=== PATIENT | female | born 1945 | race Caucasian/White ===

== ENCOUNTER → 2019-03-08 | Outpatient (CLI) | payer MEDICARE, SELFPAY ==
[2019-03-08 17:04] LABS: Absolute Lymphocyte Count 1.48 X10^3/ul (0.83-4.51); Absolute Neutrophil Count 4.1 X10^3/uL (2.0-7.7); Basophil# 0.04 X10^3/uL; Basophil% 0.6 % (0-1); Eosinophil# 0.07 X10^3/uL; Eosinophils% 1.1 % (0-5); Hematocrit 41.7 % (37-47); Hemoglobin 13.5 g/dl (12.0-15.0); Lymphocyte # 1.48 X10^3/ul (4.0); Lymphocyte % 23.6 % (19-41); Mean Corp Hgb Conc 32.4 g/gl (32-36); Mean Corpuscular Hgb 29.8 pg (27.0-32.0); Mean Corpuscular Volume 92.1 fL (81-99); Mean Platelet Vol. 11.6 fl (6.2-12.0); Monocyte# 0.56 X10^3/uL; Monocyte% 8.9 % (0-10); Neutrophil # 4.11 X10^3/uL (2.7-7.7); Neutrophil % 65.6 % (47-70); Platelet Count 197 K/mm3 (150-450); RBC Distribution Width CV 12.8 % (11.6-14.6); RBC Distribution Width SD 42.5 fl (35.1-43.9); Red Blood Count 4.53 M/mm3 (4.2-5.4); White Blood Count 6.3 K/mm3 (4.4-11.0)
[2019-03-08 17:05] LABS: POSITIVE COUNT NO; POSITIVE DIFFERENTIAL NO; POSITIVE MORPHOLOGY NO
[2019-03-08 17:12] LABS: Vitamin B12 154 pg/mL (211-911)
[2019-03-08 17:14] LABS: ALB/GLOB Ratio 0.9 RATIO (0.9-2.4); AST(SGOT) 29 U/L (15-37); Alanine Aminotransfer ALT/SGPT 26 U/L (13-56); Albumin, Serum 3.7 g/dL (3.2-5.0); Alkaline Phosphatase 124 U/L (45-117); Anion Gap 6 (5-15); BUN 19 mg/dL (7-18); BUN/Creat Ratio 15.8 RATIO (10-20); Calcium,Total 8.8 mg/dL (8.5-10.1); Chloride 105 mmol/L (98-107); EST Glomerular Filtration Rate 47 mL/min (>60); Est Glom Filt Rate - Afr Amer 57 mL/min (>60); Ferritin 13 ng/mL (8-252); Globulin 4.1 g/dL (2.2-4.2); Glucose 88 mg/dL (74-106); Iron Binding Capacity,Total 316 ug/dL (250-450); Potassium 4.1 mmol/L (3.5-5.1); Protein, Total 7.8 g/dL (6.4-8.2); Sodium Level 139 mmol/L (136-145); Thyroid Stim Hormone (TSH) 1.29 uIU/mL (0.358-3.74)
== END | disposition home or self-care (01) ==
PROVIDERS: Family Provider Family Medicine; PCP Family Medicine; Referring Provider Nurse Practitioner Family; Visit Provider Nurse Practitioner Family
DX: R53.83 Other fatigue (principal)
CPT/HCPCS: 80053; 82607; 82728; 83550; 84443; 85025

== ENCOUNTER → 2019-06-24 | Outpatient (CLI) | payer MEDICARE, SELFPAY ==
[2019-06-24 13:14] LABS: Vitamin B12 219 pg/mL (211-911)
== END | disposition home or self-care (01) ==
LOC: LABSPEC 12:36
PROVIDERS: Family Provider Family Medicine; PCP Family Medicine; Referring Provider Nurse Practitioner Family; Visit Provider Nurse Practitioner Family
DX: E53.8 Deficiency of other specified B group vitamins (principal)
CPT/HCPCS: 82607; 82746

== ENCOUNTER 2019-07-20 08:06 | Day surgery (SDC) | payer MEDICARE, SELFPAY ==
[2019-07-07 09:34] VITALS: BMI 28.5
--- NOTE | 2019-07-07 09:34 | HP_ITS ---
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 Accompanied by: Is patient in pain?: No Allergies acetaminophen [From Vicodin] Allergy (Verified 07/07/19 09:17) Other atorvastatin calcium [From Lipitor] Allergy (Verified 07/07/19 09:17) Other clarithromycin Allergy (Verified 07/07/19 09:17) Nausea/Vom/Diarrhea desloratadine [From Clarinex] Allergy (Verified 07/07/19 09:17) Unknown diphenhydramine HCl [From Triaminic Allergy] Allergy (Verified 07/07/19 09:17) Other guaifenesin [From Entex LA] Allergy (Verified 07/07/19 09:17) Unknown hydrocodone bitartrate [From Vicodin] Allergy (Verified 07/07/19 09:17) Other methylprednisolone Allergy (Verified 07/07/19 09:17) Unknown nystatin Allergy (Verified 07/07/19 09:17) Unknown pentoxifylline Allergy (Verified 07/07/19 09:17) Nausea/Vom/Diarrhea phenylephrine HCl [From Entex LA] Allergy (Verified 07/07/19 09:17) Unknown phenylpropanolamine HCl [From Entex LA] Allergy (Verified 07/07/19 09:17) Unknown sulfamethoxazole [From Bactrim] Allergy (Verified 07/07/19 09:17) Unknown trimethoprim [From Bactrim] Allergy (Verified 07/07/19 09:17) Unknown PFSH Surgical History (Updated 07/07/19 @ 09:13 by Dejah Steve) History of colonoscopy (Acute) Family History (Updated 07/07/19 @ 09:15 by Dejah Steve) Mother Diabetes Heart disease Father Heart disease Sister Diabetes Heart disease Hypertension Social History (Updated 07/07/19 @ 09:34 by Stepan Morgan MD) Smoking Status: Never smoker alcohol intake: never substance use type: does not use additional social history: Uses Ibuprofen prn HPI HPI HPI: FAN CHEEMA, is a 74 F who presents to the office today for HPI HPI Surgical H&P: Yes HPI: FAN CHEEMA, is a 74 F who presents to the office today for surveillance colonoscopy. I have assisted the patient previously. May 04, 2015 Dr. Manuel Woody performed colonoscopy identifying a non-colonoscopically resectable proximal ascending colon polyp. Subsequently on July 12, 2015 I did a laparoscopic right colectomy. 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 The patient then had a follow-up colonoscopy by Dr. Manuel Woody on August 09, 2016. The patient did require 100 mcg of fentanyl and 5 mg of Versed and 25 mg of diphenhydramine. The bowel prep unfortunately was noted to be poor at that time. There were no visualized acute findings. The patient denies bright red blood per rectum or melena. No mucus per stool. No abdominal pain. No unexpected weight loss. Her health has otherwise been stable. ROS General General: No weight change, appetite, fatigue, colon cancer, breast cancer or weakness HEENT HEENT: No difficulty swallowing, eye injury, eye surgery, swollen glands or hoarseness Endo Endocrine: No thyroid disease, diabetes mellitus, thyroid cancer, Hair loss, heat intolerance or cold intolerance Skin Skin: No rash or changing moles Breast Breast: No left breast lump, right breast lump, nipple discharge, breast pain, abnormal mammogram, abnormal US or breast enlargement Musc Musculoskeletal: No back problems, arthritis, rheumatoid arthritis, gout or joint pain Cardio Cardiovascular: No murmur, pacemaker, heart disease, atrial fibrillation, high blood pressure, heart attack, heart stent, palpitations, shortness of breat with exertion or chest pain Psych Psychiatric: Yes anxiety; no depression or hearing voices Resp Respiratory: No shortness of breath, No sleep apnea, No cough, No COPD, No asthma, No emphysema, No wheezing Gastro Gastrointestinal: No abdominal pain, No nausea or vomiting, No diarrhea, No constipation, No blood in stool, No acid reflux, No hemorrhoids, No ulcers, No gallbladder problem, No black,tarry stools Karl Hematologic: No blood thinners, No blood disorders, No bleeding, No anemia, No blood clots Neuro Neurologic: No system reviewed and no additional complaints, except as docu, No as per HPI, No abnormal walking, No abnormal hearing, No abnormal movements, No abnormal speech, No behavioral changes, No burning sensations, No confusion, No seizure-like activity, No unsteadiness, No dizziness, No localized weakness, No frequent falls, No headache(s), No lack of coordination, No loss of vision, No memory loss, No numbness, No other visual disturbances, No radiating pain, No restless legs, No sensory deficit, No fainting, No tingling, No tremor(s), No weakness, No other Exam Const General: cooperative, healthy appearing, comfortable, no acute distress Nutritional Appearance: average body habitus Orientation: alert, awake [facility] Head: normal to inspection Chest Breast Palpation: No nipple discharge Resp Effort & Inspection: normal respiratory effort Auscultation: clear to auscultation bilaterally Cardio Rate: regular rate Rhythm: regular rhythm Heart Sounds: no murmurs GI Palpation: soft, no hepatosplenomegaly Other: Well-healed vertical epigastric incision based upon the umbilicus. Solid intact Skin General: no rashes or lesions noted Neuro Cognition: normal cognition Extrem General: no calf tenderness bilaterally Psych Affect: normal affect Assessment & Plan Problems 1. 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 Her most recent colonoscopy July 2016 was noted to have a poor bowel prep. She did require significant amounts of IV sedation at that time as well. I am recommending to her a colonoscopy with possible biopsy or polypectomy as indicated. I am recommending 2 days of clear liquids and a 2-day bowel prep. I am recommending monitored anesthesia care. She has had an opportunity to ask and have questions answered. We will schedule the procedure at her discretion. CC: Dr. Tomas Morgan, III Stepan Morgan M.D., F.A.C.S. Coding Level of Care Code Off vis,est,level 3 Diagnoses Personal history of colonic polyps Z86.010 07/07/19 0934 <Electronically signed by Stepan chandra MD> Date _ Stepan Morgan MD I have re-examined the patient. There are no clinical changes since date of exam.
[2019-07-20] VITALS (7 sets, daily range): BP systolic 116–156; BP diastolic 51–75; PULSE 70–75; RESP 14–16; TEMP 36.1–36.4; O2SAT 99–100; BMI 28.2
[2019-07-20] MEDS: Lactated Ringers 1,000 ML 100 ML IV (09:14)
--- NOTE | 2019-07-20 09:48 | OP.ENDO_ITS ---
07/20/2019 Tomas Morgan [address] [place] [address] Re : Colonoscopy procedure for Vita Wilder Dear Dr. Morgan This procedure was performed on Saturday, July 20, 2019. My impressions and recommendations are as follows: Impressions : - Non-thrombosed external hemorrhoids, non-thrombosed internal hemorrhoids and internal hemorrhoids that prolapse with straining, but spontaneously regress to the resting position (Grade II) found on digital rectal exam. - Tortuous colon. - Patent functional end-to-end ileo-colonic anastomosis, characterized by healthy appearing mucosa. - The examination was otherwise normal. - No specimens collected. Recommendations : - Discharge patient to home. - Resume previous diet. - Continue present medications. - Repeat colonoscopy in 5 years for surveillance. My findings are described in the full procedure note, which is enclosed. If I can be of further assistance, please feel free to contact me at Doctor phone number(s): Work: . Sincerely, Stepan Morgan MD 07/20/2019 9:48:14 AM This report has been signed electronically.
== END 2019-07-20 11:06 | disposition home or self-care (01) ==
LOC: EN 08:08 → AC 08:09
PROVIDERS: Family Provider Family Medicine; PCP Family Medicine; Referring Provider Family Medicine; Visit Provider Surgery
PROC: 0DJD8ZZ Inspection of Lower Intestinal Tract, Via Natural or Artificial Opening Endoscopic (ICD-10-PCS; CPT 45378; principal; 2019-07-20 09:10)
DX: Z12.11 Encounter for screening for malignant neoplasm of colon (principal); K64.1 Second degree hemorrhoids; K64.4 Residual hemorrhoidal skin tags; Z98.0 Intestinal bypass and anastomosis status; Z85.038 Personal history of other malignant neoplasm of large intestine; Z86.010 Personal history of colon polyps
CPT/HCPCS: G0121; J7120; J2405

== ENCOUNTER → 2019-09-10 13:15 | Outpatient (CLI) | payer MEDICARE, SELFPAY ==
[2019-07-20 08:32] VITALS: BMI 28.2
[2019-09-10 14:16] LABS: Vitamin B12 221 pg/mL (211-911)
== END ==
PROVIDERS: Family Provider Family Medicine; PCP Family Medicine; Referring Provider Nurse Practitioner Family; Visit Provider Nurse Practitioner Family
DX: E53.8 Deficiency of other specified B group vitamins (principal)
CPT/HCPCS: 82607

== ENCOUNTER 2020-07-04 15:42 | Emergency (ER) | payer MEDICARE, SELFPAY ==
[2019-07-20 08:32] VITALS: BMI 28.2
[2020-07-04 15:43] VITALS: BP 149/71; PULSE 67; RESP 15; TEMP 36.7; O2SAT 99; BMI 28.8
--- NOTE | 2020-07-04 15:56 | ED.VIS.GEN ---
History of Present Illness Chief Complaint: Fall Informant: Patient Onset: Days Context: Gradual Onset Timing: Continuous Current Severity: Moderate Maximum Severity: Moderate Narrative: The patient presents to the emergency department 4 days after mechanical fall with persistent headache. The patient is otherwise healthy and on no daily medications. She states that on Friday night, she was trying to make her bed. She states that her legs got stuck in her sheets. She fell, landing on her left knee and then striking the right side of her head against a dresser. She is unsure if she lost consciousness. She states since that time, she has had a strange tingling along the right side of her head. She states sometimes, she will feel nauseated. She denies any vomiting. She is not on anticoagulants. She is also had pain in the left knee since the fall. She is still able to bear weight. Prior similar symptoms: No Recent Illness/Hospitalization: No Past Medical History - Allergies and Home Meds Allergies/Adverse Reactions: Allergies acetaminophen [From Vicodin] Allergy (Verified 07/04/20 15:43) Other FELT LIKE SOMEONE SOCKED HER IN THE STOMACH atorvastatin calcium [From Lipitor] Allergy (Verified 07/04/20 15:43) Other PAIN IN MUSCLES clarithromycin Allergy (Verified 07/04/20 15:43) Nausea/Vom/Diarrhea desloratadine [From Clarinex] Allergy (Verified 07/04/20 15:43) Unknown diphenhydramine HCl [From Triaminic Allergy] Allergy (Verified 07/04/20 15:43) Other HEART RACE guaifenesin [From Entex LA] Allergy (Verified 07/04/20 15:43) Unknown hydrocodone bitartrate [From Vicodin] Allergy (Verified 07/04/20 15:43) Other FELT LIKE SOMEONE SOCKED HER IN THE STOMACH methylprednisolone Allergy (Verified 07/04/20 15:43) Unknown nystatin Allergy (Verified 07/04/20 15:43) Unknown pentoxifylline Allergy (Verified 07/04/20 15:43) Nausea/Vom/Diarrhea phenylephrine HCl [From Entex LA] Allergy (Verified 07/04/20 15:43) Unknown phenylpropanolamine HCl [From Entex LA] Allergy (Verified 07/04/20 15:43) Unknown sulfamethoxazole [From Bactrim] Allergy (Verified 07/04/20 15:43) Unknown trimethoprim [From Bactrim] Allergy (Verified 07/04/20 15:43) Unknown Primary Care Physician: Tomas Morgan III, MD [Primary Care Provider] - Prior records reviewed: Yes Past Medical History: None Surgical History: noncontributory Smoking Status: Never smoker Review of Systems General: Denies: Chills, Fever, Sweats Eyes: Denies: Visual changes - bilaterally, Diplopia ENT: Denies: Rhinorrhea, Sore throat Cardiovascular: Denies: Chest pain, Palpitations Respiratory: Denies: Dyspnea, Cough, Dyspnea on exertion Gastrointestinal: Denies: Abdominal pain, Nausea, Vomiting, Diarrhea, Melena, Hematochezia Genitourinary: Denies: Dysuria, Hematuria, Frequency Musculoskeletal: Denies: Back pain, Extremity Pain Skin: Reports: Wounds. Denies: Rash Neurological: Reports: Headache. Denies: Weakness, Numbness Physical Exam Vital Signs/Narrative: Vital Signs Temp Pulse Resp BP Pulse Ox 07/04/20 15:43 98.1 F 67 15 149/71 H 99 Inital Vital Signs reviewed: Yes General: Well nourished, Well developed, No Acute Distress Head: Normocephalic, Trauma - Abrasion on right forehead with small contusion. No step-off or deformity. Eyes: Perrl, EOMI ENT: Moist mucous membranes, No rhinorrhea Neck: Supple, Nontender Cardiovascular: Regular rate, Regular rhythm, No murmurs Respiratory: No distress, CTA bilaterally, Chest nontender Abdomen: Soft, Nontender, Nondistended, Normal bowel sounds Back: Nontender, Normal Inspection Extremities: No edema, Tenderness - Tender over left patella. Extension preserved. No laxity of the knee. Normal pulses. Skin: Normal color, No rash Neurological: Alert, Oriented x3, Cranial nerves II-XII grossly intact, Normal Strength, Normal Sensation Psychological: Normal affect, Normal Mood Diagnostic/Tx/Re-eval Clinical Impression(s) from Imaging Studies Knee X-Ray 07/04/20 16:00 IMPRESSION: Normal x-ray examination of the knee. Electronically Signed: Kemal Cash MD at 16:22 EDT Tel , Service support , Brain CT 07/04/20 16:09 IMPRESSION: No acute abnormality. 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 Electronically Signed: Kemal Cash MD at 16:35 EDT Tel , Service support , Cervical Spine CT 07/04/20 16:09 IMPRESSION: Normal unenhanced CT examination of the cervical spine. Electronically Signed: Kemal Cash MD at 16:36 EDT Tel , Service support , - Medical Decision Making The patient presents with head injury after fall. She is complaining of some paresthesias of the scalp. She has no evidence of central cord. Reflexes are normal. Pulses are normal. Plain films were obtained of the knee given her pain. These were unremarkable. CT of the head and C-spine were obtained. There was question of early NPH, but the patient really has no other symptoms that fit this. She was counseled on these results and appropriate follow-up. At this point, I do feel that she is safe for outpatient therapy. She is comfortable with this plan of care. Impression 1. Concussion without loss of consciousness 2. Scalp paresthesias 3. Knee contusion-left ED Disposition - Plan for ED Patient: Instructions: ED Concussion, ED Mechanical Fall Referrals: Tomas Morgan III, MD [Primary Care Provider] -
--- NOTE | 2020-07-04 16:00 | RAD_ITS ---
STUDY: X-RAY - LEFT KNEE REASON FOR EXAM: Female, 75 years old. FELL 4 DAYS AGO . PAIN WHEN GOING DOWN STEPS. PAIN IS ANTERIOR JUST BELOW PATELLA. HX OF BROKEN PATELLA 5-6 YEARS AGO TECHNIQUE: 4 view(s) of the knee. COMPARISON: None. FINDINGS: Normal visualized distal femur. Normal visualized proximal tibia and fibula. Normal proximal tibiofibular articulation. Normal medial femorotibial compartment. Normal lateral femorotibial compartment. Normal patellofemoral articulation. The soft tissue structures are unremarkable. RAD/Knee 4 or More Views IMPRESSION: Normal x-ray examination of the knee. Electronically Signed: Kemal Cash MD at 16:22 EDT Tel , Service support ,
--- NOTE | 2020-07-04 16:09 | CT_ITS ---
STUDY: CT BRAIN WITHOUT CONTRAST REASON FOR EXAM: Female, 75 years old. FALL. NUMBNESS WHERE HIT HEAD RADIATION DOSAGE (If Supplied By Facility): CTDIvol = ( 30.44 ) mGy, DLP = ( 1133.51 ) mGycm TECHNIQUE: Transaxial CT imaging of the brain was performed without administration of intravenous contrast material. Individualized dose optimization techniques were used for this CT. COMPARISON: 09/11/2016 FINDINGS: Normal soft tissue structures. Normal calvarium. There is disproportionate enlargement of the lateral and third ventricles, as compared to the extra-axial spaces. The findings suggest normal pressure hydrocephalus (NPH). Normal white matter tracts of the cerebral hemispheres. Normal basal ganglia and thalami. Normal brainstem. Normal cerebellum. There is no intracranial hemorrhage. There are no findings of an acute ischemic infarction. Normal visualized paranasal sinuses. CT/Brain/Head without Contrast IMPRESSION: No acute abnormality. 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 Electronically Signed: Kemal Cash MD at 16:35 EDT Tel , Service support ,
--- NOTE | 2020-07-04 16:09 | CT_ITS ---
STUDY: CT CERVICAL SPINE WITHOUT CONTRAST REASON FOR EXAM: Female, 75 years old. FALL. NUMBNESS WHERE HIT HEAD RADIATION DOSAGE (If Supplied By Facility): CTDIvol = ( 30.44 ) mGy, DLP = ( 1133.51 ) mGycm TECHNIQUE: High resolution transaxial imaging was performed without contrast material. Sagittal and coronal images were reconstructed. Individualized dose optimization techniques were used for this CT. COMPARISON: None FINDINGS: Normal craniovertebral junction. Normal anterior atlantoaxial articulation. Normal odontoid process. Normal cervical lordosis. Normal vertebral bodies and posterior osseous elements. C2-3: Normal endplates. Normal disc height and morphology. Normal central canal and intervertebral neuroforamina. C3-4: Normal endplates. Normal disc height and morphology. Normal central canal and intervertebral neuroforamina. C4-5: Normal endplates. Normal disc height and morphology. Normal central canal and intervertebral neuroforamina. C5-6: Normal endplates. Normal disc height and morphology. Normal central canal and intervertebral neuroforamina. C6-7: Normal endplates. Normal disc height and morphology. Normal central canal and intervertebral neuroforamina. C7-T1: Normal endplates. Normal disc height and morphology. Normal central canal and intervertebral neuroforamina. Normal visualized soft tissue structures. CT/Spine Cervical without Contras IMPRESSION: Normal unenhanced CT examination of the cervical spine. Electronically Signed: Kemal Cash MD at 16:36 EDT Tel , Service support ,
[2020-07-04 17:02] VITALS: PULSE 65; RESP 16; O2SAT 99
== END 2020-07-04 17:03 | disposition home or self-care (01) ==
PROVIDERS: Emergency Provider Emergency Medicine; PCP Family Medicine
DX: S06.0X0A Concussion without loss of consciousness, initial encounter (principal); R20.2 Paresthesia of skin; S80.02XA Contusion of left knee, initial encounter; W18.30XA Fall on same level, unspecified, initial encounter; Y93.E9 Activity, other interior property and clothing maintenance; Y92.003 Bedroom of unspecified non-institutional (private) residence as the place of occurrence of the external cause; Y99.8 Other external cause status
CPT/HCPCS: 70450; 72125; 73564; 99282

== ENCOUNTER → 2021-01-18 | Outpatient (CLI) | payer MEDICARE, SELFPAY ==
[2021-01-18 16:04] LABS: T4 Free Direct 1.14 ng/dL (0.76-1.46); Thyroid Stim Hormone (TSH) 1.28 uIU/mL (0.358-3.74)
== END | disposition home or self-care (01) ==
LOC: LABSPEC 15:18
PROVIDERS: PCP Family Medicine; Referring Provider Nurse Practitioner Family; Visit Provider Nurse Practitioner Family
DX: R53.83 Other fatigue (principal)
CPT/HCPCS: 84439; 84443

== ENCOUNTER → 2022-04-03 | Outpatient (CLI) | payer MEDICARE, SELFPAY ==
[2022-04-03 15:03] LABS: Absolute Lymphocyte Count 1.75 X10^3/uL (0.83-4.51); Absolute Neutrophil Count 4.9 X10^3/uL (2.0-7.7); Basophil# 0.06 X10^3/uL; Basophil% 0.8 % (0-1); Eosinophil# 0.12 X10^3/uL; Eosinophils% 1.6 % (0-5); Hemoglobin 13.8 g/dL (12.0-15.0); Lymphocyte # 1.75 X10^3/ul (0.83-4.51); Lymphocyte % 23.3 % (19-41); Mean Corp Hgb Conc 33.7 g/dL (32-36); Mean Corpuscular Volume 98.1 fL (81-99); Mean Platelet Vol. 10.7 fl (6.2-12.0); Monocyte# 0.62 X10^3/uL; Monocyte% 8.3 % (0-10); NRBC Flagged by Analyzer 0 % (0-5); Neutrophil # 4.92 X10^3/uL (2.7-7.7); Neutrophil % 65.6 % (47-70); Platelet Count 218 K/mm3 (150-450); RBC Distribution Width CV 12.6 % (11.6-14.6); RBC Distribution Width SD 45.3 fl (35.1-43.9); Red Blood Count 4.18 M/mm3 (4.2-5.4); White Blood Count 7.5 K/mm3 (4.4-11.0)
[2022-04-03 15:40] LABS: Red Blood Cells-Urine 0 SEEN /hpf (0-5)
[2022-04-03 15:41] LABS: ALB/GLOB Ratio 1.1 RATIO (0.9-2.4); AST(SGOT) 27 U/L (15-37); Alanine Aminotransfer ALT/SGPT 25 U/L (13-56); Alkaline Phosphatase 116 U/L (45-117); Anion Gap 4 (5-15); BUN 19 mg/dL (7-18); BUN/Creat Ratio 15.7 RATIO (10-20); Calcium,Total 9.3 mg/dL (8.5-10.1); Chloride 105 mmol/L (98-107); Creatinine, Serum 1.21 mg/dL (0.55-1.02); EST Glomerular Filtration Rate 46 mL/min (>60); Est Glom Filt Rate - Afr Amer 56 mL/min (>60); Globulin 3.8 g/dL (2.2-4.2); Glucose 93 mg/dL (74-106); Potassium 4.4 mmol/L (3.5-5.1); Protein, Total 7.8 g/dL (6.4-8.2); Sodium Level 139 mmol/L (136-145)
[2022-04-03 15:42] LABS: Vitamin B12 193 pg/mL (211-911)
[2022-04-03 16:58] LABS: Color, Urine Yellow (Yellow); Glucose, Dipstick Normal (Normal); Ketone-Dipstick Negative (Negative); Leukocyte Esterase-Dipstick 25 /ul (Negative); Nitrite-Dipstick Negative (Negative); Occult Blood-Urine Negative /ul (Negative); Protein-Dipstick Negative (Negative); Urine Bilirubin Dipstick Negative (Negative); Urine Clarity Clear (Clear); Urine Urobilinogen Normal (Normal)
[2022-04-03 17:29] LABS: Bacteria 1+ /hpf (None Seen); Squamous Epithelial Cells - UA 0-5 SEEN /hpf (5-10); White Blood Cells 0-5 SEEN /hpf (0-5)
[2022-04-03 17:30] LABS: Mucous, Urine 1+ /hpf (<or=2+)
== END | disposition home or self-care (01) ==
LOC: BIMLAB 14:37
PROVIDERS: PCP Internal Medicine; Referring Provider Physician Assistant; Visit Provider Physician Assistant
DX: R11.0 Nausea (principal); R42 Dizziness and giddiness; R53.83 Other fatigue; R35.0 Frequency of micturition; E53.8 Deficiency of other specified B group vitamins; E55.9 Vitamin D deficiency, unspecified; Z86.010 Personal history of colon polyps
CPT/HCPCS: 36415; 80053; 81001; 82306; 82607; 85025; 87086; 87088

== ENCOUNTER 2022-06-10 15:55 | Emergency (ER) | payer MEDICARE, SELFPAY ==
[2022-06-10 15:58] VITALS: BP 169/70; PULSE 64; RESP 16; TEMP 36.6; O2SAT 98; BMI 26.6
--- NOTE | 2022-06-10 16:23 | CT_ITS ---
STUDY: CT BRAIN WITHOUT CONTRAST REASON FOR EXAM: Female, 76 years old. Intermittent headache.. Intermittent left arm pain for one week. Left jaw pain beginning last night worsening today. Intermittent chest pain more intense currently. RADIATION DOSAGE (If Supplied By Facility): CTDIvol = ( 44.99 ) mGy, DLP = ( 812.98 ) mGycm TECHNIQUE: Transaxial CT imaging of the brain was performed without administration of intravenous contrast material. Individualized dose optimization techniques were used for this CT. COMPARISON: 07/04/2020 and 09/11/2016. FINDINGS: Normal soft tissue structures. Normal calvarium. There is mild enlargement of the lateral and third ventricles, as compared to the extra-axial spaces.. There are areas of decreased attenuation within the white matter tracts of the supratentorial brain, consistent with microvascular disease changes. Normal basal ganglia and thalami. Normal brainstem. There is mild cerebellar atrophy. There is no intracranial hemorrhage. There are no findings of an acute ischemic infarction. Normal visualized paranasal sinuses. CT/Brain/Head without Contrast IMPRESSION: No acute intracranial or calvarial abnormality. There is persistent ventricular enlargement disproportionate to the extra-axial atrophy. The possibility of NPH cannot be ruled out although the findings are unchanged over a period of nearly 6 years. Electronically Signed: Paddy Martell DO at 17:10 EDT Reading Location ID and State: [address] [place] [address] Tel [phone], Service support ,
--- NOTE | 2022-06-10 16:24 | EKG12_ITS ---
Test Reason : general illness Blood Pressure : / mmHG Vent. Rate : 057 BPM Atrial Rate : 057 BPM P-R Int : 120 ms QRS Dur : 074 ms QT Int : 444 ms P-R-T Axes : 008 065 052 degrees QTc Int : 432 ms Sinus bradycardia Nonspecific ST abnormality Abnormal ECG Confirmed by BRIDGET UGALDE, KRYSTYNA ([id number]), editor dictionary RANGEL HOANG ([id number]) on 06/12/2022 11:19:45 AM Referred By: Mulu Confirmed By:KRYSTYNA GILL MD
--- NOTE | 2022-06-10 16:26 | EX.ED.DYSGE1 ---
HPI History of Present Illness Chief Complaint: General Illness Informant: patient and spouse/S.O. Narrative Narrative: Patient was referred in by her primary doctor due today after she called. Patient has several complaints. The number of complaints and their duration are different than what was mentioned in the triage note. Today she started with pain across the left cheek and at the left TMJ area. She has a history of TMJ. She states she yawned wide and she got sharp pain there. She did not have pain until then. It still sore. She also blew her nose and this aggravated it. She did feel a little stuffy. But has not been having nasal drainage or fever. Unlike the triage note, she absolutely denies any chest pain or pressure at any time to me. With significant questioning and prodding, I am able to get her to state that she has exertional dyspnea. But this is been going on for about 3 years. She states she only gets short of breath if she is walking uphill for a period of time. Even then she does not get chest pain or pressure. She has not had a stress test in many many years. She does have family history of heart disease but no other risks. She also has been getting occasional left arm pain that is not associated with either the other 2 symptoms. This is been going on for months or years. She thought this was due to vitamin B12 deficiency. Therefore she is on vitamin B, vitamin D and calcium supplements for the last 2 months. She takes no other medications. She has no history of heart disease, TIAs, cholesterol diabetes or high blood pressure. Her blood pressure is normally about 1 40-1 45 systolic when she checks at home. [facility] Medical History Bilateral cataracts Personal history of colonic polyps Seasonal allergies Home Medications ibuprofen 200 mg tablet 200 mg PO PRN PRN Headache 07/19/19 [History Last Taken Unknown] diphenhydramine HCl 25 mg capsule (Benadryl) 25 mg PO QHS PRN Allergic Symptoms 06/28/21 [History Last Taken Unknown] prochlorperazine maleate 5 mg tablet (Compazine) 5 mg PO DAILY PRN vertigo #20 tabs 11/19/21 [Rx Last Taken Unknown] calcium carbonate 600 mg calcium (1,500 mg) tablet (Calcium) 600 mg PO BID Calcium #180 tabs 04/04/22 [Rx Last Taken Unknown] cholecalciferol (vitamin D3) 50 mcg (2,000 unit) tablet 50 mcg PO DAILY Vit D #90 tabs 04/04/22 [Rx Last Taken Unknown] cyanocobalamin (vitamin B-12) 1,000 mcg tablet 1,000 mcg PO DAILY B12 #90 tabs 04/04/22 [Rx Last Taken Unknown] Allergy/AdvReac Type Severity Reaction Status Date / Time acetaminophen [From Vicodin] Allergy Other Verified 06/10/22 16:00 atorvastatin calcium Allergy Other Verified 06/10/22 16:00 [From Lipitor] clarithromycin Allergy Nausea/Vom/ Verified 06/10/22 16:00 Diarrhea desloratadine [From Clarinex] Allergy Unknown Verified 06/10/22 16:00 guaifenesin [From Entex LA] Allergy Unknown Verified 06/10/22 16:00 hydrocodone bitartrate Allergy Other Verified 06/10/22 16:00 [From Vicodin] methylprednisolone Allergy Unknown Verified 06/10/22 16:00 nystatin Allergy Unknown Verified 06/10/22 16:00 pentoxifylline Allergy Nausea/Vom/ Verified 06/10/22 16:00 Diarrhea phenylephrine HCl Allergy Unknown Verified 06/10/22 16:00 [From Entex LA] phenylpropanolamine HCl Allergy Unknown Verified 06/10/22 16:00 [From Entex LA] sulfamethoxazole Allergy Unknown Verified 06/10/22 16:00 [From Bactrim] trimethoprim [From Bactrim] Allergy Unknown Verified 06/10/22 16:00 Family History Mother Diabetes Heart disease Father Heart disease Myocardial infarction Sister Diabetes Heart disease Hypertension Surgical History History of bowel resection History of colonoscopy Social History Smoking Status: Never smoker alcohol intake: never substance use type: does not use additional social history: Uses Ibuprofen prn ROS ROS ED Constitutional Constitutional ED: Denies chills, fever(s) or subjective Eyes Eyes: Denies change in vision or diplopia ENT ENT ED: Reports other Details: See history of present illness. Cardiovascular Cardiovascular: Denies chest pain, palpitations or racing heartbeat Respiratory/Chest Respiratory/Chest: Reports dyspnea on exertion; Denies cough or dyspnea Gastrointestinal Gastrointestinal: Denies abdominal pain, nausea or vomiting Genitourinary Genitourinary ED: Denies dysuria Musculoskeletal Musculoskeletal: Reports other Details: Occasional pain diffusely in the left arm but not associated with other symptoms. Not going on now ; Denies back pain, myalgias or neck pain Neurologic Neurologic: Reports headache(s) and other Details: He has had some soreness in the forehead. It is very mild. This is somewhat related to the jaw pain and left facial pain. Not sudden onset. Is not the worst she is ever had. Overall it is rather mild. Psychiatric Psychiatric: Denies anxiety or depression Endocrine Endocrinology: Denies polydipsia or polyuria Hematologic/Lymphatic Hematologic/Lymphatic: Denies easy bleeding or easy bruising Allergic/Immunologic Allergic/Immunologic ED: Denies urticaria EXAM Physical Exam Const Vital Signs: 06/10/22 15:58 06/10/22 16:22 06/10/22 16:28 Temperature 97.8 F Temperature Source Temporal Pulse Rate 64 65 Respiratory Rate 16 16 Respiratory Effort Normal Respiratory Pattern Normal Blood Pressure 169/70 H 183/85 H Blood Pressure Mean 103 117 Pulse Ox 98 98 Oxygen Delivery Method Room Air Room Air 06/10/22 18:14 Temperature Temperature Source Pulse Rate 56 L Respiratory Rate 16 Respiratory Effort Respiratory Pattern Blood Pressure 165/66 H Blood Pressure Mean 99 Pulse Ox 98 Oxygen Delivery Method Room Air Positive well nourished and well developed General Appearance ED: well developed and NAD; Negative for pallor HEENT Reports moist mucous membranes HEENT Narrative: She does have some tenderness of the left TMJ. No sinus tenderness. No swelling. No rashes. No erythema. Eyes PERRL and EOMs intact bilaterally General Eye ED: Negative for pale conjunctiva or scleral icterus Neck no lymphadenopathy and no JVD Chest Wall inspection of chest normal Resp normal respiratory effort and clear to auscultation bilaterally Effort and Inspection: Negative for pain with movement Auscultation: Negative for rales, rhonchi or wheezes Cardio regular rate, regular rhythm and no murmurs GI normal to inspection, nondistended, normoactive bowel sounds and non-tender Palpation: soft Back/Spine no CVA tenderness Extremity normal to inspection General Extremety ED: Negative for edema or tenderness General Extremity: Negative for edema Neuro oriented x3 Psych mental status grossly normal Skin no rashes or lesions noted Skin Narrative: No facial rash. General Skin Exam: Negative for jaundice or pallor MDM MDM MDM Narrative Medical decision making narrative: BC is normal including white count hemoglobin and platelets. Electrolytes show no marked abnormalities. Minimal elevation of the BUN and creatinine. Troponin is negative at 5. CT shows some chronic changes but nothing acute. X-ray shows no acute process. Patient has had years of dyspnea on exertion but has not been having this recently or complaining about this today. This needs to be worked up but I think with negative troponin and no symptoms this can be done as an outpatient. She has had some left facial pain after yawning and sneezing. CT shows no acute process. This may be exacerbation of her chronic TMJ. She is also been having intermittent soreness or cramping in her left arm that has been going on for months or maybe years even. I did do not think this represents acute heart disease. It does not match any other or correlate with other symptoms. I think this is all appropriate for outpatient follow-up. We did discuss reasons to prompt return. Lab Data Attestation: I reviewed the patient's lab results. Labs: Laboratory Results - last 24 hr 06/10/22 06/10/22 16:32 16:32 WBC 8.5 RBC 4.20 Hgb 13.3 Hct 40.0 MCV 95.2 MCH 31.7 MCHC 33.3 RDW Std Deviation 40.2 RDW Coeff of Malgorzata 11.7 Plt Count 209 MPV 10.8 Immature Gran % (Auto) 0.200 Neut % (Auto) 60.9 Lymph % (Auto) 24.0 [place] % (Auto) 12.3 H Eos % (Auto) 1.8 Baso % (Auto) 0.8 Absolute Neuts (auto) 5.2 Absolute Lymphs (auto) 2.03 Nucleated RBC % 0 Sodium 140 Potassium 4.2 Chloride 108 H Carbon Dioxide 27.0 Anion Gap 5 BUN 20 H Creatinine 1.15 H Estim Creat Clear Calc 40.47 Est GFR (MDRD) Af Amer 59 L Est GFR (MDRD) Non-Af 49 L BUN/Creatinine Ratio 17.4 Glucose 109 H Calcium 9.3 Troponin I High Sens 5 Radiography Diagnostic Testing: Clinical Impression(s) from Imaging Studies Brain CT 06/10/22 16:23 IMPRESSION: No acute intracranial or calvarial abnormality. There is persistent ventricular enlargement disproportionate to the extra-axial atrophy. The possibility of NPH cannot be ruled out although the findings are unchanged over a period of nearly 6 years. Electronically Signed: Paddy MartellDO at 17:10 EDT Reading Location ID and State: [facility] / [place] Tel [phone], Service support , Chest X-Ray 06/10/22 16:52 IMPRESSION: No acute cardiopulmonary disease or interval change. Electronically Signed: Paddy MartellDO at 17:28 EDT Reading Location ID and State: [facility] / [place] Tel [phone], Service support , Discharge Plan Triage Chief Complaint: General Illness ED Provider: Wilfred Hardwick Dx/Rx/DC Orders Clinical Impression: TMJ arthralgia, Left arm pain, Exertional dyspnea Instructions: ED Dyspnea, ED TMJ Syndrome Prescriptions: No Action diphenhydramine HCl [Benadryl] 25 mg capsule 25 mg PO QHS PRN (Reason: Allergic Symptoms) ibuprofen 200 MG tablet 200 mg PO PRN PRN (Reason: Headache) prochlorperazine maleate [Compazine] 5 mg tablet 5 mg PO DAILY PRN (Reason: vertigo) Qty: 20 0RF cyanocobalamin (vitamin B-12) 1,000 mcg tablet 1,000 mcg PO DAILY Qty: 90 3RF calcium carbonate [Calcium 600] 600 mg calcium (1,500 mg) tablet 600 mg PO BID Qty: 180 3RF cholecalciferol (vitamin D3) 50 mcg (2,000 unit) tablet 50 mcg PO DAILY Qty: 90 3RF Primary Care Provider: Danna Laird Referrals: Danna Laird MD [Primary Care Provider] - As soon as possible Disposition Disposition: Home, Self Care
[2022-06-10 16:28] VITALS: BP 183/85; PULSE 65; RESP 16; O2SAT 98
[2022-06-10 16:39] LABS: Absolute Lymphocyte Count 2.03 X10^3/uL (0.83-4.51); Absolute Neutrophil Count 5.2 X10^3/uL (2.0-7.7); Basophil# 0.07 X10^3/uL; Basophil% 0.8 % (0-1); Eosinophil# 0.15 X10^3/uL; Eosinophils% 1.8 % (0-5); Hemoglobin 13.3 g/dL (12.0-15.0); Lymphocyte # 2.03 X10^3/ul (0.83-4.51); Mean Corp Hgb Conc 33.3 g/dL (32-36); Mean Corpuscular Hgb 31.7 pg (27.0-32.0); Mean Corpuscular Volume 95.2 fL (81-99); Mean Platelet Vol. 10.8 fl (6.2-12.0); Monocyte# 1.04 X10^3/uL; Monocyte% 12.3 % (0-10); NRBC Flagged by Analyzer 0 % (0-5); Neutrophil # 5.15 X10^3/uL (2.7-7.7); Neutrophil % 60.9 % (47-70); Platelet Count 209 K/mm3 (150-450); RBC Distribution Width CV 11.7 % (11.6-14.6); RBC Distribution Width SD 40.2 fl (35.1-43.9); White Blood Count 8.5 K/mm3 (4.4-11.0)
--- NOTE | 2022-06-10 16:52 | RAD_ITS ---
STUDY: X-RAY CHEST REASON FOR EXAM: Female, 76 years old. Shortness of breath. Intermittent chest and left arm pain for a week. Headache. Left jaw pain beginning last night. TECHNIQUE: Single AP portable view of the chest. COMPARISON: 09/11/2016. FINDINGS: The lungs are clear and expanded. There is no demonstrated pleural abnormality. Normal size heart. Normal mediastinum and bernie. Normal visualized pulmonary arteries. There is atherosclerotic calcification of the aortic arch with tortuosity. Normal visualized thoracic spine. Normal visualized ribs, clavicles, and shoulders. There is no demonstrated abnormality of the visualized soft tissue structures of the upper abdomen. RAD/Chest 1 View (Portable) IMPRESSION: No acute cardiopulmonary disease or interval change. Electronically Signed: Paddy Martell DO at 17:28 EDT ,
[2022-06-10 16:55] LABS: Anion Gap 5 (5-15); BUN 20 mg/dL (7-18); BUN/Creat Ratio 17.4 RATIO (10-20); Calcium,Total 9.3 mg/dL (8.5-10.1); Chloride 108 mmol/L (98-107); Creatinine, Serum 1.15 mg/dL (0.55-1.02); EST Glomerular Filtration Rate 49 mL/min (>60); Est Glom Filt Rate - Afr Amer 59 mL/min (>60); Estimated Creatinine Clearance 40.47 ml/min; Glucose 109 mg/dL (74-106); Potassium 4.2 mmol/L (3.5-5.1); Sodium Level 140 mmol/L (136-145); Troponin-I HS 5 pg/mL (3.0-54.0)
[2022-06-10 18:14] VITALS: BP 165/66; PULSE 56; RESP 16; O2SAT 98
[2022-06-10 18:55] VITALS: BP 155/64; PULSE 56; RESP 14
== END 2022-06-10 19:00 | disposition home or self-care (01) ==
PROVIDERS: Emergency Provider Emergency Medicine; PCP Internal Medicine; Visit Provider Emergency Medicine
DX: M26.622 Arthralgia of left temporomandibular joint (principal); M79.602 Pain in left arm; R06.09 Other forms of dyspnea
CPT/HCPCS: 70450; 71045; 80048; 84484; 85025; 93005; 99284

== ENCOUNTER → 2022-07-05 | Outpatient (CLI) | payer MEDICARE, SELFPAY ==
--- NOTE | 2022-07-05 08:49 | STRESSREP_ITS ---
Stress Test Report Date: 07-05-2022 Procedure: Exercise tolerance test/imaging study Indications: Chest pain; status post COVID-19 Consent: Per the patient Procedure: The patient exercised on a Tj protocol for 3 minutes and 15 seconds completing Stage I and 15 seconds of Stage II achieving a peak heart rate of 127 bpm (88% predicted maximal heart rate) with a peak blood pressure 178/78 mmHg and a peak MET capacity of 5 METs. The baseline ECG demonstrated normal sinus rhythm; subtle nonspecific ST segment abnormality. The peak exercise ECG demonstrated an additional [address] segment depression in leads II, III, aVF, and V4 through V6 with gradual resolution towards baseline in recovery. There were occasional PVCs and rare ventricular couplets during exercise. The functional capacity was considered fair. There was no complaint of chest discomfort during exercise or recovery. The examination was discontinued secondary to dyspnea and fatigue. Impression: 1. Technically adequate (percent predicted maximal heart rate greater than 85%) exercise tolerance test 2. Peak exercise ECG demonstrated an additional [address] segment depression in leads II, III, aVF, and V4 through V6 with gradual resolution towards baseline in recovery 3. There were occasional PVCs and rare ventricular couplets during exercise 4. Nuclear images pending Myocardial perfusion imaging study: Technique: The patient was injected with 11.5 mCi of technetium 99m Cardiolite and subsequently rest SPECT Cardiolite nuclear imaging was obtained in the horizontal long, vertical long, and short axis views. The patient exercised on a Tj protocol for 3 minutes and 15 seconds completing Stage I and 15 seconds of Stage II achieving a peak heart rate of 127 bpm (88% predicted maximal heart rate) with a peak blood pressure 178/78 mmHg and a peak MET capacity of 5 METs. The patient was injected with 34.2 mCi of technetium 99m Cardiolite and subsequently stress SPECT Cardiolite nuclear imaging was obtained in the horizontal long, vertical long, and short axis views. A gated Cardiolite study at peak stress was obtained. Interpretation: Rest and stress SPECT Cardiolite nuclear imaging status post realignment, normalization, and attenuation correction, demonstrates on the preattenuation correction images the appearance of relative uniform tracer uptake and myocardial perfusion appearing within normal limits at rest and status post-rest there is an area of diminished myocardial perfusion/tracer uptake in portions of the distal anterior-lateral segments which status post attenuation correction appears to be less prominent and/or normalized. There is end systolic thickening and brightening. The gated Cardiolite study demonstrates myocardial thickening and inward wall motion. The reported LVEF is 79%. Impression: 1. Rest and stress SPECT Cardiolite nuclear imaging demonstrate myocardial perfusion changes on the preattenuation correction images concerning for an area of stress-induced myocardial ischemia in portions of the distal anterolateral segments which are not appreciated on the post attenuation correction images thus raising a concern of stress-induced myocardial ischemia versus shifting soft tissue attenuation/artifact. 2. The gated Cardiolite study reports an LVEF of 79%. This note was generated with [email or web address] software. It may contain incorrect words, spelling, and punctuation that were not noted in checking the note before signing.
== END | disposition home or self-care (01) ==
PROVIDERS: PCP Internal Medicine; Referring Provider Internal Medicine; Visit Provider Internal Medicine
DX: R06.09 Other forms of dyspnea (principal)
CPT/HCPCS: 78452; 93017; A9500

== ENCOUNTER → 2022-07-25 | Outpatient (CLI) | payer MEDICARE, SELFPAY ==
--- NOTE | 2022-07-25 13:28 | ECHOD_ITS ---
Reason For Study: CHEST PAIN Procedure This was a 2D Doppler, Color Flow transthoracic echocardiogram. The exam was of adequate technical quality. Exam performed in department. Left Ventricle Normal LV size. Left ventricular systolic function is normal. The estimated ejection fraction is 65 %. Diastolic function is indeterminate. No regional wall motion abnormalities noted. Right Ventricle Normal RV size. Normal systolic function. Atria The left atrium is mildly enlarged. Normal right atrium. No doppler evidence for ASD. Mitral Valve There is mild mitral annular calcification. Extension of the mitral annular calcification onto the base of the posterior mitral valve leaflet. Mild (1+) mitral valve insufficiency. Tricuspid Valve Normal tricuspid valve. Moderate (2+) eccentric tricuspid valve insufficiency. Right ventricular systolic pressure estimated to be 41 mmHg. Aortic Valve Trisinus/trileaflet aortic valve. Mild diffuse aortic valve thickening. Pulmonic Valve The pulmonic valve is not well visualized. Trivial pulmonic valve insufficiency. Great Vessels Normal sized aortic root. Pericardium/Pleural No pericardial effusion. MMode/2D Measurements & Calculations LVIDd: 3.9 cm IVSd: 0.92 cm Ao root diam: 2.8 cm LVIDs: 2.9 cm LVPWd: 0.83 cm RVDd: 2.9 cm FS: 25.2 % LAV(MOD-bp): 51.0 ml LVAd ap4: 25.9 cm2 SV(MOD-sp4): 43.8 ml LAV(MOD-bp) Indexed: 26.4 ml/m2 LVLd ap4: 8.0 cm LAV(MOD-sp2): 39.0 ml EDV(MOD-sp4): 68.5 ml LAV(MOD-sp4): 53.9 ml EDV(sp4-el): 71.1 ml LVAs ap4: 12.8 cm2 LVLs ap4: 6.0 cm ESV(MOD-sp4): 24.7 ml ESV(sp4-el): 23.2 ml EF(MOD-sp4): 63.9 % EF(sp4-el): 67.4 % SV(sp4-el): 47.9 ml LA A4 area: 20.3 cm2 LA dimension(2D): 3.3 cm RA A4 area: 18.3 cm2 Time Measurements MV dec time: 0.20 sec Doppler Measurements & Calculations MV E max lei: 75.2 cm/sec Lat Peak E' Lei: 9.4 cm/sec Med Peak E' Lei: 7.5 cm/sec MV A max lei: 77.1 cm/sec E/E' lat: 8.0 E/E' med: 10.1 MV E/A: 0.98 MV V2 max: 77.3 cm/sec Ao V2 max: 153.0 cm/sec MV max P.4 mmHg MV dec slope: 379.1 cm/sec2 Ao max P.4 mmHg MV V2 mean: 45.5 cm/sec Ao V2 mean: 101.9 cm/sec MV mean P.96 mmHg Ao mean P.8 mmHg MV V2 VTI: 34.4 cm Ao V2 VTI: 35.9 cm LV V1 max: 113.2 cm/sec PA V2 max: 101.5 cm/sec TR max lei: 307.3 cm/sec LV V1 max P.1 mmHg PA V2 mean: 72.6 cm/sec TR max P.8 mmHg LV V1 mean P.0 mmHg LV V1 mean: 81.8 cm/sec LV V1 VTI: 29.7 cm ECHO/Echo Complete Interpretation Summary Left ventricular systolic function is normal. The estimated ejection fraction is 65 %. The left atrium is mildly enlarged. There is mild mitral annular calcification. Extension of the mitral annular calcification onto the base of the posterior mi tral valve leaflet. Mild (1+) mitral valve insufficiency. Moderate (2+) eccentric tricuspid valve insufficiency. Mild diffuse aortic valve thickening. Trivial pulmonic valve insufficiency. Right ventricular systolic pressure estimated to be 41 mmHg. Diastolic function is indeterminate. Ordering Physician: Raphael Sanchez Referring Physician: Raphael Sanchez Performed By: Lakeshia Marshall RCS
== END | disposition home or self-care (01) ==
LOC: CVS 13:26
PROVIDERS: PCP Internal Medicine; Referring Provider Internal Medicine Cardiovascular Disease; Visit Provider Internal Medicine Cardiovascular Disease
DX: R07.9 Chest pain, unspecified (principal); R06.09 Other forms of dyspnea; R94.39 Abnormal result of other cardiovascular function study; E78.49 Other hyperlipidemia
CPT/HCPCS: 93306

== ENCOUNTER 2022-08-06 15:34 | Observation (INO) | payer MEDICARE, SELFPAY ==
[2022-07-17 11:27] LABS: Absolute Lymphocyte Count 1.89 X10^3/uL (0.83-4.51); Absolute Neutrophil Count 4.5 X10^3/uL (2.0-7.7); Basophil# 0.05 X10^3/uL; Basophil% 0.7 % (0-1); Eosinophil# 0.18 X10^3/uL; Eosinophils% 2.5 % (0-5); Hematocrit 40.4 % (37-47); Hemoglobin 13.4 g/dL (12.0-15.0); Lymphocyte # 1.89 X10^3/ul (0.83-4.51); Mean Corp Hgb Conc 33.2 g/dL (32-36); Mean Corpuscular Hgb 31.3 pg (27.0-32.0); Mean Corpuscular Volume 94.4 fL (81-99); Mean Platelet Vol. 11.4 fl (6.2-12.0); Monocyte# 0.69 X10^3/uL; Monocyte% 9.5 % (0-10); NRBC Flagged by Analyzer 0 % (0-5); Neutrophil # 4.45 X10^3/uL (2.7-7.7); Platelet Count 208 K/mm3 (150-450); RBC Distribution Width CV 11.8 % (11.6-14.6); RBC Distribution Width SD 40.8 fl (35.1-43.9); Red Blood Count 4.28 M/mm3 (4.2-5.4); White Blood Count 7.3 K/mm3 (4.4-11.0)
[2022-07-17 11:36] LABS: Partial Thromboplast Time 28.1 Seconds (24.1-36.2); Prothrombin Time (Protime)PT. 12.6 SECONDS (11.7-14.9)
[2022-07-17 11:55] LABS: AST(SGOT) 29 U/L (15-37); Alanine Aminotransfer ALT/SGPT 32 U/L (13-56); Albumin, Serum 3.5 g/dL (3.2-5.0); Alkaline Phosphatase 112 U/L (45-117); Anion Gap 4 (5-15); BUN 20 mg/dL (7-18); BUN/Creat Ratio 17.5 RATIO (10-20); Bilirubin, Direct 0.12 mg/dL (0.00-0.30); Calcium,Total 9.4 mg/dL (8.5-10.1); Chloride 107 mmol/L (98-107); Cholesterol 263 mg/dL (200); Creatinine, Serum 1.14 mg/dL (0.55-1.02); EST Glomerular Filtration Rate 49 mL/min (>60); Est Glom Filt Rate - Afr Amer 59 mL/min (>60); Globulin 3.7 g/dL (2.2-4.2); Glucose 94 mg/dL (74-106); High Density Lipoprotein 76 mg/dL; Potassium 4.3 mmol/L (3.5-5.1); Protein, Total 7.2 g/dL (6.4-8.2); Sodium Level 141 mmol/L (136-145); Triglycerides 105 mg/dL; Very Low Density Lipoprotein 21 mg/dL (5-40)
--- NOTE | 2022-08-02 15:38 | PCM.HP.BLA ---
History and Physical Date of Admission: 08/06/22 [facility] [address] [place] [address] OFFICE VISIT Date of Service:? 07/16/22 MR#: [id number] Acct: [id number] Name:? FAN CHEEMA Rep #: [id number] : 1945 ?Provider: Dr. Raphael Sanchez MD Age/Sex:? 77/F Location: [facility] [place].[facility] Status: Signed HPI HPI History of Present Illness Surgical H&P: Yes Details: This is a 77-year-old white female who presents today for outpatient cardiovascular evaluation based upon concerns of exertional chest pressure and shortness of breath/dyspnea compatible with an angina pectoris equivalent with an abnormal stress nuclear imaging study with abnormal ECG component and myocardial perfusion component for further evaluation.? She states for some time now, approximately the last 3 years, she has felt that when she goes up an incline she develops a chest pressure and becomes more short of breath and dyspneic.? She will have to stop and rest.? She notes this can happen with going up stairs if she goes up the stairs more than once.? She does not experience the symptoms at rest or at night.? She has had no orthopnea or PND or ongoing peripheral pitting edema.? There has been no near-syncope or syncope. Based upon her symptoms she underwent evaluation with an exercise tolerance test on 07-05-2022.? The results are noted below.? It was reviewed with her. Today in the office she had an ECG.? She was noted to be in sinus bradycardia with nonspecific ST segment abnormality. She does not recall going through any other cardiovascular studies in the past. She states she believes she has been healthy because she has been active all these years. Intake Vital Signs ? 06/10/2215:58 07/16/2215:02 07/16/2215:05 Height 5 ft 7 in 5 ft 7 in 5 ft 7 in Weight: ? ? 198 lb 2 oz BMI ? ? 31.0 BP ? ? 156/64 H Blood Pressure Location ? ? Lt brachial Position ? ? Sitting Respiration ? ? 16 Pulse ? ? 60 Pulse Source ? ? 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 Accompanied by: Allergies acetaminophen [From Vicodin] Allergy (Verified 07/16/22 15:05) Otheratorvastatin calcium [From Lipitor] Allergy (Verified 07/16/22 15:05) Otherclarithromycin Allergy (Verified 07/16/22 15:05) Nausea/Vom/Diarrheadesloratadine [From Clarinex] Allergy (Verified 07/16/22 15:05) Unknownguaifenesin [From Entex LA] Allergy (Verified 07/16/22 15:05) Unknownhydrocodone bitartrate [From Vicodin] Allergy (Verified 07/16/22 15:05) Othermethylprednisolone Allergy (Verified 07/16/22 15:05) Unknownnystatin Allergy (Verified 07/16/22 15:05) Unknownpentoxifylline Allergy (Verified 07/16/22 15:05) Nausea/Vom/Diarrheaphenylephrine HCl [From Entex LA] Allergy (Verified 07/16/22 15:05) Unknownphenylpropanolamine HCl [From Entex LA] Allergy (Verified 07/16/22 15:05) Unknownsulfamethoxazole [From Bactrim] Allergy (Verified 07/16/22 15:05) Unknowntrimethoprim [From Bactrim] Allergy (Verified 07/16/22 15:05) Unknown Medications ibuprofen 200 mg tablet 200 mg PO PRN PRN Headache 07/19/19 [History Confirmed 07/16/22] diphenhydramine HCl 25 mg capsule (Benadryl) 25 mg PO QHS PRN Allergic Symptoms 06/28/21 [History Confirmed 07/16/22] cholecalciferol (vitamin D3) 50 mcg (2,000 unit) tablet 50 mcg PO DAILY Vit D #90 tabs 04/04/22 [Rx Confirmed 07/16/22] cyanocobalamin (vitamin B-12) 1,000 mcg tablet 1,000 mcg PO DAILY B12 #90 tabs 04/04/22 [Rx Confirmed 07/16/22] aspirin 81 mg tablet,delayed release 81 mg PO DAILY #1 TAB 07/16/22 [Rx Confirmed 07/16/22] PFSH Medical History? Bilateral cataracts Colon cancer Personal history of colonic polyps Seasonal allergies Surgical History? History of bilateral cataract extraction History of bowel resection History of colonoscopy Family History? Mother Diabetes Heart diseaseFather Heart disease Myocardial infarctionSister Diabetes Heart disease HypertensionSister Heart disease Social History? Smoking Status:? Never smoker alcohol intake:? never substance use type:? does not use caffeine:? Yes Type: carbonated beverages Number of servings: 2 and tea Number of servings: 2 additional social history:? Uses Ibuprofen prn ROS Const Const: Positive for fatigue; Negative for weakness, body ache, fever(s), headache(s), chills, frequent falls, night sweats, daytime sleepiness, difficulty sleeping, excessive sweating, weight gain, weight loss, increased appetite, poor appetite, anorexia or other Eyes Eyes: Negative for blurry vision or double vision ENT ENT: Positive for balance problems (slight); Negative for headache(s) or dizziness Cardio Chest Pain: Yes Character: other (pressure) Onset: exercise Location: mid sternal and left chest Duration: minutes (for as long as activity) Relieving: rest Palpitations: No Edema: Bilateral (LE slight) Muscle aches with walking: None Resp Respiratory: Positive for SOB with activity (noted 2 years ago; baseline); Negative for SOB at rest, SOB orthopnea\SOB lying down, Cough, Coughing up blood/hemoptysis, chest congestion, pain on inspiration, snoring, stridor, wheezing, crackles, paroxysmal nocturnal dyspnea or other Musc Musc: Positive for joint pain (bilat shoulder pain into UE) and balance problems (slight); Negative for muscle aches/ myalgia or muscle weakness Neuro Neuro: Positive for lightheadedness (occasional sitting to standing) and vertigo (HX); Negative for dizziness, near syncope, syncope, orthostatic symptoms, frequent falls, headache(s), weakness, confusion, memory loss, restless legs, blurry vision, double vision, seizures, lack of coordination or other Endo Endo: Positive for fatigue; Negative for excessive sweating Cardiology Exam Const Appearance: cooperative, healthy appearing, comfortable, no acute distress, well developed and well groomed Nutritional Appearance: overweight Orientation: alert, awake and oriented x3 Head Head: normal to inspection, normocephalic and atraumatic Ears: hearing grossly normal bilaterally Nose: external nose normal Face and Sinus: face symmetric Eyes Eyelids: eyelids normal Conjunctivae: conjunctivae normal Pupils: PERRL EOM: EOM intact bilaterally Neck Neck: normal visual inspection and full ROM Carotids: normal carotid upstroke Chest Chest inspection: normal inspection of the chest and normal respiratory effort Auscultation: Bilateral: Clear to Auscultation Cardio Palpation: normal PMI Rate: regular rate Rhythm: regular rhythm Heart sounds: S1 normal, S2 normal and murmur Murmur: Grade 1/6, soft, mid systolic and LLSB GI GI: normal to inspection, soft and bowel sounds present Neuro General: patient alert, patient awake, patient oriented x3, gait normal and moves all extremities Skin Skin: no rashes or lesions noted Extremities Pulses: Normal: Right Radial Pulse and Left Radial Pulse Lower Extremity Edema: None: Bilateral Psych Psychological: normal affect Supplemental Info Supplemental Information Stress Test Report Date: 07-05-2022 Procedure: Exercise tolerance test/imaging study Indications: Chest pain; status post COVID-19 Consent: Per the patient Procedure: The patient exercised on a Tj protocol for 3 minutes and 15 seconds completing Stage I and 15 seconds of Stage II achieving a peak heart rate of 127 bpm (88% predicted maximal heart rate) with a peak blood pressure 178/78 mmHg and a peak MET capacity of 5 METs. The baseline ECG demonstrated normal sinus rhythm; subtle nonspecific ST segment abnormality.? The peak exercise ECG demonstrated an additional [address] segment depression in leads II, III, aVF, and V4 through V6 with gradual resolution towards baseline in recovery. There were occasional PVCs and rare ventricular couplets during exercise.? The functional capacity was considered fair. There was no complaint of chest discomfort during exercise or recovery. The examination was discontinued secondary to dyspnea and fatigue. Impression: 1.? Technically adequate (percent predicted maximal heart rate greater than 85%) exercise tolerance test 2.? Peak exercise ECG demonstrated an additional [address] segment depression in leads II, III, aVF, and V4 through V6 with gradual resolution towards baseline in recovery 3.? There were occasional PVCs and rare ventricular couplets during exercise 4.? Nuclear images pending Myocardial perfusion imaging study: Technique: The patient was injected with 11.5 mCi of technetium 99m Cardiolite and subsequently rest SPECT Cardiolite nuclear imaging was obtained in the horizontal long, vertical long, and short axis views. The patient exercised on a Tj protocol for 3 minutes and 15 seconds completing Stage I and 15 seconds of Stage II achieving a peak heart rate of 127 bpm (88% predicted maximal heart rate) with a peak blood pressure 178/78 mmHg and a peak MET capacity of 5 METs. The patient was injected with 34.2 mCi of technetium 99m Cardiolite and subsequently stress SPECT Cardiolite nuclear imaging was obtained in the horizontal long, vertical long, and short axis views.? A gated Cardiolite study at peak stress was obtained. Interpretation: Rest and stress SPECT Cardiolite nuclear imaging status post realignment, normalization, and attenuation correction, demonstrates on the preattenuation correction images the appearance of relative uniform tracer uptake and myocardial perfusion appearing within normal limits at rest and status post-rest there is an area of diminished myocardial perfusion/tracer uptake in portions of the distal anterior-lateral segments which status post attenuation correction appears to be less prominent and/or normalized.? There is end systolic thickening and brightening.? The gated Cardiolite study demonstrates myocardial thickening and inward wall motion.? The reported LVEF is 79%. Impression: 1.? Rest and stress SPECT Cardiolite nuclear imaging demonstrate myocardial perfusion changes on the preattenuation correction images concerning for an area of stress-induced myocardial ischemia in portions of the distal anterolateral segments which are not appreciated on the post attenuation correction images thus raising a concern of stress-induced myocardial ischemia versus shifting soft tissue attenuation/artifact. 2.? The gated Cardiolite study reports an LVEF of 79%. Labs: ?? ? No Data to Display Diagnostics: ?? ? Electrocardiogram ? Stress Test NM ? Stress Test ? Chest X-Ray ? Pulmonary: ?? ? No Data to Display Assessment and Plan Assessment and Plan (1) Abnormal stress test: ?Status:?Acute ?Plan: She does have an abnormal stress test as noted. This does raise concerns about the possibility of CAD and myocardial ischemia. The present time she will initiate medical therapy with aspirin 81 mg p.o. daily. She will also have a transthoracic echocardiogram to assess her left ventricular wall motion and systolic function. She was asked to undergo further evaluation with a diagnostic cardiac catheterization.? The procedure and risk were discussed with her.? She was agreeable to this approach. (2) Chest pain in adult: ?Status:?Acute ?Plan: She does have chest pain and dyspnea on exertion.? It appears this is compatible with an angina pectoris equivalent. She has had no other etiologies to explain her chest discomfort/pressure thus far. She will continue evaluation care as noted. (3) Dyspnea on exertion: ?Status:?Acute ?Plan: She does have dyspnea on exertion. Again from a cardiac standpoint there are concerns this is an angina pectoris equivalent. She will continue with her cardiac evaluation. If her cardiac evaluation is unremarkable then she may need to be considered by pulmonology for further evaluation such as PFTs, etc. (4) Cardiac murmur: ?Status:?Acute ?Plan: On examination she was noted to have a cardiac murmur. This will be further evaluated with a transthoracic cardiogram to evaluate for any significant valvular pathology that would contribute to her symptoms. ? ? ? Orders: Orders 12 Lead EKG performed by [facility] Today R94.39 - Abnormal result of other cardiovascular function study ? Left Heart Cath/COR/LV Percut Today E78.4 - Other hyperlipidemia, R06.09 - Other forms of dyspnea, R07.9 - Chest pain, unspecified, R94.39 - Abnormal result of other cardiovascular function study ? Basic Metabolic Profile (BMP) Today E78.4 - Other hyperlipidemia, R06.09 - Other forms of dyspnea, R07.9 - Chest pain, unspecified, R94.39 - Abnormal result of other cardiovascular function study ? Lipid Profile 1 Day E78.00 - Pure hypercholesterolemia, unspecified, E78.4 - Other hyperlipidemia, R06.09 - Other forms of dyspnea, R07.9 - Chest pain, unspecified, R94.39 - Abnormal result of other cardiovascular function study ? Liver Profile 1 Day E78.00 - Pure hypercholesterolemia, unspecified, E78.4 - Other hyperlipidemia, R06.09 - Other forms of dyspnea, R07.9 - Chest pain, unspecified, R94.39 - Abnormal result of other cardiovascular function study ? Partial Thromboplast Time Today E78.4 - Other hyperlipidemia, R06.09 - Other forms of dyspnea, R07.9 - Chest pain, unspecified, R94.39 - Abnormal result of other cardiovascular function study ? Prothrombin Time w/INR Today E78.4 - Other hyperlipidemia, R06.09 - Other forms of dyspnea, R07.9 - Chest pain, unspecified, R94.39 - Abnormal result of other cardiovascular function study ? Echo Complete Today E78.4 - Other hyperlipidemia, R06.09 - Other forms of dyspnea, R07.9 - Chest pain, unspecified, R94.39 - Abnormal result of other cardiovascular function study ? CBC W/Diff, Automated Today E78.4 - Other hyperlipidemia, R06.09 - Other forms of dyspnea, R07.9 - Chest pain, unspecified, R94.39 - Abnormal result of other cardiovascular function study ? Medications: New aspirin 81 mg? PO DAILY 1 TAB 0RF ? ? Plan Details Additional Comments: She will also have fasting lipid profile to further assess her cardiovascular risks. The above was discussed with her with her present.? She was agreeable to this approach. Thank you for allowing me to participate in the care of your patient.? Please don't hesitate to call if any issues arise. This note was generated using a voice recognition system and there may be incorrect words, spelling or punctuation that were not noted when reviewing the office note prior to saving. COVID (Procedure Consent) Procedure Criteria Procedure Criteria: Yes Elective The surgeon/proceduralist and patient have discussed in detail the risk of exposure to and/or potential harm posed by the COVID-19 virus with having a surgery/procedure at this time versus the risk of? delaying the surgery/procedure. It is not possible to know either the risk of delaying the surgery or procedure or chance of getting an infection with perfect accuracy, but a joint decision was made between the patient and the surgeon/proceduralist ?to proceed at this time with the scheduled surgery/procedure as indicated on the consent form. Coding Level of Care Code Off vis,new,level 5 Diagnoses Abnormal stress test? R94.39 Chest pain in adult? R07.9 Dyspnea on exertion? R06.09 Cardiac murmur? R01.1 Coding Level of Care Code Off vis,new,level 5 Diagnoses Abnormal stress test? R94.39 Chest pain in adult? R07.9 Dyspnea on exertion? R06.09 Cardiac murmur? R01.1 07/16/22 2042 <Electronically signed by Raphael Sanchez MD> Date Raphael Carlos Signature: Date (if applicable) CC:? Dr. Danna Laird MD ~ Assessment & Plan Addt'l Comments Addendum: The patient underwent evaluation with a transthoracic echocardiogram on 07-25-2022. The results are noted below. Interpretation Summary Left ventricular systolic function is normal. The estimated ejection fraction is 65 %. The left atrium is mildly enlarged. There is mild mitral annular calcification. Extension of the mitral annular calcification onto the base of the posterior mitral valve leaflet. Mild (1+) mitral valve insufficiency. Moderate (2+) eccentric tricuspid valve insufficiency. Mild diffuse aortic valve thickening. Trivial pulmonic valve insufficiency. Right ventricular systolic pressure estimated to be 41 mmHg. Diastolic function is indeterminate. The patient presents for evaluation with diagnostic cardiac catheterization. The procedure and risk were discussed with her. She was agreeable to this approach. Addendum: 08-06-2022 I have re-examined the patient. There are no clinical changes since date of exam
[2022-08-05 06:57] VITALS: BMI 31.0
[2022-08-06] VITALS (9 sets, daily range): BP systolic 133–159; BP diastolic 59–79; PULSE 57–62; RESP 16; TEMP 36.4–37.1; O2SAT 98–100
--- NOTE | 2022-08-06 09:45 | CL.D_ITS ---
Patient Name: FAN CHEEMA Study Date: 08/06/2022 Performing: Raphael Sanchez MD Ht: 67 inches 170.18 cm : 1945 Wt: 198 lbs 89.81 kg Age: 77 Gender: female BSA: 2.01 PROCEDURE(S) PERFORMED DC02-([id number])[facility] CLINICAL PROFILE AND INDICATIONS Indications: Suspected CAD Heart Failure: None Stress/Imaging Date: 07/05/2022tress Test with SPECT MPI: Positive Intermediate Risk Angina Classification Anginal Classification w/in 2 Weeks: Anginal Equivalent Dyspnea CAD Presentations: Other: worsening angina CONCLUSIONS Elevated Left Ventricular End Diastolic Pressure [place] Multivessel CAD RECOMMENDATIONS Risk factor modification Medical therapy Referred for immediate PCI Case discussed / reviewed with Dr. Meyers of Interventional Cardiology DESCRIPTION OF PROCEDURE The patient arrived to the procedure lab. The risks and benefits of the procedure as well as a full description of our services here and current unavailability of surgical backup were fully explained to the patient and/or their significant other prior to the catheterization. The Timeout was completed, verifying the correct patient and procedure. The patient's procedural site was prepped and draped in the usual fashion. Local anesthetic was given subcutaneously to right radial region with Lidocaine 2%. Using a modified Seldinger technique, arterial access was obtained via the right radial artery, a 6Fr sheath was inserted. Left Coronary Artery selective angiography was performed in multiple views using a 5 Fr. 4.0 [place] catheter. Right Coronary Artery selective angiography was then performed in multiple views using a 5 Fr. 4.0 [place] catheter. LV to AO pullback pressures were then recorded. CORONARY ANGIOGRAPHY LEFT HEART ASSESSMENT Left Ventricular Ejection Fraction: Not assessed Elevated Left Ventricular End Diastolic Pressure LVEDP: 21 mmHg LEFT MAIN: Angiographically normal LEFT ANTERIOR DESCENDING ARTERY: PROX LAD: Mild luminal irregularities CIRCUMFLEX ARTERY: OM 1: Proximal - Mild luminal irregularities RIGHT CORONARY ARTERY: PROX RCA: 85 % Stenosis, serial: 50 % Stenosis RT PDA: Ostial - 75 % Stenosis COMPLICATIONS PROCEDURE MEDICATIONS Fentanyl 50 mcg IV Versed 1 mg IV Fentanyl 50 mcg IV Versed 1 mg IV Oxygen: 2 L/min via nasal cannula Brilinta 180 mg PO @ 08/06/2022 09:27:55 Heparin given IA 08/06/2022 09:15:24 Verapamil 2.5mg, Ntg 100mcgs, 3000 units of Heparin given IA 08/06/2022 09:15:24 SUMMARY OF HEMODYNAMIC DATA Time AIR REST ECG 07:46:19 AO 142/80 (101) SA 09:18:34 LV 136/1, 20 09:26:57 LV 135/0, 21 09:27:06 LVp 134/7, 23 09:27:18 AOp 140/0 (54) 09:27:25 AO 146/59 (91) 09:28:35 Signed By Raphael Sanchez MD On 08/06/2022 09:44:28 Raphael Sanchez MD
--- NOTE | 2022-08-06 10:23 | CL.I_ITS ---
Patient Name: FAN CHEEMA Study Date: 08/06/2022 Performing: Mando Meyers MD Ht: 67 inches 170.18 cm : 1945 Wt: 198 lbs 89.81 kg Age: 77 Gender: female BSA: 2.01 PROCEDURE(S) PERFORMED IC12-(05198/C9600)JESS W/WO PTCA, SINGLE CORONARY ARTERY CLINICAL PROFILE AND CO-MORBIDITIES Indications: Suspected CAD Heart Failure: None Stress/Imaging Date: 07/05/2022 Stress Test with SPECT MPI: Positive Intermediate Risk Angina Classification Anginal Classification w/in 2 Weeks: Anginal Equivalent Dyspnea CAD Presentations: Other: worsening angina CONCLUSIONS 3.25 mm balloon RECOMMENDATIONS ASA Indefinitley Plavix for at least 12 months DESCRIPTION OF PROCEDURE The patient arrived to the procedure lab. The risks and benefits of the procedure as well as a full description of our services here and current unavailability of surgical backup were fully explained to the patient and/or their significant other prior to the catheterization. The Timeout was completed, verifying the correct patient and procedure. The patient's procedural site was prepped and draped in the usual fashion. Local anesthetic was given subcutaneously to right radial region with Lidocaine 2% Using a modified Seldinger technique,arterial access was obtained via the right radial artery, a 6Fr sheath was inserted. Left Coronary Artery selective angiography was performed in multiple views using a 5 Fr. 4.0 [place] catheter. Right Coronary Artery selective angiography was then performed in multiple views using a 5 Fr. 4.0 [place] catheter. LV to AO pullback pressures were then recorded.The images were reviewed and options discussed. A decision was then made to proceed with an Intervention, IVUS or other adjunct procedure. JR4 Guide catheter was inserted and engaged into the RCA. Runthrough Guide wire was advanced to the RCA. Orsiro 3.0x35 Drug Eluting stent was inserted. Angiogram performed post stent deployment. NC Emerge 3.25x20 Balloon catheter was inserted. Balloon catheter was inserted post stent. Angiogram performed post balloon dilatation. 3.5x8 Emer[place] Balloon catheter was inserted. Balloon catheter was inserted post stent. Angiogram performed post balloon dilatation. The arterial sheath was pulled and a TR Band was applied for hemostasis. 10cc of air INTERVENTION INFORMATION LESION SITE: RCA (Proximal) Lesion Complexity: High/C, lesion length: 33 mm Pre Stenosis: 90 % Pre intervention RG flow: 3 PROCEDURE: Drug Eluting Stent with post dilatation Post Stenosis: 0 % Post intervention RG flow: 3 Lesion Devices: Terumo .014 Runthrough Extra Floppy 180cm straight Cardinal 6 Fr JR4 100cm Guide Catheter [employer]ronik Orsiro Gum [place] MR JESS 3.0x35 Rodríguez Sci NC EMERGE MR 3.25x20 BALLOON Rodríguez Sci EMERGE MR 3.50x08 BALLOON COMPLICATIONS No Complications PROCEDURE MEDICATIONS Fentanyl 50 mcg IV Versed 1 mg IV Fentanyl 50 mcg IV Versed 1 mg IV Oxygen: 2 L/min via nasal cannula Brilinta 180 mg PO @ 08/06/2022 09:27:55 Heparin given IA 08/06/2022 09:15:24 Heparin 7000 unit(s) IV 08/06/2022 09:47:32 Nitro 200 mcg IC 08/06/2022 09:59:30 Verapamil 2.5mg, Ntg 100mcgs, 3000 units of Heparin given IA 08/06/2022 09:15:24 SUMMARY OF HEMODYNAMIC DATA Time AIR REST ECG 07:46:19 AO 142/80 (101) SA 09:18:34 LV 136/1, 20 09:26:57 LV 135/0, 21 09:27:06 LVp 134/7, 23 09:27:18 AOp 140/0 (54) 09:27:25 AO 146/59 (91) 09:28:35 Signed By Mando Meyers MD On 08/06/2022 10:23:18 Mando Meyers MD
[2022-08-06] MEDS: 0.9% Normal Saline 1,000 ML 150 ML IV (11:10)
[2022-08-06] MEDS: Carvedilol 3.125 MG TABLET PO ×2 (11:34→21:10)
--- NOTE | 2022-08-06 11:43 | NURSING ---
Pt with fast spurt of blood immediately following withdrawal of 2 cc air from TR band. 5 cc air reinserted into TR band. Will monitor for next hour and then attempt withdrawal process.
--- NOTE | 2022-08-06 13:41 | EKG12_ITS ---
Test Reason : PCI Blood Pressure : / mmHG Vent. Rate : 054 BPM Atrial Rate : 054 BPM P-R Int : 122 ms QRS Dur : 080 ms QT Int : 476 ms P-R-T Axes : 026 072 069 degrees QTc Int : 451 ms Sinus bradycardia Nonspecific ST abnormality Abnormal ECG Confirmed by BRIDGET UGALDE, RAPHAEL ([id number]), assignment desk editor RANGEL HOANG ([id number]) on 08/08/2022 12:48:36 PM Referred By: Raphael Gill Confirmed By:RAPHAEL GILL MD
--- NOTE | 2022-08-06 14:45 | CRPHASE1_ITS ---
Patient Communication PHII Cardiac Rehab Discussed with Patient:: Yes Guide to Cardiac Rehab Given to Patient:: Yes Cardiac Rehab Facility Choice List Given to Patient:: Yes Choice Program [facility] PHII:: Communication Given to CR Electronic Systems Security Assessment:: [facility] Phase II Cardiac Rehab:: Yes Sessions:: 36 sessions - 3 days/wk, 12 weeks Cardiac Rehabilitation Info Cardiac Rehabilitation Program Information: Cardiac Rehabilitation is important for patients like you who are recovering from a heart problem. Cardiac rehabilitation programs are recognized as integral to the continued care of the patient with coronary heart disease. The cardiac rehabilitation program is designed to optimize a patient's physical, psychological, and social functioning. Health wound care center consultant work in cardiac rehabilitation programs and assist you with getting the treatments you need to get stronger and healthier - like exercise, healthy eating habits, and medications. Cardiac rehabilitation has been show to help people with heart problems live longer and have better life enjoyment than people who do not go to cardiac rehabilitation. Please contact the Cardiac Rehabilitation Program at [facility] at in two weeks if you have not heard from them.
--- NOTE | 2022-08-06 14:46 | CRPH1.INST_ITS ---
General Education CAD and cardiac anatomy and function:: Patient communicates acknowledgment, Family communicates acknowledgment, Needs reinforcement Explanation of diagnoses and procedures:: Patient communicates acknowledgment, Family communicates acknowledgment, Needs reinforcement Sign/Symptoms of HI:: Patient communicates acknowledgment, Family communicates acknowledgment, Needs reinforcement Antiplatelet therapy: Patient communicates acknowledgment, Family communicates acknowledgment, Needs reinforcement Proper use of NTG-SL: Patient communicates acknowledgment, Family communicates acknowledgment, Needs reinforcement Emergency procedures and activation of EMS: Patient communicates acknowledgment, Family communicates acknowledgment, Needs reinforcement Compliance of all prescribed medications: Patient communicates acknowledgment, Family communicates acknowledgment, Needs reinforcement Smoking Patient Nicotine/Smoking Risk Factors Are:: Non-smoker Dyslipidemia Patient Dyslipidemia Risk Factors Are:: Total Cholesterol, Triglycerides, HDL, LDL Recommendations Include:: Lipid profile not available Dyslipidemia Response Code:: Patient communicates acknowledgment, Family communicates acknowledgment, Needs reinforcement Overweight/Obesity Patient Overweight/Obesity Risk Factors Are:: Obesity - > or = 30 Recommendations Include:: Weight loss of 5-10%, Reduced calorie diet, Exercise 5 -7 times/week Overweight/Obesity:: Patient communicates acknowledgment, Family communicates acknowledgment, Needs reinforcement Hypertension Recommendations Include:: Maintain BP <130/85, DASH dietary guidelines, Decrease/maintain normal body weight Hypertension:: Patient communicates acknowledgment, Family communicates acknowledgment, Needs reinforcement Heart Disease Patient Heart Disease Risk Factors Are:: Family history of heart disease < 65 years old, Previous cardiac event Recommendations Include:: Educated family members of their risk, Educated family members of importance of prevention of heart disease Heart Disease Response Code:: Patient communicates acknowledgment, Family communicates acknowledgment, Needs reinforcement Diabetes Patient Diabetes Risk Factors Are:: No documented hx of diabetes Sedentary Patient Sedentary Risk Factors Are:: Lack of regular exercise Recommendations Include:: Aerobic exercise 5-7 times/week for 20-30 minutes continuously, Benefits of regular exercise, Discussed home walking program, Monitored Outpatient Cardiac Rehab Sedentary Response Code:: Patient communicates acknowledgment, Family communicates acknowledgment, Needs reinforcement
[2022-08-06] MEDS: Clopidogrel Bisulfate 300 MG Tablet PO (16:41)
[2022-08-06] MEDS: Acetaminophen 325 MG Tablet 650 MG PO (21:09)
[2022-08-06] MEDS: Pravastatin 40 MG Tablet PO (21:10)
[2022-08-07 03:06] VITALS: PULSE 52
[2022-08-07 03:15] VITALS: BP 102/55; PULSE 55; RESP 16; TEMP 36.6; O2SAT 96
[2022-08-07 06:56] LABS: Absolute Lymphocyte Count 1.68 X10^3/uL (0.83-4.51); Basophil# 0.04 X10^3/uL; Basophil% 0.6 % (0-1); Eosinophil# 0.19 X10^3/uL; Eosinophils% 2.9 % (0-5); Hematocrit 36.1 % (37-47); Hemoglobin 12.4 g/dL (12.0-15.0); Lymphocyte # 1.68 X10^3/ul (0.83-4.51); Lymphocyte % 25.3 % (19-41); Mean Corp Hgb Conc 34.3 g/dL (32-36); Mean Corpuscular Hgb 32.1 pg (27.0-32.0); Mean Corpuscular Volume 93.5 fL (81-99); Mean Platelet Vol. 11.4 fl (6.2-12.0); Monocyte# 0.73 X10^3/uL; NRBC Flagged by Analyzer 0 % (0-5); Neutrophil # 3.97 X10^3/uL (2.7-7.7); Neutrophil % 59.9 % (47-70); Platelet Count 186 K/mm3 (150-450); RBC Distribution Width CV 12.2 % (11.6-14.6); RBC Distribution Width SD 42.4 fl (35.1-43.9); Red Blood Count 3.86 M/mm3 (4.2-5.4); White Blood Count 6.6 K/mm3 (4.4-11.0)
[2022-08-07 07:01] VITALS: PULSE 50
[2022-08-07 07:29] LABS: ALB/GLOB Ratio 0.9 RATIO (0.9-2.4); AST(SGOT) 40 U/L (15-37); Alanine Aminotransfer ALT/SGPT 29 U/L (13-56); Albumin, Serum 3.1 g/dL (3.2-5.0); Alkaline Phosphatase 105 U/L (45-117); Anion Gap 6 (5-15); BUN 14 mg/dL (7-18); BUN/Creat Ratio 12.7 RATIO (10-20); Calcium,Total 8.6 mg/dL (8.5-10.1); Chloride 109 mmol/L (98-107); EST Glomerular Filtration Rate 51 mL/min (>60); Est Glom Filt Rate - Afr Amer 62 mL/min (>60); Estimated Creatinine Clearance 41.65 ml/min; Globulin 3.4 g/dL (2.2-4.2); Glucose 90 mg/dL (74-106); Potassium 4.3 mmol/L (3.5-5.1); Protein, Total 6.5 g/dL (6.4-8.2); Sodium Level 139 mmol/L (136-145)
[2022-08-07 07:46] VITALS: O2SAT 96
[2022-08-07] MEDS: Aspirin E.C. 81 MG Tablet PO (08:29)
[2022-08-07] MEDS: Clopidogrel Bisulfate 75 MG Tablet PO (08:29)
--- NOTE | 2022-08-07 08:57 | DCINST_ITS ---
Discharge Instructions Diet Discharge Diet: Low fat / Low cholesterol Activity Discharge Activity: May Not Drive (x 48 hours), May Shower (Today) and May Take a Tub Bath (in 7 days) May resume sexual activity in: 1-2 weeks Lifting Restrictions: avoid heavy lifting / exertion x 7 days Dressing / Incision Call your doctor if your incision/area has: Continuous Slow Oozing, Sudden Increased Bleeding, Increased Pain/ Swelling, Increased Redness, Foul Smelling Discharge and Swelling at the incision site Call your doctor if you observe: Fever of 101 or Higher, Shortness of breath, Fainting spells, Chest pain, Increased palpitations (irregular heartbeat) and Uncontrolled pain Cleanse incision/area with: Soap & Water Follow Up Care Please Follow Up With: Raphael Sanchez MD When: [facility] to arrange follow up appointment Test Results: Test results from this visit will be discussed in further detail at your follow- up appointment, if applicable. Discharge Plan Admission Admit Date/Time: 08/06/22 15:34 Primary Reason for Your Visit: Abnormal Stress Test; Cardiac Catheterization Attending Provider: Raphael Sanchez Primary Care Provider: Danna Laird Discharge Orders/Prescriptions Prescriptions: New clopidogrel 75 mg Tablet 75 mg PO DAILY Qty: 90 3RF carvedilol 3.125 mg Tablet 3.125 mg PO BID Qty: 60 6RF Continued diphenhydramine HCl [Benadryl] 25 mg capsule 25 mg PO QHS PRN (Reason: Allergic Symptoms) aspirin 81 mg tablet,delayed release (DR/EC) 81 mg PO DAILY Qty: 1 0RF ibuprofen 200 MG tablet 200 mg PO PRN PRN (Reason: Headache) cyanocobalamin (vitamin B-12) 1,000 mcg tablet 1,000 mcg PO DAILY Qty: 90 3RF cholecalciferol (vitamin D3) 50 mcg (2,000 unit) tablet 50 mcg PO DAILY Qty: 90 3RF pravastatin 40 mg tablet 40 mg PO QHS Qty: 30 12RF Referrals / Follow Up: Danna Laird MD [Primary Care Provider] - Raphael Sanchez MD [Med Staff - Active Staff] - Disposition Disposition (needs filled in before D/C Order can be placed): Home, Self Care
--- NOTE | 2022-08-07 09:03 | PCM.DC.SUM ---
Providers Date of Admission: 08/06/22 Date of Discharge: 08/07/22 Primary Care Physician: Dr. Danna Laird MD Reason For Visit: chest pain abn stress Diagnosis Discharge Diagnosis (1) CAD (coronary artery disease): Status: Acute Code(s): I25.10 - Atherosclerotic heart disease of [place] coronary artery without angina pectoris (2) Presence of stent in coronary artery: Status: Acute Code(s): Z95.5 - Presence of coronary angioplasty implant and graft (3) Pure hypercholesterolemia: Status: Acute Code(s): E78.00 - Pure hypercholesterolemia, unspecified Medications at Discharge Home Medications ibuprofen 200 mg tablet 200 mg PO PRN PRN Headache 07/19/19 diphenhydramine HCl 25 mg capsule (Benadryl) 25 mg PO QHS PRN Allergic Symptoms 06/28/21 cholecalciferol (vitamin D3) 50 mcg (2,000 unit) tablet 50 mcg PO DAILY Vit D #90 tabs 04/04/22 cyanocobalamin (vitamin B-12) 1,000 mcg tablet 1,000 mcg PO DAILY B12 #90 tabs 04/04/22 aspirin 81 mg tablet,delayed release 81 mg PO DAILY #1 TAB 07/16/22 pravastatin 40 mg tablet 40 mg PO QHS #30 tabs 07/17/22 carvedilol 3.125 mg tablet 3.125 mg PO BID #60 tabs 08/07/22 clopidogrel 75 mg tablet 75 mg PO DAILY #90 tabs 08/07/22 Hospital Course Operations None Procedures Cardiac catheterization and - (Cardiac Intervention) Summary of Care Provided Minutes Spent on Discharge: 45 Hospital Course: The patient presented to [facility] based on her clinical course and abnormal stress test for diagnostic cardiac catheterization. The cardiac catheterization was performed. The patient was noted to have angiographically significant appearing CAD of the RCA system. She subsequently underwent PTCA/JESS. She was monitored overnight. On this day she appeared to be symptomatically and hemodynamically stable for discharge home for continued outpatient cardiovascular follow-up. Physical Exam Const alert, oriented x3 and no apparent distress General Appearance: cooperative, comfortable, well kempt and well developed HEENT normocephalic, head/scalp atraumatic and hearing grossly normal bilaterally Eyes PERRL, EOMs intact bilaterally, conjunctivae normal and no scleral icterus Neck full ROM, supple and no JVD Chest Chest: symmetrical chest wall rise Resp normal respiratory effort and clear to auscultation bilaterally Cardio regular rate, regular rhythm, S1 normal heart sound and S2 normal heart sound GI normal to inspection, nondistended, normoactive bowel sounds Extremity no pedal edema Peripheral Pulses: Yes radial pulses present right 2+ Skin Skin Narrative: Right radial artery area: Ecchymoses Neuro oriented x3, moves all extremities, no focal motor deficits and no sensory deficits noted Psych mental status grossly normal Weight / BMI Weight Weight: 198 lb Body Mass Index (BMI) 31.0 ABG / Lab / Microbiology Data Result Diagrams: 08/07/22 06:05 08/07/22 06:05 Laboratory: Laboratory Results - last 24 hr 08/07/22 06:05: WBC 6.6, RBC 3.86 L, Hgb 12.4, Hct 36.1 L, MCV 93.5, MCH 32.1 H, MCHC 34.3, RDW Std Deviation 42.4, RDW Coeff of Malgorzata 12.2, Plt Count 186, MPV 11.4, Immature Gran % (Auto) 0.300, Neut % (Auto) 59.9, Lymph % (Auto) 25.3, [place] % (Auto) 11.0 H, Eos % (Auto) 2.9, Baso % (Auto) 0.6, Absolute Neuts (auto) 4.0, Absolute Lymphs (auto) 1.68, Nucleated RBC % 0 08/07/22 06:05: Sodium 139, Potassium 4.3, Chloride 109 H, Carbon Dioxide 24.0, Anion Gap 6, BUN 14, Creatinine 1.10 H, Estim Creat Clear Calc 41.65, Est GFR (MDRD) Af Amer 62, Est GFR (MDRD) Non-Af 51 L, BUN/Creatinine Ratio 12.7, Glucose 90, Calcium 8.6, Total Bilirubin 0.60, AST 40 H, ALT 29, Alkaline Phosphatase 105, Total Protein 6.5, Albumin 3.1 L, Globulin 3.4, Albumin/Globulin Ratio 0.9 D/C Instructions Discharge Diet: Low fat / Low cholesterol May resume sexual activity in: 1-2 weeks Call your doctor if your incision/area has: Continuous Slow Oozing, Sudden Increased Bleeding, Increased Pain/ Swelling, Increased Redness, Foul Smelling Discharge and Swelling at the incision site Call your doctor if you observe: Fever of 101 or Higher, Shortness of breath, Fainting spells, Chest pain, Increased palpitations (irregular heartbeat) and Uncontrolled pain Cleanse incision/area with: Soap & Water Please Follow Up With: Raphael Sanchez MD When: [facility] to arrange follow up appointment Meaningful Use Info Meaningful Use Diagnoses (Choose all that apply): None applicable Discharge Plan Admission Admit Date/Time: 08/06/22 15:34 Primary Reason for Your Visit: Abnormal Stress Test; Cardiac Catheterization Attending Provider: Raphael Sanchez Primary Care Provider: Danna Laird Discharge Orders/Prescriptions Prescriptions: New clopidogrel 75 mg Tablet 75 mg PO DAILY Qty: 90 3RF carvedilol 3.125 mg Tablet 3.125 mg PO BID Qty: 60 6RF Continued diphenhydramine HCl [Benadryl] 25 mg capsule 25 mg PO QHS PRN (Reason: Allergic Symptoms) aspirin 81 mg tablet,delayed release (DR/EC) 81 mg PO DAILY Qty: 1 0RF ibuprofen 200 MG tablet 200 mg PO PRN PRN (Reason: Headache) cyanocobalamin (vitamin B-12) 1,000 mcg tablet 1,000 mcg PO DAILY Qty: 90 3RF cholecalciferol (vitamin D3) 50 mcg (2,000 unit) tablet 50 mcg PO DAILY Qty: 90 3RF pravastatin 40 mg tablet 40 mg PO QHS Qty: 30 12RF Referrals / Follow Up: Danna Laird MD [Primary Care Provider] - Raphael Sanchez MD [Med Staff - Active Staff] - Disposition Disposition (needs filled in before D/C Order can be placed): Home, Self Care
[2022-08-07 09:15] VITALS: BP 132/73; PULSE 55; RESP 18; TEMP 36.4; O2SAT 97
--- NOTE | 2022-08-07 10:16 | PHA.DC.MC ---
Pharmacy Service has performed discharge medication reconciliation and counseling for this patient. 1. CARVEDILOL 3.125MG PO BID 2. CLOPIDOGREL 75MG PO DAILY The patient's discharge medication list was reviewed for discrepancies and discrepancies were resolved. Home Medications ibuprofen 200 mg tablet 200 mg PO PRN PRN Headache 07/19/19 diphenhydramine HCl 25 mg capsule (Benadryl) 25 mg PO QHS PRN Allergic Symptoms 06/28/21 cholecalciferol (vitamin D3) 50 mcg (2,000 unit) tablet 50 mcg PO DAILY Vit D #90 tabs 04/04/22 cyanocobalamin (vitamin B-12) 1,000 mcg tablet 1,000 mcg PO DAILY B12 #90 tabs 04/04/22 aspirin 81 mg tablet,delayed release 81 mg PO DAILY #1 TAB 07/16/22 pravastatin 40 mg tablet 40 mg PO QHS #30 tabs 07/17/22 carvedilol 3.125 mg tablet 3.125 mg PO BID #60 tabs 08/07/22 clopidogrel 75 mg tablet 75 mg PO DAILY #90 tabs 08/07/22 The patient was counseled on the following discharge medications and changes in medications for homegoing were reviewed. The Reason for Use, instructions for use, and potential side effects were reviewed for all new medications. The patient's questions regarding all of their medications were answered. The patient was able to verbally demonstrate an understanding of their discharge medications.
== END 2022-08-07 09:02 | disposition home or self-care (01) ==
LOC: PCU 18:02 → CLSP 08-07 10:51
PROVIDERS: Internal Medicine Cardiovascular Disease; Admitting Provider Internal Medicine Cardiovascular Disease; PCP Internal Medicine; Referring Provider Internal Medicine Cardiovascular Disease; Visit Provider Internal Medicine Cardiovascular Disease
DX: I25.10 Atherosclerotic heart disease of native coronary artery without angina pectoris (principal); I49.3 Ventricular premature depolarization; R01.1 Cardiac murmur, unspecified; E78.00 Pure hypercholesterolemia, unspecified; R94.39 Abnormal result of other cardiovascular function study; Z79.899 Other long term (current) drug therapy; Z79.82 Long term (current) use of aspirin; Z79.02 Long term (current) use of antithrombotics/antiplatelets; Z86.16 Personal history of COVID-19; R06.09 Other forms of dyspnea
CPT/HCPCS: 36415; 80048; 80053; 80061; 80076; 85025; 85610; 85730; 92928; 93005; 93454; 96360; 96361; 99152; 99153; 99218; C1874; J7030; Q9967; C1725; C1769; C1887; C1894; C9600; G0378

== ENCOUNTER → 2022-08-13 | Outpatient (CLI) | payer MEDICARE, SELFPAY ==
--- NOTE | 2022-08-13 14:26 | ADUUE_ITS ---
Reason For Study: pain to right radial S/P cath RIGHT Radial Art wrist .19 x .22 cm. Radial Art wrist 132.6 cm/s. Radial Art mid .24 x .26 cm. Radilal Art mid 127.1 cm/s. Radial Art prox .29 x .27 cm. Radial Art prox 130.6 cm/s. Radial Vein is compressible. Brachial Art .42 x .43 cm. Brachial Art 123.3 cm/s. Ulnar Art .12 x .15 cm. Ulnar Art 101.4 cm/s. VL/US Art Duplex Unilat UP Extrem Interpretation Summary Right radial, ulnar, brachial arteries patent with no evidence of pseudoaneurys m. Right radial vein patent, compressible with no evidence of deep vein thrombosis Ordering Physician: Raphael Sanchez Performed By: Jeyson Huber RVT
== END | disposition home or self-care (01) ==
LOC: CVS 14:26
PROVIDERS: PCP Internal Medicine; Referring Provider Internal Medicine Cardiovascular Disease; Visit Provider Internal Medicine Cardiovascular Disease
DX: R09.89 Other specified symptoms and signs involving the circulatory and respiratory systems (principal)
CPT/HCPCS: 93931

== ENCOUNTER 2022-08-19 16:59 | Emergency (ER) | payer MEDICARE, SELFPAY ==
[2022-08-19 17:02] VITALS: BP 174/73; PULSE 64; RESP 18; TEMP 36.6; O2SAT 99; BMI 29.2
--- NOTE | 2022-08-19 17:26 | EKG12_ITS ---
Test Reason : Blood Pressure : / mmHG Vent. Rate : 054 BPM Atrial Rate : 054 BPM P-R Int : 128 ms QRS Dur : 088 ms QT Int : 452 ms P-R-T Axes : -01 077 066 degrees QTc Int : 428 ms Sinus bradycardia Nonspecific ST abnormality Abnormal ECG Confirmed by BRIDGET UGALDE, KRYSTYNA ([id number]), map editor RANGEL HOANG ([id number]) on 08/21/2022 9:29:16 AM Referred By: RORO Confirmed By:KRYSTYNA GILL MD
--- NOTE | 2022-08-19 17:50 | RAD_ITS ---
STUDY: X-RAY CHEST REASON FOR EXAM: Female, 77 years old. Chest pain TECHNIQUE: Single AP portable view of the chest. COMPARISON: June 10, 2022 FINDINGS: The lungs are clear and expanded. There is no demonstrated pleural abnormality. Normal size heart. Normal mediastinum and bernie. Normal visualized pulmonary arteries. There is atherosclerotic calcification of the aortic arch . Normal visualized thoracic spine. There is sclerosis of the left humeral head. There is no demonstrated abnormality of the visualized soft tissue structures of the upper abdomen. RAD/Chest 1 View (Portable) IMPRESSION: Degenerative changes, as described above. No demonstrated acute cardiopulmonary process. Electronically Signed: Bahman Weiss MD at 18:19 EDT ,
--- NOTE | 2022-08-19 17:50 | EX.ED.DYSGE1 ---
HPI History of Present Illness Chief Complaint: Dizziness Narrative Narrative: 77-year-old female presenting with vertiginous dizziness. She has a history of this and was treated for vertigo in the past. She states that she called her physician's office to be treated for her vertigo and was sent to the emergency room. She states she recently had a cardiac stent placed. She is on aspirin and Plavix. She denies black or bloody stools. She denies chest pain, shortness of breath. No fevers or chills. Patient states this is typical of her vertigo symptoms. She had nausea and dizziness all day. She states it is difficult to ambulate at times. She has not vomited. She reports he was eating and drinking normally for today. [facility] Medical History Atherosclerotic heart disease of [place] coronary artery without angina pectoris Bilateral cataracts Colon cancer Decreased radial pulse Personal history of colonic polyps Pure hypercholesterolemia Seasonal allergies Home Medications ibuprofen 200 mg tablet 200 mg PO PRN PRN Headache 07/19/19 [History Last Taken Unknown] diphenhydramine HCl 25 mg capsule (Benadryl) 25 mg PO QHS PRN Allergic Symptoms 06/28/21 [History Last Taken Unknown] cholecalciferol (vitamin D3) 50 mcg (2,000 unit) tablet 50 mcg PO DAILY Vit D #90 tabs 04/04/22 [Rx Last Taken Unknown] cyanocobalamin (vitamin B-12) 1,000 mcg tablet 1,000 mcg PO DAILY B12 #90 tabs 04/04/22 [Rx Last Taken Unknown] aspirin 81 mg tablet,delayed release 81 mg PO DAILY #1 TAB 07/16/22 [Rx Last Taken 08/06/22] pravastatin 40 mg tablet 40 mg PO QHS #30 tabs 07/17/22 [Rx Last Taken Unknown] carvedilol 3.125 mg tablet 3.125 mg PO BID #60 tabs 08/07/22 [Rx Last Taken Unknown] clopidogrel 75 mg tablet 75 mg PO DAILY #90 tabs 08/07/22 [Rx Last Taken Unknown] meclizine 25 mg tablet 25 mg PO TID #30 tabs 08/19/22 [Rx Last Taken Unknown] Allergy/AdvReac Type Severity Reaction Status Date / Time atorvastatin calcium Allergy myalgias Verified 08/19/22 17:01 [From Lipitor] clarithromycin Allergy Nausea/Vom/ Verified 08/19/22 17:01 Diarrhea desloratadine [From Clarinex] Allergy Unknown Verified 08/19/22 17:01 guaifenesin [From Entex LA] Allergy Unknown Verified 08/19/22 17:01 hydrocodone bitartrate Allergy Other Verified 08/19/22 17:01 [From Vicodin] methylprednisolone Allergy Unknown Verified 08/19/22 17:01 nystatin Allergy Unknown Verified 08/19/22 17:01 pentoxifylline Allergy Nausea/Vom/ Verified 08/19/22 17:01 Diarrhea phenylephrine HCl Allergy Unknown Verified 08/19/22 17:01 [From Entex LA] phenylpropanolamine HCl Allergy Unknown Verified 08/19/22 17:01 [From Entex LA] sulfamethoxazole Allergy Unknown Verified 08/19/22 17:01 [From Bactrim] trimethoprim [From Bactrim] Allergy Unknown Verified 08/19/22 17:01 Family History Mother Diabetes Heart disease Father Heart disease Myocardial infarction Sister Diabetes Heart disease Hypertension Sister Heart disease Surgical History History of bilateral cataract extraction History of bowel resection History of colonoscopy Presence of coronary angioplasty implant and graft (~08/06/22) Presence of stent in coronary artery (~08/06/22) Social History Smoking Status: Never smoker alcohol intake: never substance use type: does not use caffeine: Yes Type: carbonated beverages Number of servings: 2 and tea Number of servings: 2 additional social history: Uses Ibuprofen prn ROS ROS ED Constitutional Constitutional ED: Denies chills or fever(s) Eyes Eyes: Denies blurry vision or change in vision ENT ENT ED: Denies rhinorrhea Cardiovascular Cardiovascular: Denies chest pain or palpitations Respiratory/Chest Respiratory/Chest: Denies cough or dyspnea Gastrointestinal Gastrointestinal: Reports nausea; Denies abdominal pain or vomiting Genitourinary Genitourinary ED: Denies dysuria or hematuria Musculoskeletal Musculoskeletal: Denies arthralgias Integumentary Denies abscess or Abrasions Neurologic Neurologic: Reports other Details: Dizziness ; Denies headache(s) EXAM Physical Exam Const Vital Signs: 08/19/22 17:02 08/19/22 17:52 08/19/22 17:52 Temperature 97.9 F Temperature Source Temporal Pulse Rate 64 Respiratory Rate 18 Respiratory Effort Normal Non-Labored Respiratory Pattern Normal Blood Pressure 174/73 H Blood Pressure Mean 106 Pulse Ox 99 Oxygen Delivery Method Room Air Room Air 08/19/22 19:00 Temperature Temperature Source Pulse Rate 55 L Respiratory Rate 16 Respiratory Effort Respiratory Pattern Blood Pressure 151/62 H Blood Pressure Mean 91 Pulse Ox 98 Oxygen Delivery Method Room Air Positive well nourished General Appearance ED: NAD; Negative for pallor HEENT Reports moist mucous membranes Eyes PERRL and EOMs intact bilaterally Eyes Narrative: Positive [place] General Eye ED: Negative for pale conjunctiva or scleral icterus Neck no lymphadenopathy Chest Wall inspection of chest normal Resp normal respiratory effort and clear to auscultation bilaterally Cardio regular rate GI normal to inspection, nondistended, normoactive bowel sounds Neuro oriented x3 and CN's II-XII intact bilaterally Sensorium / Orientation: alert Motor Exam: strength 5/5 throughout Psych mental status grossly normal Skin no rashes or lesions noted and no wounds General Skin Exam: Negative for jaundice or pallor MDM MDM MDM Narrative Medical decision making narrative: Patient presenting with reproducible vertiginous symptoms. She is not have any chest pain or shortness of breath. She otherwise well-appearing. CBC and BMP are within normal limits. High-sensitivity troponin is 20. EKG was obtained which on my interpretation shows a sinus bradycardia with a ventricular rate of 54 bpm without sign of ischemic change or dysrhythmia. Chest x-ray on my interpretation shows no acute cardiopulmonary process and radiologist agree. Patient was initially treated with meclizine on reevaluation at 750 she feels much better. Patient will be given a prescription for meclizine at home. 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 Impression: 1. Benign positional vertigo 2. History of cardiac stent 3. Nausea Lab Data Labs: Laboratory Results - last 24 hr 08/19/22 08/19/22 17:40 17:40 WBC 7.6 RBC 4.23 Hgb 13.3 Hct 39.8 MCV 94.1 MCH 31.4 MCHC 33.4 RDW Std Deviation 42.6 RDW Coeff of Malgorzata 12.3 Plt Count 204 MPV 10.6 Immature Gran % (Auto) 0.300 Neut % (Auto) 61.5 Lymph % (Auto) 24.1 [place] % (Auto) 12.0 H Eos % (Auto) 1.3 Baso % (Auto) 0.8 Absolute Neuts (auto) 4.7 Absolute Lymphs (auto) 1.84 Nucleated RBC % 0 Sodium 140 Potassium 4.0 Chloride 106 Carbon Dioxide 27.0 Anion Gap 7 BUN 15 Creatinine 1.07 H Estim Creat Clear Calc 42.82 Est GFR (MDRD) Af Amer 64 Est GFR (MDRD) Non-Af 53 L BUN/Creatinine Ratio 14.0 Glucose 91 Calcium 9.6 Troponin I High Sens 22 Radiography Diagnostic Testing: Clinical Impression(s) from Imaging Studies Chest X-Ray 08/19/22 17:50 IMPRESSION: Degenerative changes, as described above. No demonstrated acute cardiopulmonary process. Electronically Signed: Bahman Weiss MD at 18:19 EDT Reading Location ID and State: [address] [place] [address] , Service support , Discharge Plan Triage Chief Complaint: Dizziness ED Provider: Hero Crabtree Dx/Rx/DC Orders Instructions: ED BPV Vertigo Prescriptions: New meclizine 25 mg tablet 25 mg PO TID Qty: 30 0RF No Action diphenhydramine HCl [Benadryl] 25 mg capsule 25 mg PO QHS PRN (Reason: Allergic Symptoms) aspirin 81 mg tablet,delayed release (DR/EC) 81 mg PO DAILY Qty: 1 0RF ibuprofen 200 MG tablet 200 mg PO PRN PRN (Reason: Headache) clopidogrel 75 mg Tablet 75 mg PO DAILY Qty: 90 3RF carvedilol 3.125 mg Tablet 3.125 mg PO BID Qty: 60 6RF cyanocobalamin (vitamin B-12) 1,000 mcg tablet 1,000 mcg PO DAILY Qty: 90 3RF cholecalciferol (vitamin D3) 50 mcg (2,000 unit) tablet 50 mcg PO DAILY Qty: 90 3RF pravastatin 40 mg tablet 40 mg PO QHS Qty: 30 12RF Primary Care Provider: Danna Laird Referrals: Danna Laird MD [Primary Care Provider] - Disposition Disposition: Home, Self Care
[2022-08-19] MEDS: Meclizine HCl 25 MG Tablet PO (17:56)
[2022-08-19 18:00] LABS: Absolute Lymphocyte Count 1.84 X10^3/uL (0.83-4.51); Absolute Neutrophil Count 4.7 X10^3/uL (2.0-7.7); Basophil# 0.06 X10^3/uL; Basophil% 0.8 % (0-1); Eosinophils% 1.3 % (0-5); Hematocrit 39.8 % (37-47); Hemoglobin 13.3 g/dL (12.0-15.0); Lymphocyte # 1.84 X10^3/ul (0.83-4.51); Lymphocyte % 24.1 % (19-41); Mean Corp Hgb Conc 33.4 g/dL (32-36); Mean Corpuscular Hgb 31.4 pg (27.0-32.0); Mean Corpuscular Volume 94.1 fL (81-99); Mean Platelet Vol. 10.6 fl (6.2-12.0); Monocyte# 0.92 X10^3/uL; NRBC Flagged by Analyzer 0 % (0-5); Neutrophil % 61.5 % (47-70); Platelet Count 204 K/mm3 (150-450); RBC Distribution Width CV 12.3 % (11.6-14.6); RBC Distribution Width SD 42.6 fl (35.1-43.9); Red Blood Count 4.23 M/mm3 (4.2-5.4); White Blood Count 7.6 K/mm3 (4.4-11.0)
[2022-08-19 18:16] LABS: Anion Gap 7 (5-15); BUN 15 mg/dL (7-18); Calcium,Total 9.6 mg/dL (8.5-10.1); Chloride 106 mmol/L (98-107); Creatinine, Serum 1.07 mg/dL (0.55-1.02); EST Glomerular Filtration Rate 53 mL/min (>60); Est Glom Filt Rate - Afr Amer 64 mL/min (>60); Estimated Creatinine Clearance 42.82 ml/min; Glucose 91 mg/dL (74-106); Sodium Level 140 mmol/L (136-145); Troponin-I HS (w/2H Reflex) 22 pg/mL (3.0-54.0)
[2022-08-19 19:00] VITALS: BP 151/62; PULSE 55; RESP 16; O2SAT 98
[2022-08-19 19:51] LABS: Reflex Troponin-HS? (from REC) Y
[2022-08-19 19:58] VITALS: BP 134/57; PULSE 62; RESP 16; TEMP 36.9; O2SAT 100
== END 2022-08-19 20:05 | disposition home or self-care (01) ==
PROVIDERS: Emergency Provider Student in an Organized Health Care Education/Training Program; PCP Internal Medicine; Visit Provider Student in an Organized Health Care Education/Training Program
DX: R42 Dizziness and giddiness (principal); R00.1 Bradycardia, unspecified; I25.10 Atherosclerotic heart disease of native coronary artery without angina pectoris; E78.00 Pure hypercholesterolemia, unspecified; Z95.5 Presence of coronary angioplasty implant and graft
CPT/HCPCS: 71045; 80048; 84484; 85025; 93005; 99285; A4216

== ENCOUNTER → 2022-09-09 | Outpatient (CLI) | payer MEDICARE, SELFPAY ==
--- NOTE | 2022-09-09 10:55 | VDLE_ITS ---
Reason For Study: LEG PAIN RIGHT LEFT GSV is normal. CFV is compressible, spontaneous, phasic, CFV is compressible, spontaneous, phasic, competent, and demonstrates normal competent and demonstrates normal augmentation. augmentation. FV is compressible, spontaneous, phasic, competent and demonstrates normal augmentation. POP V is compressible, spontaneous, phasic, competent and demonstrates normal augmentation. T/P Trunk is compressible. PTV is compressible. RT PerV is compressible. Procedure This is a venous duplex using B-mode, color flow and spectral Doppler. Exam performed in department. The exam was diagnostic. A preliminary report was called and/or faxed to Dr. Laird. VL/Venous Duplex US, Unilateral Interpretation Summary There is no evidence of right lower extremity deep vein thrombosis. Right great saphenous vein appears patent and compressible segmentally. Normal flow patterns left common f emoral vein Ordering Physician: Danna Laird Referring Physician: Danna Laird M.D. Performed By: Sander Rubin RVT
== END | disposition home or self-care (01) ==
PROVIDERS: PCP Internal Medicine; Visit Provider Internal Medicine
DX: M79.661 Pain in right lower leg (principal)
CPT/HCPCS: 93971

== ENCOUNTER → 2022-09-11 | Outpatient (CLI) | payer MEDICARE, SELFPAY ==
--- NOTE | 2022-09-11 08:00 | PCM.CR.ITP ---
Diagnosis - General Information Admitting Diagnosis: PCI w/coronary stenting, Abnormal Imaging Stress Test. Secondary Diagnosis: COVID-19 (2020), HTN, Hypercholesterolemia Barriers to Learning: Vision Impairment Stage of change r/t lifestyle modifications:: Action Gave educational material for:: Treating Heart Disease, Emotions & Heart Disease, Stress Management & Relaxation, Sleep Disorders & Heart Disease, How The Heart Works, What it means to have Heart Disease, How Coronary Artery Disease is Diagnosed, Heart Procedures, What Heart Medications Do, Risk Factors & Modifications, Living an Active Life, Nutrition - Education/Goals Individual Counseling: Initial Assessment: Abnormal Cholesterol Levels, High Blood Pressure, Overweight/Obesity Cardiac Rehabilitation Goals: 1. Maintain the individual as the primary focus of care. 2. To improve the patient's quality of life. 3. Identification of cardiac risk factors and provide cardiac risk factor management. 4. Enhance the psychosocial status of the patient. 5. Reconditioning enough to allow the patient to resume customary activities. 6. Control symptoms of cardiac disease Personal Goals: Initial Assessment: Improve management of stress and emotions, Improve energy level, Participate in home exercise program, Get back to work, or to resume activities faster, Improve knowledge of cardiac disease, Improve muscle strength and endurance, Improve diet and eating habits (eat healthier), Control risk factors (learn risk factor modification) Scale for measuring improvement of personal goals: Enter appropriate number in Comments. 2 = Unchanged. 3 = Slightly Better. 4 = Moderate Improvement. 5 = Met my Goal - Diagnosis & Disease Process Outcomes/Goals: Pt IDs own risk factors & lifestyle modifications by Session 10, Verbalizes symptoms of angina & response by session 3., Pt independently manages Plan/Interventions: Assist Pt to ID & engage in lifestyle modification to reduce CVD risk, Instruct on individual risk factors, Review symptoms of angina & emergency actions, Review secondary diagnosis & identify educational needs. - Safety Referral to Physical Therapy: No Referral to [facility] Case Management: No Fall Risk Assessed:: Yes Assistive Devices:: None Exercise - Initial Assessment - Visit Date of Eval: 09/11/22 Session #:: 0 - Pre-Cardiac Rehab Evaluation Mets: Pre-: >7 METS for 30 minutes by discharge - Stress Test Date: 07/05/22 Protocol:: Tj Resting HR (bpm):: 68 Maximum HR (bpm):: 123 Blood Pressure: 158/80 Maximum Blood Pressure: 178/78 MET LEVEL:: 5.20 EKG: NSR to sinus tach with ST Depression, THR achieved. - Physician Prescribed Exercise Modalities: Treadmill, Airdyne, NuStep Frequency: 3x/week for 12 weeks [36 sessions] Intensity: 60-80% maximum heart rate reserve from GXT Current METSs:: 4.0 Target Heart Rate:: 97-127 Maximum Excercise HR:: 127 on stress test Resting Blood Pressure: 158/80 - day of stress test Maximum Exercise Blood Pressure: 178/78 - day of stress test EKG Type: Sinus Bradycardia - Outcomes & Goals Goals:: Verbalizes understanding of THR, RPE & goal METS by session 6, Documents in home exercise log/reports 30 min aerobic 5 day/wk by DC, Demonstrates accurate pulse taking by DC - Intervention & Plan Exercise Program Goals: Instruct on personal THR & RPE, Instruct on MET level & personal MET goal, Show patient to take own pulse /validate performance until accurate, Instruct on home exercise - Physical Activity Home Exercise Physical Activity - Home Exercise: Safe Exercise, Warm-up, Self-monitoring, Cool-Down, Home Exercise > 30 min Daily, Sitting Time <3 hours/daily - Outcomes & Goals Outcomes/Goals: Demonstrates correct Warm-up/exercise Cool-Down (S3) if = 2.5 METs, Verbalizes symptoms of exercise intolerance by Session 3 (S3), Demonstrate safe equipment use (S3) & follows exercise prescrition (6) - Intervention & Plan Plan/Intervention: Instruct warm-up & cool-down if exercising at > 2 METs, Instruct on symptoms of exercise intolerance & actions to take, Instruct & monitor on saf, Assess intial functional capacity & safety risk Nutrition - Initial Assessment - Program Goals Nutrition Program Goals: LDL <100 optimal. 100 - 129 Near optimal. 130 - 159 Borderline High. 160 - 189 High. Total Cholesterol <200 desirable. 200 - 239 Borderline High. >/= 240 High. HDL < 40 Low >/=60 High. Triglycerides <150 desirable. <199 optimal. VlDL 5 - 40. HgbA1C <7%. BMI <25 Patient has diagnosis of Hyperlipidemia (ICD E78)?: Yes - Visit Date of Assessment:: 09/11/22 Session #:: 0 - Pre-Cardiac Rehab Evaluation - Cholesterol/Lipids (Other Core Measures) Triglycerides (mg/dL): 105 - 07/17/2022 Total Cholesterol (mg/dL): 263 LDL Cholesterol (mg/dL): 166 HDL Cholesterol (mg/dL): 76 Determine presence & major risk factors that modify LDL goal: Hypertension or hypertensive medication, Age men > 45 years; women >/= 55 years Outcomes/Goals: Pt IDs own risk factors & lifestyle modifications by Session 10, Verbalizes symptoms of angina & response by session 3., Pt independently manages Intervention/Plan: Instruct on personal lipid levels & lipid goals/NCEP guidelines, Instruct on cholesterol Referral to dietitian:: Yes - Medical Nutrition Therapy - Diabetes (Other Core Measures) Diabetes Type: Not Applicable - Weight Mgt (Other Care) Not Applicable: No Height: 5 ft 7 in Weight:: 199 lb BMI: 31.1 Diagnosis Overweight/Obesity BMI> 30% ICD-10 E66: Yes Diagnosis High BMI/Morbid Obesity BMI> 35% ICD-10 Z68: No Outcomes/Goals: Pt sets, maintains & shows weight loss goal & trend during rehab Intervention/Plan: Instruct on ideal BMI & set weight loss goal w/patient, Assist pt to ID & incorporate diet changes for weight loss by S9, Refer to Structured Weight Loss program as appropriate, Encourage goal of using 250-300dcal per session for weight loss - Healthy Eating Habits Will attend diet classes:: Yes Outcomes/Goals:: Consume diet rich in vegs,fruits,whole grain/high fiber,fish,lean meat, Limit sat/trans fats,cholesterol & added salts & sugars Intervention/Plan:: Assess current eating habits - Education Gave educational materials for:: Healthy eating Nutrition - 30-Day Assessment Nutrition - 60-Day Assessment Nutrition - 90-Day Assessment Nutrition - Final Assessment Core - Initial Assessment - Visit Date of Eval: 09/11/22 Session #:: 0 - Pre-Cardiac Rehab Evaluation - Medication Compliance Preventative Medication(s):: Aspirin - 81mg Daily, Clopidogrel/P2Y12 inhibit - 75mg, Statin/lipid - Ezetimibe 10mg (Atorvastatin was causing muscle pain), Beta chidi - Carvedilol 3.125mg BID H/O mental health issues: depression, anxiety, or addiction?: No Doesn?t believe in the benefits of treatment?: No Believes medications are unnecessary or harmful?: No Has a concern about medication side effects?: No Expresses concern over the cost of medications?: No Outcomes/Goals: Verbalizes medications,desired effect & common side effects @ DC, Pt self-reports following medication regimen, Keeps card in wallet w/medications listed by DC Interventions/plans: Instruct on medication effects & side effects, Review medication list w/patient every two weeks, Instruct importance of taking meds as ordered & assist problem solving - Tobacco Use Tobacco Use: Non-smoker - Hypertension Hypertension Diagnosis:: Hypertension ICD-10 I10 Resting Blood Pressure:: 137/82 - Stage I Hypertension [employer] Hypertension Guidelines: [place] [employer] Hypertension Guidelines. Normal BP Less than 120/80. Elevated BP 120/80. Hypertension Stage 1: BP 130-139/80-89. Hypertesnion Stage 2: BP 140 or higher/90 or higher. Hypertension Crisis: BP higher than 180/120 Peak Exercise Blood Pressure:: 178/78 - Day of her Stress Test Outcomes/Goals: Able to verbalize/achieve optimal blood pressure <130/80, Incorporates diet changes & exercise for blood pressure control by DC Interventions/plan: Instruct on optimal blood pressure, hypertension & medications, Instruct on effects of sodium, alcohol, stress, exercise &hypertension - Tobacco Cessation Referral Smoking Cessation Referral:: No Individual Education/Counseling:: No Education Schedule Given:: Yes Core - 30-Day Assessment Core - 60-Day Assessment Core - 90 Day Assessment Core - Final Assessment Psychosocial - Initial Assess - VIsit Date of Eval: 09/11/22 Session #:: 0 - Pre-Cardiac Rehab Evaluation Not Applicable: No History of previous Mental disease:: No History of Emotional Disorders: Depression Self-reported stressors: Medical/Health, Recent Illness - Psychosocial Test Tool Used:: [employer] QOL Cardiac, PHQ-9 Questionnaire phq-9 Severity: Severity. 1-4 Minimal Depression. 5-9 Mild Depression. 10-14 Moderate Depression. 15-19 Moderately Sever Depression. 20-27 Severe Depression. Rule: - Referral to Behavioral Health PS - Interventions: Yes Attend Stress Management Classes, No Referral to Behavioral Health if PHQ-9 score >9: - Outcomes/Goals: See list Psychosocial Outcomes/Goals:: ID's personal stressors & 2 strategies to manage stress by discharge - Intervention/Plan: See List Interventions/Plan:: Assess stressors,coping strategies & signs of derpression on admission, Instruct/assist pt to develop coping & personal stress Mgt strategies, Instruct patient to recognize signs & symptoms of depression, Instruct patient to recog Psychosocial - 30-Day Assess Psychosocial - 60-Day Assess Psychosocial - 90-Day Assess Psychosocial - Final Assessmen Patient Health Questionnaire Initial Assessment 1. Little interest or pleasure in doing things: Several days 2. Feeling down, depressed, or hopeless: Several days 3. Trouble falling or staying asleep, or sleeping too much: More than half the days 4. Feeling tired or having little energy: Several days 5. Poor appetite or overeating: Several days 6. Feeling bad about yourself -- or that you are a failure or have let yourself or your family down: Not at all 7. Trouble concentrating on things, such as reading the newspaper or watching television: Not at all 8. Moving or speaking so slowly that other people could have noticed. Or the opposite - being so fidgety or restless that you have been moving around a lot more than usual: Not at all 9. Thoughts that you would be better off , or of hurting yourself in some way: Not at all Total Score: 6 SUKH-Q SV Test - Statements CAD is a disease of the arteries in the heart: False Examples of risk factors for heart disease: True Angina is chest pain or discomfort: True The benefits of resistance training include: I Don't Know Eating more meat and dairy products: False Anti-platelet medications such as aspirin are important: True The only effective way to manage stress: False An exercise warm-up slowly increases heart rate: I Don't Know Prepared, processed foods usually have high sodium: True Depression is common after a heart attack: True The statin medications lower cholesterol: True To control blood pressure, lower the amount of sodium: True If someone gets chest discomfort during walking: False Transfats are partially hydrogenated vegetable oils: I Don't Know Sleep apnea that is not treated increases the risk: False To control cholesterol, one should become a vegetarian: False Someone knows if he/she is exercising at the right level: True Diabetes cannot be prevented with exercise & health eating: False Stress is a large risk for heart attack: True A diet that can help lower blood pressure is rich in: I Don't Know - Total Score Total Correct Responses: 16 Self-Efficacy Initial Assessment We would like to know how confident you are in doing certain activities. Please select your confidence level for:: Select your confidence level for the following using the scale 1-10 where 1 is not at all confident and 10 is totally confident. Your score is the average of all 6 responses. Fatigue: How confident are you that you can keep the fatigue caused by your disease from interfering with the things you want to do? Select Number: 3 Physical Discomfort or Pain: How confident are you that you can keep the physical discomfort or pain of your disease from interfering with the things you want to do? Select Number: 3 Emotional Distress: How confident are you that you can keep the emotional distress caused by your disease from interfering with the things you want to do? Select Number: 6 Other Symptoms or Health Problems: How confident are you that you can keep other symptoms or health problems from interfering with the things you want to do? Select Number: 6 Different Tasks and Activities: How confident are you that you can do the different tasks and activities needed to manage your health condition so as to reduce your need to see a doctor? Select Number: 7 Medication: How confident are you that you can do things other than just taking medication to reduce how much your illness affects your everyday life? Select Number: 9 Total Score:: 5 Nutrition Survey - Nutrition Survey Initial Have you lost >10 lbs over the past 2 months without trying?: No Are you following a special diet at home for diabetes, low fat, or low salt?: No Are you interested in meeting with a dietitian for help understanding your diet?: Yes Do you eat less than 3 meals a day?: No Do you eat fatty meats (shaw, sausage, ribs, etc), fried foods, desserts, large amounts of salad dressings, margarine, butter, or cheese most days?: Yes Do you have food allergies? [Enter types in comment field]: No Do you eat in restaurants more than 3 times a week?: No Do you season food with salt, seasoning salt, or garlic salt?: Yes Do you used canned, boxed, frozen meals, or soups, seasoning packets?: No Total Score:: 3
--- NOTE | 2022-09-11 08:00 | PCM.CR.HP2 ---
CR - History & Physical - General Arrival date:: 09/11/22 Arrival time:: 08:00 Date of Referral:: 08/07/22 Date of CR Evaluation:: 09/11/22 Referring Physician: Dr. Raphael Sanchez Primary Diagnosis: PCI w/coronary stenting - History of Present Cardiac Event Onset Date: Enter Onset Date of cardiac illnesses in Comment field below PTCA or coronary stenting:: Yes - 08/07/2022 Vessel: RCA vessel Type of Symptoms:: Shortness of breath and tiredness, lack of energy Interventions with present event:: Stress Test abnormal and then taken to the laboratory asst for heart cath. Were there any complications?: Vertigo and right leg discomfort (scanned for blood clot and was neagtive) - Sleep Disorder Evaluation Hx of Sleep Apnea: No Do you snore loudly (louder than talking or can be heard through closed doors)?: Yes Do you often feel tired/ fatigued/ sleepy during daytime?: Yes - Has not been sleeping well since this all started, very tired in the morning Has anyone observed you stop breathing during sleep?: No History of Hypertension (for STOP score): Yes STOP Results: Positive - Medications Home Medications: Ambulatory Orders Medication Instructions Recorded ibuprofen 200 mg tablet 200 mg PO PRN PRN Headache 07/19/19 diphenhydramine HCl 25 mg capsule 25 mg PO QHS PRN Allergic Symptoms 06/28/21 (Benadryl) cholecalciferol (vitamin D3) 50 50 mcg PO DAILY Vit D #90 tabs 04/04/22 mcg (2,000 unit) tablet cyanocobalamin (vitamin B-12) 1,000 mcg PO DAILY B12 #90 tabs 04/04/22 1,000 mcg tablet aspirin 81 mg tablet,delayed 81 mg PO DAILY #1 TAB 07/16/22 release carvedilol 3.125 mg tablet 3.125 mg PO BID #60 tabs 08/07/22 clopidogrel 75 mg tablet 75 mg PO DAILY #90 tabs 08/07/22 meclizine 25 mg tablet 25 mg PO TID #30 tabs 08/19/22 ezetimibe 10 mg tablet (Zetia) 10 mg PO DAILY #30 tabs 09/06/22 - Allergies Allergies/Adverse Reactions: Allergies atorvastatin calcium [From Lipitor] Allergy (Verified 08/22/22 11:29) myalgias PAIN IN MUSCLES clarithromycin Allergy (Verified 08/22/22 11:29) Nausea/Vom/Diarrhea desloratadine [From Clarinex] Allergy (Verified 08/22/22 11:29) Unknown guaifenesin [From Entex LA] Allergy (Verified 08/22/22 11:29) Unknown hydrocodone bitartrate [From Vicodin] Allergy (Verified 08/22/22 11:29) Other FELT LIKE SOMEONE SOCKED HER IN THE STOMACH methylprednisolone Allergy (Verified 08/22/22 11:) Unknown nystatin Allergy (Verified 08/22/22 11:) Unknown pentoxifylline Allergy (Verified 08/22/22 11:29) Nausea/Vom/Diarrhea phenylephrine HCl [From Entex LA] Allergy (Verified 08/22/22 11:) Unknown phenylpropanolamine HCl [From Entex LA] Allergy (Verified 08/22/22 11:) Unknown sulfamethoxazole [From Bactrim] Allergy (Verified 08/22/22 11:) Unknown trimethoprim [From Bactrim] Allergy (Verified 08/22/22 11:) Unknown Pravastatin Adverse Reaction (Intermediate, Uncoded 09/06/22 09:25) Myalgias Advanced Directives - Advanced Directives Power of Scrap Charger: Yes - is Primary & Daughter is her secondary POA for Health Care Living Will: Yes Advance Directives Information Provided: No Advance Directives on File: No - She thinks the Living Will may be on file DNR Order?:: No - MOLST See MOLST form: No Past Medical History - Covid-19 Screening Fever: No Unexplained muscle aches: Yes - right leg discomfort (scanned for blood clot and was neagative) Current respiratory symptoms: No Upper respiratory infections symptoms: No Gastro-intestinal symptoms: No Hhz-Hfzw-Kldopl symptoms: No Date of testin09/11/22 - 01/16/2021 Vaccines Moderna no Booster Has High Risk Exposures ID'd by Health dept/Inf Control team: No 65 years or older:: Yes Lives in Assisted Living facility:: No Has a chronic lung disease or moderate to severe asthma:: No Has a serious heart condition:: No Immunocompromised:: No Severely obese (Body Mass Index of 40 or higher):: No Has chronic kidney disease undergoing dialysis:: No Has liver disease:: No - Past Medical Illness Medical History: Past Medical History (Last Reviewed 08/19/22 @ 17:53 by Cyn Willams) Atherosclerotic heart disease of [place] coronary artery without angina pectoris I25.10 Bilateral cataracts H26.9 Colon cancer C18.9 Decreased radial pulse R09.89 Personal history of colonic polyps Z86.010 Pure hypercholesterolemia E78.00 Seasonal allergies J30.2 - Past Surgical History Surgical History: Past Surgical History (Last Reviewed 08/19/22 @ 17:53 by Cyn Willams) History of bilateral cataract extraction Z98.41, Z98.42 History of bowel resection Z90.49 History of colonoscopy Z98.890 2014 Presence of coronary angioplasty implant and graft Onset Date: ~08/06/22 Z95.5 PCI/JESS to proximal RCA Dr. eMyers 08/06/22 Presence of stent in coronary artery Onset Date: ~08/06/22 Z95.5 PCI/JESS to proximal RCA Dr. Meyers 08/06/22 Surgical History: noncontributory - Family History Summary Family History: Family History (Last Reviewed 08/19/22 @ 17:[address] 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 Left click = Reports ([place]) Review of Present Symptoms: Reports: Shortness of Breath with Exertion - Climbing steps, she notices she is breathing harder. Especially carrying a load of clothes, Dizziness/Lightheadedness - Vertigo for about 2 weeks recently, Fatigue, Appetite - Normal - maybe a little low but still eats meals. Denies: Shortness of Breath at Rest, Angina, Heart Arrhythmia/Irregularities, Appetite - Special Diet, Sleep - Normal - not sleeping well at night, wakes really tired in the morning since this all started, Sexual Changes - Pain Is Patient Pain Free?: No Pain Location: upper extremity - left shoulder (same shoulder she broke a few years ago) maybe arthritis in the joint now., lower extremity - lower right leg Pain Level: 10/29 Risk Factor Assessment - Chief Complaint Chief Complaint: Patient is a [address] Raphael Mccormick who presents to cardiac rehab today following recent Abnormal Imaging Stress Test and heart cath. resulting in PCI intervention and coronary stenting. The patient was experiencing shortness of breath, tiredness and lack of energy since having COVID in 12/2020. She knew something just wasn't right. - Vital Signs Temperature: 97.7 F Respiratory Rate: 14 Pulse Ox: 95 Blood Pressure: 137/82 Nailbeds:: pink - Pulse Pulse Rate: 66 Pulse Rhythm: Regular - Hypertension How long have you been treated?: just recently with the procedure Blood Pressure Sitting - Left Arm: 137/82 - Patient has been logging daily BPs at home for her physician. - Stress Stress: Recent - Blood Cholesterol/Lipids Total Cholesterol (mg/dL) Goal = less than 200 mg/dL: 263 - 07/17/2022 HDL Cholesterol (mg/dL) Goal = less than 40 mg/dL: 76 LDL Cholesterol (mg/dL) Goal = less than 70 mg/dL: 166 Triglycerides (mg/dL) Goal = less than 150 mg/dL: 105 - Obesity Height: 5 ft 7 in Weight:: 199 lb Weight in Pounds: 199.0 lbs Weight Source: Estimated by Patient Body Mass Index (BMI): 31.1 Nutritional Referral for Obesity: Yes - Why Weight program - Physical Inactivity Physical Inactivity: None - Risk Stratification Risk Guidelines: Lowest Risk: Risk Factor for Smoking, Risk Factor for Diabetes, Risk Factor for Sedentary Lifestyle, Moderate Risk: Risk Factor for Dyslipidemia, Risk Factor for Hypertension, Risk Factor for Sedentary Lifestyle, Risk Factor for Depression, Highest Risk: Risk Factor for Obesity - Family History Family History: Family History (Last Reviewed 08/19/22 @ 17:[address] Hero Crabtree, DO) Mother Diabetes Heart disease Father Heart disease Myocardial infarction Sister Diabetes Heart disease Hypertension Sister Heart disease Motivation - Motivation to Participate On a scale of 1 to 10, how prepared are you to commit to attending program?: 10 What do you see as barriers to successfully being able to complete the program?: shoulder pain and leg pain What do you see as the benefits of succesfully completing the program? In other words, what do you hope to get out of participating in the program?: Breathing Better, more energy, increase stamina, back in shape Are there issues you are dealing with that will interfere with completing the program?: not anything that would interfere Do you have a spouse or signficant other, family or friends who will help support you to complete the program?: Yes
[2022-09-11 08:45] VITALS: BP 137/82; PULSE 66; RESP 14; TEMP 36.5; O2SAT 95; BMI 31.1
[2022-09-11 09:21] VITALS: BP 137/82; BP 158/80; BP 178/78; BMI 31.1
== END | disposition home or self-care (01) ==
LOC: CR 07:55
PROVIDERS: PCP Internal Medicine; Referring Provider Internal Medicine Cardiovascular Disease; Visit Provider Internal Medicine Cardiovascular Disease
DX: Z95.5 Presence of coronary angioplasty implant and graft (principal); I10 Essential (primary) hypertension; E78.00 Pure hypercholesterolemia, unspecified

== ENCOUNTER 2022-09-18 09:30 | Outpatient (RCR) | payer MEDICARE, SELFPAY ==
[2022-09-11 09:21] VITALS: BMI 31.1
== END 2022-09-18 23:59 ==
LOC: CR 09:30
PROVIDERS: PCP Internal Medicine; Referring Provider Internal Medicine Cardiovascular Disease; Visit Provider Internal Medicine Cardiovascular Disease
DX: I25.10 Atherosclerotic heart disease of native coronary artery without angina pectoris (principal); Z95.5 Presence of coronary angioplasty implant and graft
CPT/HCPCS: 93798

== ENCOUNTER 2022-10-09 09:30 | Outpatient (RCR) | payer MEDICARE, SELFPAY ==
[2022-09-11 09:21] VITALS: BMI 31.1
--- NOTE | 2022-10-18 10:37 | CR.ITP_ITS ---
Diagnosis Exercise - 30-day Assessment - Visit Date of Eval: 10/18/22 Session #:: 11 - Physician Prescribed Exercise Modalities: Treadmill, NuStep Frequency: 3x/week for 12 weeks [36 sessions] Intensity: 60-80% of age predicted maximum heart rate reserve Current METSs:: 3 Target Heart Rate:: 93-121 Current RPE:: 11-12.5 Maximum Excercise HR:: 88 Resting Blood Pressure: 128/52 Maximum Exercise Blood Pressure: 138/58 - Outcomes & Goals Goals:: Verbalizes understanding of THR, RPE & goal METS by session 6, Documents in home exercise log/reports 30 min aerobic 5 day/wk by DC, Demonstrates accurate pulse taking by DC, Other additional outcome/goals: see below - Intervention & Plan Exercise Program Goals: Instruct on personal THR & RPE, Instruct on MET level & personal MET goal, Show patient to take own pulse /validate performance until accurate, Instruct on home exercise, Other additional plan/int - 30-day Reassessments 30 day Reassessments:: Progressing - THR explained - Physical Activity Home Exercise Physical Activity - Home Exercise: Safe Exercise, Warm-up, Self-monitoring, Cool-Down, Home Exercise > 30 min Daily, Sitting Time <3 hours/daily - Outcomes & Goals Outcomes/Goals: Demonstrates correct Warm-up/exercise Cool-Down (S3) if = 2.5 METs, Verbalizes symptoms of exercise intolerance by Session 3 (S3), Demonstrate safe equipment use (S3) & follows exercise prescrition (6), Other: See below - Intervention & Plan Plan/Intervention: Instruct warm-up & cool-down if exercising at > 2 METs, Instruct on symptoms of exercise intolerance & actions to take, Instruct & monitor on saf, Assess intial functional capacity & safety risk, Other See below - 30-day Reassessments 30 day Reassessments:: Progressing - cool down encouraged Nutrition - Initial Assessment Nutrition - 30-Day Assessment - Program Goals Nutrition Program Goals: LDL <100 optimal. 100 - 129 Near optimal. 130 - 159 Borderline High. 160 - 189 High. Total Cholesterol <200 desirable. 200 - 239 Borderline High. >/= 240 High. HDL < 40 Low >/=60 High. Triglycerides <150 desirable. <199 optimal. VlDL 5 - 40. HgbA1C <7%. BMI <25 Patient has diagnosis of Hyperlipidemia (ICD E78)?: Yes - Visit Date of Assessment:: 10/18/22 Session #:: 11 - Cholesterol/Lipids (Other Core Measures) Determine presence & major risk factors that modify LDL goal: Hypertension or hypertensive medication, Low HDL cholesterol <40 mg/dL*, Family history of premature CHD in Male < 55 years: female <65 yearsFa, Age men > 45 years; women >/= 55 years Outcomes/Goals: Pt IDs own risk factors & lifestyle modifications by Session 10, Verbalizes symptoms of angina & response by session 3., Pt independently manages, Other Additional Outcomes/Goals: Intervention/Plan: Advocate for lipid panel cholesterol medication if applicable, Instruct on personal lipid levels & lipid goals/NCEP guidelines, Instruct on cholesterol, Other additional plan/int 30-day Reassessments:: Progressing - risk factors explained - Diabetes (Other Core Measures) Diabetes Type: Not Applicable - Weight Mgt (Other Care) Height: 5 ft 7 in Weight:: 89.358 kg BMI: 30.8 Diagnosis Overweight/Obesity BMI> 30% ICD-10 E66: Yes Diagnosis High BMI/Morbid Obesity BMI> 35% ICD-10 Z68: No Outcomes/Goals: Pt sets, maintains & shows weight loss goal & trend during rehab, Other additional outcomes/goals Intervention/Plan: Instruct on ideal BMI & set weight loss goal w/patient, Assist pt to ID & incorporate diet changes for weight loss by S9, Refer to Structured Weight Loss program as appropriate, Encourage goal of using 250- 300dcal per session for weight loss, Other additional plan/interventions 30 day Reassessments:: Progressing - attending nutrition classes - Healthy Eating Habits Will attend diet classes:: Yes Outcomes/Goals:: Consume diet rich in vegs,fruits,whole grain/high fiber,fish,lean meat, Limit sat/trans fats,cholesterol & added salts & sugars, Other additional outcome/goals: Intervention/Plan:: Assess current eating habits, Other Additional plan/interventions 30-day Reassessments:: Progressing - attending nutrition class - Education Gave educational materials for:: Signs & symptoms of hypoglycemia, Signs & symptoms of hyperglycemia, Relate diabetes to coronary artery disease, Healthy eating Nutrition - 60-Day Assessment Nutrition - 90-Day Assessment Nutrition - Final Assessment Core - Initial Assessment Core - 30-Day Assessment - Visit Date of Eval: 10/18/22 Session #:: 11 - Medication Compliance Preventative Medication(s):: Aspirin, Clopidogrel/P2Y12 inhibit, Beta chidi Doesn?t believe in the benefits of treatment?: No Believes medications are unnecessary or harmful?: No Has a concern about medication side effects?: No Expresses concern over the cost of medications?: No Outcomes/Goals: Verbalizes medications,desired effect & common side effects @ DC, Pt self-reports following medication regimen, Keeps card in wallet w/medications listed by DC, Other additional outcome/goals: Interventions/plans: Instruct on medication effects & side effects, Review medication list w/patient every two weeks, Instruct importance of taking meds as ordered & assist problem solving, Other additional 30-day Reassessments:: Progressing - encouraged to take meds - Tobacco Use Tobacco Use: Non-smoker Do you use smokeless tobacco?: No - Hypertension Hypertension Diagnosis:: Hypertension ICD-10 I10 Resting Blood Pressure:: 128/52 [place] [employer] Hypertension Guidelines: [place] [employer] Hypertension Guidelines. Normal BP Less than 120/80. Elevated BP 120/80. Hypertension Stage 1: BP 130-139/80-89. Hypertesnion Stage 2: BP 140 or higher/90 or higher. Hypertension Crisis: BP higher than 180/120 Peak Exercise Blood Pressure:: 128/58 Outcomes/Goals: Able to verbalize/achieve optimal blood pressure <130/80, Incorporates diet changes & exercise for blood pressure control by DC, Other additional outcomes/goals Interventions/plan: Instruct on optimal blood pressure, hypertension & medications, Instruct on effects of sodium, alcohol, stress, exercise &hypertension, Other additional plan/interventions 30 day Reassessments:: Progressing - encouraged to take meds - Tobacco Cessation Referral Smoking Cessation Referral:: No Individual Education/Counseling:: No Education Schedule Given:: Yes Core - 60-Day Assessment Core - 90 Day Assessment Core - Final Assessment Psychosocial - Initial Assess Psychosocial - 30-Day Assess - VIsit Date of Eval: 10/18/22 Session #:: 11 History of Emotional Disorders: Depression Self-reported stressors: Medical/Health, Recent Illness - Outcomes/Goals: See list Psychosocial Outcomes/Goals:: ID's personal stressors & 2 strategies to manage stress by discharge, Other Additional outcome/goals: - Intervention/Plan: See List Interventions/Plan:: Assess stressors,coping strategies & signs of derpression on admission, Instruct/assist pt to develop coping & personal stress Mgt strategies, Refer to Behavioral Health if appropriate, Refer to Physician if appropriate, Instruct patient to recognize signs & symptoms of depression, Instruct patient to recog, Other additional plan/intervention Psychosocial - 60-Day Assess Psychosocial - 90-Day Assess Psychosocial - Final Assessmen Patient Health Questionnaire 30-Day Re-eval Assessment 1. Little interest or pleasure in doing things: Several days 2. Feeling down, depressed, or hopeless: Several days 3. Trouble falling or staying asleep, or sleeping too much: More than half the days 4. Feeling tired or having little energy: Several days 5. Poor appetite or overeating: Several days 6. Feeling bad about yourself -- or that you are a failure or have let yourself or your family down: Not at all 7. Trouble concentrating on things, such as reading the newspaper or watching television: Not at all 8. Moving or speaking so slowly that other people could have noticed. Or the opposite - being so fidgety or restless that you have been moving around a lot more than usual: Not at all 9. Thoughts that you would be better off , or of hurting yourself in some way: Not at all How difficult have these problems made it for you to do your work, take care of things at home, or get along with other people?: Not difficult at all Total Score: 6 Self-Efficacy 30-Day Re-eval Assessment We would like to know how confident you are in doing certain activities. Please select your confidence level for:: Select your confidence level for the following using the scale 1-10 where 1 is not at all confident and 10 is totally confident. Your score is the average of all 6 responses. Fatigue: How confident are you that you can keep the fatigue caused by your disease from interfering with the things you want to do? Select Number: 3 Physical Discomfort or Pain: How confident are you that you can keep the physical discomfort or pain of your disease from interfering with the things you want to do? Select Number: 3 Emotional Distress: How confident are you that you can keep the emotional distress caused by your disease from interfering with the things you want to do? Select Number: 6 Other Symptoms or Health Problems: How confident are you that you can keep other symptoms or health problems from interfering with the things you want to do? Select Number: 6 Different Tasks and Activities: How confident are you that you can do the different tasks and activities needed to manage your health condition so as to reduce your need to see a doctor? Select Number: 7 Medication: How confident are you that you can do things other than just taking medication to reduce how much your illness affects your everyday life? Select Number: 9 Total Score:: 5 Nutrition Survey
[2022-10-18 10:49] VITALS: BP 128/52; BP 128/58; BMI 30.8
== END 2022-10-19 23:59 ==
LOC: CR 09:30
PROVIDERS: PCP Internal Medicine; Referring Provider Internal Medicine Cardiovascular Disease; Visit Provider Internal Medicine Cardiovascular Disease
DX: I25.10 Atherosclerotic heart disease of native coronary artery without angina pectoris (principal); Z95.5 Presence of coronary angioplasty implant and graft
CPT/HCPCS: 93798

== ENCOUNTER → 2022-10-31 | Outpatient (CLI) | payer MEDICARE, SELFPAY ==
[2022-10-18 10:49] VITALS: BMI 30.8
--- NOTE | 2022-10-31 15:45 | RAD_ITS ---
STUDY: X-RAY - LEFT SHOULDER REASON FOR EXAM: Female, 77 years old. If shoulder pain for 3 months. History of left shoulder fracture years ago. TECHNIQUE: 4 view(s) of the shoulder. COMPARISON: Chest, September 11, 2016. FINDINGS: There is moderate degenerative arthrosis of the glenohumeral articulation. There is degenerative arthrosis of the acromioclavicular joint without inferior osseous spur formation. Normal acromion. There is deformity of the humeral head consistent with remote fracture. No acute fracture or dislocation is seen. The soft tissue structures are unremarkable. Normal visualized pulmonary apex. RAD/Shoulder min 2 Views IMPRESSION: Degenerative changes of the left shoulder without acute fracture or dislocation. No major interval change from a chest film of September 11, 2016. Electronically Signed: Paddy Martell DO at 18:06 EST ,
== END | disposition home or self-care (01) ==
LOC: RAD 15:36
PROVIDERS: PCP Internal Medicine; Visit Provider Internal Medicine
DX: M25.512 Pain in left shoulder (principal)
CPT/HCPCS: 73030

== ENCOUNTER → 2022-11-07 | Outpatient (CLI) | payer MEDICARE, SELFPAY ==
[2022-10-18 10:49] VITALS: BMI 30.8
--- NOTE | 2022-11-07 08:43 | CDU_ITS ---
Reason For Study: Carotid Stenosis Rt. Velocities/BP Lt. Velocities/BP Prox CCA 111.3/14.6 cm/sec. Prox CCA 118.0/17.5 cm/sec. Mid CCA 83.9/15.7 cm/sec. Mid CCA 100.2/14.2 cm/sec. Dist CCA 68.8/12.7 cm/sec. Dist CCA 70.5/12.8 cm/sec. Prox ICA 65.5/16.0 cm/sec. Prox ICA 64.8/18.5 cm/sec. Mid ICA 95.0/26.7 cm/sec. Mid ICA 108.3/20.3 cm/sec. Dist ICA 103.9/24.1 cm/sec. Dist ICA 106.4/26.0 cm/sec. Rt. ICA/CCA = 1.2. Lt. ICA/CCA = 1.1. Prox ECA 95.6/7.1 cm/sec. Prox ECA 103.4/8.4 cm/sec. Rt. Vert. 67.2/15.3 cm/sec. Lt. Vert. 60.7/17.1 cm/sec. Right Extracranial There is intimal thickening but no significant atherosclerotic plaque noted in the right common carotid artery. There is heterogeneous, irregular atherosclerotic plaque noted in the right internal carotid artery. There is heterogeneous, irregular atherosclerotic plaque noted in the right external carotid artery. Antegrade flow is noted in the right vertebral artery. Left Extracranial There is intimal thickening but no significant atherosclerotic plaque noted in the left common carotid artery. There is heterogeneous, irregular atherosclerotic plaque noted in the left internal carotid artery. There is heterogeneous, irregular atherosclerotic plaque noted in the left external carotid artery. Antegrade flow is noted in the left vertebral artery. Procedure Carotid Duplex 79029. This is a Carotid Duplex examination using B-mode, color flow and specral Doppler. The exam was diagnostic. Exam performed in department. VL/Carotid Duplex Ultrasound Interpretation Summary Calcific plaque with shadowing at the proximal right internal carotid artery wi th less than 50% stenosis Less then 50% stenosis of the right external carotid artery Irregular calcific plaque of the proximal left internal carotid artery with les s than 50% stenosis Less than 50% stenosis left external carotid artery Patent and antegrade vertebral arteries bilaterally Ordering Physician: Danna Laird Referring Physician: Danna Laird Performed By: Sander Ruibn RVT
== END | disposition home or self-care (01) ==
LOC: CVS 08:42
PROVIDERS: PCP Internal Medicine; Referring Provider Internal Medicine; Visit Provider Internal Medicine
DX: I65.22 Occlusion and stenosis of left carotid artery (principal); R42 Dizziness and giddiness
CPT/HCPCS: 93880

== ENCOUNTER 2022-11-15 09:30 | Outpatient (RCR) | payer MEDICARE, SELFPAY ==
[2022-10-20 00:35] VITALS: BP 128/52; BP 128/58
== END 2022-11-19 23:59 ==
LOC: CR 09:30
PROVIDERS: PCP Internal Medicine; Referring Provider Internal Medicine Cardiovascular Disease; Visit Provider Internal Medicine Cardiovascular Disease
DX: I25.10 Atherosclerotic heart disease of native coronary artery without angina pectoris (principal); Z95.5 Presence of coronary angioplasty implant and graft
CPT/HCPCS: 93798

== ENCOUNTER → 2022-11-29 | Outpatient (CLI) | payer MEDICARE, SELFPAY ==
--- NOTE | 2022-11-29 12:52 | VDLE_ITS ---
Reason For Study: Swelling RIGHT LEFT GSV is normal. CFV is compressible, spontaneous, phasic, CFV is compressible, spontaneous, phasic, competent, and demonstrates normal competent and demonstrates normal augmentation. augmentation. FV is compressible, spontaneous, phasic, competent and demonstrates normal augmentation. POP V is compressible, spontaneous, phasic, competent and demonstrates normal augmentation. T/P Trunk is compressible. PTV is compressible. RT PerV is compressible. Edema noted throughout Rt lower extremity below knee. Procedure This is a venous duplex using B-mode, color flow and spectral Doppler. Exam performed in department. The exam was diagnostic. A preliminary report was called and/or faxed to Marisela Crawford NP. VL/Venous Duplex US, Unilateral Interpretation Summary There is no evidence of right lower extremity deep vein thrombosis. Right great saphenous vein appears patent and compressible segmentally. Edema noted right lower extremity below knee Normal flow patterns left common femoral vein Ordering Physician: Marisela Crawford Referring Physician: Danna Laird M.D. Performed By: Sander Rubin RVT
[2022-11-29 14:55] LABS: Anion Gap 4 (5-15); BNP,B-Type NATRIURETIC PEPTIDE 67.5 pg/mL (0-100); BUN 25 mg/dL (7-18); BUN/Creat Ratio 20.7 RATIO (10-20); Calcium,Total 9.3 mg/dL (8.5-10.1); Chloride 108 mmol/L (98-107); Creatinine, Serum 1.21 mg/dL (0.55-1.02); EST Glomerular Filtration Rate 46 mL/min (>60); Est Glom Filt Rate - Afr Amer 55 mL/min (>60); Glucose 121 mg/dL (74-106); Potassium 4.2 mmol/L (3.5-5.1); Sodium Level 142 mmol/L (136-145)
== END | disposition home or self-care (01) ==
PROVIDERS: PCP Internal Medicine; Referring Provider Nurse Practitioner Gerontology; Visit Provider Nurse Practitioner Gerontology
DX: R06.00 Dyspnea, unspecified (principal); R60.0 Localized edema; M79.89 Other specified soft tissue disorders
CPT/HCPCS: 36415; 80048; 83880; 93971

== ENCOUNTER 2022-12-02 14:41 | Emergency (ER) | payer MEDICARE, SELFPAY ==
[2022-12-02 14:41] VITALS: BP 171/68
[2022-12-02 14:42] VITALS: PULSE 66; RESP 14; TEMP 36.7; O2SAT 98; BMI 28.1
--- NOTE | 2022-12-02 15:48 | EX.ED.DYSGE1 ---
HPI History of Present Illness Chief Complaint: Nosebleed Narrative Narrative: Patient presents with right epistaxis that started about an hour ago after a sneeze. She is on Plavix and aspirin. She does not feel lightheaded. She has no fevers chills or any other symptoms. [facility] Medical History Atherosclerotic heart disease of [place] coronary artery without angina pectoris Bilateral cataracts Colon cancer Decreased radial pulse Personal history of colonic polyps Pure hypercholesterolemia Seasonal allergies Home Medications ibuprofen 200 mg tablet 200 mg PO PRN PRN Headache 07/19/19 [History Last Taken Unknown] diphenhydramine HCl 25 mg capsule (Benadryl) 25 mg PO QHS PRN Allergic Symptoms 06/28/21 [History Last Taken Unknown] cholecalciferol (vitamin D3) 50 mcg (2,000 unit) tablet 50 mcg PO DAILY Vit D #90 tabs 04/04/22 [Rx Last Taken Unknown] cyanocobalamin (vitamin B-12) 1,000 mcg tablet 1,000 mcg PO DAILY B12 #90 tabs 04/04/22 [Rx Last Taken Unknown] aspirin 81 mg tablet,delayed release 81 mg PO DAILY #1 TAB 07/16/22 [Rx Last Taken 08/06/22] carvedilol 3.125 mg tablet 3.125 mg PO BID #60 tabs 08/07/22 [Rx Last Taken Unknown] clopidogrel 75 mg tablet 75 mg PO DAILY #90 tabs 08/07/22 [Rx Last Taken Unknown] meclizine 25 mg tablet 25 mg PO TID #30 tabs 08/19/22 [Rx Last Taken Unknown] ezetimibe 10 mg tablet (Zetia) 10 mg PO DAILY #30 tabs 09/06/22 [Rx Last Taken Unknown] pravastatin 40 mg tablet 40 mg PO DAILY 10/31/22 [History Last Taken Unknown] clindamycin HCl 150 mg capsule 150 mg PO TID #15 caps 12/02/22 [Rx Last Taken Unknown] Allergy/AdvReac Type Severity Reaction Status Date / Time atorvastatin calcium Allergy myalgias Verified 12/02/22 14:44 [From Lipitor] clarithromycin Allergy Nausea/Vom/ Verified 12/02/22 14:44 Diarrhea desloratadine [From Clarinex] Allergy Unknown Verified 12/02/22 14:44 guaifenesin [From Entex LA] Allergy Unknown Verified 12/02/22 14:44 hydrocodone bitartrate Allergy Other Verified 12/02/22 14:44 [From Vicodin] methylprednisolone Allergy Unknown Verified 12/02/22 14:44 nystatin Allergy Unknown Verified 12/02/22 14:44 pentoxifylline Allergy Nausea/Vom/ Verified 12/02/22 14:44 Diarrhea phenylephrine HCl Allergy Unknown Verified 12/02/22 14:44 [From Entex LA] phenylpropanolamine HCl Allergy Unknown Verified 12/02/22 14:44 [From Entex LA] sulfamethoxazole Allergy Unknown Verified 12/02/22 14:44 [From Bactrim] trimethoprim [From Bactrim] Allergy Unknown Verified 12/02/22 14:44 Pravastatin AdvReac Intermediate Myalgias Uncoded 12/02/22 14:44 Family History Mother Diabetes Heart disease Father Heart disease Myocardial infarction Sister Diabetes Heart disease Hypertension Sister Heart disease Surgical History History of bilateral cataract extraction History of bowel resection History of colonoscopy Presence of coronary angioplasty implant and graft (~08/06/22) Presence of stent in coronary artery (~08/06/22) Social History Smoking Status: Never smoker alcohol intake: never substance use type: does not use caffeine: Yes Type: carbonated beverages Number of servings: 2 and tea Number of servings: 2 additional social history: Uses Ibuprofen prn ROS ROS ED ROS Narrative Past medical history: Reviewed Medications: Reviewed Social history: Noncontributory Review of systems: All systems negative except as indicated General: No fever Eyes: No visual changes ENT: Epistaxis as in HPI Neck: No neck pain Cardiovascular: No chest pain Respiratory: No shortness of breath or cough Gastrointestinal: No abdominal pain, nausea vomiting or diarrhea EXAM Physical Exam Narrative Exam Narrative: Physical exam General: Well nourished, Well developed, No Acute Distress Head: Normocephalic, Atraumatic Eyes: Conjunctiva not pale ENT: Right anterior plexus epistaxis present. Neck: Supple, Nontender, No lymphadenopathy Cardiovascular: Regular rate, Regular rhythm Respiratory: No distress, CTA bilaterally Initially skin: No pallor Const Vital Signs: 12/02/22 14:42 12/02/22 14:41 Temperature 98.0 F Temperature Source Temporal Pulse Rate 66 Respiratory Rate 14 Blood Pressure 171/68 H Blood Pressure Mean 102 Pulse Ox 98 Oxygen Delivery Method Room Air MDM MDM MDM Narrative Medical decision making narrative: I discussed the patient with in the room. Patient is found to have epistaxis I tried to cauterize however I was unable I then ended up placing a Rhino Rocket. I will prescribe antibiotics for home to prevent infection, otherwise I will discharge with ENT follow-up. Procedures Other Procedures Procedure(s): Epistaxis management Verbal consent I used a silver nitrate stick to cauterize the anterior plexus bleed, this was unsuccessful. I then used a Rhino Rocket and inflated it with good hemostasis. Patient was observed. She tolerated procedure well. Discharge Plan Triage Chief Complaint: Nosebleed ED Provider: Raphael Alejandre Dx/Rx/DC Orders Clinical Impression: Acute anterior epistaxis, Hx of coronary artery disease, Encounter for monitoring antiplatelet therapy Instructions: ED Epistaxis (Adult) Prescriptions: New clindamycin HCl 150 mg capsule 150 mg PO TID Qty: 15 0RF No Action diphenhydramine HCl [Benadryl] 25 mg capsule 25 mg PO QHS PRN (Reason: Allergic Symptoms) aspirin 81 mg tablet,delayed release (DR/EC) 81 mg PO DAILY Qty: 1 0RF pravastatin 40 mg tablet 40 mg PO DAILY ibuprofen 200 MG tablet 200 mg PO PRN PRN (Reason: Headache) clopidogrel 75 mg Tablet 75 mg PO DAILY Qty: 90 3RF carvedilol 3.125 mg Tablet 3.125 mg PO BID Qty: 60 6RF meclizine 25 mg tablet 25 mg PO TID Qty: 30 0RF cyanocobalamin (vitamin B-12) 1,000 mcg tablet 1,000 mcg PO DAILY Qty: 90 3RF cholecalciferol (vitamin D3) 50 mcg (2,000 unit) tablet 50 mcg PO DAILY Qty: 90 3RF ezetimibe [Zetia] 10 mg tablet 10 mg PO DAILY Qty: 30 11RF Primary Care Provider: Danna Laird Referrals: John Jeff MD [Med Staff - Active Staff] - 3-5 Days Danna Laird MD [Primary Care Provider] - 2 Days Disposition Disposition: Home, Self Care
[2022-12-02] MEDS: Silver Nitrate (BKC) 1 EACH TOPICAL (15:49)
[2022-12-02 16:21] VITALS: BP 143/72; PULSE 75; RESP 16; O2SAT 97
== END 2022-12-02 16:23 | disposition home or self-care (01) ==
PROVIDERS: Emergency Provider Emergency Medicine; PCP Internal Medicine; Visit Provider Emergency Medicine
DX: R04.0 Epistaxis (principal); I25.10 Atherosclerotic heart disease of native coronary artery without angina pectoris; E78.00 Pure hypercholesterolemia, unspecified; Z51.81 Encounter for therapeutic drug level monitoring; Z79.02 Long term (current) use of antithrombotics/antiplatelets
CPT/HCPCS: 30901; 99282; J7030; A4216

== ENCOUNTER → 2022-12-06 | Outpatient (CLI) | payer MEDICARE, SELFPAY ==
[2022-12-03 10:50] VITALS: BMI 30.8
== END | disposition home or self-care (01) ==
LOC: PSN 11:47
PROVIDERS: PCP Internal Medicine; Referring Provider Nurse Practitioner Gerontology; Visit Provider Nurse Practitioner Gerontology
DX: R00.2 Palpitations (principal)
CPT/HCPCS: 93225; 93226

== ENCOUNTER 2022-12-16 09:30 | Outpatient (RCR) | payer MEDICARE, SELFPAY ==
[2022-11-20 00:35] VITALS: BP 128/52; BP 128/58
[2022-12-03 10:50] VITALS: BMI 30.8
== END 2022-12-17 23:59 ==
LOC: CR 09:30
PROVIDERS: PCP Internal Medicine; Referring Provider Internal Medicine Cardiovascular Disease; Visit Provider Internal Medicine Cardiovascular Disease
DX: I25.10 Atherosclerotic heart disease of native coronary artery without angina pectoris (principal); Z95.5 Presence of coronary angioplasty implant and graft
CPT/HCPCS: 93798

== ENCOUNTER 2022-12-25 09:30 | Outpatient (RCR) | payer MEDICARE, SELFPAY ==
[2022-12-03 10:50] VITALS: BMI 30.8
[2022-12-18 00:24] VITALS: BP 128/52; BP 128/58
--- NOTE | 2023-01-13 11:29 | CR.ITP_ITS ---
Diagnosis Exercise - Final/Discharge - Visit Date of Eval: 01/13/23 - Physician Prescribed Exercise Modalities: Treadmill, Rower, Airdyne, NuStep, SciFit, Lateral Technology Internship Frequency: 3x/week for 12 weeks [36 sessions] Intensity: 60-80% of age predicted maximum heart rate reserve Current METSs:: 4.5 Target Heart Rate:: 93-121 Maximum Excercise HR:: 104 Resting Blood Pressure: 108/64 Maximum Exercise Blood Pressure: 140/62 - Outcomes & Goals Goals:: Verbalizes understanding of THR, RPE & goal METS by session 6, Documents in home exercise log/reports 30 min aerobic 5 day/wk by DC, Demonstrates accurate pulse taking by DC, Other additional outcome/goals: see below - Intervention & Plan Exercise Program Goals: Instruct on personal THR & RPE, Instruct on MET level & personal MET goal, Show patient to take own pulse /validate performance until accurate, Instruct on home exercise, Other additional plan/int - 30-day Reassessments 30 day Reassessments:: Met - Physical Activity Home Exercise Physical Activity - Home Exercise: Safe Exercise, Warm-up, Self-monitoring, Cool-Down, Home Exercise > 30 min Daily, Sitting Time <3 hours/daily - Outcomes & Goals Outcomes/Goals: Demonstrates correct Warm-up/exercise Cool-Down (S3) if = 2.5 METs, Verbalizes symptoms of exercise intolerance by Session 3 (S3), Demonstrate safe equipment use (S3) & follows exercise prescrition (6), Other: See below - Intervention & Plan Plan/Intervention: Instruct warm-up & cool-down if exercising at > 2 METs, Instruct on symptoms of exercise intolerance & actions to take, Instruct & monitor on saf, Assess intial functional capacity & safety risk, Other See below - 30-day Reassessments 30 day Reassessments:: Met Nutrition - Initial Assessment Nutrition - 30-Day Assessment Nutrition - 60-Day Assessment Nutrition - 90-Day Assessment Nutrition - Final Assessment - Cholesterol/Lipids (Other Core Measures) Determine presence & major risk factors that modify LDL goal: Hypertension or hypertensive medication, Low HDL cholesterol <40 mg/dL*, Family history of premature CHD in Male < 55 years: female <65 yearsFa, Age men > 45 years; women >/= 55 years Outcomes/Goals: Pt IDs own risk factors & lifestyle modifications by Session 10, Verbalizes symptoms of angina & response by session 3., Pt independently manages, Other Additional Outcomes/Goals: Intervention/Plan: Advocate for lipid panel cholesterol medication if applicable, Instruct on personal lipid levels & lipid goals/NCEP guidelines, Instruct on cholesterol, Other additional plan/int 30-day Reassessments:: Met - Weight Mgt (Other Care) Height: 5 ft 8 in Weight:: 88.904 kg BMI: 29.7 Diagnosis Overweight/Obesity BMI> 30% ICD-10 E66: No Outcomes/Goals: Pt sets, maintains & shows weight loss goal & trend during rehab, Other additional outcomes/goals Intervention/Plan: Instruct on ideal BMI & set weight loss goal w/patient, Assist pt to ID & incorporate diet changes for weight loss by S9, Refer to Structured Weight Loss program as appropriate, Encourage goal of using 250- 300dcal per session for weight loss, Other additional plan/interventions 30 day Reassessments:: Met - Healthy Eating Habits Will attend diet classes:: Yes Outcomes/Goals:: Consume diet rich in vegs,fruits,whole grain/high fiber,fish,lean meat, Limit sat/trans fats,cholesterol & added salts & sugars, Other additional outcome/goals: Intervention/Plan:: Assess current eating habits, Other Additional plan/interventions 30-day Reassessments:: Met - Education Gave educational materials for:: Signs & symptoms of hypoglycemia, Signs & symptoms of hyperglycemia, Relate diabetes to coronary artery disease, Healthy eating Core - Initial Assessment Core - 30-Day Assessment Core - 60-Day Assessment Core - 90 Day Assessment Core - Final Assessment - Visit Date of Eval: 01/13/23 - Medication Compliance Doesn?t believe in the benefits of treatment?: No Believes medications are unnecessary or harmful?: No Has a concern about medication side effects?: No Expresses concern over the cost of medications?: No Outcomes/Goals: Verbalizes medications,desired effect & common side effects @ DC, Pt self-reports following medication regimen, Keeps card in wallet w/medications listed by DC, Other additional outcome/goals: Interventions/plans: Instruct on medication effects & side effects, Review medication list w/patient every two weeks, Instruct importance of taking meds as ordered & assist problem solving, Other additional 30-day Reassessments:: Met - Tobacco Use Tobacco Use: Non-smoker - Hypertension Resting Blood Pressure:: 108/64 [employer] Hypertension Guidelines: [employer] Hypertension Guidelines. Normal BP Less than 120/80. Elevated BP 120/80. Hypertension Stage 1: BP 130-139/80-89. Hypertesnion Stage 2: BP 140 or higher/90 or higher. Hypertension Crisis: BP higher than 180/120 Peak Exercise Blood Pressure:: 140/62 Outcomes/Goals: Able to verbalize/achieve optimal blood pressure <130/80, Incorporates diet changes & exercise for blood pressure control by DC, Other additional outcomes/goals Interventions/plan: Instruct on optimal blood pressure, hypertension & medications, Instruct on effects of sodium, alcohol, stress, exercise &hypertension, Other additional plan/interventions 30 day Reassessments:: Met - Tobacco Cessation Referral Smoking Cessation Referral:: No Individual Education/Counseling:: No Education Schedule Given:: Yes Psychosocial - Initial Assess Psychosocial - 30-Day Assess Psychosocial - 60-Day Assess Psychosocial - 90-Day Assess Psychosocial - Final Assessmen - VIsit Date of Eval: 01/13/23 - t History of previous Mental disease:: No - Outcomes/Goals: See list Psychosocial Outcomes/Goals:: ID's personal stressors & 2 strategies to manage stress by discharge, Other Additional outcome/goals: - Intervention/Plan: See List Interventions/Plan:: Assess stressors,coping strategies & signs of derpression on admission, Instruct/assist pt to develop coping & personal stress Mgt strategies, Refer to Behavioral Health if appropriate, Refer to Physician if appropriate, Instruct patient to recognize signs & symptoms of depression, Instruct patient to recog, Other additional plan/intervention - 30-day Reassessments: 30 day Reassessments:: Met Self-Efficacy Nutrition Survey
[2023-01-13 11:34] VITALS: BP 108/64; BP 140/62; BMI 29.7
== END 2023-01-17 23:59 ==
LOC: CR 09:30
PROVIDERS: PCP Internal Medicine; Referring Provider Internal Medicine Cardiovascular Disease; Visit Provider Internal Medicine Cardiovascular Disease
DX: I25.10 Atherosclerotic heart disease of native coronary artery without angina pectoris (principal); Z95.5 Presence of coronary angioplasty implant and graft
CPT/HCPCS: 93798

== ENCOUNTER 2023-01-09 09:00 | Outpatient (RCR) | payer MEDICARE, SELFPAY ==
--- NOTE | 2022-11-14 09:58 | HP.PTEVAL ---
Patient's Visit Information FAN CHEEMA is a 77 year old F referred to Physical Therapy by Dr. Danna Laird MD with a diagnosis of pain in L shoulder. Date of Evaluation: 11/14/22 Physical Therapist: NATALIYA Tompkins - Visit Plan Frequency: 2x /Week Duration: 4 Weeks Plan: 2X/ week for 4 weeks for L shoulder PROM, AAROM, AROM, scapular strength and postural exercises, RC strength, with HEP. HEP: supine wand flexion, orange mid rows, seated scapular retraction - Subjective Pt has been having pain in L shoulder after her heart cath. It was to the point that she had to have a pillow under her elbow to sleep at night or even sitting still. That pain has eased off some. The pain comes on now once in awhile and somethings she can do and somethings they she can't. She is R handed. She has some occ N&T but not often (few and far between). She has occ neck pain. She can not sleep on her L side cause it sets off her vertigo but it would hurt her shoulder if she did. She broke her L shoulder at work and went through workers comp and she could not but her arm over her head. After 6 weeks of PT here she started to put her arm over her head. She felt stronger after PT in 2009. She reports that when she was in the scanner for her heart she hit her L shoulder going into the machine and then she started with pain after that. - Pain L shoulder pain Pain Intensity (Out of 10): 1 - Objective L shoulder AROM: R shoulder flex 150 and L 105. R shoulder ABD 165 and L 105. R shoulder IR T12 and L IR L4. R shoulder ER 58 and L 52. 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 UE MMT: R shoulder flex 9.7 and L 8.2#. R shoulder abd 10.8# and L 6.3#. R shoulder ER 11.6 and and L 10.3. R shoulder IR 11.5# and L shoulder IR 10.8#. Posture: sits with rounded shoulders. Palpation: Tender under the L anterior acromion. PROM: very guarded and hard to relax due to pain at end ranges. - Balance/Special Test Scores Quick DASH Score: 25.0000 - Goals Goal 1:: I HEP Goal Time Frame: 4-6 Weeks - Rehabilitation Potential Rehabilitation Potential: Good - Anticipated Interventions Patient/Client Instruction: Educate patient on: Condition, Plan of Care For the Purpose of:: To decrease pain, To increase ROM, To improve nutrient delivery to tissue, To improve muscle performance and motor function, To improve ability to perform ADL's, To increase tolerance to activity/condition/position, To improve performance and independence with ADL's, To improve ability of physical actions for home/community/work/leisure, To improve health of tissue, To decrease soft tissue restriction, To increase flexibility/ROM Therapeutic Exercise to Include: Strength training, Body mechanics, Postural training, Flexibilty training, Passive ROM, Active ROM, Scapular Strength/Stabilization For the Purpose of:: To decrease pain, To increase ROM, To improve nutrient delivery to tissue, To improve muscle performance and motor function, To improve ability to perform ADL's, To increase tolerance to activity/condition/position, To improve performance and independence with ADL's, To improve ability of physical actions for home/community/work/leisure, To improve gait and locomotor functions, To improve health of tissue, To decrease soft tissue restriction, To increase flexibility/ROM Manual Therapy Techniques to Include: Mobilization, Passive ROM For the Purpose of:: To decrease pain, To increase ROM, To improve nutrient delivery to tissue, To improve muscle performance and motor function, To improve ability to perform ADL's, To increase tolerance to activity/condition/position, To improve performance and independence with ADL's, To decrease level of supervision to perform tasks, To improve ability of physical actions for home/community/work/leisure, To improve health of tissue, To decrease soft tissue restriction, To increase flexibility/ROM Cryotherapy (ice pack, ice massage): Yes Thermo therapy (hot pack): Yes For the Purpose of:: To decrease pain, To increase ROM, To improve nutrient delivery to tissue Thank you for the opportunity to evaluate your patient. For Medicare and Medicare HMO plans, please review the plan of care and approve it. It will need to be FAXED BACK to us at [phone] for Medicare purposes. For Medicare only, by signing this I certify the plan of care. Please let me know if there are questions or concerns regarding this plan of care. Physician Signature: Date:
--- NOTE | 2022-12-17 14:05 | HP.PTREVAL ---
Dr. Danna Laird MD, It has been my pleasure to treat FAN CHEEMA over the last 8 visits for pain in L shoulder. Please see the progress note below for an update on the physical therapy plan of care! Subjective: Some where along the line she thinks that she had x-rays. She says that she is about 40% better. SHe still has difficulty with overhead activities and behind her back. She is doing band exercises at home. She Objective/Function: Increase AROM: (at time of eval: R shoulder flex 150 and L 110. R shoulder ABD 165 and L 114. R shoulder IR T12 and L IR L1). UE MMT: R shoulder flex 9.7 and L 8.3#. R shoulder abd 10.8# and L 6.3#. R shoulder ER 11.6 and and L 10.4. R shoulder IR 11.5# and L shoulder IR 10.6#. PROM in high head of bed due to vertigo and able to get to painful endfeel flex/abd and ER Plan Plan: Add end range stretching per tolerance WITH HEAD OF BED HIGH DUE TO VERTIGO that comes and goes. Pt has tried EPLY at Dr office a few times with no success and does not wish to do that again. 2X/ week for additional 4 weeks for L shoulder PROM, AAROM, AROM, scapular strength and postural exercises, RC strength, with HEP Balance/Gait/Functional tests - Balance/Special Test Scores Quick DASH Score: [id number] Goals Goal 1:: I HEP Goal Time Frame: 4-6 Weeks Goal Progress: Goal Met Goal 2:: Increase AROM: (at time of eval: R shoulder flex 150 and L 105. R shoulder ABD 165 and L 105. R shoulder IR T12 and L IR L4) Goal 3:: Increase MMT: (at time of the eval: UE MMT: R shoulder flex 9.7 and L 8.2#. R shoulder abd 10.8# and L 6.3#. R shoulder ER 11.6 and and L 10.3. R shoulder IR 11.5# and L shoulder IR 10.8#) Anticipated Interventions Patient/Client Instruction: Educate patient on: Condition, Plan of Care For the Purpose of:: To decrease pain, To increase ROM, To improve nutrient delivery to tissue, To improve muscle performance and motor function, To improve ability to perform ADL's, To increase tolerance to activity/condition/position, To improve performance and independence with ADL's, To improve ability of physical actions for home/community/work/leisure, To improve health of tissue, To decrease soft tissue restriction, To increase flexibility/ROM Therapeutic Exercise to Include: Strength training, Body mechanics, Postural training, Flexibilty training, Passive ROM, Active ROM, Scapular Strength/Stabilization For the Purpose of:: To decrease pain, To increase ROM, To improve nutrient delivery to tissue, To improve muscle performance and motor function, To improve ability to perform ADL's, To increase tolerance to activity/condition/position, To improve performance and independence with ADL's, To improve ability of physical actions for home/community/work/leisure, To improve gait and locomotor functions, To improve health of tissue, To decrease soft tissue restriction, To increase flexibility/ROM Manual Therapy Techniques to Include: Mobilization, Passive ROM For the Purpose of:: To decrease pain, To increase ROM, To improve nutrient delivery to tissue, To improve muscle performance and motor function, To improve ability to perform ADL's, To increase tolerance to activity/condition/position, To improve performance and independence with ADL's, To decrease level of supervision to perform tasks, To improve ability of physical actions for home/community/work/leisure, To improve health of tissue, To decrease soft tissue restriction, To increase flexibility/ROM Cryotherapy (ice pack, ice massage): Yes Thermo therapy (hot pack): Yes For the Purpose of:: To decrease pain, To increase ROM, To improve nutrient delivery to tissue Please do not hesitate to contact me at [phone] by phone or if you have questions or concerns regarding this new plan of care! Sincerely, Maggie Jesus, MPT
--- NOTE | 2023-04-23 15:28 | HP.PTDCNRP_ITS ---
Patient Information Patient Information: FAN CHEEMA was seen in my office for initial evaluation on 11/14/22. The following Plan of Care was established for this patient: POC Established Initial Frequency: 2x /Week Initial Duration: 4 Weeks Anticipated Interventions Patient/Client Instruction: Educate patient on: Condition and Plan of Care For the Purpose of:: To decrease pain, To increase ROM, To improve nutrient delivery to tissue, To improve muscle performance and motor function, To improve ability to perform ADL's, To increase tolerance to activity/condition/position, To improve performance and independence with ADL's, To improve ability of physical actions for home/community/work/leisure, To improve health of tissue, To decrease soft tissue restriction and To increase flexibility/ROM Therapeutic Exercise to Include: Strength training, Body mechanics, Postural training, Flexibilty training, Passive ROM, Active ROM and Scapular Strength/Stabilization For the Purpose of:: To decrease pain, To increase ROM, To improve nutrient delivery to tissue, To improve muscle performance and motor function, To improve ability to perform ADL's, To increase tolerance to activity/condition/position, To improve performance and independence with ADL's, To improve ability of physical actions for home/community/work/leisure, To improve gait and locomotor functions, To improve health of tissue, To decrease soft tissue restriction and To increase flexibility/ROM Manual Therapy Techniques to Include: Mobilization and Passive ROM For the Purpose of:: To decrease pain, To increase ROM, To improve nutrient delivery to tissue, To improve muscle performance and motor function, To improve ability to perform ADL's, To increase tolerance to activity/condition/position, To improve performance and independence with ADL's, To decrease level of supervision to perform tasks, To improve ability of physical actions for home/community/work/leisure, To improve health of tissue, To decrease soft tissue restriction and To increase flexibility/ROM Cryotherapy (ice pack, ice massage): Yes Thermo therapy (hot pack): Yes For the Purpose of:: To decrease pain, To increase ROM and To improve nutrient delivery to tissue Last Seen Last Seen: This patient was last seen in our office 01/09/23. Pertinent comments regarding their Physical therapy will appear below: Pt No showed for her last appt and will be discharged at this time. At this point I will be discontinuing this patient from physical therapy. I wou ld be happy to see this patient again in the future if found appropriate by the physician. Thank you! Maggie Jesus, NATALIYA Balance/Gait/Functional tests Balance/Special Test Scores Quick DASH Score: 6.8152
== END 2023-01-09 19:00 | disposition home or self-care (01) ==
LOC: PT 09:00
PROVIDERS: PCP Internal Medicine; Referring Provider Internal Medicine; Visit Provider Internal Medicine
DX: Z00.00 Encounter for general adult medical examination without abnormal findings (principal)
CPT/HCPCS: 97110; 97161; 97530

== ENCOUNTER 2023-01-12 09:12 | Emergency (ER) | payer MEDICARE, SELFPAY ==
[2022-12-03 10:50] VITALS: BMI 30.8
[2023-01-12 09:13] VITALS: BP 171/102; PULSE 124; RESP 14; TEMP 36.6; O2SAT 98
--- NOTE | 2023-01-12 09:37 | EDS_ITS ---
HPI History of Present Illness Chief Complaint: Upper Extremity Injury Detail of Chief Complaint: Right wrist injury Informant: patient Onset/Context/Timing Onset: Today Narrative Narrative: Patient presents with right wrist injury after a fall. She went to get out of her car at the gas station and her feet were caught in her purse strap. She fell out of the car placing her right hand out to catch her self. She has pain to the right wrist into the right mid upper arm. She denies striking her head or any other injury. She is on aspirin and Plavix but no other anticoagulants. [facility] Medical History Atherosclerotic heart disease of [place] coronary artery without angina pectoris Bilateral cataracts Colon cancer Decreased radial pulse Personal history of colonic polyps Pure hypercholesterolemia Seasonal allergies Home Medications ibuprofen 200 mg tablet 200 mg PO PRN PRN Headache 07/19/19 [History Last Taken Unknown] cholecalciferol (vitamin D3) 50 mcg (2,000 unit) tablet 50 mcg PO DAILY Vit D #90 tabs 04/04/22 [Rx Last Taken Unknown] cyanocobalamin (vitamin B-12) 1,000 mcg tablet 1,000 mcg PO DAILY B12 #90 tabs 04/04/22 [Rx Last Taken Unknown] aspirin 81 mg tablet,delayed release 81 mg PO DAILY #1 TAB 07/16/22 [Rx Last Taken 08/06/22] carvedilol 3.125 mg tablet 3.125 mg PO BID #60 tabs 08/07/22 [Rx Last Taken Unknown] clopidogrel 75 mg tablet 75 mg PO DAILY #90 tabs 08/07/22 [Rx Last Taken Unknown] ondansetron 4 mg disintegrating tablet 4 mg PO Q8H PRN PRN Nausea #10 tabs 01/12/23 [Rx Last Taken Unknown] oxycodone 5 mg tablet 5 mg PO Q8H PRN pain 3 days #10 tabs 01/12/23 [Rx Last Taken Unknown] Allergy/AdvReac Type Severity Reaction Status Date / Time atorvastatin calcium Allergy myalgias Verified 01/12/23 09:13 [From Lipitor] clarithromycin Allergy Nausea/Vom/ Verified 01/12/23 09:13 Diarrhea desloratadine [From Clarinex] Allergy Unknown Verified 01/12/23 09:13 guaifenesin [From Entex LA] Allergy Unknown Verified 01/12/23 09:13 hydrocodone bitartrate Allergy Other Verified 01/12/23 09:13 [From Vicodin] methylprednisolone Allergy Unknown Verified 01/12/23 09:13 nystatin Allergy Unknown Verified 01/12/23 09:13 pentoxifylline Allergy Nausea/Vom/ Verified 01/12/23 09:13 Diarrhea phenylephrine HCl Allergy Unknown Verified 01/12/23 09:13 [From Entex LA] phenylpropanolamine HCl Allergy Unknown Verified 01/12/23 09:13 [From Entex LA] sulfamethoxazole Allergy Unknown Verified 01/12/23 09:13 [From Bactrim] trimethoprim [From Bactrim] Allergy Unknown Verified 01/12/23 09:13 Pravastatin AdvReac Intermediate Myalgias Uncoded 01/12/23 09:13 Family History Mother Diabetes Heart disease Father Heart disease Myocardial infarction Sister Diabetes Heart disease Hypertension Sister Heart disease Surgical History History of bilateral cataract extraction History of bowel resection History of colonoscopy Presence of coronary angioplasty implant and graft (~08/06/22) Presence of stent in coronary artery (~08/06/22) Social History Smoking Status: Never smoker alcohol intake: never substance use type: does not use caffeine: Yes Type: carbonated beverages Number of servings: 2 and tea Number of servings: 2 additional social history: Uses Ibuprofen prn ROS ROS ED Constitutional Constitutional ED: Denies chills or fever(s) Eyes Eyes: Denies change in vision or discharge from eye(s) ENT ENT ED: Denies discharge from eye(s), rhinorrhea or sore throat Cardiovascular Cardiovascular: Denies chest pain or palpitations Respiratory/Chest Respiratory/Chest: Denies cough or dyspnea Gastrointestinal Gastrointestinal: Denies abdominal pain, nausea or vomiting Musculoskeletal Musculoskeletal: Reports extremity pain; Denies back pain Integumentary Denies Abrasions or rash Neurologic Neurologic: Denies headache(s), paresthesias or weakness Psychiatric Psychiatric: Denies anxiety or depression Allergic/Immunologic Allergic/Immunologic ED: Denies lip swelling or urticaria EXAM Physical Exam Const Vital Signs: 01/12/23 09:13 Temperature 98 F Temperature Source Temporal Pulse Rate 124 H Respiratory Rate 14 Blood Pressure 171/102 H Blood Pressure Mean 125 Pulse Ox 98 Oxygen Delivery Method Room Air Positive well nourished and well developed General Appearance ED: well developed HEENT Reports normocephalic and head/scalp atraumatic Eyes PERRL and EOMs intact bilaterally Neck supple Chest Wall inspection of chest normal and palpation of chest normal Resp normal respiratory effort and clear to auscultation bilaterally Cardio regular rate and regular rhythm GI normal to inspection, nondistended, normoactive bowel sounds Palpation: soft Back/Spine no CVA tenderness Extremity Extremity Narrative: Mild tenderness palpation right wrist with edema noted over the distal radius. Normal sensation distally and can wiggle fingers. Normal cap refill. Neuro oriented x3 and no sensory deficits noted Sensorium / Orientation: alert Psych mental status grossly normal Skin no rashes or lesions noted MDM MDM MDM Narrative Medical decision making narrative: Right humerus and right wrist x-rays were obtained to evaluate for fracture. Patient is given ibuprofen for pain. Radiography Diagnostic Testing: Radiology Impression Humerus X-Ray 01/12/23 10:00 IMPRESSION: Normal x-ray examination of the humerus. Electronically Signed: Kemal Cash MD at 10:26 EDT Reading Location ID and State: [id number] / [employer] , Service support , Wrist X-Ray 01/12/23 10:00 IMPRESSION: Acute impacted nondisplaced and nondilated transverse fracture of the distal metaphysis of the radius. Electronically Signed: Kemal Cash MD at 10:25 EDT Reading Location ID and State: [id number] / [employer] , Service support , Treatment and Re-Evaluation Narrative: Right humerus x-ray per my interpretation reveals no evidence of fracture. Right wrist x-ray reveals a distal radius fracture along with an ulnar styloid fracture. Radiology interpretation on both studies is reviewed and agree. X- rays are reviewed with the patient. She is placed in an AP Ortho-Glass splint. Following splint application she has good cap refill distally and can wiggle fingers. Patient has been seen by Dr. Arslan Melgar in the past. I will give her discharge paperwork with his information so she can call tomorrow for follow-up. She will be written for Zofran and oxycodone to have at home if needed for breakthrough pain. We discussed appropriate icing and elevation of her arm. Discharge Plan Triage Chief Complaint: Upper Extremity Injury ED Provider: Lucy Thomas Dx/Rx/DC Orders Clinical Impression: Right wrist fracture Instructions: ED Fracture, Wrist, General Prescriptions: New ondansetron 4 mg tablet,disintegrating 4 mg PO Q8H PRN PRN (Reason: Nausea) Qty: 10 0RF oxycodone 5 mg tablet 5 mg PO Q8H PRN (Reason: pain) 3 Days Qty: 10 0RF No Action aspirin 81 mg tablet,delayed release (DR/EC) 81 mg PO DAILY Qty: 1 0RF Hold Instructions: Nosebleed: Hold until 12/07/22. ibuprofen 200 MG tablet 200 mg PO PRN PRN (Reason: Headache) clopidogrel 75 mg Tablet 75 mg PO DAILY Qty: 90 3RF carvedilol 3.125 mg Tablet 3.125 mg PO BID Qty: 60 6RF cyanocobalamin (vitamin B-12) 1,000 mcg tablet 1,000 mcg PO DAILY Qty: 90 3RF cholecalciferol (vitamin D3) 50 mcg (2,000 unit) tablet 50 mcg PO DAILY Qty: 90 3RF Primary Care Provider: Danna Laird Referrals: Danna Laird MD [Primary Care Provider] - Arslan Melgar MD [Med Staff - Active Staff] - 3-5 Days Disposition Disposition: Home, Self Care
--- NOTE | 2023-01-12 10:00 | RAD_ITS ---
STUDY: X-RAY - RIGHT WRIST REASON FOR EXAM: Female, 77 years old. injury TECHNIQUE: 3 view(s) of the wrist were obtained. COMPARISON: None. FINDINGS: Acute impacted nondisplaced nonangulated transverse fracture of the distal metaphysis of the radius. Normal radiocarpal articulation. Normal distal radioulnar articulation. Normal carpal bones. There is degenerative arthrosis of the carpal articulations. Normal carpometacarpal articulation of the thumb. Normal second through fifth carpometacarpal articulations. Normal visualized metacarpal bones. The soft tissue structures are unremarkable. RAD/Wrist min 3 Views IMPRESSION: Acute impacted nondisplaced and nondilated transverse fracture of the distal metaphysis of the radius. Electronically Signed: Kemal Cash MD at 10:25 EDT ,
--- NOTE | 2023-01-12 10:00 | RAD_ITS ---
STUDY: X-RAY - RIGHT HUMERUS REASON FOR EXAM: Female, 77 years old. injury TECHNIQUE: 2 view(s) of the humerus. COMPARISON: None. FINDINGS: Normal visualized humerus. There is no demonstrated fracture or osseous destructive process. There is no demonstrated soft tissue abnormality. RAD/Humerus min 2 Views IMPRESSION: Normal x-ray examination of the humerus. Electronically Signed: Kemal Cash MD at 10:26 EDT ,
[2023-01-12] MEDS: Ibuprofen 200 MG Tablet 400 MG PO (10:13)
== END 2023-01-12 11:29 | disposition home or self-care (01) ==
PROVIDERS: Emergency Provider Emergency Medicine; PCP Internal Medicine; Visit Provider Emergency Medicine
DX: S52.501A Unspecified fracture of the lower end of right radius, initial encounter for closed fracture (principal); I25.10 Atherosclerotic heart disease of native coronary artery without angina pectoris; E78.00 Pure hypercholesterolemia, unspecified; W17.89XA Other fall from one level to another, initial encounter; S52.611A Displaced fracture of right ulna styloid process, initial encounter for closed fracture
CPT/HCPCS: 29125; 73060; 73110; 99281; 99283

== ENCOUNTER 2023-03-24 10:30 | Outpatient (RCR) | payer MEDICARE, SELFPAY ==
--- NOTE | 2023-02-26 12:50 | HP.OTEVAL ---
Patient's Visit Information FAN CHEEMA is a 77 year old F, referred to Occupational Therapy by EDITH Neil, with a diagnosis of right distal radius fx, ulnar styloid fx. Date of Evaluation: 02/26/23 Occupational Therapist: Genoveva Alcantar, OTILIA/Rock, CHT - Subjective This 77 year old female was seen for OT eval with dx of right distal transverse nondisplaced radius fx, and right ulnar fx. pt states she had a fall on January 12 2023. pt states she did go to [facility] and EDITH Antonio put hard cast on. Pt had cast removed Friday. pt states she does get sharp pains at times and tingling/numbness. pt is right handed. pt is sleeping with a soft cock up brace. pt states she has numbness on top of her wrist. limited ROM. pt would like to return to her PLOF. - ADLs Dressing: Button shirt, Pants, Socks, Shoes Eating: Bring food to mouth, Use silverware, Cut food Bathing: Handle washcloth & soap, Wash hair Kitchen: Chop with knife, Peel fruits & vegetables, Open jars, Load/unload gimp tacker Household: Sweep/mop, Laundry Comments: pt lives with . he is assisting pt with all ADLs at this time. pt assisting with clearing, cooking and laundry. pts PLOF was IND with all ADLs, driving, cooking cleaning and laundry - Pain right wrist/hand 2 Pain Intensity Range: 7, 8 - ROM Forearm: right supination to neutral pronation WNL left WNL Wrist: right 25/20 left 65/70 Opposition: Kapandji opposition scale right 3 left 10 ROM Comments: right RD [address] 20. right UD 20 left 30. pt demo 2 away from right composite fist - Strength Product Test Specialist: right NT left 45# Lateral Pinch: right NT left 10# Tripod Pinch: right NT left 8# - Edema PIP: right MF 2.3 left 6.0 - Sensation Sensation Comments: reports numbness/tingling dorsome of wrist - Quick DASH-Disab of Arm,Shoulder& Hand Quick DASH Score: 61.3625 - Goals Goal:ROM equal to unaffected hand: Yes Goal:Product Test Specialist/Pinch strength at least 75% of unaffected hand: Yes Goal:No pain with affected hand use: Yes Goal:PIP Circumferences equal to unaffected hand: Yes Goal:Full use of affected hand in daily activities including: Yes - Rehabilitation General Assessment: pt 6 weeks and 3 days out from right distal radius fx and right ulna styloid fx. Pt is demo limited ROM and strength to perform ADls and IADls. pt would benefit from skilled OT services 2-3x week for 4-6 weeks to decrease pain, improve right wrist, forearm and digit ROM along with transitioning pt into a strengthening program to return pt to PLOF. Rehabilitation Potential: Good - Anticipated Interventions A/AAROM/PROM, Strengthening, Triggerpoint Release, Modalities, Orthoses, Joint Protection/Energy Conservation, Ergonomic Education, Fine Motor Coord/Yonatan, ADL Training, Education re assistive Equipment, Education re Diagnosis, Caregiver Training, Home Program - Visit Plan Frequency: 2-3x /Week Duration: 4-6 Weeks General Plan: improve ROM of forearm supination, wrist and digit ROM ( wean out of brace when home). initiate strengthening in about two weeks and wean out of brace. pt may need PROM to digits/place and hold to get composite right fist TEXT: Thank you for the opportunity to evaluate your patient. For Medicare and Medicare HMO plans, please review the plan of care and approve it. It will need to be FAXED BACK to us at [phone] for Medicare purposes. Please let me know if there are questions or concerns regarding this plan of care. Physician Signature: Date:
--- NOTE | 2023-03-18 13:28 | HP.OTREVAL ---
EDITH Neil, It has been my pleasure to treat FAN CHEEMA over the last 7 visits for right distal radius fx, ulnar styloid fx. Please see the progress note below for an update on the occupational therapy plan of care! Subjective: pt arrives to session - states she is IND with ADLs and IADLs. pt states when she carries heavier objects she will use her wrist brace. Objective/Function: right wrist 45/25. right central supply nurse 25#. right lateral pinch 12#. right tripod pinch 10#. pt making gains with her functional strength. Plan Visits in this POC: 12 Plan: continue to increase pts ROM and light PRE as tolerated Goals - Goals Patient Goals: Regain Mobility, Decrease Pain, Decrease Swelling/Stiffness, Improve Fine Motor Skills, Use Hand/Wrist/Arm Normally Again, Be More Independent in ADLS Goal:ROM equal to unaffected hand: Yes Goal:Flux Tube Attendant/Pinch strength at least 75% of unaffected hand: Yes Goal:No pain with affected hand use: Yes Goal:PIP Circumferences equal to unaffected hand: Yes Goal:Full use of affected hand in daily activities including: Yes Anticipated Interventions Anticipated Interventions: A/AAROM/PROM, Strengthening, Triggerpoint Release, Modalities, Orthoses, Joint Protection/Energy Conservation, Ergonomic Education, Fine Motor Coord/Yonatan, ADL Training, Education re assistive Equipment, Education re Diagnosis, Caregiver Training, Home Program Please do not hesitate to contact me at [phone] by phone or if you have questions or concerns regarding this new plan of care! Sincerely, Genoveva Alcantar, OTR/L, CHT
--- NOTE | 2023-03-24 10:54 | HP.OTDCSUM ---
It has been my pleasure to treat FAN CHEEMA under orders from EDITH Neil, for the diagnosis of right distal radius fx, ulnar styloid fx for a total of 9 visit(s). Please see the following information for a summary of their discharge status. % Improvement: 90 Objective/Function: right wrist ROM 60/40 increase from 25/20. right stock pitcher strength: 30#. right lateral pinch 8#. right tripod pinch 8#. pt demo full composite fist initial pt was 2 away. pt has met OT goals. pt will at times have tingling and this varies between radial nerve and median nerve may benefit from nerve conduction in future. Patient Goals: Regain Mobility, Decrease Pain, Decrease Swelling/Stiffness, Improve Fine Motor Skills, Use Hand/Wrist/Arm Normally Again, Be More Independent in ADLS Goal:ROM equal to unaffected hand: Yes Goal:Carton Machine Operator/Pinch strength at least 75% of unaffected hand: Yes Goal:No pain with affected hand use: Yes Goal:PIP Circumferences equal to unaffected hand: Yes Goal:Full use of affected hand in daily activities including: Yes Plan: D/C Discharge Comments: pt was seen for 9 OT session following her right wrist fx. pts therapy worked on increasing ROM, strength and returning pt to performing her ADLs and IADLs at [facility]. Today pt reports she is doing all ADLS IND. and some assist with bottle tops (as she had trouble with this before). Therapist ed. pt to continue with her HEP of AROM, PROM and PRE. Pt has handout and demo understanding of HEP. Pt agrees with D/C. If there are questions or concerns regarding this patient's occupational therapy, please fell free to call me at [phone]. Thank you for the referral of this patient. Sincerely, Genoveva Alcantar, OTR/L, CHT
== END 2023-03-24 19:00 | disposition home or self-care (01) ==
LOC: OT 10:30
PROVIDERS: PCP Internal Medicine; Referring Provider Physician Assistant Surgical; Visit Provider Physician Assistant Surgical
DX: S52.611D Displaced fracture of right ulna styloid process, subsequent encounter for closed fracture with routine healing (principal); S52.324D Nondisplaced transverse fracture of shaft of right radius, subsequent encounter for closed fracture with routine healing
CPT/HCPCS: 97110; 97140; 97166; 97530

== ENCOUNTER → 2023-05-26 | Outpatient (CLI) | payer MEDICARE, SELFPAY ==
[2023-05-26 09:57] LABS: AST(SGOT) 28 U/L (15-37); Alanine Aminotransfer ALT/SGPT 26 U/L (13-56); Albumin, Serum 3.3 g/dL (3.2-5.0); Alkaline Phosphatase 113 U/L (45-117); Bilirubin, Direct 0.15 mg/dL (0.00-0.30); Cholesterol 239 mg/dL (200); Globulin 3.6 g/dL (2.2-4.2); High Density Lipoprotein 74 mg/dL; Protein, Total 6.9 g/dL (6.4-8.2); Triglycerides 110 mg/dL; Very Low Density Lipoprotein 22 mg/dL (5-40)
[2023-05-26 10:06] LABS: Anion Gap 6 (5-15); BUN 19 mg/dL (7-18); BUN/Creat Ratio 15.2 RATIO (10-20); Chloride 105 mmol/L (98-107); Creatinine, Serum 1.25 mg/dL (0.55-1.02); EST Glomerular Filtration Rate 44 mL/min (>60); Est Glom Filt Rate - Afr Amer 53 mL/min (>60); Glucose 99 mg/dL (74-106); Potassium 4.1 mmol/L (3.5-5.1); Sodium Level 138 mmol/L (136-145)
== END | disposition home or self-care (01) ==
LOC: LAB 08:48
PROVIDERS: PCP Internal Medicine; Referring Provider Nurse Practitioner Gerontology; Visit Provider Nurse Practitioner Gerontology
DX: E78.00 Pure hypercholesterolemia, unspecified (principal); I10 Essential (primary) hypertension
CPT/HCPCS: 36415; 80048; 80061; 80076

== ENCOUNTER → 2023-06-04 | Outpatient (CLI) | payer MEDICARE, SELFPAY ==
--- NOTE | 2023-06-04 14:20 | NEURO ---
NCS and/or EMG Patient Report Ordering Doctor: Brendan Barraza DATE OF SERVICE: 06/04/23 Vita presents with complaints of numbness and tingling in the right hand. Electrodiagnostic Findings: Median motor nerve demonstrates prolonged distal latency with normal amplitude and reduced conduction velocity. Normal right ulnar motor response, including conduction across the elbow. Borderline prolonged right median F wave. Prolonged right median sensory latency at the wrist. Normal ulnar and radial sensory responses. Needle EMG testing was performed in the right upper limb. All muscles tested showed no evidence of denervation with normal motor unit action potentials. Electrodiagnostic impression: This is an abnormal study in the right upper limb 1. Electrodiagnostic findings demonstrate right-sided median mononeuropathy. This is consistent with a mild right carpal tunnel syndrome. Multi Select Codes Neurology Neurology Interp Codes: 71750-14 Musc test done w/n test comp (interp) and 70625-16 Nrv cndj test 7-8 studies (interp)
== END | disposition home or self-care (01) ==
LOC: PSN 13:24
PROVIDERS: PCP Internal Medicine; Referring Provider Student in an Organized Health Care Education/Training Program; Visit Provider Student in an Organized Health Care Education/Training Program
DX: R20.2 Paresthesia of skin (principal)
CPT/HCPCS: 95886; 95910

== ENCOUNTER → 2023-07-11 | Outpatient (CLI) | payer MEDICARE, SELFPAY ==
[2023-07-11 10:23] LABS: Absolute Lymphocyte Count 1.48 X10^3/uL (0.83-4.51); Basophil# 0.06 X10^3/uL; Basophil% 0.8 % (0-1); Eosinophil# 0.23 X10^3/uL; Hematocrit 40.4 % (37-47); Hemoglobin 13.3 g/dL (12.0-15.0); Lymphocyte # 1.48 X10^3/ul (0.83-4.51); Lymphocyte % 19.6 % (19-41); Mean Corp Hgb Conc 32.9 g/dL (32-36); Mean Corpuscular Hgb 30.7 pg (27.0-32.0); Mean Corpuscular Volume 93.3 fL (81-99); Mean Platelet Vol. 11.3 fl (6.2-12.0); Monocyte# 0.82 X10^3/uL; Monocyte% 10.8 % (0-10); NRBC Flagged by Analyzer 0 % (0-5); Neutrophil # 4.95 X10^3/uL (2.7-7.7); Neutrophil % 65.5 % (47-70); Platelet Count 210 K/mm3 (150-450); RBC Distribution Width CV 12.1 % (11.6-14.6); RBC Distribution Width SD 41.8 fl (35.1-43.9); Red Blood Count 4.33 M/mm3 (4.2-5.4); White Blood Count 7.6 K/mm3 (4.4-11.0)
[2023-07-11 10:49] LABS: Vitamin D,25 Hydroxy 51.3 ng/mL
[2023-07-11 11:20] LABS: Anion Gap 4 (5-15); BUN 18 mg/dL (7-18); BUN/Creat Ratio 13.6 RATIO (10-20); Calcium,Total 9.5 mg/dL (8.5-10.1); Chloride 106 mmol/L (98-107); Creatinine, Serum 1.32 mg/dL (0.55-1.02); EST Glomerular Filtration Rate 41 mL/min (>60); Est Glom Filt Rate - Afr Amer 50 mL/min (>60); Free T3 2.4 pg/mL (2.18-3.98); Glucose 98 mg/dL (74-106); Potassium 3.6 mmol/L (3.5-5.1); Sodium Level 138 mmol/L (136-145); T4 Free Direct 1.12 ng/dL (0.76-1.46); Thyroid Stim Hormone (TSH) 2.31 uIU/mL (0.358-3.74)
== END | disposition home or self-care (01) ==
LOC: LAB 09:59
PROVIDERS: PCP Internal Medicine; Referring Provider Nurse Practitioner Gerontology; Visit Provider Nurse Practitioner Gerontology
DX: R53.83 Other fatigue (principal); E55.9 Vitamin D deficiency, unspecified
CPT/HCPCS: 36415; 80048; 82306; 84439; 84443; 84481; 85025

== ENCOUNTER 2023-07-31 11:19 | Emergency (ER) | payer MEDICARE, SELFPAY ==
[2023-07-31 11:19] VITALS: BP 182/58; PULSE 63; RESP 18; TEMP 36.6; O2SAT 100; BMI 29.6
[2023-07-31] MEDS: Mixture 30 ML Bottle TOPICAL (11:53)
--- NOTE | 2023-07-31 12:17 | EDS_ITS ---
HPI History of Present Illness Chief Complaint: Nosebleed Narrative Narrative: 78-year-old female presenting with epistaxis from the right nare. Denies trauma. Patient on aspirin and Plavix. History of nosebleed. She states last time they tried to cauterize it nothing would work. She is up having a packing. She followed up with Dr. Campbell who took the packing out. She states that he was post to set up with ENT but this never occurred. She did not get a referral from the ER. [facility] Medical History Acute bronchitis, unspecified Atherosclerotic heart disease of [place] coronary artery without angina pectoris Bilateral cataracts Colon cancer Decreased radial pulse HTN (hypertension) Personal history of colonic polyps Pure hypercholesterolemia Seasonal allergies URI (upper respiratory infection) Home Medications ibuprofen 200 mg tablet 200 mg PO PRN PRN Headache 07/19/19 [History Last Taken Unknown] clopidogrel 75 mg tablet 75 mg PO DAILY #90 tabs 08/07/22 [Rx Last Taken Unknown] carvedilol 3.125 mg tablet 3.125 mg PO BID #60 tabs 03/13/23 [Rx Last Taken Unknown] meclizine 25 mg tablet 25 mg PO BID PRN dizziness #30 tabs 04/04/23 [Rx Last Taken Unknown] ondansetron 4 mg disintegrating tablet 4 mg PO Q8H PRN PRN Nausea #10 tabs 04/04/23 [Rx Last Taken Unknown] cholecalciferol (vitamin D3) 50 mcg (2,000 unit) tablet 50 mcg PO DAILY Vit D #90 tabs 05/07/23 [Rx Last Taken Unknown] cyanocobalamin (vitamin B-12) 1,000 mcg tablet 1,000 mcg PO DAILY B12 #90 tabs 05/07/23 [Rx Last Taken Unknown] hydrochlorothiazide 12.5 mg tablet 12.5 mg PO DAILY #30 tabs 05/15/23 [Rx Last Taken Unknown] Allergy/AdvReac Type Severity Reaction Status Date / Time atorvastatin calcium Allergy myalgias Verified 07/31/23 11:22 [From Lipitor] clarithromycin Allergy Nausea/Vom/ Verified 07/31/23 11:22 Diarrhea desloratadine [From Clarinex] Allergy Unknown Verified 07/31/23 11:22 guaifenesin [From Entex LA] Allergy Unknown Verified 07/31/23 11:22 hydrocodone bitartrate Allergy Other Verified 07/31/23 11:22 [From Vicodin] methylprednisolone Allergy Unknown Verified 07/31/23 11:22 nystatin Allergy Unknown Verified 07/31/23 11:22 pentoxifylline Allergy Nausea/Vom/ Verified 07/31/23 11:22 Diarrhea phenylephrine HCl Allergy Unknown Verified 07/31/23 11:22 [From Entex LA] phenylpropanolamine HCl Allergy Unknown Verified 07/31/23 11:22 [From Entex LA] sulfamethoxazole Allergy Unknown Verified 07/31/23 11:22 [From Bactrim] trimethoprim [From Bactrim] Allergy Unknown Verified 07/31/23 11:22 pravastatin AdvReac Myalgia Verified 07/31/23 11:22 Family History Mother Diabetes Heart disease Father Heart disease Myocardial infarction Sister Diabetes Heart disease Hypertension Sister Heart disease Surgical History H/O knee surgery H/O shoulder surgery History of bilateral cataract extraction History of bowel resection History of colonoscopy Presence of coronary angioplasty implant and graft (~08/06/22) Presence of stent in coronary artery (~08/06/22) Social History Smoking Status: Never smoker alcohol intake: never substance use type: does not use caffeine: Yes Type: carbonated beverages Number of servings: 2 and tea Number of servings: 2 additional social history: Uses Ibuprofen prn ROS ROS ED Constitutional Constitutional ED: Denies chills, fever(s) or sweats Eyes Eyes: Denies blurry vision or change in vision ENT ENT ED: Reports other Details: Epistaxis right nare ; Denies ear pain or sore throat Cardiovascular Cardiovascular: Denies chest pain, palpitations or racing heartbeat Respiratory/Chest Respiratory/Chest: Denies cough, dyspnea or sputum Gastrointestinal Gastrointestinal: Denies abdominal pain, constipation, diarrhea, nausea or vomiting Genitourinary Genitourinary ED: Denies dysuria, hematuria or urinary frequency Musculoskeletal Musculoskeletal: Denies arthralgias, myalgias or neck pain Integumentary Denies abscess, Abrasions or rash Neurologic Neurologic: Denies headache(s), paresthesias or weakness Psychiatric Psychiatric: Denies anxiety, depression, suicidal ideation or suicidal thoughts Endocrine Endocrinology: Denies polydipsia or polyuria EXAM Physical Exam Const Vital Signs: 07/31/23 11:19 Temperature 97.8 F Temperature Source Temporal Pulse Rate 63 Respiratory Rate 18 Blood Pressure 182/58 H Blood Pressure Mean 99 Pulse Ox 100 Oxygen Delivery Method Room Air Positive well nourished General Appearance ED: NAD HEENT Reports moist mucous membranes HEENT Narrative: Scant bleeding coming from the right nare it appears to be anterior. Eyes PERRL Resp normal respiratory effort and clear to auscultation bilaterally Cardio regular rate and regular rhythm Neuro oriented x3 and CN's II-XII intact bilaterally Psych mental status grossly normal Skin no rashes or lesions noted and no wounds MDM MDM MDM Narrative Medical decision making narrative: Patient presented with epistaxis. The bleeding has slowed down and there is just slight bleeding in the anterior plexus. She has had this previously tried to cauterize and it did not help. We discussed leaving it since it is very minor versus packing it to control the bleeding and ultimately determined we would pack this and she will follow-up with ENT. Return precautions were discussed. Impression: 1. epistaxis Discharge Plan Triage Chief Complaint: Nosebleed ED Provider: Hero Crabtree Dx/Rx/DC Orders Instructions: Nosebleed Prescriptions: No Action ibuprofen 200 MG tablet 200 mg PO PRN PRN (Reason: Headache) clopidogrel 75 mg Tablet 75 mg PO DAILY Qty: 90 3RF carvedilol 3.125 mg tablet 3.125 mg PO BID Qty: 60 6RF meclizine 25 mg tablet 25 mg PO BID PRN (Reason: dizziness) Qty: 30 1RF ondansetron 4 mg tablet,disintegrating 4 mg PO Q8H PRN PRN (Reason: Nausea) Qty: 10 1RF cholecalciferol (vitamin D3) 50 mcg (2,000 unit) tablet 50 mcg PO DAILY Qty: 90 3RF cyanocobalamin (vitamin B-12) 1,000 mcg tablet 1,000 mcg PO DAILY Qty: 90 3RF hydrochlorothiazide 12.5 mg tablet 12.5 mg PO DAILY Qty: 30 11RF Primary Care Provider: Danna Laird Referrals: Ronald Harris MD [Med Staff - Active Staff] - 3-5 Days Danna Laird MD [Primary Care Provider] - Disposition Disposition: Home, Self Care
== END 2023-07-31 12:34 | disposition home or self-care (01) ==
LOC: ED 12:32
PROVIDERS: Emergency Provider Student in an Organized Health Care Education/Training Program; PCP Internal Medicine; Visit Provider Student in an Organized Health Care Education/Training Program
DX: R04.0 Epistaxis (principal); I25.10 Atherosclerotic heart disease of native coronary artery without angina pectoris; E78.00 Pure hypercholesterolemia, unspecified; I10 Essential (primary) hypertension
CPT/HCPCS: 30901; 99282

== ENCOUNTER 2023-08-14 10:30 | Outpatient (RCR) | payer MEDICARE, SELFPAY ==
--- NOTE | 2023-07-16 09:55 | HP.OTEVAL_ITS ---
Patient's Visit Information Visit Information Visit Information: FAN CHEEMA is a 78 year old F, referred to Occupational Therapy by Dr. Brendan Barraza DO, with a diagnosis of CTS right. Date of Evaluation: 07/09/23 Occupational Therapist: OTILIA Daly/Rock, CHT Subjective Subjective: This 78 year old female arrives to OT with dx lower end right radius fx, displaced right ulna styloid fx and CTS (DOI was January 26, 2023) pt states she has tingling in thumb and forearm and pain on occasions. pt states Dr ng put her back in brace at night pt states she had nerve conduction test about 06/16/23- (Mild CTS) pt states she had her cortisone shot 06/27/23 pt states cortisone shot did help some what pt states she feels it helps with the pain more than the tingling. pt states she takes Ibprophin pt states her hand does not not use her hand- states she will switch hands and carry items with her left if right is to painful. ADLs Fasteners: Zippers Comments: difficult ( unable to tell if it is due to pain or tingling) Bathing: Handle washcloth & soap Comments: will switch hand to wash her body - due to limitations Kitchen: Open jars, Open bottle caps, Lift gallon of milk and Lift saucepan Comments: pt states the above are difficulty Miscellaneous: Unlock front door, Carry shopping bag and Write Comments: sometimes the above is hard Comments: pt states with lifting will shift hands right hand gets very tired with writing Pain right wrist/hand: Current Pain Intensity: 2 Pain Intensity Range: 0 and 4 ROM Forearm: right supination 45 left 65 Wrist: right 60/35 left 45/40 Opposition: Kapandji opposition scale right 9 pt reports just stiffness left 10 Strength Admiralty Lawyer: right 40# left 50# Lateral Pinch: right 12# left 12# Tripod Pinch: right 8# left 10# Tip-to-Tip Pinch: right 12# left 2# Sensation Thumb: right/left 2.83 interpretation Normal Sensation Index: right/left 2.83 interpretation Normal Sensation Middle: right/left 2.83 interpretation Normal Sensation Ring: right/left 2.83 interpretation Normal Sensation Little: right/left 2.83 interpretation Normal Sensation Quick DASH-Disab of Arm,Shoulder& Hand Quick DASH Score: 40.9075 Goals Goal:: pt will demo a increase in right teacher ballet strength by 10# to increase ind with ADls and IADLs by d/c pt will report the ability to lift carry gallon of water/milk with right hand to increase pts ind with ADLs by d/c Goal:: pt will demo a increase in right forearm supination by 10* to increase IND with Daily task by d.c Goal:: pt will report pain no greater than 2/10 with use of right hand with ADLs by d.c Goal:: pt will demo understanding of joint protection elizabeth. and use of ad. eq. by d/c to increase pts ind with ADLs. Goal:: pt will report a reduction in tingling sensation by 50% by d/c Rehabilitation General Assessment: pt demo a decrease in right teacher ballet strength and c/o of right hand tingling- pt states this limits her IND with ADLs and IADLs at times. Pt would benefit from skilled OT services 1-2x week for 4 weeks to increase her strength and decrease symptoms of tingling to return pt to her PLOF. Pt demo understanding and agree to POC. Rehabilitation Potential: Good Anticipated Interventions Anticipated Interventions: A/AAROM/PROM, Strengthening and Joint Protection/Energy Conservation Visit Plan Frequency: 2x /Week Duration: 6 Weeks General Plan: ed. on median nerve glide PROM for wrist flexion and ext. strengthening TEXT: Thank you for the opportunity to evaluate your patient. For Medicare and Medicare HMO plans, please review the plan of care and approve it. It will need to be FAXED BACK to us at [phone] for Medicare purposes. Please let me know if there are questions or concerns regarding this plan of care. Physician Signature: Date:
== END 2023-08-14 19:00 | disposition home or self-care (01) ==
LOC: OT 10:30
PROVIDERS: PCP Internal Medicine; Referring Provider Student in an Organized Health Care Education/Training Program; Visit Provider Student in an Organized Health Care Education/Training Program
DX: S52.591D Other fractures of lower end of right radius, subsequent encounter for closed fracture with routine healing (principal); S52.614D Nondisplaced fracture of right ulna styloid process, subsequent encounter for closed fracture with routine healing; G56.01 Carpal tunnel syndrome, right upper limb
CPT/HCPCS: 97110; 97166; 97530

== ENCOUNTER 2023-12-19 11:31 | Emergency (ER) | payer MEDICARE, SELFPAY ==
[2023-08-25 08:28] VITALS: BMI 29.7
[2023-12-19 11:32] VITALS: BP 148/64; PULSE 53; RESP 16; TEMP 36.3; O2SAT 97; BMI 29.6
--- NOTE | 2023-12-19 11:45 | RAD_ITS ---
STUDY: X-RAY - LEFT KNEE REASON FOR EXAM: Female, 78 years old. Pain following a recent fall. TECHNIQUE: 4 view(s) of the knee. COMPARISON: Comparison is made with prior study dated July 04, 2020. FINDINGS: Normal visualized distal femur. Normal visualized proximal tibia and fibula. Normal proximal tibiofibular articulation. Normal medial femorotibial compartment. Normal lateral femorotibial compartment. Normal patellofemoral articulation. The soft tissue structures are unremarkable. RAD/Knee 4 or More Views IMPRESSION: Normal x-ray examination of the knee. Electronically Signed: River Duggan MD at 12:50 EST ,
--- NOTE | 2023-12-19 11:45 | CT_ITS ---
STUDY: CT BRAIN WITHOUT CONTRAST REASON FOR EXAM: Female, 78 years old. Head injury RADIATION DOSAGE (If Supplied By Facility): CTDIvol = ( 44.99 ) mGy, DLP = ( 779.24 ) mGycm TECHNIQUE: Transaxial CT imaging of the brain was performed without administration of intravenous contrast material. Individualized dose optimization techniques were used for this CT. COMPARISON: Comparison is made with prior study June 10, 2022. FINDINGS: Normal soft tissue structures. Normal calvarium. There is disproportionate enlargement of the lateral and third ventricles, as compared to the extra-axial spaces. The findings suggest normal pressure hydrocephalus (NPH). There are areas of decreased attenuation within the white matter tracts of the supratentorial brain, consistent with microvascular disease changes. Normal basal ganglia and thalami. Normal brainstem. There is mild cerebellar atrophy. There is no intracranial hemorrhage. There are no findings of an acute ischemic infarction. Atherosclerotic calcification of the cavernous portions of the internal carotid arteries bilaterally. Normal visualized paranasal sinuses. 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 Electronically Signed: River Duggan MD at 12:49 EST ,
--- NOTE | 2023-12-19 11:46 | EDS_ITS ---
HPI History of Present Illness Chief Complaint: Lower Extremity Injury Informant: patient and family Narrative Narrative: Mechanical fall a week ago the left knee and hand injury. Caught her foot on the concrete falling down. No loss of conscious. Denies any anticoagulation medicines. States had significant bruising and pain in her face initially that subsiding. Left knee persistent pain she had a patellar fracture nonsurgical intervention in the past. Able to ambulate. Went to urgent care was sent here due to her head injuries. She reports mild headache since then mild dizziness however no new falls. Prior similar symptoms: Yes PFSH PFS Medical History Acute bronchitis, unspecified Atherosclerotic heart disease of [place] coronary artery without angina pectoris Bilateral cataracts Colon cancer Decreased radial pulse HTN (hypertension) Personal history of colonic polyps Pure hypercholesterolemia Seasonal allergies URI (upper respiratory infection) Home Medications ibuprofen 200 mg tablet 200 mg PO PRN PRN Headache 07/19/19 [History Last Taken Unknown] carvedilol 3.125 mg tablet 3.125 mg PO BID #60 tabs 03/13/23 [Rx Last Taken Unknown] meclizine 25 mg tablet 25 mg PO BID PRN dizziness #30 tabs 04/04/23 [Rx Last Taken Unknown] ondansetron 4 mg disintegrating tablet 4 mg PO Q8H PRN PRN Nausea #10 tabs 04/04/23 [Rx Last Taken Unknown] cholecalciferol (vitamin D3) 50 mcg (2,000 unit) tablet 50 mcg PO DAILY Vit D #90 tabs 05/07/23 [Rx Last Taken Unknown] cyanocobalamin (vitamin B-12) 1,000 mcg tablet 1,000 mcg PO DAILY B12 #90 tabs 05/07/23 [Rx Last Taken Unknown] hydrochlorothiazide 12.5 mg tablet 12.5 mg PO DAILY #30 tabs 05/15/23 [Rx Last Taken Unknown] Allergy/AdvReac Type Severity Reaction Status Date / Time atorvastatin calcium Allergy myalgias Verified 12/19/23 11:32 [From Lipitor] clarithromycin Allergy Nausea/Vom/ Verified 12/19/23 11:32 Diarrhea desloratadine [From Clarinex] Allergy Unknown Verified 12/19/23 11:32 guaifenesin [From Entex LA] Allergy Unknown Verified 12/19/23 11:32 hydrocodone bitartrate Allergy Other Verified 12/19/23 11:32 [From Vicodin] methylprednisolone Allergy Unknown Verified 12/19/23 11:32 nystatin Allergy Unknown Verified 12/19/23 11:32 pentoxifylline Allergy Nausea/Vom/ Verified 12/19/23 11:32 Diarrhea phenylephrine HCl Allergy Unknown Verified 12/19/23 11:32 [From Entex LA] phenylpropanolamine HCl Allergy Unknown Verified 12/19/23 11:32 [From Entex LA] sulfamethoxazole Allergy Unknown Verified 12/19/23 11:32 [From Bactrim] trimethoprim [From Bactrim] Allergy Unknown Verified 12/19/23 11:32 pravastatin AdvReac Myalgia Verified 12/19/23 11:32 Family History Mother Diabetes Heart disease Father Heart disease Myocardial infarction Sister Diabetes Heart disease Hypertension Sister Heart disease Surgical History H/O knee surgery H/O shoulder surgery History of bilateral cataract extraction History of bowel resection History of colonoscopy Presence of coronary angioplasty implant and graft (~08/06/22) Presence of stent in coronary artery (~08/06/22) Social History Smoking Status: Never smoker alcohol intake: never substance use type: does not use caffeine: Yes Type: carbonated beverages Number of servings: 2 and tea Number of servings: 2 additional social history: Uses Ibuprofen prn ROS ROS ED Constitutional Constitutional ED: Denies chills, fever(s) or sweats Eyes Eyes: Denies change in vision ENT ENT ED: Denies dysphagia or sore throat Cardiovascular Cardiovascular: Denies chest pain, leg edema, palpitations or racing heartbeat Respiratory/Chest Respiratory/Chest: Denies cough, dyspnea or dyspnea on exertion Gastrointestinal Gastrointestinal: Denies abdominal pain, diarrhea, nausea or vomiting Genitourinary Genitourinary ED: Denies dysuria, hematuria or urinary frequency Musculoskeletal Musculoskeletal: Reports extremity pain; Denies back pain or neck pain Integumentary Denies rash or wounds Neurologic Neurologic: Reports headache(s); Denies paresthesias or weakness EXAM Physical Exam Const Vital Signs: 12/19/23 11:32 12/19/23 13:18 Temperature 97.3 F L 96 F L Temperature Source Temporal Pulse Rate 53 L 63 Respiratory Rate 16 14 Blood Pressure 148/64 H 147/79 H Blood Pressure Mean 92 101 Pulse Ox 97 99 Oxygen Delivery Method Room Air Positive well nourished and well developed Constitutional Narrative: GCS 15. General Appearance ED: well developed and NAD HEENT Reports moist mucous membranes HEENT Narrative: Healing ecchymosis along the nasal bridge. No deformities. normocephalic Eyes PERRL, EOMs intact bilaterally and conjunctivae normal General Eye ED: Yes normal appearance of both eyes Neck full ROM, no lymphadenopathy and supple General: Negative for tenderness Chest Wall Chest: Negative for tenderness Resp normal respiratory effort and normal air movement Effort and Inspection: symmetric chest movement; Negative for respiratory distress Cardio regular rate, regular rhythm and no murmurs Peripheral Pulses: pulses 2+ throughout GI normal to inspection, nondistended, normoactive bowel sounds and non-tender Palpation: Negative for guarding or rebound tenderness present Back/Spine no CVA tenderness and no thoracic nor lumbar tenderness Extremity Extremity Narrative: Upper extremities full range of motion. Mild abrasions of the palmar aspect. Nontender. Right lower extremity: Full range of motion without any tenderness. Left lower extremity: Negative logroll. Knee extensor Mech intact. There is tenderness at the mid lower patellar. No deformities. No ankle tenderness. Neuro vas tact distally. General Extremety ED: Negative for edema or tenderness General Extremity: Negative for edema Neuro oriented x3, CN's II-XII intact bilaterally and no sensory deficits noted Sensorium / Orientation: awake and alert Skin no rashes or lesions noted and no wounds MDM MDM MDM Narrative Medical decision making narrative: Interventions / MDM: Differential diagnosis: Abrasions, head injury, sprain Diagnosis considered but do not suspect: Fractures however x-ray negative. Intracranial hemorrhage however CT negative. My EKG interpretation: N/A Imaging independently reviewed and interpreted by myself: CT brain: No int racranial hemorrhage however per radiology suggested normal pressure hydrocephalus. Left knee x-ray 4 views: No fracture or dislocation noted. External documents reviewed: N/A Test considered but not ordered:N/A ED course: Patient mechanical fall head injury knee injury. Trauma scan head ordered along with x-ray of the left knee. Results images were negative for fracture or intracranial hemorrhage. Per radiology suggesting normal pressure hydrocephalus. I discussed the results with the patient, there is no incontinence no imbalance no confusion. Discussed possible early signs with no clinical symptoms she is referred to neurology as an outpatient. All questions were answered. Re-evaluation: stable Disposition discussed with patient/family/significant other: Patient and family Case discussed with consulting clinician: N/A This note was generated with [employer] dictation software. It may contain incorrect words, spelling, and punctuation that were not noted in checking the note before signing. 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 Electronically Signed: River Duggan MD at 12:49 EST , Knee X-Ray 12/19/23 11:45 IMPRESSION: Normal x-ray examination of the knee. Electronically Signed: River Duggan MD at 12:50 EST , Discharge Plan Triage Chief Complaint: Lower Extremity Injury ED Provider: Piyush Galicia Dx/Rx/DC Orders Clinical Impression: CHI (closed head injury), Contusion of knee, left Instructions: ED Contusion, Lower Extremity, ED Head Injury (Adult) Prescriptions: No Action ibuprofen 200 MG tablet 200 mg PO PRN PRN (Reason: Headache) carvedilol 3.125 mg tablet 3.125 mg PO BID Qty: 60 6RF meclizine 25 mg tablet 25 mg PO BID PRN (Reason: dizziness) Qty: 30 1RF ondansetron 4 mg tablet,disintegrating 4 mg PO Q8H PRN PRN (Reason: Nausea) Qty: 10 1RF cholecalciferol (vitamin D3) 50 mcg (2,000 unit) tablet 50 mcg PO DAILY Qty: 90 3RF cyanocobalamin (vitamin B-12) 1,000 mcg tablet 1,000 mcg PO DAILY Qty: 90 3RF hydrochlorothiazide 12.5 mg tablet 12.5 mg PO DAILY Qty: 30 11RF Primary Care Provider: Danna Laird Referrals: Danna Laird MD [Primary Care Provider] - 1 Week Shakir Oconnell MD [Non-Staff -Ordering Privileges] - 1-2 Weeks Activity Restrictions/Additional Instructions: Left knee x-ray negative. CT brain negative for any bleeds or fractures. Reported slightly dilated ventricles questioning possible normal pressure hydrocephalus however you have no clinical symptoms with this. Follow-up with neurology outpatient evaluation and monitoring. Disposition Disposition: Home, Self Care Discharge Date/Time: 12/19/23 13:22
[2023-12-19 13:18] VITALS: BP 147/79; PULSE 63; RESP 14; TEMP 35.5; O2SAT 99
== END 2023-12-19 13:22 | disposition home or self-care (01) ==
PROVIDERS: Emergency Provider Emergency Medicine; PCP Internal Medicine; Visit Provider Emergency Medicine
DX: S09.90XA Unspecified injury of head, initial encounter (principal); S80.02XA Contusion of left knee, initial encounter; I25.10 Atherosclerotic heart disease of native coronary artery without angina pectoris; I10 Essential (primary) hypertension; E78.00 Pure hypercholesterolemia, unspecified; W01.0XXA Fall on same level from slipping, tripping and stumbling without subsequent striking against object, initial encounter
CPT/HCPCS: 70450; 73564; 99282

== ENCOUNTER → 2024-02-11 | Outpatient (CLI) | payer MEDICARE, SELFPAY ==
[2023-08-25 08:28] VITALS: BMI 29.7
--- NOTE | 2024-02-11 12:51 | STE_ITS ---
Reason For Study: CAD Stress Results Protocol: Tj Protocol Maximum Predicted HR: 142 bpm Target HR: 121 bpm % Maximum Predicted HR: 87 % DurationHeart Rate Stage (mm:ss) (bpm) BP Comment Baseline 73 118/80No Chest Pain Tj Protocol Stage I 3:00 111 134/72No Chest Pain; Mild Dyspnea Tj Protocol Stage II 1:10 123 / No Chest Pain; Moderate Dyspnea Recovery 76 116/72No Chest Pain; No Dyspnea Stress Duration: 4:10 mm:ss Maximum Stress HR: 123 bpm METS: 7 Baseline Echocardiogram Findings The estimated ejection fraction is 65 %. Postexercise EF is 70%. Stress Echo Wall motion Data Resting WM Intermediate WM Stress WM Resting Wall Motion Wall Motion Stress No regional wall motion The anterior wall is does not abnormalities noted. augment well with exercise and in some views appears to be ayush less then at rest suggestive of ischemia involving this region. EKG Data Normal sinus rhythm with PACs and nonspecific ST-T changes in the inferior leads. About [address] depression in the inferior leads. The presence of baseline ST changes decreases the specificity of this finding. Symptoms with Stress The patient experinced No chest pain . ECHO/Stress Test Echo w/o Contrast Interpretation Summary The estimated ejection fraction is 65 %. Exercise echo is negative for exercise-induced chest pain The test is positive for exercise-induced EKG changes of ischemia and for echoc ardiographic changes suggestive of anterior ischemia. Functional capacity is normal for age Ordering Physician: Manolo Tai Referring Physician: Manolo Tai Performed By: Lisa Doherty, DORETHA, RVT
== END | disposition home or self-care (01) ==
LOC: CVS 12:50
PROVIDERS: PCP Internal Medicine; Referring Provider Internal Medicine Cardiovascular Disease; Visit Provider Internal Medicine Cardiovascular Disease
DX: I25.10 Atherosclerotic heart disease of native coronary artery without angina pectoris (principal); R07.9 Chest pain, unspecified
CPT/HCPCS: 93017; 93350

== ENCOUNTER 2024-03-08 09:00 | Outpatient (RCR) | payer MEDICARE, SELFPAY ==
[2023-08-25 08:28] VITALS: BMI 29.7
--- NOTE | 2024-01-14 15:57 | HP.OTEVAL_ITS ---
Patient's Visit Information Visit Information Visit Information: FAN CHEEMA is a 78 year old F, referred to Occupational Therapy by NORMA APARICIO, with a diagnosis of CTS right. Date of Evaluation: 01/14/24 Occupational Therapist: OTILIA Daly/Rock, CHT Subjective Subjective: This 78 year old female was seen for OT eval with dx of right CTS. Pt states she has had issues for about a year. Pt had CTR done on 01/01/23. pt had endoscopic CTR. pt states she still will get tingling at times - this maybe due to lifting things the wrong way. Pt states Dr. Reed did do a cortisone shot to her right CMCJ at time of sx. 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 but is trying to use her hand as what she can tolerate for her ADLs and IADLs. ADLs Comments: is driving pt using her hand as much as she can but her is helping her with daily tasks at this time. Pain right hand: Current Pain Intensity: 0 Pain Intensity Range: 3 ROM Wrist: right 50/40 left 60/55 Opposition: Kapandji opposition scale right 10 left 10 ( DPC) ROM Comments: pt demo full composite fist Strength Control Panel Operator: right 10# left 40# Lateral Pinch: right 8# left 12# Tripod Pinch: right 4# left 10# Sensation Thumb: right 2.83 left 2.83 interpretation normal sensation Index: right 2.83 left 2.83 interpretation normal sensation Middle: right 2.83 left 2.83 interpretation normal sensation Ring: right 2.83 left 2.83 interpretation normal sensation Little: right 2.83 left 2.83 interpretation normal sensation Quick DASH-Disab of Arm,Shoulder& Hand Quick DASH Score: 54.5450 Goals Goal:Daily scar massage when approriate: Yes Goal:ROM equal to unaffected hand: Yes Goal:Control Panel Operator/Pinch strength at least 75% of unaffected hand: Yes Goal:No pain with affected hand use: Yes Goal:Full use of affected hand in daily activities including work: Yes Goal:Decrease scar hypersensitivity: Yes Rehabilitation General Assessment: pt arrives 1 week 5 days s/p from a endoscopic CTR. Pt demo with decrease in right wrist ROM, scar sensitivity. this is limiting pt in using her right dominate hand with ADLs and IADLs. Pt would benefit from skilled OT services 1-2 x week for 4 -6 weeks to return pt to a PLOF. Today therapist ed. pt on ROM tendon glides and scar mtg. pt demo understanding and agreed to POC. Rehabilitation Potential: Excellent Anticipated Interventions Anticipated Interventions: A/AAROM/PROM, Strengthening, Scar Care, Triggerpoint Release, Desensitization, Sensory Retraining, Wound Care, Modalities, Orthoses, Joint Protection/Energy Conservation, Fine Motor Coord/Yonatan, Education re assistive Equipment, Education re Diagnosis and Home Program Visit Plan Frequency: 1-2x /Week Duration: 4-6 Weeks TEXT: Thank you for the opportunity to evaluate your patient. For Medicare and Medicare HMO plans, please review the plan of care and approve it. It will need to be FAXED BACK to us at [phone] for Medicare purposes. Please let me know if there are questions or concerns regarding this plan of care. Physician Signature: Date:
--- NOTE | 2024-02-12 09:59 | HP.OTDCSUM ---
Discharge Summary D/C Summary: It has been my pleasure to treat FAN CHEEMA under orders from NORMA APARICIO, for the diagnosis of CTS right for a total of 8 visit(s). Please see the following information for a summary of their discharge status. Overall Improvement % Improvement: 90 Objective Objective/Function: right intermediate accountant strength 40# left is 45# right lateral pinch 13# left 16# right tripod pinch 8# left 12# right wrist ROM 65/50 pt has made great gains with her ROM and strength- pt will cont. with HEP to further strengthen her UE intermediate accountant strength. Pt has some scar sensitivity to light touch and shirt sleeve - and is performing scar desensitization. pt using elastomer over scar at night. Goals Patient Goals: Regain Mobility, Regain Strength, Decrease Pain, Improve Fine Motor Skills, Use Hand/Wrist/Arm Normally Again and Be More Independent in ADLS Goal:Daily scar massage when approriate: Yes Goal Progress: Goal Met Goal:ROM equal to unaffected hand: Yes Goal Progress: Goal Met Goal:Lathe Scalper Operator/Pinch strength at least 75% of unaffected hand: Yes Goal Progress: Goal Met Goal:No pain with affected hand use: Yes Goal Progress: Progressing Goal:Full use of affected hand in daily activities including work: Yes Goal:Decrease scar hypersensitivity: Yes Plan Plan: D/C D/C Information Discharge Comments: pt has met goals in OT and is d/c at this time. pt has HEP to continue strengthening her UB and intermediate accountant strength. pt advised to use hand as tolerated. pt agree with D/C d/c sentence: If there are questions or concerns regarding this patient's occupational therapy, please fell free to call me at [phone]. Thank you for the referral of this patient. Sincerely, Genoveva Alcantar, OTR/L, CHT
--- NOTE | 2024-02-16 10:19 | HP.PTEVAL ---
Patient's Visit Information Visit Information Visit Information: FAN CHEEMA is a 78 year old F referred to Physical Therapy by NORMA APARICIO with a diagnosis of BPPV. Date of Evaluation: 02/16/24 Physical Therapist: Don Cox, JUANT, OCS, CSCS Visit Plan Frequency: 1x/Week Duration: 4-6 Weeks Plan: weekly x 3-6 for hannah henson progression if helpful and monitor positional vertigo. vestibular exercises progression as needed. Subjective Subjective: Looking up makes her dizzy. Dark throws her off but no dizzyness. Also spins with turning in bed and dending. Spinning is short lived. This has been happening on and off for years. Hard to tell when it started up again. Activities are pretty normal. Just has to be carefule. Not employed. Basic ADLs all I. 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 fell one timecatching foot on step on bus. Objective Objective: Walks into PT I, trasnfer chair and bed I. Steps reciprocally with one rail easily. No dizzyness with walking today. cervical aROM WFL and without pain, hesitant to look up. - B hallpike mejia - roll test Oculamotor: no nystagmus with gaze or head shake, no dizzyness. - skew eye deviation - ocular tilt - head thrust Pursuit and saccades are normal and asymptomatic VOR is slow but asymptomatic. head movements nods and turns. Fast give slight quick symptoms. Overall a slow chemist inorganic and hesitant but very few symptoms this am Given Ariadnahonichelle Alvarezy nods and turns seated 15x 6x/day as HEP Balance/Special Test Scores Functional Gait Assessment Score: 25 % Disability: 16.6700 Dizziness Score: 22 Goals Goal 1:: Abolish dizzyness with exercises and 75% better at home Goal Time Frame: 4-6 Weeks Goal 2:: Pt move head without caution comfortably Goal Time Frame: 4-6 Weeks Goal 3:: I management of condition Goal Time Frame: 4-6 Weeks Goal 4:: 10 DHI Goal Time Frame: 4-6 Weeks Rehabilitation Potential Physical Therapy Diagnosis: dizzyness unknown origin effecting comfortable function Rehabilitation Potential: Questionable Anticipated Interventions Patient/Client Instruction: Educate patient on: Condition and Plan of Care For the Purpose of:: To improve ability of physical actions for home/community/work/leisure Comment: vestibular exeercises For the Purpose of:: To increase tolerance to activity/condition/position Text: Thank you for the opportunity to evaluate your patient. For Medicare and Medicare HMO plans, please review the plan of care and approve it. It will need to be FAXED BACK to us at [phone] for Medicare purposes. For Medicare only, by signing this I certify the plan of care. Please let me know if there are questions or concerns regarding this plan of care. Physician Signature: Date:
--- NOTE | 2024-03-08 09:27 | HP.PTDCSUM ---
Discharge Summary D/C summary: It has been my pleasure to treat FAN CHEEMA referred by NORMA APARICIO, with the diagnosis of BPPV for a total of 3 visit(s). Discharge Date: 03/08/24 Please see the following information for a summary of their discharge status. Subjective Subjective: About the same as two weeks ago, still lightheaded and nauseous. No spinning. Feels like it might be heart related and will contact heart doctor regarding meds. It happened suddenly one time while just sitting watching TV without head movement. Overall Improvement % Improvement: 0 Objective Objective/Function: FGA is nearly the same as day one. - B hallpike mejia today. MSQ shows only slight increased symptoms up form each knee for a second. No s[pinning and more lightheaded/nausea type symptoms at home mostly constant and combined with feeling like she would nearly pass out while just sitting in a chair leads me away from vestibular and she will contact her heart doctor regarding her meds. Goals Goal 1:: Abolish dizzyness with exercises and 75% better at home Goal Progress: Not Progressing Goal 2:: Pt move head without caution comfortably Goal Progress: Goal Met Goal 3:: I management of condition Goal Progress: Not Progressing Goal 4:: 10 DHI Goal Progress: Not Progressing Plan Plan: d/c D/C Information Discharge Comments: Pt to contact heart doctor regarding symp'toms and med changes. No obvious vestibular deficits or improvements with treatment. d/c sentence: If there are questions or concerns regarding this patient's physical therapy, please feel free to call me at [phone]. Thank you for the referral of this patient. Sincerely, Don Cox, DPT, OCS, CSCS Balance/Gait/Functional tests Balance/Special Test Scores Functional Gait Assessment Score: 26 % Disability: 13.3400 Dizziness Score: 24 Improvement % Improvement: 0
== END 2024-03-08 19:00 | disposition home or self-care (01) ==
LOC: PT 09:00
PROVIDERS: PCP Internal Medicine
DX: G56.01 Carpal tunnel syndrome, right upper limb (principal); Z98.890 Other specified postprocedural states
CPT/HCPCS: 97035; 97110; 97140; 97161; 97166; 97530

== ENCOUNTER → 2024-03-30 | Outpatient (CLI) | payer MEDICARE, SELFPAY ==
[2023-08-25 08:28] VITALS: BMI 29.7
--- NOTE | 2024-03-30 11:50 | RAD_ITS ---
STUDY: X-RAY - LUMBAR SPINE REASON FOR EXAM: Female, 78 years old. Low back pain. TECHNIQUE: 3 view(s) of the lumbar spine were obtained. COMPARISON: March 02, 2014 FINDINGS: Osteopenia. Normal lumbar lordosis. Mild levoscoliosis which may be positional. Normal vertebral alignment. Diffuse moderate lower thoracic and lumbosacral facet sclerosis. Endplate concavities compatible with osteoporosis. Loss of height of the L4 vertebral body, age indeterminant. Diffuse mild intervertebral disc space narrowing with osteophytes most marked at L3-4 and L4-5. Cholecystectomy clips and vascular calcification. RAD/Lumbar Spine 2 or 3 Views IMPRESSION: Osteopenia with mild diffuse lower thoracic and lumbosacral spondylosis most marked from L3-4 to L4-5. No acute abnormality or erosive changes. Electronically Signed: Demar Nobles MD at 12:14 EDT ,
--- NOTE | 2024-03-30 11:50 | RAD_ITS ---
STUDY: X-RAY - RIGHT WRIST REASON FOR EXAM: Female, 78 years old. History of distal radial and ulnar styloid fracture. Pain. TECHNIQUE: 3 view(s) of the wrist were obtained. COMPARISON: January 09, 2023 FINDINGS: Osteopenia. Deformity of the distal radius from prior fracture. Minimally displaced ulnar styloid fracture with corticated margins. Diffuse moderate to marked osteoarthritic changes. No acute abnormality or erosive changes. RAD/Wrist min 3 Views IMPRESSION: Osteopenia, osteoarthritic changes and posttraumatic changes of the distal radius and ulnar styloid. No new acute abnormality or erosive changes. Electronically Signed: Demar Nobles MD at 12:07 EDT ,
== END | disposition home or self-care (01) ==
LOC: MTRAD 11:47
PROVIDERS: PCP Internal Medicine; Referring Provider Physician Assistant; Visit Provider Physician Assistant
DX: M54.50 Low back pain, unspecified (principal); M25.531 Pain in right wrist
CPT/HCPCS: 72100; 73110

== ENCOUNTER → 2024-06-17 | Outpatient (CLI) | payer MEDICARE, SELFPAY ==
[2023-08-25 08:28] VITALS: BMI 29.7
--- NOTE | 2024-06-17 07:37 | MRI_ITS ---
STUDY: MRI BRAIN WITHOUT CONTRAST (ATTENTION INTERNAL AUDITORY CANALS - I.A.C.''s) REASON FOR EXAM: Female, 78 years old. Imbalance, dizziness -- Attention ICA TECHNIQUE: Standardized multiplanar fat and water weighted pulse sequences were obtained. ml of contrast material was administered intravenously for the contrast portion of the examination. COMPARISON: Head CT dated December 19, 2023 FINDINGS: Internal auditory canal findings: Normal bilateral temporal bones. Normal bilateral internal auditory canals. There is no demonstrated intracanalicular or cisternal vestibular schwannoma (acoustic neuroma). Normal bilateral cochlea, vestibules and semicircular canals. Severe bilateral mucous opacification of the mastoid air cells/mastoiditis is present. No cerebellar pontine angle mass or cyst is seen. There is no demonstrated lesions of the cavernous sinus. No nodularity or abnormal enhancement is seen in the 7th or 8th cranial nerves within IACs. No demonstrated Mondini''s malformation. BRAIN FINDINGS: There is mild cerebral atrophy with widening of the extra-axial spaces and ventricular dilatation. There are multiple white matter hyperintensities, distributed throughout the deep white matter tracts of the cerebral hemispheres, consistent with mild to moderate chronic white matter ischemic changes. There is no evidence for recent intracranial ischemia or other cause of cytotoxic edema on diffusion weighted imaging (DWI). Normal T2* images of the brain without demonstrated susceptibility artifact. There is no demonstrated hemosiderin stain. There are no demyelinating plagues of the supratentorial brain, brainstem or cerebellum. There are no findings suspicious for multiple sclerosis (MS). No hydrocephalus or midline shift is present. There are no visualized ring-enhancing lesions of the brain parenchyma or abnormal thickening or enhancement of the meninges or dura. Normal bilateral basal ganglia. Normal thalami. Normal flow voids within the major intracranial circulation suggesting patency by spin echo criteria. Normal venous enhancement. There is no enhancing intra-axial or extra-axial abnormality. There is no extra-axial fluid accumulation. Normal sella turcica, pituitary gland, infundibular stalk, optic chiasm and hypothalamus. Normal tectal plate and pineal gland. Normal midbrain, abdi and medulla. Normal cerebellum. Normal basal cisterns. No demonstrated orbital abnormality, within the constraints of a routine brain study. Normal visualized paranasal sinuses. Normal calvarium and skull base. Normal visualized soft tissue structures. Normal visualized upper cervical spine. MRI/Brain without Contrast IMPRESSION: 1. Severe bilateral mastoiditis. 2. Normal unenhanced and enhanced MRI of the bilateral internal auditory canals (I.A.C''s). 3. Involutional and chronic ischemic changes of the brain, as described above. Electronically Signed: Alexander Graves MD at 10:00 EDT ,
== END | disposition home or self-care (01) ==
LOC: MRI 07:37
PROVIDERS: PCP Internal Medicine; Referring Provider Internal Medicine; Visit Provider Internal Medicine
DX: R26.89 Other abnormalities of gait and mobility (principal); R42 Dizziness and giddiness
CPT/HCPCS: 70551

== ENCOUNTER 2024-07-19 07:11 | Day surgery (SDC) | payer MEDICARE, SELFPAY ==
[2023-08-25 08:28] VITALS: BMI 29.7
[2024-07-19] VITALS (10 sets, daily range): BP systolic 95–149; BP diastolic 41–64; PULSE 63–77; RESP 14–20; TEMP 36.1–36.5; O2SAT 94–97; BMI 29.3
--- NOTE | 2024-07-19 07:14 | H&P.OPEN ---
HPI - General General Date of Service: 07/19/24 HPI Narrative FAN CHEEMA, is a 79 F who presents for colonoscopy due to hx of colon cancer. Pt denies any changes since last office visit. 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 Morgan. Patient's last colonoscopy was in 2019 showed functional patent ileocolic anastomosis and no polyps only internal hemorrhoids at that time. Patient states she does have bowel movements about every other day denies any blood. Patient denies any chronic abdominal pain/nausea/vomiting/reflux. [facility] Medical History (Updated 07/15/24 @ 16:28 by Jaimee Garza) Wears glasses Post-menopausal Arthritis History of Holter monitoring History of echocardiogram History of stress test Cardiology follow-up encounter History of patellar fracture Mastoiditis, chronic Dizziness Acute bronchitis, unspecified URI (upper respiratory infection) HTN (hypertension) Decreased radial pulse Atherosclerotic heart disease of red devil coronary artery without angina pectoris Pure hypercholesterolemia Colon cancer Bilateral cataracts Seasonal allergies Personal history of colonic polyps Home Medications ?Medication ?Instructions ?Recorded ?Last Taken ?Type aspirin 81 mg chewable tablet 0.5 tab PO Q3D 01/19/24 Unknown History ondansetron 4 mg disintegrating 4 mg PO Q8H PRN PRN Nausea #10 tabs 01/19/24 Unknown Rx tablet cholecalciferol (vitamin D3) 50 50 mcg PO DAILY Vit D #90 tabs 05/31/24 Unknown Rx mcg (2,000 unit) tablet cyanocobalamin (vitamin B-12) 1,000 mcg PO DAILY B12 #90 tabs 05/31/24 Unknown Rx 1,000 mcg tablet hydrochlorothiazide 12.5 mg tablet 12.5 mg PO DAILY #90 tabs 05/31/24 Unknown Rx carvedilol 3.125 mg tablet 3.125 mg PO DAILY 07/15/24 Unknown History Allergy/AdvReac Type Severity Reaction Status Date / Time atorvastatin calcium (From Allergy myalgias Verified 07/15/24 16:16 Lipitor) clarithromycin Allergy Nausea/Vom/ Verified 07/15/24 16:16 Diarrhea desloratadine (From Clarinex) Allergy Unknown Verified 07/15/24 16:16 guaifenesin (From Entex [place]) Allergy Unknown Verified 07/15/24 16:16 hydrocodone bitartrate (From Allergy Other Verified 07/15/24 16:16 Vicodin) methylprednisolone Allergy Unknown Verified 07/15/24 16:16 nystatin Allergy Unknown Verified 07/15/24 16:16 pentoxifylline Allergy Nausea/Vom/ Verified 07/15/24 16:16 Diarrhea phenylephrine HCl (From Allergy Unknown Verified 07/15/24 16:16 Entex LA) phenylpropanolamine HCl Allergy Unknown Verified 07/15/24 16:16 (From Entex LA) sulfamethoxazole (From Allergy Unknown Verified 07/15/24 16:16 Bactrim) trimethoprim (From Bactrim) Allergy Unknown Verified 07/15/24 16:16 ibuprofen AdvReac Intermediate Bleeding Verified 07/15/24 16:17 isosorbide AdvReac Intermediate Dizziness, Verified 07/15/24 16:16 weakness pravastatin AdvReac Myalgia Verified 07/15/24 16:16 Family History Mother Diabetes Heart disease Father Heart disease Myocardial infarction Sister Diabetes Heart disease Hypertension Sister Heart disease Surgical History (Updated 07/15/24 @ 16:28 by Jaimee Garza) History of cardiac catheterization History of coronary artery stent placement History of carpal tunnel release (~2022) H/O shoulder surgery Presence of stent in coronary artery (~08/06/22) Presence of coronary angioplasty implant and graft (~08/06/22) History of bilateral cataract extraction History of bowel resection History of colonoscopy Social History Smoking Status: Never smoker alcohol intake: never substance use type: does not use caffeine: Yes Type: carbonated beverages Number of servings: 2 and tea Number of servings: 2 additional social history: Uses Ibuprofen prn Past Medical/Surgical History Planned Operation Planned Operative Procedure(s): CSCOPE S.O.S: No Previous Hospitalizations/Surgeries HX Hospitalizations: No HX of Surgeries: TONSILLECTOMY - [facility] 1965 ? [facility] 1979 ? [facility] TUBAL LIGATION 1969 ? [facility] laparoscopy right colectomy 2014/[facility] Any Problems With Anesthesia: Yes (TAKES A LITTLE LONGER TO WAKE UP, PONV) You/Your Family Experience Fever (Hyperthermia) With Anes: No Cholinesterase deficiency: No Cardiovascular Hx Chest Pain within Last 2 months: No Hx of Irregular Heartbeat and/or Afib: No Hx Heart Attack: No Hx Congestive Heart Failure: No Hx Rheumatic Fever: No Hx Hypertension: No Hx Internal Defibrillator: No Hx Pacemaker: No Hx Cardiac Catheterization: No Hx Cardiac Surgery/Stents/Etc.: No Hx Stress Test: Yes (over 10 yrs ago.[facility]) Hx Pain in Legs when Walking/Leg Cramps: No Respiratory Chronic Cough: No HX of Shortness of Breath: No (denies) Hoarseness: No Hx Chronic Obstructive Pulmonary Disease (COPD): No Hx Asthma: No Hx Emphysema: No Hx Sleep Apnea: No CPAP: No BIPAP: No Hx Respiratory Tract Infection/Cold (presently): No Do You Snore Loudly (louder than talking or can be heard): No Do You Often Feel Tired/ Fatigued/ Sleepy Dring Daytime?: No Has Anyone Observed You Stop Breathing During Sleep?: No Result (for STOP score): Negative Hx Smoking: No Smoking Status: Never smoker Gastrointestinal Controlled With Meds: No Hx Gastrointestinal Disorders: Yes (hx colectomy) Hx Gastrointestinal Bleed: No Hx Ulcer: No Hx Hiatal Hernia: No Difficulty Chewing/Swallowing: No Special diet followed at home: No Hx Unplanned Weight Loss of 20#: No HX Unplanned Weight Gain of 20#: No Neurological Hx Seizures: No HX Syncope/Blackout Spells/Unconsciousness: No Hx Transient Ischemic Attacks (TIA): No Hx Multiple Sclerosis: No Hx Parkinson's Disease: No Hx Head/Neck Injury: No Hx Headaches: Yes Hx Back Injury/Pain: No Recent Onset of Speech Difficulty: No Restless Legs: No Does patient have nerve stimulator: No Blood Disorder Hx Leukemia: No Bleeding Tendencies: No Hx Deep Vein Thrombosis: No Hx High Cholesterol: Yes (states resolved) Blood Transmitted Disease: No Hx Hepatitis: No Hx Cirrhosis: No Hx Anemia: Yes (per hx, not recent) Hx Blood Disorders: No Reproduction : No Is Patient Lactating: No Hx Hysterectomy: No Hx Tubal Ligation: Yes Are You Post Menopause: Yes Genitourinary Hx Renal Disease: No Musculoskeletal Hx Arthritis: No Hx Rheumatoid Arthritis: No Hx Gout: No Recent Onset of an Orthopedic Problem: No Endocrine Hx Diabetes: No Thyroid Disease: No Hx Steroid Therapy: No Psycho/Social Hx Substance Use: No Hx Alcohol Use: No Hx Anxiety: No Hx Depression: No Mental Illness: No Hx Dementia: No Miscellaneous Hx Cancer: No (colon ca) Recent Exposure to Contagious Disease: No Hx of C-Diff: No Any Loose Teeth: No Allergies atorvastatin calcium (From Lipitor) Allergy (Verified 07/15/24 16:16) myalgias PAIN IN MUSCLES clarithromycin Allergy (Verified 07/15/24 16:16) Nausea/Vom/Diarrhea desloratadine (From Clarinex) Allergy (Verified 07/15/24 16:16) Unknown guaifenesin (From Entex LA) Allergy (Verified 07/15/24 16:16) Unknown hydrocodone bitartrate (From Vicodin) Allergy (Verified 07/15/24 16:16) Other FELT LIKE SOMEONE SOCKED HER IN THE STOMACH methylprednisolone Allergy (Verified 07/15/24 16:16) Unknown nystatin Allergy (Verified 07/15/24 16:16) Unknown pentoxifylline Allergy (Verified 07/15/24 16:16) Nausea/Vom/Diarrhea phenylephrine HCl (From Entex LA) Allergy (Verified 07/15/24 16:16) Unknown phenylpropanolamine HCl (From Entex LA) Allergy (Verified 07/15/24 16:16) Unknown sulfamethoxazole (From Bactrim) Allergy (Verified 07/15/24 16:16) Unknown trimethoprim (From Bactrim) Allergy (Verified 07/15/24 16:16) Unknown ibuprofen Adverse Reaction (Intermediate, Verified 07/15/24 16:17) Bleeding isosorbide Adverse Reaction (Intermediate, Verified 07/15/24 16:16) Dizziness, weakness pravastatin Adverse Reaction (Verified 07/15/24 16:16) Myalgia Discharge Is Pt Admitted From a Jail, or a Correction: No After D/C, Where Do you Plan to Go: Return Home From the PAT History Number of Risk Factors: 1 Physical Exam Const alert, oriented x3 and no apparent distress HEENT normocephalic and head/scalp atraumatic Resp normal respiratory effort Cardio regular rate GI soft to palpation and non-tender; Negative for non-distended Palpation: Negative for guarding Extremity no clubbing, cyanosis or edema Skin no rashes or lesions noted Neuro CN's II-XII intact bilaterally Psych mental status grossly normal Assessment & Plan Assessment/Plan (1) Encounter for colonoscopy due to history of colon cancer: Surgery Risks - Colonoscopy I discussed with the patient the risks of the procedure: Yes Risks Include but are not Limited To: Risks include but are not limited to: Bleeding, perforation requiring further surgery, inability to complete colonoscopy requiring barium enema.
[2024-07-19] MEDS: Lactated Ringers 1,000 ML 15 ML IV (07:21)
--- NOTE | 2024-07-19 07:35 | PCM.PRE.AN2 ---
ASA Classification* ASA Classification ASA Classification: 2 Assessment & Plan Anesthesia* Anesthesia Assessment Anesthesia Assessment: Discussed sedation and/or anesthesia options, risks, benefits, and alternatives with patient/parents/legal guardian/POA. Questions invited. The patient/parents/legal guardian/POA seems to understand and agrees to proceed with anesthesia plan. Reviewed the physical assessment, medical history, allergy history and patient home medications list prior to surgery/procedure/anesthetic and documented any changes. Performed airway and anesthesia risk assessments. Anesthesia Type Anesthesia Type: MAC Anesthesia Focused Assessment* Temperature: 97.1 F Pulse Rate: 77 Blood Pressure: 149/62 Respiratory Rate: 16 Pulse Ox: 94 Airway Assessment Mouth opens: >3 cm Mallampati Score: II Focused Labs Anesthesia Preop lab: CBC WBC 7.6 K/mm3 (4.4-11.0) 07/11/23 10:02 RBC 4.33 M/mm3 (4.2-5.4) 07/11/23 10:02 Hgb 13.3 g/dL (12.0-15.0) 07/11/23 10:02 Hct 40.4 % (37-47) 07/11/23 10:02 Plt Count 210 K/mm3 (150-450) 07/11/23 10:02 CHEMISTRY Potassium 3.6 mmol/L (3.5-5.1) 07/11/23 10:02 Sodium 138 mmol/L (136-145) 07/11/23 10:02 BUN 18 mg/dL (7-18) 07/11/23 10:02 Creatinine 1.32 mg/dL (0.55-1.02) H 07/11/23 10:02 Glucose 98 mg/dL (74-106) 07/11/23 10:02 TSH 2.31 uIU/mL (0.358-3.74) 07/11/23 10:02 COAG PT 12.6 SECONDS (11.7-14.9) 07/17/22 09:46 Pre-Assessment Diagnosis/Proposed Procedure Planned Operative Procedure(s): CSCOPE Anesthesia History 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 When Was Last Pacemaker Check QUESTION #4 FULL TEXT: You/Your Family Experience fever (hyperthermia) with Anesthesia Last Oral Intake Last Oral intake: Last Oral Intake NPO since 07:00 07/19/24 07:22 Meds taken in AM with sips of Yes 07/19/24 07:22 water? 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 Female Yes 07/15/24 16:20 HX of Motion Sickness No 07/15/24 16:20 HX of N/V After Surgery Yes 07/15/24 16:20 Non-Smoker Yes 07/15/24 16:20 Duration of Surgery greater No 07/15/24 16:20 than 60 minutes Number of Risk Factors 3 07/15/24 16:20 PONV Score Moderate Risk 07/15/24 16:20 Height & Weight Height & Weight: Anesthesia: Height & Weight Height 5 ft 8 in 07/19/24 07:22 Weight: 87.6 kg 07/19/24 07:22 Body Mass Index (BMI) 29.3 07/19/24 07:22 Respiratory Assessment Respiratory Assessment - dairy husbandry worker: Respiratory Tract Infection Hx - dairy husbandry worker Hx Respiratory Tract Infection No 07/19/24 07:17 STOP Sleep Apnea STOP Sleep Apnea - dairy husbandry worker: STOP Sleep Apnea - dairy husbandry worker Hx Hypertension No 07/19/24 07:17 Hx Sleep Apnea No 07/19/24 07:17 CPAP No 07/19/24 07:17 BIPAP No 07/19/24 07:17 Do you snore loudly (louder No 07/19/24 07:17 than talking or can be heard Do you often feel tired/ No 07/19/24 07:17 fatigued/ sleepy during daytime? Has anyone observed you stop No 07/19/24 07:17 breathing during sleep? STOP Results Negative 07/19/24 07:17 QUESTION #5 FULL TEXT : Do you snore loudly (louder than talking or can be heard through closed doors)? 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 Specify any problems Hx of Preganancy in last 3 N/A 07/15/24 16:20 Months Nurse Filling Out Transfusion NBUCHER 07/15/24 16:20 & Questions: Date: 07/15/24 07/15/24 16:20 Time: 16:22 07/15/24 16:20 Patient unable to answer at this time (ie. 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: /Reproductive Hx- dairy husbandry worker Hx Now No 07/19/24 07:17 Gestational Age (in weeks): EDC: Hx Hx Para Hx Section SAB No 07/15/24 16:20 Active Medications Active Medications: Current Medications Generic Name Dose Route Start Last Admin Trade Name Freq PRN Reason Stop Dose Admin Lactated Ringer's 1,000 mls @ 15 mls/hr 07/19/24 07:15 07/19/24 07:21 IV 15 mls/hr .Q48H AUTUMN Administration PFSH Medical History Wears glasses Post-menopausal Arthritis History of Holter monitoring History of echocardiogram History of stress test Cardiology follow-up encounter History of patellar fracture Mastoiditis, chronic Dizziness Acute bronchitis, unspecified URI (upper respiratory infection) HTN (hypertension) Decreased radial pulse Atherosclerotic heart disease of [place] coronary artery without angina pectoris Pure hypercholesterolemia Colon cancer Bilateral cataracts Seasonal allergies Personal history of colonic polyps Home Medications ?Medication ?Instructions ?Recorded ?Last Taken ?Type aspirin 81 mg chewable tablet 0.5 tab PO Q3D 01/19/24 Unknown History ondansetron 4 mg disintegrating 4 mg PO Q8H PRN PRN Nausea #10 tabs 01/19/24 Unknown Rx tablet cholecalciferol (vitamin D3) 50 50 mcg PO DAILY Vit D #90 tabs 05/31/24 Unknown Rx mcg (2,000 unit) tablet cyanocobalamin (vitamin B-12) 1,000 mcg PO DAILY B12 #90 tabs 05/31/24 Unknown Rx 1,000 mcg tablet hydrochlorothiazide 12.5 mg tablet 12.5 mg PO DAILY #90 tabs 05/31/24 Unknown Rx carvedilol 3.125 mg tablet 3.125 mg PO DAILY 07/15/24 07/19/24 History Allergy/AdvReac Type Severity Reaction Status Date / Time atorvastatin calcium (From Allergy myalgias Verified 07/15/24 16:16 Lipitor) clarithromycin Allergy Nausea/Vom/ Verified 07/15/24 16:16 Diarrhea desloratadine (From Clarinex) Allergy Unknown Verified 07/15/24 16:16 guaifenesin (From Entex [place]) Allergy Unknown Verified 07/15/24 16:16 hydrocodone bitartrate (From Allergy Other Verified 07/15/24 16:16 Vicodin) methylprednisolone Allergy Unknown Verified 07/15/24 16:16 nystatin Allergy Unknown Verified 07/15/24 16:16 pentoxifylline Allergy Nausea/Vom/ Verified 07/15/24 16:16 Diarrhea phenylephrine HCl (From Allergy Unknown Verified 07/15/24 16:16 Entex LA) phenylpropanolamine HCl Allergy Unknown Verified 07/15/24 16:16 (From Entex LA) sulfamethoxazole (From Allergy Unknown Verified 07/15/24 16:16 Bactrim) trimethoprim (From Bactrim) Allergy Unknown Verified 07/15/24 16:16 ibuprofen AdvReac Intermediate Bleeding Verified 07/15/24 16:17 isosorbide AdvReac Intermediate Dizziness, Verified 07/15/24 16:16 weakness pravastatin AdvReac Myalgia Verified 07/15/24 16:16 Family History Mother Diabetes Heart disease Father Heart disease Myocardial infarction Sister Diabetes Heart disease Hypertension Sister Heart disease Surgical History History of cardiac catheterization History of coronary artery stent placement History of carpal tunnel release (~2022) H/O shoulder surgery Presence of stent in coronary artery (~08/06/22) Presence of coronary angioplasty implant and graft (~08/06/22) History of bilateral cataract extraction History of bowel resection History of colonoscopy Social History Smoking Status: Never smoker alcohol intake: never substance use type: does not use caffeine: Yes Type: carbonated beverages Number of servings: 2 and tea Number of servings: 2 additional social history: Uses Ibuprofen prn Review of Systems (Anesthesia) ROS Narrative System reviewed and no additional complaints, except as documented.
--- NOTE | 2024-07-19 08:06 | PCM.POST.ANE ---
Anesthesia: Postop Eval I Current Vital Signs Temperature: 97 F Pulse Rate: 63 Blood Pressure: 111/58 Respiratory Rate: 16 Pulse Ox: 97 Oxygen Delivery Method: Room Air Assessment Airway patent: Yes Spontaneous unlabored respirations: Yes Mental status: Asleep nausea: No Vomiting: No Anesthesia Complication: No Fluid Hydration Crystalloid volume administer (ml): 600 Total IV fluid infused: 600 Progress Note Anesthesia document: Postop Eval 1 completed: Yes
--- NOTE | 2024-07-19 08:10 | OP.CCLET_ITS ---
07/19/2024 Danna Laird [facility] [address] [place] [address] Re : Colonoscopy procedure for Vita Hewittkarmenmarine Dear Dr. Laird This procedure was performed on Friday, July 19, 2024. My impressions and recommendations are as follows: Impressions : - Hemorrhoids found on perianal exam. - Non-bleeding external and internal hemorrhoids. - The entire examined colon is normal. - No specimens collected. Recommendations : - Discharge patient to home. - Resume previous diet. - Continue present medications. - Repeat colonoscopy in 5 years for surveillance based on clinical status at that time. - depending on overall health at time of possible repeat My findings are described in the full procedure note, which is enclosed. If I can be of further assistance, please feel free to contact me at Doctor phone number(s): , Work: . Sincerely, MD Joleen Gilmore MD 07/19/2024 8:09:29 AM This report has been signed electronically.
--- NOTE | 2024-07-19 08:10 | OP.COLON_ITS ---
Patient Name: Vita Wilder Procedure Date: 07/19/2024 7:37 AM Date of : 1945 Age: 79 Procedure: Colonoscopy Indications: High risk colon cancer surveillance: Personal history of colon cancer Providers: Joleen Mendez MD Referring MD: Danna Laird Medicines: Monitored Anesthesia Care Patient Profile: This is a 79 year old female. Last Colonoscopy: July 2019. Complications: No immediate complications. Procedure: Pre-Anesthesia Assessment: - Prior to the procedure, a History and Physical was performed, and patient medications and allergies were reviewed. The patient's tolerance of previous anesthesia was also reviewed. The risks and benefits of the procedure and the sedation options and risks were discussed with the patient. All questions were answered, and informed consent was obtained. Prior Anticoagulants: The patient has taken no anticoagulant or antiplatelet agents. ASA Grade Assessment: Per anesthesia. After reviewing the risks and benefits, the patient was deemed in satisfactory condition to undergo the procedure. After I obtained informed consent, the scope was passed under direct vision. Throughout the procedure, the patient's blood pressure, pulse, and oxygen saturations were monitored continuously. The Colonoscope was introduced through the anus and advanced to the cecum, identified by appendiceal orifice and ileocecal valve. The colonoscopy was performed without difficulty. The patient tolerated the procedure well. The quality of the bowel preparation was good. Scope In: 7:48:59 AM Scope Withdrawal Time 0 hours 5 minutes 53 seconds Scope Out: 8:00:12 AM Total Procedure Duration Time 0 hours 11 minutes 13 seconds Findings: Hemorrhoids were found on perianal exam. Non-bleeding external and internal hemorrhoids were found. The hemorrhoids were small and Grade I (internal hemorrhoids that do not prolapse). Ileocolonic anastomosis widely patent. The entire examined colon appeared normal. Impression: - Hemorrhoids found on perianal exam. - Non-bleeding external and internal hemorrhoids. - The entire examined colon is normal. - No specimens collected. Recommendation: - Discharge patient to home. - Resume previous diet. - Continue present medications. - Repeat colonoscopy in 5 years for surveillance based on clinical status at that time. - depending on overall health at time of possible repeat Procedure Code(s): --- Professional --- G0105, PT, Colorectal cancer screening; colonoscopy on individual at high risk Diagnosis Code(s): --- Professional --- Z85.038, Personal history of other malignant neoplasm of large intestine K64.0, First degree hemorrhoids CPT copyright 2021 [employer]. All rights reserved. The codes documented in this report are preliminary and upon manager trade marketing review may be revised to meet current compliance requirements. MD Joleen Gilmore MD 07/19/2024 8:09:29 AM This report has been signed electronically. Number of Addenda: 0 Note Initiated On: 07/19/2024 7:37 AM
--- NOTE | 2024-07-19 08:34 | PCM.POSTANE2 ---
Anesthesia Postop Eval I Sum Postop Eval Completion status Anesthesia document: Postop Eval 1 completed: Yes Anesthesia Postop Eval I Summary Anesthesia Postop Eval I Summary: Anesthesia Postop Eval I: Assessment Summary Airway patent Yes 07/19/24 08:08 [email or web address] Spontaneous unlabored Yes 07/19/24 08:08 [email or web address] respirations Mental status Asleep 07/19/24 08:08 [email or web address] nausea No 07/19/24 08:08 [email or web address] Vomiting No 07/19/24 08:08 [email or web address] Anesthesia Postop Eval I: Fluid Summary Crystalloid volume administer 600 07/19/24 08:08 [email or web address] (ml) Colloids volume administered ( ml) Blood Product volume administered (ml) Total IV fluid infused 600 07/19/24 08:08 [email or web address] Anesthesia Postop Eval I: Summary Notes Anesthesia Complication No 07/19/24 08:08 [email or web address] Anesthesia Complication Comment: Post-operative progress note Anesthesia: Postop Eval II Evaluation Mental status: Awake Pain Level: 0 nausea: No Vomiting: No
== END 2024-07-19 08:58 | disposition home or self-care (01) ==
LOC: EN 07:12 → AC 07:13
PROVIDERS: PCP Internal Medicine; Referring Provider Internal Medicine; Visit Provider Surgery
PROC: 0DJD8ZZ Inspection of Lower Intestinal Tract, Via Natural or Artificial Opening Endoscopic (ICD-10-PCS; CPT 45378; principal; 2024-07-19 07:25)
DX: Z12.11 Encounter for screening for malignant neoplasm of colon (principal); K64.4 Residual hemorrhoidal skin tags; E78.00 Pure hypercholesterolemia, unspecified; I10 Essential (primary) hypertension; I25.10 Atherosclerotic heart disease of native coronary artery without angina pectoris; Z85.038 Personal history of other malignant neoplasm of large intestine; Z90.49 Acquired absence of other specified parts of digestive tract; Z86.010 Personal history of colon polyps; K64.0 First degree hemorrhoids; Z98.0 Intestinal bypass and anastomosis status; Z79.82 Long term (current) use of aspirin; Z79.899 Other long term (current) drug therapy
CPT/HCPCS: G0105; J7120; J2405

== ENCOUNTER → 2024-08-27 | Outpatient (CLI) | payer MEDICARE, SELFPAY ==
[2023-08-25 08:28] VITALS: BMI 29.7
[2024-08-27 12:42] LABS: Absolute Lymphocyte Count 1.64 X10^3/uL (0.83-4.51); Absolute Neutrophil Count 4.3 X10^3/uL (2.0-7.7); Basophil# 0.06 X10^3/uL; Basophil% 0.9 % (0-1); Eosinophil# 0.07 X10^3/uL; Hemoglobin 12.8 g/dL (12.0-15.0); Lymphocyte # 1.64 X10^3/ul (0.83-4.51); Mean Corpuscular Volume 93.7 fL (81-99); Mean Platelet Vol. 11.7 fl (6.2-12.0); Monocyte# 0.73 X10^3/uL; Monocyte% 10.7 % (0-10); NRBC Flagged by Analyzer 0 % (0-5); Neutrophil # 4.31 X10^3/uL (2.7-7.7); Neutrophil % 63.1 % (47-70); Platelet Count 187 K/mm3 (150-450); RBC Distribution Width CV 12.3 % (11.6-14.6); RBC Distribution Width SD 42.2 fl (35.1-43.9); Red Blood Count 4.27 M/mm3 (4.2-5.4); White Blood Count 6.8 K/mm3 (4.4-11.0)
[2024-08-27 13:12] LABS: Anion Gap 8 (5-15); BUN 22 mg/dL (7-18); BUN/Creat Ratio 17.3 RATIO (10-20); Calcium,Total 9.4 mg/dL (8.5-10.1); Chloride 103 mmol/L (98-107); Creatinine, Serum 1.27 mg/dL (0.55-1.02); EST Glomerular Filtration Rate 43 mL/min (>60); Est Glom Filt Rate - Afr Amer 52 mL/min (>60); Glucose 97 mg/dL (74-106); Potassium 3.9 mmol/L (3.5-5.1); Sodium Level 138 mmol/L (136-145)
== END | disposition home or self-care (01) ==
LOC: RAD 11:37
PROVIDERS: PCP Internal Medicine; Referring Provider Internal Medicine Cardiovascular Disease; Visit Provider Internal Medicine Cardiovascular Disease
DX: R94.39 Abnormal result of other cardiovascular function study (principal); R07.2 Precordial pain; I25.10 Atherosclerotic heart disease of native coronary artery without angina pectoris
CPT/HCPCS: 36415; 71046; 80048; 85025

== ENCOUNTER 2024-09-06 06:53 | Day surgery (SDC) | payer MEDICARE, SELFPAY ==
[2023-08-25 08:28] VITALS: BMI 29.7
[2024-09-03 09:07] VITALS: BMI 29.6
--- NOTE | 2024-09-06 09:20 | CL.D_ITS ---
Patient Name: FAN CHEEMA Study Date: 09/06/2024 Performing: Jose Sharma MD Ht: 68 inches 172.72 cm : 1945 Wt: 195 lbs 88.45 kg Age: 79 Gender: female BSA: 2.02 PROCEDURE(S) PERFORMED [id number])LHC/COR/LV CLINICAL PROFILE AND INDICATIONS Indications: Worsening Angina Heart Failure: None Stress/Imaging Stress/Image Study Performed: No CAD Presentations: Stable angina. CONCLUSIONS Patent stents noted in the right coronary artery. Mild disease noted in the LAD and circumflex artery. RECOMMENDATIONS Medical therapy DESCRIPTION OF PROCEDURE The patient arrived to the procedure lab. The risks and benefits of the procedure as well as a full description of our services here and current unavailability of surgical backup were fully explained to the patient and/or their significant other prior to the catheterization. The Timeout was completed, verifying the correct patient and procedure. The patient's procedural site was prepped and draped in the usual fashion. Local anesthetic was given subcutaneously to right radial region with Lidocaine 2%. Using a modified Seldinger technique, arterial access was obtained via the right radial artery, a 6Fr sheath was inserted. Left Coronary Artery selective angiography was performed in multiple views using a 5 Fr. 4.0 [place] catheter. Right Coronary Artery selective angiography was then performed in multiple views using a 5 Fr. 4.0 [place] catheter. Left Ventriculography was performed in RESTREPO projection using a 5 Fr. [place] catheter. LV to AO pullback pressures were then recorded.The arterial sheath was pulled and a TR Band was applied for hemostasis 10 ml of air CORONARY ANGIOGRAPHY DOMINANCE: Right Dominant LEFT HEART ASSESSMENT Left Ventricular Ejection Fraction: by LV Gram 60 % Normal LV wall motion Normal Left Ventricular systolic function LEFT MAIN: Angiographically normal LEFT ANTERIOR DESCENDING ARTERY: Medium size vessel with 2 diagonal branches with mild disease but no high-grade stenosis present. CIRCUMFLEX ARTERY: Small size vessel with no significant atherosclerotic significant disease. Approximately 50% stenosis noted in the first obtuse marginal branch. RIGHT CORONARY ARTERY: Previously placed stent with no evidence of in-stent stenosis. Minimal disease present COMPLICATIONS No Complications PROCEDURE MEDICATIONS Fentanyl 50 mcg IV Versed 1 mg IV Oxygen: 2 L/min via nasal cannula Aspirin (325mg) 1 Tabs PO @ 09/06/2024 07:22:02 Heparin given IA 09/06/2024 08:25:48 Verapamil 2.5mg, Ntg 100mcgs, 3000 units of Heparin given IA 09/06/2024 08:25:48 IV Fluids: .9 NaCl IV started @ 100 ml/hr 09/06/2024 07:22:14 SUMMARY OF HEMODYNAMIC DATA Time AIR REST ECG 07:20:29 AO 125/52 (76) SA 08:39:36 LV 135/4, 13 08:44:50 LV 134/5, 13 08:44:56 LV 111/0, 5 08:45:20 LV 119/7, 16 08:45:26 LVp 107/1, 11 08:45:30 AOp 124/-24 (61) 08:45:35 Signed By Jose Sharma MD On 09/06/2024 09:19:49 Jose Sharma MD
== END 2024-09-06 10:31 | disposition home or self-care (01) ==
PROVIDERS: PCP Internal Medicine; Referring Provider Internal Medicine Cardiovascular Disease; Visit Provider Internal Medicine Cardiovascular Disease
DX: I25.118 Atherosclerotic heart disease of native coronary artery with other forms of angina pectoris (principal); R94.39 Abnormal result of other cardiovascular function study; R07.2 Precordial pain; I10 Essential (primary) hypertension; Z95.5 Presence of coronary angioplasty implant and graft; Z79.82 Long term (current) use of aspirin; Z79.899 Other long term (current) drug therapy
CPT/HCPCS: 93458; 99152; 99153; J7040; Q9967; C1769; C1894

== ENCOUNTER → 2024-10-27 | Outpatient (CLI) | payer MEDICARE, SELFPAY ==
[2023-08-25 08:28] VITALS: BMI 29.7
[2024-10-27 10:50] LABS: AST(SGOT) 23 U/L (15-37); Alanine Aminotransfer ALT/SGPT 21 U/L (13-56); Albumin, Serum 3.4 g/dL (3.2-5.0); Alkaline Phosphatase 102 U/L (45-117); Bilirubin, Direct 0.14 mg/dL (0.00-0.30); Cholesterol 239 mg/dL (200); Globulin 3.5 g/dL (2.2-4.2); High Density Lipoprotein 77 mg/dL; Protein, Total 6.9 g/dL (6.4-8.2); Triglycerides 84 mg/dL; Very Low Density Lipoprotein 17 mg/dL (5-40)
== END | disposition home or self-care (01) ==
LOC: LAB 09:32
PROVIDERS: PCP Internal Medicine; Referring Provider Physician Assistant Medical; Visit Provider Physician Assistant Medical
DX: E78.00 Pure hypercholesterolemia, unspecified (principal); E78.49 Other hyperlipidemia
CPT/HCPCS: 36415; 80061; 80076

== ENCOUNTER → 2024-12-13 | Outpatient (CLI) | payer MEDICARE, SELFPAY ==
[2024-12-11 12:03] VITALS: BMI 29.7
[2024-12-13 15:12] LABS: Absolute Lymphocyte Count 2.02 X10^3/uL (0.83-4.51); Absolute Neutrophil Count 5.5 X10^3/uL (2.0-7.7); Basophil# 0.06 X10^3/uL; Basophil% 0.7 % (0-1); Eosinophil# 0.04 X10^3/uL; Eosinophils% 0.5 % (0-5); Hematocrit 42.7 % (37-47); Hemoglobin 13.8 g/dL (12.0-15.0); Lymphocyte # 2.02 X10^3/ul (0.83-4.51); Mean Corp Hgb Conc 32.3 g/dL (32-36); Mean Corpuscular Hgb 30.5 pg (27.0-32.0); Mean Corpuscular Volume 94.5 fL (81-99); Monocyte# 0.78 X10^3/uL; Monocyte% 9.3 % (0-10); NRBC Flagged by Analyzer 0 % (0-5); Neutrophil # 5.49 X10^3/uL (2.7-7.7); Platelet Count 244 K/mm3 (150-450); RBC Distribution Width CV 12.8 % (11.6-14.6); RBC Distribution Width SD 44.2 fl (35.1-43.9); Red Blood Count 4.52 M/mm3 (4.2-5.4); White Blood Count 8.4 K/mm3 (4.4-11.0)
[2024-12-13 16:48] LABS: Vitamin B12 1241 pg/mL (211-911)
[2024-12-13 19:32] LABS: ALB/GLOB Ratio 0.9 RATIO (0.9-2.4); AST(SGOT) 33 U/L (15-37); Alanine Aminotransfer ALT/SGPT 38 U/L (13-56); Albumin, Serum 3.6 g/dL (3.2-5.0); Alkaline Phosphatase 121 U/L (45-117); Anion Gap 8 (5-15); BUN 12 mg/dL (7-18); BUN/Creat Ratio 9.2 RATIO (10-20); Calcium,Total 9.7 mg/dL (8.5-10.1); Chloride 105 mmol/L (98-107); EST Glomerular Filtration Rate 42 mL/min (>60); Est Glom Filt Rate - Afr Amer 51 mL/min (>60); Free T3 2.6 pg/mL (2.18-3.98); Globulin 3.8 g/dL (2.2-4.2); Glucose 93 mg/dL (74-106); Potassium 4.6 mmol/L (3.5-5.1); Protein, Total 7.4 g/dL (6.4-8.2); Sodium Level 138 mmol/L (136-145); Thyroid Stim Hormone (TSH) 0.811 uIU/mL (0.358-3.740)
== END | disposition home or self-care (01) ==
LOC: BIMLAB 12:25
PROVIDERS: PCP Internal Medicine; Referring Provider Internal Medicine; Visit Provider Internal Medicine
DX: R53.83 Other fatigue (principal); E55.9 Vitamin D deficiency, unspecified; E53.8 Deficiency of other specified B group vitamins
CPT/HCPCS: 36415; 80053; 82306; 82607; 84439; 84443; 84481; 85025

== ENCOUNTER → 2024-12-29 | Outpatient (CLI) | payer MEDICARE, SELFPAY ==
[2024-12-13 08:56] VITALS: BMI 29.7
--- NOTE | 2024-12-29 09:36 | RAD_ITS ---
EXAM: XR Left Wrist Complete, 3 or More Views CLINICAL INDICATION: LEFT WRIST PAIN, S/P FALL TECHNIQUE: Frontal, lateral and oblique views of the left wrist. COMPARISON: No relevant prior studies available. FINDINGS: BONES/JOINTS: See below. SOFT TISSUES: Soft tissue swelling without acute fracture. No radiopaque foreign body. RAD/Wrist min 3 Views IMPRESSION: 1. Soft tissue swelling without acute fracture. 2. If symptoms persist, further evaluation with CT is recommended. Reading Location: [facility]
== END | disposition home or self-care (01) ==
LOC: RAD 09:33
PROVIDERS: PCP Internal Medicine; Referring Provider Internal Medicine; Visit Provider Internal Medicine
DX: M25.532 Pain in left wrist (principal); W19.XXXA Unspecified fall, initial encounter
CPT/HCPCS: 73110

== ENCOUNTER → 2024-12-30 | Outpatient (CLI) | payer MEDICARE, SELFPAY ==
[2024-12-13 08:56] VITALS: BMI 29.7
--- NOTE | 2024-12-30 12:19 | US_ITS ---
PROCEDURE: KIDNEY AND BLADDER REASON FOR EXAM: HEMATURIA TECHNIQUE: Bilateral renal ultrasound. COMPARISON: None. FINDINGS: Normal renal sizes, parenchymal thicknesses, and echotextures. No hydronephrosis. No cysts or large solid renal masses. RIGHT Kidney Size: 9.1 cm x 5.3 cm x 3.8 cm Volume: 96.4 mL Cortical Thickness (if discernible): 1 cm (>6mm is normal) LEFT Kidney Size: 10.4 cm x 4.3 cm x 4.1 cm Volume: 96.6 mL Cortical Thickness (if discernible): 1.4 cm (>6mm is normal) US/Kidney and Bladder IMPRESSION: NORMAL RENAL ULTRASOUND Reading Location: [id number]
== END | disposition home or self-care (01) ==
PROVIDERS: PCP Internal Medicine; Referring Provider Internal Medicine; Visit Provider Internal Medicine
DX: R31.9 Hematuria, unspecified (principal)
CPT/HCPCS: 76770

== ENCOUNTER → 2025-04-06 | Outpatient (CLI) | payer MEDICARE, SELFPAY ==
[2024-12-13 08:56] VITALS: BMI 29.7
--- OUTSIDE RECORDS SUMMARY | 2025-04-06 06:58 | XMS RPT_ITS | CCD ---
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 of unspecified carpal bone, right wrist, initial encounter for closed fracture] Onset: 4 01-12-2023 Episodic Genitourinary symptoms and ill-defined conditions (5 sources) Blood in urine; Translations: [Hematuria, unspecified] Onset: 5 12-29-2024 Episodic Heart valve disorders (20 sources) Heart murmur; Translations: [Cardiac murmur, unspecified] Episodic Malaise and fatigue (11 sources) Other fatigue; Translations: [Other malaise and fatigue] Onset: 5 Episodic Nausea and vomiting (20 sources) Nausea; Translations: [Nausea] Episodic Nutritional deficiencies (1 source) Vitamin D deficiency, unspecified; Translations: [Vitamin D deficiency, unspecified] Onset: 5 Chronic Osteoarthritis (14 sources) Arthritis of left foot; Translations: [Primary osteoarthritis, left ankle and foot] 03-13-2023 Chronic Other aftercare (11 sources) Drug therapy finding; Translations: [Encounter for therapeutic drug level monitoring] 12-02-2022 Episodic Other aftercare (2 sources) Long-term current use of drug therapy; Translations: [Encounter for therapeutic drug level monitoring] 12-10-2022 Episodic Other and unspecified benign neoplasm (20 sources) History of polyp of colon; Translations: [Personal history of colonic polyps] 07-07-2019 Episodic Other circulatory disease (20 sources) Abnormal radial pulse; Translations: [Other specified symptoms and signs involving the circulatory and respiratory systems] 08-13-2022 Episodic Other circulatory disease (13 sources) H/O: heart disorder; Translations: [Personal history of other diseases of the circulatory system] 12-02-2022 Episodic Other circulatory disease (1 source) Personal history of other diseases of the circulatory system; Translations: [Personal history of other diseases of circulatory system] 12-04-2022 Episodic Other connective tissue disease (20 sources) Pain in left arm; Translations: [Pain in left arm] 06-18-2022 Episodic Other connective tissue disease (19 sources) Swollen calf; Translations: [Other specified soft tissue disorders] 08-22-2022 Episodic Other connective tissue disease (19 sources) Pain in calf; Translations: [Pain in unspecified lower leg] 08-22-2022 Episodic Other connective tissue disease (7 sources) Pain in unspecified lower leg; Translations: [Pain in limb] Episodic Other connective tissue disease (9 sources) Other specified soft tissue disorders; Translations: [Swelling of limb] Episodic Other ear and sense organ disorders (4 sources) Otalgia, left ear; Translations: [Left ear pain] 11-29-2024 Episodic Other injuries and conditions due to external causes (20 sources) Thumbnail injury; Translations: [Unspecified injury of left wrist, hand and finger(s), initial encounter] 08-15-2022 Episodic Other injuries and conditions due to external causes (2 sources) Unspecified injury of left wrist, hand and finger(s), initial encounter; Translations: [Finger injury] Episodic Other injuries and conditions due to external causes (5 sources) Closed injury of head; Translations: [Unspecified injury of head, initial encounter] Onset: 4 12-19-2023 Episodic Other lower respiratory disease (20 sources) Dyspnea on exertion; Translations: [Other forms of dyspnea] 08-15-2022 Episodic Other lower respiratory disease (7 sources) Other forms of dyspnea; Translations: [Other respiratory abnormalities] Episodic Other lower respiratory disease (1 source) Dyspnea, unspecified; Translations: [Dyspnea, unspecified] Onset: 5 Episodic Other nervous system disorders (5 sources) Carpal tunnel syndrome of right wrist; Translations: [Carpal tunnel syndrome, right upper limb] Onset: 4 10-30-2023 Chronic Other nervous system disorders (1 source) Normal pressure hydrocephalus; Translations: [(Idiopathic) normal pressure hydrocephalus] Onset: 4 02-19-2024 Chronic Other nervous system disorders (2 sources) Carpal tunnel syndrome, right upper limb; Translations: [Carpal tunnel syndrome, right upper limb] Onset: Chronic Other non-traumatic joint disorders (5 sources) Shoulder pain; Translations: [Pain in left shoulder] 10-31-2022 Episodic Other non-traumatic joint disorders (15 sources) Pain in left shoulder; Translations: [Pain in joint, shoulder region] 10-31-2022 Episodic Other non-traumatic joint disorders (9 sources) Pain in wrist; Translations: [Pain in unspecified wrist] 10-21-2023 Episodic Other non-traumatic joint disorders (1 source) Pain in left wrist; Translations: [Pain in left wrist] Onset: Episodic Other skin disorders (13 sources) Eruption; Translations: [Rash and other nonspecific skin eruption] 12-04-2022 Episodic Other skin disorders (6 sources) Rash and other nonspecific skin eruption; Translations: [Rash and other nonspecific skin eruption] 12-04-2022 Episodic Other upper respiratory disease (20 sources) Seasonal allergy; Translations: [Other seasonal allergic rhinitis] 06-28-2021 Chronic Other upper respiratory disease (5 sources) Other seasonal allergic rhinitis; Translations: [Allergic rhinitis, cause unspecified] Chronic Other upper respiratory disease (13 sources) Anterior epistaxis; Translations: [Epistaxis] 12-02-2022 Episodic Other upper respiratory disease (1 source) Epistaxis; Translations: [Epistaxis] 12-04-2022 Episodic Otitis media and related conditions (2 sources) Chronic mastoiditis; Translations: [Chronic mastoiditis, unspecified ear] 06-18-2024 Chronic Otitis media and related conditions (20 sources) Acute left otitis media; Translations: [Otitis media, unspecified, left ear] Episodic Residual codes; unclassified (20 sources) Family history of coronary arteriosclerosis; Translations: [Family history of ischemic heart disease and other diseases of the circulatory system] 10-21-2013 Episodic Residual codes; unclassified (20 sources) Cardiac investigative finding; Translations: [Other specified health status] 08-15-2022 Episodic Residual codes; unclassified (6 sources) Family history of ischemic heart disease and other diseases of the circulatory system; Translations: [Family history of ischemic heart disease] Episodic Residual codes; unclassified (13 sources) Edema of right lower limb; Translations: [Localized edema] 11-29-2022 Episodic Residual codes; unclassified (3 sources) Localized edema; Translations: [Edema] 11-29-2022 Episodic Residual codes; unclassified (2 sources) Other specified postprocedural states; Translations: [Other specified postprocedural states] Onset: 4 Episodic Spondylosis; intervertebral disc disorders; other back problems (2 sources) Sacroiliac joint pain; Translations: [Sacrococcygeal disorders, not elsewhere classified] 03-30-2024 Episodic Sprains and strains (18 sources) Strain of foot; Translations: [Strain of unspecified muscle and tendon at ankle and foot level, left foot, initial encounter] 03-13-2023 Episodic Superficial injury; contusion (5 sources) Contusion of left knee; Translations: [Contusion of left knee, initial encounter] Onset: 12-19-2023 Episodic Unclassified (2 sources) Cough, unspecified; Translations: [Cough, unspecified] Onset: 5 Past or Other Problems Problem Classification Problem Date Documented Da te Episodic/Chronic Cancer of colon (2 sources) Personal history of other malignant neoplasm of large intestine; Translations: [Personal history of other malignant neoplasm of large intestine] Onset: 08-16-2024 Episodic Coronary atherosclerosis and other heart disease (20 sources) Stented coronary artery; Translations: [Presence of coronary angioplasty implant and graft] Onset: 07-20-2022 Episodic Comment on above: PCI/JESS to proximal RCA Dr. Meyers 08/06/22 E Codes: Fall (5 sources) Fall; Translations: [Unspecified fall, initial encounter] Onset: 12-29-2024 12-29-2024 Episodic Nonspecific chest pain (20 sources) Chest pain; Translations: [Chest pain, unspecified] Onset: 01-08-2024 Episodic Nutritional deficiencies (1 source) Deficiency of other specified B group vitamins; Translations: [Deficiency of other specified B group vitamins] Onset: 12-29-2024 Episodic Other nervous system disorders (1 source) Other abnormalities of gait and mobility; Translations: [Other abnormalities of gait and mobility] Onset: 06-28-2024 Episodic Other non-traumatic joint disorders (2 sources) Pain in unspecified wrist; Translations: [Pain in unspecified wrist] Onset: 10-30-2023 Episodic Other screening for suspected conditions (not mental disorders or infectious disease) (20 sources) Cardiovascular stress test abnormal; Translations: [Abnormal result of other cardiovascular function study] Onset: 08-16-2024 Episodic Other upper respiratory infections (20 sources) Upper respiratory infection; Translations: [Acute upper respiratory infection, unspecified] Onset: 11-27-2024 02-03-2023 Episodic Results Test Name Value Interpretation Reference Range Facility [facility] Bladder[facility] 025 Kidney and Bladder [facility] Imaging Services [address] [place] [address] Kidney and Bladder MR#: [id number] Acct: [id number] Name: FAN CHEEMA Rep #: [id number] : 1945 F 79 From: River santamaria MD PCP: Dr. Marcella Laird MD Status[facility] Study: Kidney and Bladder Date of Exam: 12/30/24 Exam# [id number] Ordering Dr: Marcella Laird MD ADDENDUM by Dr. River Duggan MD on 12/31/24 at 1339 This is an addendum report. The bladder is unremarkable. Reading Location: [facility] 12/31/24 1340 Date cc: Dr. Marcella Laird MD * Signed PROCEDURE: KIDNEY AND BLADDER REASON FOR EXAM: HEMATURIA TECHNIQUE: Bilateral renal ultrasound. COMPARISON: None. FINDINGS: Normal renal sizes, parenchymal thicknesses, and echotextures. No hydronephrosis. No cysts or large solid renal masses. RIGHT Kidney Size: 9.1 cm x 5.3 cm x 3.8 cm Volume: 96.4 mL Cortical Thickness (if discernible): 1 cm (>6mm is normal) LEFT Kidney Size: 10.4 cm x 4.3 cm x 4.1 cm Volume: 96.6 mL Cortical Thickness (if discernible): 1.4 cm (>6mm is normal) US/Kidney and Bladder IMPRESSION: NORMAL RENAL ULTRASOUND Reading Location: [facility] CC: Dr. Marcella Laird MD Cake Tester: Signed Normal [facility] Laboratory - Chemistry and C hemistry - challengeOrdered By: Marcella Laird on 12-29-2024 Bilirubin Ql (U) Negative [facility] Glucose Ql (U) Negative [facility] Ketones Ql (U) Negative [facility] pH (U) 6.0 [pH] [facility] Specific gravity (U) [Rel density] 1.025 [facility] Urobilinogen (U) [Mass/Vol] 0.6676176 mg/dL [facility] - Hematology and Cell countsOrdered By: Marcella Laird on 12-29-2024 Hemoglobin Ql (U) Negative [facility] - Specimen inform ationOrdered By: Marcella Laird on 12-29-2024 Clarity (U) Clear [facility] Color (U) DARK YELLOW [facility] Laboratory - UrinalysisOrder ed By: Marcella Laird on 12-29-2024 Nitrite Ql (U) Negative [facility] Protein Ql (U) Negative [facility] MR/BMS.IMBon 12-29-2024 MR/BMS.IMB [facility] [address] [place] [address] [address] [place] [address] OFFICE VISIT Date of Service: 12/29/24 MR#: [id number] Acct: [id number] Name: FAN CONNELL XIOMARA Rep #: [id number] : 1945 Provider: Dr. Marcella mcmillan MD Age/Sex: 79/F Location: [facility] Status: Signed Intake Vital Signs 12/13/24 11:31 12/29/24 08:35 Height 5 ft 8 in 5 ft 8 in Weight: 187 lb 4 oz 185 lb 4 oz BMI 28.4 28.1 BP 130/75 H 115/72 Blood Pressure Location Rt brachial Lt brachial Position Sitting Sitting Respiration 16 16 Pulse 55 L 63 Pulse Source Monitor Monitor Temp 98.2 F 98.2 F Temp Source Temporal Temporal Pulse Oximetry (%) 96 95 Oxygen Delivery Method room air room air Intake Visit Reasons: Sores in Mouth/Blood in Urine Chief Complaint: Sores in Mouth/Blood in Urine Otm Consultant Required: No Accompanied by: Is patient in pain?: Yes (bilateral wrists) Pain scale (1-10): 3 Allergies atorvastatin calcium (From Lipitor) Allergy (Verified 12/29/24 08:26) myalgias clarithromycin Allergy (Verified 12/29/24 08:26) Nausea/Vom/Diarrhea desloratadine (From Clarinex) Allergy (Verified 12/29/24 08:26) Unknown guaifenesin (From Entex LA) Allergy (Verified 12/29/24 08:26) Unknown hydrocodone bitartrate (From Vicodin) Allergy (Verified 12/29/24 08:26) Other methylprednisolone Allergy (Verified 12/29/24 08:26) Unknown nystatin Allergy (Verified 12/29/24 08:26) Unknown pentoxifylline Allergy (Verified 12/29/24 08:26) Nausea/Vom/Diarrhea phenylephrine HCl (From Entex LA) Allergy (Verified 12/29/24 08:26) Unknown phenylpropanolamine HCl (From Entex LA) Allergy (Verified 12/29/24 08:26) Unknown sulfamethoxazole (From Bactrim) Allergy (Verified 12/29/24 08:26) Unknown trimethoprim (From Bactrim) Allergy (Verified 12/29/24 08:26) Unknown ibuprofen Adverse Reaction (Intermediate, Verified 12/29/24 08:26) Bleeding isosorbide Adverse Reaction (Intermediate, Verified 12/29/24 08:26) Dizziness, weakness pravastatin Adverse Reaction (Verified 12/29/24 08:26) Myalgia Medications ???Medication ???Instructions ???Recorded ???Confirmed ???Type aspirin 81 mg chewable tablet 0.5 tab PO Q3D 01/19/24 12/29/24 H istory cholecalciferol (vitamin D3) 50 50 mcg PO DAILY Vit D #90 tabs 10/1212/29/24 Rx mcg (2,000 unit) tablet carvedilol 3.125 mg tablet 3.125 mg PO DAILY #180 tabs 12/29/24 Rx acetaminophen 650 mg 650 mg PO QHS PRN pain 08/27/24 History tablet,extended release (Tylenol Arthritis Pain) amlodipine 2.5 mg tablet (Norvasc) 2.5 mg PO QDAY #30 tabs 10/26/24 12/29/24 Rx ondansetron 4 mg disintegrating 4 mg PO Q12H #10 tabs 11/27/2410/13 Rx tablet cyanocobalamin (vitamin B-12) 500 500 mcg PO DAILY B12 #90 tabs 10/1312/29/24 Rx mcg tablet hydrochlorothiazide 12.5 mg tablet 12.5 mg PO DAILY #90 tabs 12/29/24 Rx Have you fallen in the past year?: Yes (12/2024) [facility] Medical History (Updated 12/29/24 @ 09:[address] Marcella Laird MD) Left wrist pain Fall Hematuria Left ear pain Right wrist pain Wears glasses Post-menopausal Arthritis History of Holter monitoring History of echocardiogram History of stress test Cardiology follow-up encounter History of patellar fracture Mastoiditis, chronic Dizziness Acute bronchitis, unspecified URI (upper respiratory infection) HTN (hypertension) Decreased radial pulse 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 Pure hypercholesterolemia Colon cancer Bilateral cataracts Seasonal allergies Personal history of colonic polyps Surgical History History of cardiac catheterization History of coronary artery stent placement History of carpal tunnel release ( 2022) H/O shoulder surgery Presence of stent in coronary artery ( 08/06/22) Presence of coronary angioplasty implant and graft ( 08/06/22) History of bilateral cataract extraction History of bowel resection History of colonoscopy Family History Mother Diabetes Heart disease Father Heart disease Myocardial infarction Sister Diabetes Heart disease Hypertension Sister Heart disease Social History Smoking Status: Never smoker alcohol intake: never substance use type: does not use caffeine: Yes Type: carbonated beverages Number of servings: 2 and tea Number of servings: 2 additional social history: Uses Ibuprofen prn HPI HPI Chief Complaint: Sores in Mouth/Blood in Urine Details: FAN FERGUSONCHAPISNEHEMIAH, is a 79 F who presents to the office today for short-term follow-up. See my previous notes from recently, where s (more content not included)... Normal [facility] No Panel InformationOrdered By: Marcella Laird on 12-29-2024 Urine Leukocytes Negatve [facility] Wrist min 3 Viewson 12-30-19 25 Wrist min 3 Views [facility] Imaging Services [address] [place] [address] Wrist min 3 Views MR#: [id number] Acct: [id number] Name: FAN CHEEMA Rep #: [id number] : 1945 F 79 From: Geraldo Galicia MD PCP: Dr. Marcella Laird MD Status: REG CLI Study: Wrist min 3 Views Date of Exam: 12/29/24 Exam# [id number] Ordering Dr: Marcella Laird MD EXAM: XR Left Wrist Complete, 3 or More Views CLINICAL INDICATION: LEFT WRIST PAIN, S/P FALL TECHNIQUE: Frontal, lateral and oblique views of the left wrist. COMPARISON: No relevant prior studies available. FINDINGS: BONES/JOINTS: See below. SOFT TISSUES: Soft tissue swelling without acute fracture. No radiopaque foreign body. RAD/Wrist min 3 Views IMPRESSION: 1. Soft tissue swelling without acute fracture. 2. If symptoms persist, further evaluation with CT is recommended. Reading Location: [facility] CC: Dr. Marcella Laird MD Cake Tester: Signed Normal [facility] 48-PM-Aqusteq DOrdered By: Rock Laird on 12-13-2024 Vitamin D 25-Hydroxy 60.0 ng/mL [facility] Comment on above: Vitamin D 25(OH) Sta tus Range Deficiency <20 ng/mL (50nmol/L) Insufficiency 20 - 30 ng/mL (50 - 75 nmol/L) Sufficiency 30 - 100 ng/mL (75 - 250 nmol/L) Toxicity >100 ng/mL (>250 nmol/L) Absolute neutrophil countOrd ered By: Marcella Laird on 12-13-2024 Neutrophils (Bld) [#/Vol] 5.5 10*3/uL 2.0-7.7 [facility] Albumin to globulin ratioOrd ered By: Marcella Laird on 12-13-2024 Albumin/Globulin [Mass ratio] 0.9 {ratio} 0.9-2.4 [facility] Basophil percentageOrdered B y: Marcella Laird on 12-13-2024 Basophils/100 WBC (Bld) 0.7 % 0-1 [facility] Bilirubin, totalOrdered By: Marcella Laird on 12-13-2024 Bilirubin [Mass/Vol] 0.50 mg/dL 0.20-1.00 [facility] Comment on above: For patients on eltr ombopag therapy, use of Dimension [place] TBIL is not recommended. Blood urea nitrogen (BUN)/cr eatinine ratioOrdered By: Macrella Laird on 12-13-2024 Urea nitrogen/Creatinine [Mass ratio] 9.2 mg/mg Low 10-20 [facility] CBC W/Diff, Automatedon 11-21 Absolute Lymph 2.02 X10 3/uL Normal 0.83-4.51 [facility] Comment on above: Performed By: #### L 501.99822, L500.4050, L506.1000, L100.0100, L501.9520, L506.0400, L503.0105 ####[facility] [address] [place], [address] Absolute Neut 5.5 X10 3/uL Normal 2.0-7.7 [facility] Comment on above: Performed By: #### L 501.69233, L500.4050, L506.1000, L100.0100, L501.9520, L506.0400, L503.0105 ####[facility] [address] [place], [address] Basophils/100 WBC (Bld) 0.7 % Normal 0-1 [facility] Comment on above: Performed By: #### L 501.26565, L500.4050, L506.1000, L100.0100, L501.9520, L506.0400, L503.0105 ####[facility] [address] [place], [address] Eosinophils/100 WBC (Bld) 0.5 % Normal 0-5 [facility] Comment on above: Performed By: #### L 501.94955, L500.4050, L506.1000, L100.0100, L501.9520, L506.0400, L503.0105 ####[facility] [address] [place], [address] Erythrocyte distribution width (RBC) [Ratio] 12.8 % Normal 11.6-14.6 [facility] Comment on above: Performed By: #### L 501.72262, L500.4050, L506.1000, L100.0100, L501.9520, L506.0400, L503.0105 ####[facility] [address] [place], [address] Hematocrit (Bld) [Volume fraction] 42.7 % Normal 37-47 [facility] Comment on above: Performed By: #### L 501.50831, L500.4050, L506.1000, L100.0100, L501.9520, L506.0400, L503.0105 ####[facility] [address] [place], [address] Hemoglobin (Bld) [Mass/Vol] 13.8 g/dL Normal 12.0-15.0 [facility] Comment on above: Performed By: #### L 501.20442, L500.4050, L506.1000, L100.0100, L501.9520, L506.0400, L503.0105 ####[facility] [address] [place], [address] IG% 0.500 Normal 0.0-0.9 [facility] Comment on above: Result Comment: IG% - Immature Granulocytes (promyelocytes, myelocytes and metamyelocytes) > 1% indicates that a LEFT SHIFT is Present. Performed By: #### L 501.52626, L500.4050, L506.1000, L100.0100, L501.9520, L506.0400, L503.0105 ####[facility] [address] [place], [address] Lymphocytes/100 WBC (Bld) 24.0 % Normal 19-41 [facility] Comment on above: Performed By: #### L 501.37010, L500.4050, L506.1000, L100.0100, L501.9520, L506.0400, L503.0105 ####[facility] [address] [place], [address] MCH (RBC) [Entitic mass] 30.5 pg Normal 27.0-32.0 [facility] Comment on above: Performed By: #### L 501.51839, L500.4050, L506.1000, L100.0100, L501.9520, L506.0400, L503.0105 ####[facility] [address] [place], [address] MCHC (RBC) [Mass/Vol] 32.3 g/dL Normal 32-36 [facility] Comment on above: Performed By: #### L 501.73608, L500.4050, L506.1000, L100.0100, L501.9520, L506.0400, L503.0105 ####[facility] [address] [place], [address] MCV (RBC) [Entitic vol] 94.5 fL Normal 81-99 [facility] Comment on above: Performed By: #### L 501.95808, L500.4050, L506.1000, L100.0100, L501.9520, L506.0400, L503.0105 ####[facility] [address] [place], [address] Monocytes/100 WBC (Bld) 9.3 % Normal 0-10 [facility] Comment on above: Performed By: #### L 501.99760, L500.4050, L506.1000, L100.0100, L501.9520, L506.0400, L503.0105 ####[facility] [address] [place], [address] Neutrophils/100 WBC (Bld) 65.0 % Normal 47-70 [facility] Comment on above: Performed By: #### L 501.26830, L500.4050, L506.1000, L100.0100, L501.9520, L506.0400, L503.0105 ####[facility] [address] [place], [address] Nucleated RBC (Bld) [#/Vol] 0 10*3/uL Normal 0-5 [facility] Comment on above: Performed By: #### L 501.59961, L500.4050, L506.1000, L100.0100, L501.9520, L506.0400, L503.0105 ####[facility] [address] [place], [address] Platelet mean volume (Bld) [Entitic vol] 12.0 fL Normal 6.2-12.0 [facility] Comment on above: Performed By: #### L 501.10629, L500.4050, L506.1000, L100.0100, L501.9520, L506.0400, L503.0105 ####[facility] [address] [place], [address] Platelets (Bld) [#/Vol] 244 10*3/uL Normal 150-450 [facility] Comment on above: Performed By: #### L 501.14068, L500.4050, L506.1000, L100.0100, L501.9520, L506.0400, L503.0105 ####[facility] [address] [place], [address] RBC (Bld) [#/Vol] 4.52 10*6/uL Normal 4.2-5.4 [facility] Comment on above: Performed By: #### L 501.99930, L500.4050, L506.1000, L100.0100, L501.9520, L506.0400, L503.0105 ####[facility] [address] [place], [address] RDW SD 44.2 fl High 35.1-43.9 [facility] Comment on above: Performed By: #### L 501.26863, L500.4050, L506.1000, L100.0100, L501.9520, L506.0400, L503.0105 ####[facility] [address] [place], [address] WBC (Bld) [#/Vol] 8.4 10*3/uL Normal 4.4-11.0 [facility] Comment on above: Performed By: #### L 501.11700, L500.4050, L506.1000, L100.0100, L501.9520, L506.0400, L503.0105 ####[facility] [address] [place], [address] Carbon dioxide measurementOr dered By: Marcella Laird on 12-13-2024 CO2 [Moles/Vol] 26.0 mmol/L 21.0-32.0 [facility] Chloride measurementOrdered By: Marcella Laird on 12-13-2024 Chloride [Moles/Vol] 105 mmol/L 98-107 [facility] Comprehensive Metabolic Prof ilon 12-13-2024 Albumin [Mass/Vol] 3.6 g/dL Normal 3.2-5.0 [facility] Comment on above: Performed By: #### L 501.22671, L500.4050, L506.1000, L100.0100, L501.9520, L506.0400, L503.0105 ####[facility] [address], [address] Albumin/Globulin [Mass ratio] 0.9 {ratio} Normal 0.9-2.4 [facility] Comment on above: Performed By: #### L 501.89875, L500.4050, L506.1000, L100.0100, L501.9520, L506.0400, L503.0105 ####[facility] [address] [place], [address] ALK P 121 U/L High 45-117 [facility] Comment on above: Performed By: #### L 501.25639, L500.4050, L506.1000, L100.0100, L501.9520, L506.0400, L503.0105 ####[facility] [address] [place], [address] ALT [Catalytic activity/Vol] 38 U/L Normal 13-56 [facility] Comment on above: Performed By: #### L 501.67838, L500.4050, L506.1000, L100.0100, L501.9520, L506.0400, L503.0105 ####[facility] [address] [place], [address] AST [Catalytic activity/Vol] 33 U/L Normal 15-37 [facility] Comment on above: Performed By: #### L 501.36947, L500.4050, L506.1000, L100.0100, L501.9520, L506.0400, L503.0105 ####[facility] [address] [place], [address] Bilirubin [Mass/Vol] 0.50 mg/dL Normal 0.20-1.00 [facility] Comment on above: Result Comment: For patients on eltrombopag therapy, use of Dimension [place] TBIL is not recommended. Performed By: #### L 501.29614, L500.4050, L506.1000, L100.0100, L501.9520, L506.0400, L503.0105 ####[facility] [address] [place], [address] BUN/CRE 9.2 RATIO Low 10-20 [facility] Comment on above: Performed By: #### L 501.86501, L500.4050, L506.1000, L100.0100, L501.9520, L506.0400, L503.0105 ####[facility] [address] [place], [address] CA,Total 9.7 mg/dL Normal 8.5-10.1 [facility] Comment on above: Performed By: #### L 501.56690, L500.4050, L506.1000, L100.0100, L501.9520, L506.0400, L503.0105 ####[facility] [address] [place], [address] Chloride [Moles/Vol] 105 mmol/L Normal 98-107 [facility] Comment on above: Performed By: #### L 501.10170, L500.4050, L506.1000, L100.0100, L501.9520, L506.0400, L503.0105 ####[facility] [address] [place], [address] CO2 [Moles/Vol] 26.0 mmol/L Normal 21.0-32.0 [facility] Comment on above: Performed By: #### L 501.76371, L500.4050, L506.1000, L100.0100, L501.9520, L506.0400, L503.0105 ####[facility] [address] [place], [address] Creatinine [Mass/Vol] 1.30 mg/dL High 0.55-1.02 [facility] Comment on above: Result Comment: The validity of the calculated GFR GFRAA in patients over 70 years has not been determined. Clinical correlation is essential. Performed By: #### L 501.05556, L500.4050, L506.1000, L100.0100, L501.9520, L506.0400, L503.0105 ####[facility] [address] [place], [address] EST GFR - AA 51 mL/min Low >60 [facility] Comment on above: Result Comment: Afri can [place] GFR Calc Performed By: #### L 501.98145, L500.4050, L506.1000, L100.0100, L501.9520, L506.0400, L503.0105 ####[facility] [address] [place], [address] GAP 8 Normal 5-15 [facility] Comment on above: Performed By: #### L 501.70984, L500.4050, L506.1000, L100.0100, L501.9520, L506.0400, L503.0105 ####[facility] [address] [place], [address] GFR/1.73 sq M.predicted among non-blacks MDRD (S/P/Bld) [Vol rate/Area] 42 mL/min/{1.73_m2} Low >60 [facility] Comment on above: Result Comment: Non- GFR Calc Performed By: #### L 501.74744, L500.4050, L506.1000, L100.0100, L501.9520, L506.0400, L503.0105 ####[facility] [address] [place], [address] Globulin (S) [Mass/Vol] 3.8 g/dL Normal 2.2-4.2 [facility] Comment on above: Performed By: #### L 501.97027, L500.4050, L506.1000, L100.0100, L501.9520, L506.0400, L503.0105 ####[facility] [address] [place], [address] Glucose [Mass/Vol] 93 mg/dL Normal 74-106 [facility] Comment on above: Performed By: #### L 501.71285, L500.4050, L506.1000, L100.0100, L501.9520, L506.0400, L503.0105 ####[facility] [address] [place], [address] Potassium [Moles/Vol] 4.6 mmol/L Normal 3.5-5.1 [facility] Comment on above: Performed By: #### L 501.49219, L500.4050, L506.1000, L100.0100, L501.9520, L506.0400, L503.0105 ####[facility] [address] [place], [address] Sodium [Moles/Vol] 138 mmol/L Normal 136-145 [facility] Comment on above: Performed By: #### L 501.12322, L500.4050, L506.1000, L100.0100, L501.9520, L506.0400, L503.0105 ####[facility] [address] [place], [address] T PROT 7.4 g/dL Normal 6.4-8.2 [facility] Comment on above: Performed By: #### L 501.99761, L500.4050, L506.1000, L100.0100, L501.9520, L506.0400, L503.0105 ####[facility] [address] [place], [address] Urea nitrogen [Mass/Vol] 12 mg/dL Normal 7-18 [facility] Comment on above: Performed By: #### L 501.94341, L500.4050, L506.1000, L100.0100, L501.9520, L506.0400, L503.0105 ####[facility] [address] [place], [address] Direct serum free thyroxine (FT4) measurementOrdered By: Marcella Laird on 12-13-2024 Free T4 [Mass/Vol] 1.40 ng/dL 0.76-1.46 [facility] Eosinophil percentageOrdered By: Marcella Laird on 12-13-2024 Eosinophils/100 WBC (Bld) 0.5 % 0-5 [facility] Erythrocyte distribution wid th ratioOrdered By: Marcella Laird on 12-13-2024 Erythrocyte distribution width (RBC) [Ratio] 12.8 % 11.6-14.6 [facility] Erythrocyte distribution wid th standard deviationOrdered By: Marcella Laird on 12-13-2024 Erythrocyte distribution width (RBC) [Entitic vol] 44.2 fL High 35.1-43.9 [facility] Estimated glomerular filtrat ion rate (GFR) AmericanOrdered By: Marcella Laird on 12-13-2024 Estimated GFR (MDRD) Amer 51 mL/min Low >60 [facility] Comment on above: GFR Calc Free T3on 12-13-2024 Free T3 [Mass/Vol] 2.6 pg/mL Normal 2.18-3.98 [facility] Comment on above: Performed By: #### L 501.14538, L500.4050, L506.1000, L100.0100, L501.9520, L506.0400, L503.0105 ####[facility] [address] [place], [address] Free A8Zrgwdez By: Marcella doherty on 12-13-2024 Free Triiodothyronine (T3) pg/dL 2.6 pg/mL 2.18-3.98 [facility] Glomerular filtration rate ( GFR) estimationOrdered By: Marcella Laird on 12-13-2024 Estimated GFR (MDRD) Non-Af Amer 42 mL/min Low >60 [facility] Comment on above: Non- GFR Calc Glucose measurementOrdered B y: Marcella Laird on 12-13-2024 Glucose [Mass/Vol] 93 mg/dL 74-106 [facility] Hematocrit Auto (Bld) [Volum e fraction]Ordered By: Marcella Laird on 12-13-2024 Hematocrit (Bld) [Volume fraction] 42.7 % 37-47 [facility] Hemoglobin measurementOrdere d By: Marcella Laird on 12-13-2024 Hemoglobin (Bld) [Mass/Vol] 13.8 g/dL 12.0-15.0 [facility] Immature granulocytes/100 WB C Auto (Bld)Ordered By: Marcella Laird on 12-13-2024 Immature granulocytes/100 WBC (Bld) 0.500 % 0.0-0.9 [facility] Comment on above: IG% - Immature Granu locytes (promyelocytes, myelocytes and metamyelocytes) > 1% indicates that a LEFT SHIFT is Present. Laboratory - Chemistry and C hemistry - challengeOrdered By: Marcella Laird on 12-13-2024 AST [Catalytic activity/Vol] 33 U/L 15-37 [facility] Lymphocytes Auto (Unsp spec) [#/Vol]Ordered By: Marcella Laird on 12-13-2024 Lymphocytes (Bld) [#/Vol] 2.02 10*3/uL 0.83-4.51 [facility] Lymphocytes/100 WBC Auto (Un sp spec)Ordered By: Marcella Laird on 12-13-2024 Lymphocytes/100 WBC (Bld) 24.0 % 19-41 [facility] MCV (mean corpuscular volume ) determinationOrdered By: Marcella Laird on 12-13-2024 MCV (RBC) [Entitic vol] 94.5 fL 81-99 [facility] MR/BMS.IMBon 12-13-2024 MR/BMS.IMB [facility] [address] [place] [address] OFFICE VISIT Date of Service: 12/13/24 MR#: [id number] Acct: [id number] Name: FAN CHEEMA Rep #: [id number] : 1945 Provider: Dr. Marcella mcmillan MD Age/Sex: 79/F Location: [facility] Status: Signed Intake Vital Signs 12/11/24 12:03 12/13/24 11:31 Height 5 ft 8 in 5 ft 8 in Weight: 187 lb 4 oz BMI 28.4 BP 130/75 H Blood Pressure Location Rt brachial Position Sitting Respiration 16 Pulse 55 L Pulse Source Monitor Temp 98.2 F Temp Source Temporal Pulse Oximetry (%) 96 Oxygen Delivery Method room air Intake Visit Reasons: Cough, fatigue Chief Complaint: cough, fatigue Otm Consultant Required: No Accompanied by: Is patient in pain?: No Allergies atorvastatin calcium (From Lipitor) Allergy (Verified 12/13/24 11:22) myalgias clarithromycin Allergy (Verified 12/13/24 11:22) Nausea/Vom/Diarrhea desloratadine (From Clarinex) Allergy (Verified 12/13/24 11:22) Unknown guaifenesin (From Entex LA) Allergy (Verified 12/13/24 11:22) Unknown hydrocodone bitartrate (From Vicodin) Allergy (Verified 12/13/24 11:22) Other methylprednisolone Allergy (Verified 12/13/24 11:22) Unknown nystatin Allergy (Verified 12/13/24 11:22) Unknown pentoxifylline Allergy (Verified 12/13/24 11:22) Nausea/Vom/Diarrhea phenylephrine HCl (From Entex LA) Allergy (Verified 12/13/24 11:22) Unknown phenylpropanolamine HCl (From Entex LA) Allergy (Verified 12/13/24 11:22) Unknown sulfamethoxazole (From Bactrim) Allergy (Verified 12/13/24 11:22) Unknown trimethoprim (From Bactrim) Allergy (Verified 12/13/24 11:22) Unknown ibuprofen Adverse Reaction (Intermediate, Verified 12/13/24 11:22) Bleeding isosorbide Adverse Reaction (Intermediate, Verified 12/13/24 11:22) Dizziness, weakness pravastatin Adverse Reaction (Verified 12/13/24 11:22) Myalgia Medications ???Medication ???Instructions ???Recorded ???Confirmed ???Type aspirin 81 mg chewable tablet 0.5 tab PO Q3D 01/19/24 12/13/24 H istory cholecalciferol (vitamin D3) 50 50 mcg PO DAILY Vit D #90 tabs 10/1212/13/24 Rx mcg (2,000 unit) tablet cyanocobalamin (vitamin B-12) 1,000 mcg PO DAILY B12 #90 tabs 12/13/24 Rx 1,000 mcg tablet hydrochlorothiazide 12.5 mg tablet 12.5 mg PO DAILY #90 tabs 12/13/24 Rx carvedilol 3.125 mg tablet 3.125 mg PO DAILY #180 tabs 12/13/24 Rx acetaminophen 650 mg 650 mg PO QHS PRN pain 08/27/24 History tablet,extended release (Tylenol Arthritis Pain) amlodipine 2.5 mg tablet (Norvasc) 2.5 mg PO QDAY #30 tabs 10/26/24 12/13/24 Rx ondansetron 4 mg disintegrating 4 mg PO Q12H #10 tabs 11/27/24 Rx tablet Have you fallen in the past year?: No PFSH Medical History Left ear pain Right wrist pain Wears glasses Post-menopausal Arthritis History of Holter monitoring History of echocardiogram History of stress test Cardiology follow-up encounter History of patellar fracture Mastoiditis, chronic Dizziness Acute bronchitis, unspecified URI (upper respiratory infection) HTN (hypertension) Decreased radial pulse 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 Pure hypercholesterolemia Colon cancer Bilateral cataracts Seasonal allergies Personal history of colonic polyps Surgical History History of cardiac catheterization History of coronary artery stent placement History of carpal tunnel release ( 2022) H/O shoulder surgery Presence of stent in coronary artery ( 08/06/22) Presence of coronary angioplasty implant and graft ( 08/06/22) History of bilateral cataract extraction History of bowel resection History of colonoscopy Family History Mother Diabetes Heart disease Father Heart disease Myocardial infarction Sister Diabetes Heart disease Hypertension Sister Heart disease Social History Smoking Status: Never smoker alcohol intake: never substance use type: does not use caffeine: Yes Type: carbonated beverages Number of servings: 2 and tea Number of servings: 2 additional social history: Uses Ibuprofen prn HPI HPI Chief Complaint: cough, fatigue Details: FAN CHEEMA, is a 79 F who presents to the office today for an acute care follow-up visit. She has ongoing cough, fatigue. She has had several visits to urgent care as well as an office visit on 29 November where I saw her. We did use antibiotic which she tolerated. Her exam at that point was relatively benign overall however. When we se (more content not included)... Normal [facility] Mean corpuscular hemoglobin (MCH) determinationOrdered By: Marcella Laird on 12-13-2024 MCH (RBC) [Entitic mass] 30.5 pg 27.0-32.0 [facility] Mean corpuscular hemoglobin concentration (MCHC) determinationOrdered By: Marcella Laird on 12-13-2024 MCHC (RBC) [Mass/Vol] 32.3 g/dL 32-36 [facility] Mean platelet volume determi nationOrdered By: Marcella Laird on 12-13-2024 Platelet mean volume (Bld) [Entitic vol] 12.0 fL 6.2-12.0 [facility] Monocyte percentageOrdered B y: Marcella Laird on 12-13-2024 Monocytes/100 WBC (Bld) 9.3 % 0-10 [facility] Neutrophil percentageOrdered By: Marcella Laird on 12-13-2024 Neutrophils/100 WBC (Bld) 65.0 % 47-70 [facility] Nucleated red blood cell per centageOrdered By: Marcella Laird on 12-13-2024 Nucleated RBC/100 WBC (Bld) [Ratio] 0 % 0-5 [facility] Platelet countOrdered By: Juhi Laird on 12-13-2024 Platelets (Bld) [#/Vol] 244 10*3/uL 150-450 [facility] Potassium measurementOrdered By: Marcella Laird on 12-13-2024 Potassium [Moles/Vol] 4.6 mmol/L 3.5-5.1 [facility] RBC Auto (Bld) [#/Vol]Ordere d By: Marcella Laird on 12-13-2024 RBC (Bld) [#/Vol] 4.52 10*6/uL 4.2-5.4 [facility] Serum anion gap measurementO rdered By: Marcella Laird on 12-13-2024 Anion gap [Moles/Vol] 8 mmol/L 5-15 [facility] Serum globulin measurementOr dered By: Marcella Laird on 12-13-2024 Globulin (S) [Mass/Vol] 3.8 g/dL 2.2-4.2 [facility] Serum or plasma alanine santos otransferase (ALT) measurementOrdered By: Marcella Laird on 12-13-2024 ALT [Catalytic activity/Vol] 38 U/L 13-56 [facility] Serum or plasma albumin samantha urement (mass/volume)Ordered By: Marcella Laird on 12-13-2024 Albumin [Mass/Vol] 3.6 g/dL 3.2-5.0 [facility] Serum or plasma alkaline michael sphatase measurementOrdered By: Marcella Laird on 12-13-2024 ALP [Catalytic activity/Vol] 121 U/L High 45-117 [facility] Serum or plasma calcium samantha urement (mass/volume)Ordered By: Marcella Laird on 12-13-2024 Calcium [Mass/Vol] 9.7 mg/dL 8.5-10.1 [facility] Serum or plasma creatinine m easurement (mass/volume)Ordered By: Marcella Laird on 12-13-2024 Creatinine [Mass/Vol] 1.30 mg/dL High 0.55-1.02 [facility] Comment on above: The validity of the calculated GFR & GFRAA in patients over 70 years has not been determined. Clinical correlation is essential. Serum or plasma urea nitroge n measurement (mass/volume)Ordered By: Marcella Laird on 12-13-2024 Urea nitrogen [Mass/Vol] 12 mg/dL 7-18 [facility] Sodium levelOrdered By: Zaria Laird on 12-13-2024 Sodium [Moles/Vol] 138 mmol/L 136-145 [facility] T4 Free Directon 12-13-2024 T4 FREE DIRECT 1.40 ng/dL Normal 0.76-1.46 [facility] Comment on above: Performed By: #### L 501.54984, L500.4050, L506.1000, L100.0100, L501.9520, L506.0400, L503.0105 ####[facility] [address] [place], [place], [id number] TSH QnOrdered By: Marcella Lizama hner on 12-13-2024 Thyroid Stimulating Hormone (TSH) 0.811 uIU/mL 0.358-3.740 [facility] Thyroid Stim Hormone (TSH)on 12-13-2024 TSH 0.811 uIU/mL Normal 0.358-3.740 [facility] Comment on above: Performed By: #### L 501.45487, L500.4050, L506.1000, L100.0100, L501.9520, L506.0400, L503.0105 ####[facility] [address] [place], [place], [id number] Total proteinOrdered By: Mary Laird on 12-13-2024 Protein [Mass/Vol] 7.4 g/dL 6.4-8.2 [facility] Vitamin B12on 12-13-2024 Cobalamin (Vitamin B12) [Mass/Vol] 1241 pg/mL High 211-911 [facility] Comment on above: Performed By: #### L 501.06477, L500.4050, L506.1000, L100.0100, L501.9520, L506.0400, L503.0105 ####[facility] [address] [place], [place], [address] Vitamin B12 measurementOrder ed By: Marcella Laird on 12-13-2024 Cobalamin (Vitamin B12) [Mass/Vol] 1241 pg/mL High 211-911 [facility] Vitamin D,25 Hydroxyon 12-13 Vitamin D 25-OH 60.0 ng/mL Normal [facility] Comment on above: Result Comment: Francisca min D 25(OH) Status Range Deficiency <20 ng/mL (50nmol/L) Insufficiency 20 - 30 ng/mL (50 - 75 nmol/L) Sufficiency 30 - 100 ng/mL (75 - 250 nmol/L) Toxicity >100 ng/mL (>250 nmol/L) Performed By: #### L 501.46329, L500.4050, L506.1000, L100.0100, L501.9520, L506.0400, L503.0105 ####[facility] [address] [place], [address] White blood cell (WBC) count Ordered By: Marcella Laird on 12-13-2024 WBC (Bld) [#/Vol] 8.4 10*3/uL 4.4-11.0 [facility] Urgent Care Visit Reporton 0 12-11-2024 Urgent Care Visit Report [facility] [address], [address] [place], [place] [address] OFFICE VISIT Date of Service: 12/11/24 MR#: [id number] Acct: [id number] Name: FNA CHEEMA Rep #: [id number] : 1945 Provider: ATTILA Sun Age/Sex: 79/F Location: [facility] Status: Signed Intake Vital Signs 11/29/24 09:07 12/11/24 12:03 Height 5 ft 8 in 5 ft 8 in Weight: 190 lb 8 oz BMI 28.9 BP 137/77 H Blood Pressure Location Lt brachial Position Sitting Respiration 16 Pulse 61 Pulse Source Monitor Temp 98.7 F Temp Source Temporal Pulse Oximetry (%) 93 Oxygen Delivery Method room air Intake Visit Reasons: COUGH, FATIGUE Allergies atorvastatin calcium (From Lipitor) Allergy (Verified 12/13/24 11:22) myalgias clarithromycin Allergy (Verified 12/13/24 11:22) Nausea/Vom/Diarrhea desloratadine (From Clarinex) Allergy (Verified 12/13/24 11:22) Unknown guaifenesin (From Entex LA) Allergy (Verified 12/13/24 11:22) Unknown hydrocodone bitartrate (From Vicodin) Allergy (Verified 12/13/24 11:22) Other methylprednisolone Allergy (Verified 12/13/24 11:22) Unknown nystatin Allergy (Verified 12/13/24 11:22) Unknown pentoxifylline Allergy (Verified 12/13/24 11:22) Nausea/Vom/Diarrhea phenylephrine HCl (From Entex LA) Allergy (Verified 12/13/24 11:22) Unknown phenylpropanolamine HCl (From Entex LA) Allergy (Verified 12/13/24 11:22) Unknown sulfamethoxazole (From Bactrim) Allergy (Verified 12/13/24 11:22) Unknown trimethoprim (From Bactrim) Allergy (Verified 12/13/24 11:22) Unknown ibuprofen Adverse Reaction (Intermediate, Verified 12/13/24 11:22) Bleeding isosorbide Adverse Reaction (Intermediate, Verified 12/13/24 11:22) Dizziness, weakness pravastatin Adverse Reaction (Verified 12/13/24 11:22) Myalgia Medications ???Medication ???Instructions ???Recorded ???Confirmed ???Type aspirin 81 mg chewable tablet 0.5 tab PO Q3D 01/19/24 12/13/24 H istory cholecalciferol (vitamin D3) 50 50 mcg PO DAILY Vit D #90 tabs 10/1212/13/24 Rx mcg (2,000 unit) tablet cyanocobalamin (vitamin B-12) 1,000 mcg PO DAILY B12 #90 tabs 12/13/24 Rx 1,000 mcg tablet hydrochlorothiazide 12.5 mg tablet 12.5 mg PO DAILY #90 tabs 12/13/24 Rx carvedilol 3.125 mg tablet 3.125 mg PO DAILY #180 tabs 12/13/24 Rx acetaminophen 650 mg 650 mg PO QHS PRN pain 08/27/24 History tablet,extended release (Tylenol Arthritis Pain) amlodipine 2.5 mg tablet (Norvasc) 2.5 mg PO QDAY #30 tabs 10/26/24 12/13/24 Rx ondansetron 4 mg disintegrating 4 mg PO Q12H #10 tabs 11/27/24 Rx tablet Have you fallen in the past year?: No PFSH Medical History Left ear pain Right wrist pain Wears glasses Post-menopausal Arthritis History of Holter monitoring History of echocardiogram History of stress test Cardiology follow-up encounter History of patellar fracture Mastoiditis, chronic Dizziness Acute bronchitis, unspecified URI (upper respiratory infection) HTN (hypertension) Decreased radial pulse 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 Pure hypercholesterolemia Colon cancer Bilateral cataracts Seasonal allergies Personal history of colonic polyps Surgical History History of cardiac catheterization History of coronary artery stent placement History of carpal tunnel release ( 2022) H/O shoulder surgery Presence of stent in coronary artery ( 08/06/22) Presence of coronary angioplasty implant and graft ( 08/06/22) History of bilateral cataract extraction History of bowel resection History of colonoscopy Family History Mother Diabetes Heart disease Father Heart disease Myocardial infarction Sister Diabetes Heart disease Hypertension Sister Heart disease Social History Smoking Status: Never smoker alcohol intake: never substance use type: does not use caffeine: Yes Type: carbonated beverages Number of servings: 2 and tea Number of servings: 2 additional social history: Uses Ibuprofen prn HPI HPI Details: FAN CHEEMA, is a 79 F who presents to the office today for Coding Level of Care Code Off vis,est,level 3 Clinical Quality Measures Falls Risk Screening/Assistive Devices Have you fallen in the past year?: No 12/18/24 1127 Date Jazmine Mercadoen [employer] Cos[employer] Signature: Date (if applicable) CC: Normal [facility] MR/BMS.IMBon 11-29-2024 MR/BMS.IMB [facility] [address] [place] [address] OFFICE VISIT Date of Service: 11/29/24 MR#: [id number] Acct: [id number] Name: FAN CHEEMA Rep #: [id number] : 1945 Provider: Dr. Marcella mcmillan MD Age/Sex: 79/F Location: [facility] Status: Signed Intake Vital Signs 10/26/24 09:00 11/29/24 08:04 11/29/24 09:07 Height 5 ft 8 in 5 ft 8 in 5 ft 8 in Weight: 189 lb 190 lb 8 oz BMI 28.7 28.9 BP 136/66 H 137/77 H Blood Pressure Location Rt brachial Lt brachial Position Sitting Sitting Respiration 16 16 Pulse 59 L 61 Pulse Source Monitor Monitor Temp 98.7 F Temp Source Temporal Pulse Oximetry (%) 95 93 Oxygen Delivery Method room air room air Intake Visit Reasons: Earache, Cough Chief Complaint: earache, cough Otm Consultant Required: No Accompanied by: Is patient in pain?: Yes (L ear) Pain scale (1-10): 10 Allergies atorvastatin calcium (From Lipitor) Allergy (Verified 11/29/24 09:02) myalgias clarithromycin Allergy (Verified 11/29/24 09:02) Nausea/Vom/Diarrhea desloratadine (From Clarinex) Allergy (Verified 11/29/24 09:02) Unknown guaifenesin (From Entex [place]) Allergy (Verified 11/29/24 09:02) Unknown hydrocodone bitartrate (From Vicodin) Allergy (Verified 11/29/24 09:02) Other methylprednisolone Allergy (Verified 11/29/24 09:02) Unknown nystatin Allergy (Verified 11/29/24 09:02) Unknown pentoxifylline Allergy (Verified 11/29/24 09:02) Nausea/Vom/Diarrhea phenylephrine HCl (From Entex LA) Allergy (Verified 11/29/24 09:02) Unknown phenylpropanolamine HCl (From Entex LA) Allergy (Verified 11/29/24 09:02) Unknown sulfamethoxazole (From Bactrim) Allergy (Verified 11/29/24 09:02) Unknown trimethoprim (From Bactrim) Allergy (Verified 11/29/24 09:02) Unknown ibuprofen Adverse Reaction (Intermediate, Verified 11/29/24 09:02) Bleeding isosorbide Adverse Reaction (Intermediate, Verified 11/29/24 09:02) Dizziness, weakness pravastatin Adverse Reaction (Verified 11/29/24 09:02) Myalgia Medications ???Medication ???Instructions ???Recorded ???Confirmed ???Type aspirin 81 mg chewable tablet 0.5 tab PO Q3D 01/19/24 11/29/24 H istory ondansetron 4 mg disintegrating 4 mg PO Q8H PRN PRN Nausea #10 tab s 01/19/24 11/29/24 Rx tablet cholecalciferol (vitamin D3) 50 50 mcg PO DAILY Vit D #90 tabs 10/1211/29/24 Rx mcg (2,000 unit) tablet cyanocobalamin (vitamin B-12) 1,000 mcg PO DAILY B12 #90 tabs 11/29/24 Rx 1,000 mcg tablet hydrochlorothiazide 12.5 mg tablet 12.5 mg PO DAILY #90 tabs 11/29/24 Rx carvedilol 3.125 mg tablet 3.125 mg PO DAILY #180 tabs 11/29/24 Rx acetaminophen 650 mg 650 mg PO QHS PRN pain 08/27/24 History tablet,extended release (Tylenol Arthritis Pain) amlodipine 2.5 mg tablet (Norvasc) 2.5 mg PO QDAY #30 tabs 10/26/24 11/29/24 Rx amoxicillin 875 mg-potassium 1 tab PO Q12H 10 days #20 tabs 05/1311/29/24 Rx clavulanate 125 mg tablet benzonatate 100 mg capsule 200 mg (2 x 100 mg) PO TID PRN 05/1311/29/24 Rx cough #30 caps ondansetron 4 mg disintegrating 4 mg PO Q12H #10 tabs 11/27/2408/13 Rx tablet Have you fallen in the past year?: No PFSH Medical History (Updated 11/29/24 @ 10:[address] Marcella Laird MD) Left ear pain Right wrist pain Wears glasses Post-menopausal Arthritis History of Holter monitoring History of echocardiogram History of stress test Cardiology follow-up encounter History of patellar fracture Mastoiditis, chronic Dizziness Acute bronchitis, unspecified URI (upper respiratory infection) HTN (hypertension) Decreased radial pulse 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 Pure hypercholesterolemia Colon cancer Bilateral cataracts Seasonal allergies Personal history of colonic polyps Surgical History History of cardiac catheterization History of coronary artery stent placement History of carpal tunnel release ( 2022) H/O shoulder surgery Presence of stent in coronary artery ( 08/06/22) Presence of coronary angioplasty implant and graft ( 08/06/22) History of bilateral cataract extraction History of bowel resection History of colonoscopy Family History Mother Diabetes Heart disease Father Heart disease Myocardial infarction Sister Diabetes Heart disease Hypertension Sister Heart disease Social History Smoking Status: Never smoker alcohol intake: never substance use type: does not use caffeine: Yes Type: carbonated beverages Number of servings: 2 and tea Number of servings: 2 additi (more content not included)... Normal [facility] No Panel InformationOrdered By: Otto Haq on 11-26-2024 Influenza Types A,B Rapid (Clinic) Negative [facility] POC SARS CoV-2 Antigen Negative [facility] Urgent Care Visit Reporton 0 11-26-2024 Urgent Care Visit Report [facility] [address] , [address] [place] [address] OFFICE VISIT Date of Service: 11/26/24 MR#: [id number] Acct: [id number] Name: FAN CHEEMA Rep #: [id number] : 1945 Provider: EDITH Mckenzie Age/Sex: 79/F Location: [facility] Status: Signed Intake Vital Signs 10/26/24 09:00 11/26/24 08:58 Height 5 ft 8 in Weight: 189 lb BMI 28.7 BP 136/66 H 134/62 H Blood Pressure Location Rt brachial Lt brachial Position Sitting Sitting Respiration 16 15 Pulse 59 L 84 Pulse Source Monitor NIBP Temp 98.4 F Temp Source Oral Pulse Oximetry (%) 95 99 Oxygen Delivery Method room air room air Intake Visit Reasons: COUGH, EAR PAIN Chief Complaint: cough, left ear,chest burning Otm Consultant Required: No Is patient in pain?: Yes Allergies atorvastatin calcium (From Lipitor) Allergy (Verified 11/26/24 08:58) myalgias clarithromycin Allergy (Verified 11/26/24 08:58) Nausea/Vom/Diarrhea desloratadine (From Clarinex) Allergy (Verified 11/26/24 08:58) Unknown guaifenesin (From Entex LA) Allergy (Verified 11/26/24 08:58) Unknown hydrocodone bitartrate (From Vicodin) Allergy (Verified 11/26/24 08:58) Other methylprednisolone Allergy (Verified 11/26/24 08:58) Unknown nystatin Allergy (Verified 11/26/24 08:58) Unknown pentoxifylline Allergy (Verified 11/26/24 08:58) Nausea/Vom/Diarrhea phenylephrine HCl (From Entex LA) Allergy (Verified 11/26/24 08:58) Unknown phenylpropanolamine HCl (From Entex LA) Allergy (Verified 11/26/24 08:58) Unknown sulfamethoxazole (From Bactrim) Allergy (Verified 11/26/24 08:58) Unknown trimethoprim (From Bactrim) Allergy (Verified 11/26/24 08:58) Unknown ibuprofen Adverse Reaction (Intermediate, Verified 11/26/24 08:58) Bleeding isosorbide Adverse Reaction (Intermediate, Verified 11/26/24 08:58) Dizziness, weakness pravastatin Adverse Reaction (Verified 11/26/24 08:58) Myalgia Is last menstrual period known: No Post menopausal: Yes Patient : No Have you fallen in the past year?: No Nurse's Note: cough, left ear, chest burning x 2-3 days without resolve. [facility] Medical History Right wrist pain Wears glasses Post-menopausal Arthritis History of Holter monitoring History of echocardiogram History of stress test Cardiology follow-up encounter History of patellar fracture Mastoiditis, chronic Dizziness Acute bronchitis, unspecified URI (upper respiratory infection) HTN (hypertension) Decreased radial pulse 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 Pure hypercholesterolemia Colon cancer Bilateral cataracts Seasonal allergies Personal history of colonic polyps Surgical History History of cardiac catheterization History of coronary artery stent placement History of carpal tunnel release ( 2022) H/O shoulder surgery Presence of stent in coronary artery ( 08/06/22) Presence of coronary angioplasty implant and graft ( 08/06/22) History of bilateral cataract extraction History of bowel resection History of colonoscopy Family History Mother Diabetes Heart disease Father Heart disease Myocardial infarction Sister Diabetes Heart disease Hypertension Sister Heart disease Social History Smoking Status: Never smoker alcohol intake: never substance use type: does not use caffeine: Yes Type: carbonated beverages Number of servings: 2 and tea Number of servings: 2 additional social history: Uses Ibuprofen prn HPI HPI Chief Complaint: cough, left ear,chest burning Details: FAN CHEEMA, is a 79 F who presents to the office today for cough, congestion and left ear pain for the past week and a half. Patient states that she has had burning in her upper chest for the past 2 to 3 days as well however denies hemoptysis, shortness of breath or difficulty breathing. No fever, chills, sweats. No nausea, vomiting or diarrhea. No other associated symptoms or alleviating/aggravating factors. ROS Const Constitutional: No other (6 system ROS completed with pertinent findings in the HPI otherwise normal.) Exam Const General: cooperative and well developed HENAL Head: normal to inspection and atraumatic Ears: hearing grossly normal bilaterally Nose: nasal discharge clear Face and sinus: normal facial exam Mouth: oral mucosae normal Throat: abnormal tonsil bilaterally hypertrophy 1+ Resp Effort Inspection: normal respiratory effort and no audible wheezes Auscultation: Bilateral: Clear to Auscultation Cardio Palpation: normal PMI Rate: regular rate Rhythm: re (more content not included)... Normal [facility] Bilirubin directOrdered By: Genoveva Petit on 10-27-2024 Bilirubin.direct [Mass/Vol] 0.14 mg/dL 0.00-0.30 [facility] Bilirubin, totalOrdered By: Genoveva Petit on 10-27-2024 Bilirubin [Mass/Vol] 0.60 mg/dL 0.20-1.00 [facility] Comment on above: For patients on eltr ombopag therapy, use of Dimension [place] TBIL is not recommended. High density lipoprotein (HD L) measurementOrdered By: Genoveva Petit on 10-27-2024 Cholesterol in HDL [Mass/Vol] 77 mg/dL >40 [facility] Comment on above: The drugs N-Acetylcy steine and Metamizole may falsely depress this assay. Reference Range HDL <40 mg/dL Low HDL Cholesterol HDL >or= 60 mg/dL High HDL Cholesterol Laboratory - Chemistry and C hemistry - challengeOrdered By: Genoveva Petit on 10-27-2024 AST [Catalytic activity/Vol] 23 U/L 15-37 [facility] Lipid Profileon 10-27-2024 Cholesterol [Mass/Vol] 239 mg/dL High 200 [facility] Comment on above: Result Comment: <200 mg/dL Desirable 200-240 mg/dL Borderline >240 mg/dL High Risk Performed By: #### L 500.3400, L500.4100 ####[facility] [address] [place], [place], [id number] Cholesterol in HDL [Mass/Vol] 77 mg/dL Normal [facility] Comment on above: Result Comment: The drugs N-Acetylcysteine and Metamizole may falsely depress this assay. Reference Range HDL <40 mg/dL Low HDL Cholesterol HDL >or= 60 mg/dL High HDL Cholesterol Performed By: #### L 500.3400, L500.4100 ####[facility] [address] [place], [address] Cholesterol in LDL [Mass/Vol] 145 mg/dL High 0-130 [facility] Comment on above: Performed By: #### L 500.3400, L500.4100 ####[facility] [address] [place], [address] Cholesterol in VLDL [Mass/Vol] 17 mg/dL Normal 5-40 [facility] Comment on above: Performed By: #### L 500.3400, L500.4100 ####[facility] [address] [place], [address] Triglyceride [Mass/Vol] 84 mg/dL Normal [facility] Comment on above: Result Comment: The drugs N-Acetylcysteine and Metamizole may falsely depress this assay. Serum Triglycerides Reference Interval Normal <150 mg/dL Borderline high 150 - 199 mg/dL High 200 - 499 mg/dL Very High > or = 500 mg/dL Performed By: #### L 500.3400, L500.4100 ####[facility] [address] [place], [address] Liver Profileon 10-27-2024 Albumin [Mass/Vol] 3.4 g/dL Normal 3.2-5.0 [facility] Comment on above: Performed By: #### L 500.3400, L500.4100 ####[facility] [address] [place], [address] ALK P 102 U/L Normal 45-117 [facility] Comment on above: Performed By: #### L 500.3400, L500.4100 ####[facility] [address] [place], [address] ALT [Catalytic activity/Vol] 21 U/L Normal 13-56 [facility] Comment on above: Performed By: #### L 500.3400, L500.4100 ####[facility] [address] [place], [address] AST [Catalytic activity/Vol] 23 U/L Normal 15-37 [facility] Comment on above: Performed By: #### L 500.3400, L500.4100 ####[facility] [address] [place], [address] Bilirubin [Mass/Vol] 0.60 mg/dL Normal 0.20-1.00 [facility] Comment on above: Result Comment: For patients on eltrombopag therapy, use of Dimension [place] TBIL is not recommended. Performed By: #### L 500.3400, L500.4100 ####[facility] [address] [place], [address] Bilirubin.direct [Mass/Vol] 0.14 mg/dL Normal 0.00-0.30 [facility] Comment on above: Performed By: #### L 500.3400, L500.4100 ####[facility] [address] [place], [address] Globulin (S) [Mass/Vol] 3.5 g/dL Normal 2.2-4.2 [facility] Comment on above: Performed By: #### L 500.3400, L500.4100 ####[facility] [address] [place], [address] T PROT 6.9 g/dL Normal 6.4-8.2 [facility] Comment on above: Performed By: #### L 500.3400, L500.4100 ####[facility] [address] [place], [address] Low density lipoprotein (LDL ) cholesterol measurementOrdered By: Genoveva Petit on 10-27-2024 Cholesterol in LDL [Mass/Vol] 145 mg/dL High 0-130 [facility] Serum globulin measurementOr dered By: Genoveva Petit on 10-27-2024 Globulin (S) [Mass/Vol] 3.5 g/dL 2.2-4.2 [facility] Serum or plasma alanine santos otransferase (ALT) measurementOrdered By: Genoveva Petit on 10-27-2024 ALT [Catalytic activity/Vol] 21 U/L 13-56 [facility] Serum or plasma albumin samatnha urement (mass/volume)Ordered By: Genoveva Petit on 10-27-2024 Albumin [Mass/Vol] 3.4 g/dL 3.2-5.0 [facility] Serum or plasma alkaline michael sphatase measurementOrdered By: Genoveva Petit on 10-27-2024 ALP [Catalytic activity/Vol] 102 U/L 45-117 [facility] Serum or plasma cholesterol measurement (mass/volume)Ordered By: Genoveva Petit on 10-27-2024 Cholesterol [Mass/Vol] 239 mg/dL High <200 [facility] Comment on above: <200 mg/dL Desirable 200-240 mg/dL Borderline >240 mg/dL High Risk Total proteinOrdered By: Zeb Petit on 10-27-2024 Protein [Mass/Vol] 6.9 g/dL 6.4-8.2 [facility] Triglycerides measurementOrd ered By: Genoveva Petit on 10-27-2024 Triglyceride [Mass/Vol] 84 mg/dL <199 [facility] Comment on above: The drugs N-Acetylcy steine and Metamizole may falsely depress this assay.Serum Triglycerides Reference Interval Normal <150 mg/dL Borderline high 150 - 199 mg/dL High 200 - 499 mg/dL Very High > or = 500 mg/dL Very low density lipoprotein (VLDL) cholesterol measurementOrdered By: Genoveva Petit on 10-27-2024 VLDL Cholesterol 17 mg/dL 5-40 [facility] 12 Lead EKG performed by [facility] on 10-26-2024 12 Lead EKG performed by [facility] [address] [place] [address] 12 Lead EKG performed by [facility] 10/26/2412 MR#: [id number] Acct: [id number] Name: FAN CHEEMA Rep #: [id number] : 1945 79 From: Genoveva Edmondson Attending Dr: EDITH Conklin Status: DEP AMB Ordering Dr: Genoveva Petit Date: 05/13 Location: [facility] Sex: F C Admitted: BMS/12 Lead EKG performed by [facility] ECG Report Interpretation ---Sinus Rhythm - frequent PAC s # PACs = 3.-Nonspecific ST depression -Nondiagnostic. ABNORMAL Electronically signed on 10/26/2024 at 11:[address] Manolo Tai [employer] Software Version [id number] 10/26/24 1136 Date Genoveva SHARMA CC: Dr. Marcella Laird MD Date Dictated: 10/26/24911 Date Transcribed: 10/26/24911 Cake Tester: JEFFREY Signed Normal [facility] Cardiology Visit Reporton Cardiology Visit Report [facility] [address] [place] [address] OFFICE VISIT Date of Service: 10/26/24 MR#: [id number] Acct: [id number] Name: FAN CHEEMA Rep #: [id number] : 1945 Provider: EDITH Ferrari Age/Sex: 79/F Location: [facility] Status: Signed HPI HPI History of Present Illness Details: Fan Cheema is a 79-year-old female with a history of coronary artery disease with stenting to her RCA in 2021, hypertension, and hyperlipidemia. In August 2024 she was in the office complaining of chest pain. She did undergo a diagnostic heart catheterization in August 2024 which demonstrated patent stents noted in the RCA, mild disease noted in the LAD and circumflex. Medical management was recommended. She still does continue to have atypical chest pain. Intake Vital Signs 04/29/24 11:24 09/06/24 07:15 10/26/24 09:00 Height 5 ft 8 in 5 ft 8 in 5 ft 8 in Weight: 189 lb BMI 28.7 BP 136/66 H Blood Pressure Location Rt brachial Position Sitting Respiration 16 Pulse 59 L Pulse Source Monitor Pulse Oximetry (%) 95 Oxygen Delivery Method room air Intake Visit Reasons: 6 M FU Otm Consultant Required: No Accompanied by: Is patient in pain?: No Allergies atorvastatin calcium (From Lipitor) Allergy (Verified 10/26/24 09:03) myalgias clarithromycin Allergy (Verified 10/26/24 09:03) Nausea/Vom/Diarrhea desloratadine (From Clarinex) Allergy (Verified 10/26/24 09:03) Unknown guaifenesin (From Entex LA) Allergy (Verified 10/26/24 09:03) Unknown hydrocodone bitartrate (From Vicodin) Allergy (Verified 10/26/24 09:03) Other methylprednisolone Allergy (Verified 10/26/24 09:03) Unknown nystatin Allergy (Verified 10/26/24 09:03) Unknown pentoxifylline Allergy (Verified 10/26/24 09:03) Nausea/Vom/Diarrhea phenylephrine HCl (From Entex LA) Allergy (Verified 10/26/24 09:03) Unknown phenylpropanolamine HCl (From Entex LA) Allergy (Verified 10/26/24 09:03) Unknown sulfamethoxazole (From Bactrim) Allergy (Verified 10/26/24 09:03) Unknown trimethoprim (From Bactrim) Allergy (Verified 10/26/24 09:03) Unknown ibuprofen Adverse Reaction (Intermediate, Verified 10/26/24 09:03) Bleeding isosorbide Adverse Reaction (Intermediate, Verified 10/26/24 09:03) Dizziness, weakness pravastatin Adverse Reaction (Verified 10/26/24 09:03) Myalgia Medications ???Medication ???Instructions ???Recorded ???Confirmed ???Type aspirin 81 mg chewable tablet 0.5 tab PO Q3D 01/19/24 10/26/24 History ondansetron 4 mg disintegrating 4 mg PO Q8H PRN PRN Nausea #10 tabs 01/19/24 10/21/24 Rx tablet cholecalciferol (vitamin D3) 50 50 mcg PO DAILY Vit D #90 tabs 05/31/24 10/26/24 Rx mcg (2,000 unit) tablet cyanocobalamin (vitamin B-12) 1,000 mcg PO DAILY B12 #90 tabs 05/31/24 10/26/24 Rx 1,000 mcg tablet hydrochlorothiazide 12.5 mg tablet 12.5 mg PO DAILY #90 tabs 05/31/24 10/26/24 Rx carvedilol 3.125 mg tablet 3.125 mg PO DAILY #180 tabs 07/27/24 10/26/24 Rx acetaminophen 650 mg 650 mg PO QHS PRN pain 08/27/24 10/26/24 History tablet,extended release (Tylenol Arthritis Pain) amlodipine 2.5 mg tablet (Norvasc) 2.5 mg PO QDAY #30 tabs 10/26/24 10/26/24 Rx Ejection fraction %: 65 Have you fallen in the past year?: No PFSH Medical History Right wrist pain Wears glasses Post-menopausal Arthritis History of Holter monitoring History of echocardiogram History of stress test Cardiology follow-up encounter History of patellar fracture Mastoiditis, chronic Dizziness Acute bronchitis, unspecified URI (upper respiratory infection) HTN (hypertension) Decreased radial pulse 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 Pure hypercholesterolemia Colon cancer Bilateral cataracts Seasonal allergies Personal history of colonic polyps Surgical History History of cardiac catheterization History of coronary artery stent placement History of carpal tunnel release ( 2022) H/O shoulder surgery Presence of stent in coronary artery ( 08/06/22) Presence of coronary angioplasty implant and graft ( 08/06/22) History of bilateral cataract extraction History of bowel resection History of colonoscopy Family History Mother Diabetes Heart disease Father Heart disease Myocardial infarction Sister Diabetes Heart disease Hypertension Sister Heart disease Social History Smoking Status: Never smoker alcohol intake: never substance use type: does not use caffeine: Yes Type: carbonated beverages Number of serving (more content not included)... Normal [facility] Urgent Care Visit Reporton 0 10-21-2024 Urgent Care Visit Report [facility] [address], [address] [place] [address] OFFICE VISIT Date of Service: 10/21/24 MR#: [id number] Acct: [id number] Name: FAN CHEEMA Rep #: [id number] : 1945 Provider: EDITH Mckenzie Age/Sex: 79/F Location: [facility] Status: Signed Intake Vital Signs 09/06/24 07:15 Height 5 ft 8 in Weight: 195 lb Intake Visit Reasons: Cough Allergies atorvastatin calcium (From Lipitor) Allergy (Verified 10/21/24 15:00) myalgias clarithromycin Allergy (Verified 10/21/24 15:00) Nausea/Vom/Diarrhea desloratadine (From Clarinex) Allergy (Verified 10/21/24 15:00) Unknown guaifenesin (From Entex [place]) Allergy (Verified 10/21/24 15:00) Unknown hydrocodone bitartrate (From Vicodin) Allergy (Verified 10/21/24 15:00) Other methylprednisolone Allergy (Verified 10/21/24 15:00) Unknown nystatin Allergy (Verified 10/21/24 15:00) Unknown pentoxifylline Allergy (Verified 10/21/24 15:00) Nausea/Vom/Diarrhea phenylephrine HCl (From Entex [place]) Allergy (Verified 10/21/24 15:00) Unknown phenylpropanolamine HCl (From Entex [place]) Allergy (Verified 10/21/24 15:00) Unknown sulfamethoxazole (From Bactrim) Allergy (Verified 10/21/24 15:00) Unknown trimethoprim (From Bactrim) Allergy (Verified 10/21/24 15:00) Unknown ibuprofen Adverse Reaction (Intermediate, Verified 10/21/24 15:00) Bleeding isosorbide Adverse Reaction (Intermediate, Verified 10/21/24 15:00) Dizziness, weakness pravastatin Adverse Reaction (Verified 10/21/24 15:00) Myalgia Medications ???Medication ???Instructions ???Recorded ???Confirmed ???Type aspirin 81 mg chewable tablet 0.5 tab PO Q3D 01/19/24 10/21/24 History ondansetron 4 mg disintegrating 4 mg PO Q8H PRN PRN Nausea #10 tabs 01/19/24 10/21/24 Rx tablet cholecalciferol (vitamin D3) 50 50 mcg PO DAILY Vit D #90 tabs 05/31/24 10/21/24 Rx mcg (2,000 unit) tablet cyanocobalamin (vitamin B-12) 1,000 mcg PO DAILY B12 #90 tabs 05/31/24 10/21/24 Rx 1,000 mcg tablet hydrochlorothiazide 12.5 mg tablet 12.5 mg PO DAILY #90 tabs 05/31/24 10/21/24 Rx carvedilol 3.125 mg tablet 3.125 mg PO DAILY #180 tabs 07/27/24 10/21/24 Rx acetaminophen 650 mg 650 mg PO QHS PRN pain 08/27/24 10/21/24 History tablet,extended release (Tylenol Arthritis Pain) azithromycin 250 mg tablet See Rx Instructions PO .COMPLEX #6 10/21/24 10/21/24 Rx tabs Have you fallen in the past year?: No Nurse's Note: Patient states 3 weeks ago her eyes started bothering her and she has a eye infection. Patient states that she has hoarseness and cough and slight fever and sore throat. Patient states some of the symptoms started when her eye stuff did. Patient is being treated with eye medication. [facility] Medical History Right wrist pain Wears glasses Post-menopausal Arthritis History of Holter monitoring History of echocardiogram History of stress test Cardiology follow-up encounter History of patellar fracture Mastoiditis, chronic Dizziness Acute bronchitis, unspecified URI (upper respiratory infection) HTN (hypertension) Decreased radial pulse 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 Pure hypercholesterolemia Colon cancer Bilateral cataracts Seasonal allergies Personal history of colonic polyps Surgical History History of cardiac catheterization History of coronary artery stent placement History of carpal tunnel release ( 2022) H/O shoulder surgery Presence of stent in coronary artery ( 08/06/22) Presence of coronary angioplasty implant and graft ( 08/06/22) History of bilateral cataract extraction History of bowel resection History of colonoscopy Family History Mother Diabetes Heart disease Father Heart disease Myocardial infarction Sister Diabetes Heart disease Hypertension Sister Heart disease Social History Smoking Status: Never smoker alcohol intake: never substance use type: does not use caffeine: Yes Type: carbonated beverages Number of servings: 2 and tea Number of servings: 2 additional social history: Uses Ibuprofen prn HPI HPI Details: FAN CHEEMA, is a 79 F who presents to the office today for complaint of sore throat, congestion and bilateral eye redness for the past 2 weeks. Patient states that her symptoms have waxed and waned. She has been to the eye doctor for the eye redness which started 3 weeks ago. She has been tumor eyedrops and states not much improvement. She denies hemoptysis, shortness of breath or difficulty breathing. She states feeling like she may have had a fever however (more content not included)... Normal [facility] Cardiac Cath Diagnosticon Cardiac Cath Diagnostic [facility] Imaging Services [address] [place] [id number] Cardiac Cath Diagnostic MR#: [id number] Acct: [id number] Name: FAN CHEEMA Rep #: [id number] : 1945 79 From: Jose Sharma MD PCP: Dr. Marcella Laird MD Status:[facility] Patient Name: FAN CHEEMA Study Date: 09/06/2024 Performing: Jose Sharma MD Ht: 68 inches 172.72 cm : 1945 Wt: 195 lbs 88.45 kg Age: 79 Gender: female BSA: 2.02 PROCEDURE(S) PERFORMED DC01-(33403)LHC/COR/LV CLINICAL PROFILE AND INDICATIONS Indications: Worsening Angina Heart Failure: None Stress/Imaging Stress/Image Study Performed: No CAD Presentations: Stable angina. CONCLUSIONS Patent stents noted in the right coronary artery. Mild disease noted in the LAD and circumflex artery. RECOMMENDATIONS Medical therapy DESCRIPTION OF PROCEDURE The patient arrived to the procedure lab. The risks and benefits of the procedure as well as a full description of our services here and current unavailability of surgical backup were fully explained to the patient and/or their significant other prior to the catheterization. The Timeout was completed, verifying the correct patient and procedure. The patient's procedural site was prepped and draped in the usual fashion. Local anesthetic was given subcutaneously to right radial region with Lidocaine 2%. Using a modified Seldinger technique, arterial access was obtained via the right radial artery, a 6Fr sheath was inserted. Left Coronary Artery selective angiography was performed in multiple views using a 5 Fr. 4.0 Waldo catheter. Right Coronary Artery selective angiography was then performed in multiple views using a 5 Fr. 4.0 Waldo catheter. Left Ventriculography was performed in RESTREPO projection using a 5 Fr. Pigtail catheter. LV to AO pullback pressures were then recorded.The arterial sheath was pulled and a TR Band was applied for hemostasis 10 ml of air CORONARY ANGIOGRAPHY DOMINANCE: Right Dominant LEFT HEART ASSESSMENT Left Ventricular Ejection Fraction: by LV Gram 60 % Normal LV wall motion Normal Left Ventricular systolic function LEFT MAIN: Angiographically normal LEFT ANTERIOR DESCENDING ARTERY: Medium size vessel with 2 diagonal branches with mild disease but no high-grade stenosis present. CIRCUMFLEX ARTERY: Small size vessel with no significant atherosclerotic significant disease. Approximately 50% stenosis noted in the first obtuse marginal branch. RIGHT CORONARY ARTERY: Previously placed stent with no evidence of in-stent stenosis. Minimal disease present COMPLICATIONS No Complications PROCEDURE MEDICATIONS Fentanyl 50 mcg IV Versed 1 mg IV Oxygen: 2 L/min via nasal cannula Aspirin (325mg) 1 Tabs PO @ 09/06/2024 07:22:02 Heparin given IA 09/06/2024 08:25:48 Verapamil 2.5mg, Ntg 100mcgs, 3000 units of Heparin given IA 09/06/2024 08:25:48 IV Fluids: .9 NaCl IV started @ 100 ml/hr 09/06/2024 07:22:14 SUMMARY OF HEMODYNAMIC DATA Time AIR REST ECG 07:20:29 AO 125/52 (76) SA 08:39:36 LV 135/4, 13 08:44:50 LV 134/5, 13 08:44:56 LV 111/0, 5 08:45:20 LV 119/7, 16 08:45:26 LVp 107/1, 11 08:45:30 AOp 124/-24 (61) 08:45:35 Signed By Jose Sharma MD On 09/06/2024 09:19:49 Jose Sharma MD 09/06/24919 Date Jose Carlos Signature: Date (if indicated) CC: Dr. Jose Sharma MD; Dr. Marcella Laird MD Date Dictated: 09/06/24821 Date Transcribed: 09/06/24918 Cake Tester: CO Signed Normal [facility] Basic Metabolic Profile (BMP )on 08-27-2024 BUN/CRE 17.3 RATIO Normal 10-20 [facility] Comment on above: Performed By: #### L 500.2500, L100.0100 ####[facility] [address] [place], [address] CA,Total 9.4 mg/dL Normal 8.5-10.1 [facility] Comment on above: Performed By: #### L 500.2500, L100.0100 ####[facility] [address] [place], [address] Chloride [Moles/Vol] 103 mmol/L Normal 98-107 [facility] Comment on above: Performed By: #### L 500.2500, L100.0100 ####[facility] [address] [place], [address] CO2 [Moles/Vol] 26.0 mmol/L Normal 21.0-32.0 [facility] Comment on above: Performed By: #### L 500.2500, L100.0100 ####[facility] [address] [place], [address] Creatinine [Mass/Vol] 1.27 mg/dL High 0.55-1.02 [facility] Comment on above: Result Comment: The validity of the calculated GFR GFRAA in patients over 70 years has not been determined. Clinical correlation is essential. Performed By: #### L 500.2500, L100.0100 ####[facility] [address] [place], [address] EST GFR - AA 52 mL/min Low >60 [facility] Comment on above: Result Comment: Afri can [place] GFR Calc Performed By: #### L 500.2500, L100.0100 ####[facility] [address] [place], [address] GAP 8 Normal 5-15 [facility] Comment on above: Performed By: #### L 500.2500, L100.0100 ####[facility] [address] [place], [address] GFR/1.73 sq M.predicted among non-blacks MDRD (S/P/Bld) [Vol rate/Area] 43 mL/min/{1.73_m2} Low >60 [facility] Comment on above: Result Comment: Non- GFR Calc Performed By: #### L 500.2500, L100.0100 ####[facility] [address] [place], [address] Glucose [Mass/Vol] 97 mg/dL Normal 74-106 [facility] Comment on above: Performed By: #### L 500.2500, L100.0100 ####[facility] [address] [place], [address] Potassium [Moles/Vol] 3.9 mmol/L Normal 3.5-5.1 [facility] Comment on above: Performed By: #### L 500.2500, L100.0100 ####[facility] [address] [place], [address] Sodium [Moles/Vol] 138 mmol/L Normal 136-145 [facility] Comment on above: Performed By: #### L 500.2500, L100.0100 ####[facility] [address] [place], [address] Urea nitrogen [Mass/Vol] 22 mg/dL High 7-18 [facility] Comment on above: Performed By: #### L 500.2500, L100.0100 ####[facility] [address] [place], [address] CBC W/Diff, Automatedon 11-0 8-2023 Absolute Lymph 1.64 X10 3/uL Normal 0.83-4.51 [facility] Comment on above: Performed By: #### L 500.2500, L100.0100 #### [facility] [address] [place], [address] Absolute Neut 4.3 X10 3/uL Normal 2.0-7.7 [facility] Comment on above: Performed By: #### L 500.2500, L100.0100 #### [facility] [address] [place], [address] Basophils/100 WBC (Bld) 0.9 % Normal 0-1 [facility] Comment on above: Performed By: #### L 500.2500, L100.0100 #### [facility] [address] [place], [address] Eosinophils/100 WBC (Bld) 1.0 % Normal 0-5 [facility] Comment on above: Performed By: #### L 500.2500, L100.0100 #### [facility] [address] [place], [address] Erythrocyte distribution width (RBC) [Ratio] 12.3 % Normal 11.6-14.6 [facility] Comment on above: Performed By: #### L 500.2500, L100.0100 #### [facility] [address] [place], [address] Hematocrit (Bld) [Volume fraction] 40.0 % Normal 37-47 [facility] Comment on above: Performed By: #### L 500.2500, L100.0100 #### [facility] [address] [place], [address] Hemoglobin (Bld) [Mass/Vol] 12.8 g/dL Normal 12.0-15.0 [facility] Comment on above: Performed By: #### L 500.2500, L100.0100 #### [facility] [address] [place], [address] IG% 0.300 Normal 0.0-0.9 [facility] Comment on above: Result Comment: IG% - Immature Granulocytes (promyelocytes, myelocytes and metamyelocytes) > 1% indicates that a LEFT SHIFT is Present. Performed By: #### L 500.2500, L100.0100 #### [facility] [address] [place], [address] Lymphocytes/100 WBC (Bld) 24.0 % Normal 19-41 [facility] Comment on above: Performed By: #### L 500.2500, L100.0100 #### [facility] [address] [place], [address] MCH (RBC) [Entitic mass] 30.0 pg Normal 27.0-32.0 [facility] Comment on above: Performed By: #### L 500.2500, L100.0100 #### [facility] [address] [place], [address] MCHC (RBC) [Mass/Vol] 32.0 g/dL Normal 32-36 [facility] Comment on above: Performed By: #### L 500.2500, L100.0100 #### [facility] [address] [place], [address] MCV (RBC) [Entitic vol] 93.7 fL Normal 81-99 [facility] Comment on above: Performed By: #### L 500.2500, L100.0100 #### [facility] [address] [place], [address] Monocytes/100 WBC (Bld) 10.7 % High 0-10 [facility] Comment on above: Performed By: #### L 500.2500, L100.0100 #### [facility] [address] [place], [address] Neutrophils/100 WBC (Bld) 63.1 % Normal 47-70 [facility] Comment on above: Performed By: #### L 500.2500, L100.0100 #### [facility] [address] [place], [address] Nucleated RBC (Bld) [#/Vol] 0 10*3/uL Normal 0-5 [facility] Comment on above: Performed By: #### L 500.2500, L100.0100 #### [facility] [address] [place], [address] Platelet mean volume (Bld) [Entitic vol] 11.7 fL Normal 6.2-12.0 [facility] Comment on above: Performed By: #### L 500.2500, L100.0100 #### [facility] [address] [place], [address] Platelets (Bld) [#/Vol] 187 10*3/uL Normal 150-450 [facility] Comment on above: Performed By: #### L 500.2500, L100.0100 #### [facility] [address] [place], [address] RBC (Bld) [#/Vol] 4.27 10*6/uL Normal 4.2-5.4 [facility] Comment on above: Performed By: #### L 500.2500, L100.0100 #### [facility] [address] [place], [address] RDW SD 42.2 fl Normal 35.1-43.9 [facility] Comment on above: Performed By: #### L 500.2500, L100.0100 #### [facility] [address] [place], [address] WBC (Bld) [#/Vol] 6.8 10*3/uL Normal 4.4-11.0 [facility] Comment on above: Performed By: #### L 500.2500, L100.0100 #### [facility] [address] [place], [address] Cardiology Visit Reporton Cardiology Visit Report [facility] [address] [place] [address] OFFICE VISIT Date of Service: 08/27/24 MR#: [id number] Acct: [id number] Name: FAN CHEEMA Rep #: [id number] : 1945 Provider: Dr. Manolo mark MD Age/Sex: 79/F Location[place] [facility] [place] Status: Signed HPI HPI History of Present Illness Details: Patient is a very pleasant 79-year-old white female that comes with her today for reevaluation after an abnormal stress test. The patient continues to have chest discomfort with shortness of breath. This is not as bad as what she experienced back in July 2022 when she had multivessel coronary artery disease documented and had successful drug-eluting stent to the proximal and mid right coronary artery. She was evaluated here in April 2020 for 2 weeks after she had had carpal tunnel surgery. She had had a stress test done February 14, 2024 which showed an EKG component that was consistent with anterior ischemia. They took her off the treadmill early and did the echocardiogram which did not show any evidence of ischemia. The patient has continued to have these chest discomforts with shortness of breath they remind her of what she had back in 2021 but is not nearly as important. The patient was trialed on Imdur and Ranexa both of which she did not tolerate due to side effects. At that time she had declined cardiac catheterization but now is back for review of assessment. The patient's symptoms are probably slightly progressive since April as best I can tell from history. She is concerned about her holiday season which is upcoming and I feel that given her current situation that repeat left heart catheterization is indicated to redefine her coronary anatomy given her known coronary disease and these recurrent symptoms. The patient denies any signs or symptoms of heart failure she denies any PND orthopnea denies any syncope or near syncope. Intake Vital Signs 08/09/24 09:20 08/27/24 10:53 Height 5 ft 8 in 5 ft 8 in Weight: 195 lb 4 oz 195 lb BMI 29.7 29.6 BP 138/74 H 149/68 H Blood Pressure Location Lt brachial Lt brachial Position Sitting Sitting Respiration 16 18 Pulse 55 L 51 L Pulse Source Monitor Monitor Temp 98.4 F Pulse Oximetry (%) 96 96 Oxygen Delivery Method room air room air Intake Visit Reasons: Stent Placement Discussion Otm Consultant Required: No Accompanied by: Is patient in pain?: No Allergies atorvastatin calcium (From Lipitor) Allergy (Verified 08/27/24 10:54) myalgias clarithromycin Allergy (Verified 08/27/24 10:54) Nausea/Vom/Diarrhea desloratadine (From Clarinex) Allergy (Verified 08/27/24 10:54) Unknown guaifenesin (From Entex [place]) Allergy (Verified 08/27/24 10:54) Unknown hydrocodone bitartrate (From Vicodin) Allergy (Verified 08/27/24 10:54) Other methylprednisolone Allergy (Verified 08/27/24 10:54) Unknown nystatin Allergy (Verified 08/27/24 10:54) Unknown pentoxifylline Allergy (Verified 08/27/24 10:54) Nausea/Vom/Diarrhea phenylephrine HCl (From Entex LA) Allergy (Verified 08/27/24 10:54) Unknown phenylpropanolamine HCl (From Entex LA) Allergy (Verified 08/27/24 10:54) Unknown sulfamethoxazole (From Bactrim) Allergy (Verified 08/27/24 10:54) Unknown trimethoprim (From Bactrim) Allergy (Verified 08/27/24 10:54) Unknown ibuprofen Adverse Reaction (Intermediate, Verified 08/27/24 10:54) Bleeding isosorbide Adverse Reaction (Intermediate, Verified 08/27/24 10:54) Dizziness, weakness pravastatin Adverse Reaction (Verified 08/27/24 10:54) Myalgia Medications ???Medication ???Instructions ???Recorded ???Confirmed ???Type aspirin 81 mg chewable tablet 0.5 tab PO Q3D 01/19/24 08/27/24 History ondansetron 4 mg disintegrating 4 mg PO Q8H PRN PRN Nausea #10 tabs 01/19/24 08/27/24 Rx tablet cholecalciferol (vitamin D3) 50 50 mcg PO DAILY Vit D #90 tabs 05/31/24 08/27/24 Rx mcg (2,000 unit) tablet cyanocobalamin (vitamin B-12) 1,000 mcg PO DAILY B12 #90 tabs 05/31/24 08/27/24 Rx 1,000 mcg tablet hydrochlorothiazide 12.5 mg tablet 12.5 mg PO DAILY #90 tabs 05/31/24 08/27/24 Rx carvedilol 3.125 mg tablet 3.125 mg PO DAILY #180 tabs 07/27/24 08/27/24 Rx acetaminophen 650 mg 650 mg PO QHS PRN 08/27/24 08/27/24 History tablet,extended release (Tylenol Arthritis Pain) Ejection fraction %: 65 Have you fallen in the past year?: No PFSH Medical History Right wrist pain Wears glasses Post-menopausal Arthritis History of Holter monitoring History of echocardiogram History of stress test Cardiology follow-up encounter History of patellar fracture Mastoiditis, chronic Dizziness Acute bronchitis, unspecified URI (upper respiratory infection) H (more content not included)... Normal [facility] Chest PA and Lateralon 08-27 Chest PA and Lateral [facility] Imaging Services [address] [place], [place] [id number] Chest PA and Lateral MR#: [id number] Acct: [id number] Name: FAN CHEEMA Rep #: [id number] : 1945 F 79 From: Demar Nobles MD PCP: Dr. Marcella Laird MD Status: REG CLI Study: Chest PA and Lateral Date of Exam: 08/27/24 Exam# [id number] Ordering Dr: [place] [id number] STUDY: X-RAY CHEST REASON FOR EXAM: Female, 79 years old. Preoperative evaluation for heart catheterization. TECHNIQUE: Frontal and lateral views of the chest. COMPARISON: August 19, 2022 FINDINGS: Mild hyperinflation unchanged. There is no demonstrated pleural abnormality. Stable borderline cardiomegaly. Normal mediastinum and bernie. Normal visualized pulmonary arteries. Aortic tortuosity with calcification unchanged. Stable thoracic osteopenia with mild spondylosis. Normal visualized ribs, clavicles, and shoulders. No abnormality of the visualized soft tissue structures of the upper abdomen. RAD/Chest PA and Lateral IMPRESSION: Stable chest with no acute or active cardiopulmonary disease. Electronically Signed: Demar Nobles MD at 14:04 EST Reading Location ID and State: [facility] / [place] , Service support , CC: Dr. Marcella Laird MD; Dr. Manolo Tai MD Cake Tester: Signed Normal [facility] MR/BMS.IMBon 08-09-2024 MR/BMS.IMB [facility] [address] [place] [address] [address] [place] [address] OFFICE VISIT Date of Service: 08/09/24 MR#: [id number] Acct: [id number] Name: FAN CHEEMA Rep #: [id number] : 1945 Provider: Dr. Marcella mcmillan MD Age/Sex: 79/F Location: [facility] [place] Status: Signed Intake Vital Signs 07/19/24 07:22 08/09/24 09:20 Height 5 ft 8 in 5 ft 8 in Weight: 195 lb 4 oz BMI 29.7 BP 138/74 H Blood Pressure Location Lt brachial Position Sitting Respiration 16 Pulse 55 L Pulse Source Monitor Temp 98.4 F Temp Source Temporal Pulse Oximetry (%) 96 Oxygen Delivery Method room air Intake Visit Reasons: Thumb pain Chief Complaint: thumb pain Otm Consultant Required: No Accompanied by: Is patient in pain?: Yes (R wrist) Pain scale (1-10): 3 Allergies atorvastatin calcium (From Lipitor) Allergy (Verified 08/09/24 09:13) myalgias clarithromycin Allergy (Verified 08/09/24 09:13) Nausea/Vom/Diarrhea desloratadine (From Clarinex) Allergy (Verified 08/09/24 09:13) Unknown guaifenesin (From Entex LA) Allergy (Verified 08/09/24 09:13) Unknown hydrocodone bitartrate (From Vicodin) Allergy (Verified 08/09/24 09:13) Other methylprednisolone Allergy (Verified 08/09/24 09:13) Unknown nystatin Allergy (Verified 08/09/24 09:13) Unknown pentoxifylline Allergy (Verified 08/09/24 09:13) Nausea/Vom/Diarrhea phenylephrine HCl (From Entex LA) Allergy (Verified 08/09/24 09:13) Unknown phenylpropanolamine HCl (From Entex LA) Allergy (Verified 08/09/24 09:13) Unknown sulfamethoxazole (From Bactrim) Allergy (Verified 08/09/24 09:13) Unknown trimethoprim (From Bactrim) Allergy (Verified 08/09/24 09:13) Unknown ibuprofen Adverse Reaction (Intermediate, Verified 08/09/24 09:13) Bleeding isosorbide Adverse Reaction (Intermediate, Verified 08/09/24 09:13) Dizziness, weakness pravastatin Adverse Reaction (Verified 08/09/24 09:13) Myalgia Medications ???Medication ???Instructions ???Recorded ???Confirmed ???Type aspirin 81 mg chewable tablet 0.5 tab PO Q3D 01/19/24 08/09/24 History ondansetron 4 mg disintegrating 4 mg PO Q8H PRN PRN Nausea #10 tabs 01/19/24 08/09/24 Rx tablet cholecalciferol (vitamin D3) 50 50 mcg PO DAILY Vit D #90 tabs 05/31/24 08/09/24 Rx mcg (2,000 unit) tablet cyanocobalamin (vitamin B-12) 1,000 mcg PO DAILY B12 #90 tabs 05/31/24 08/09/24 Rx 1,000 mcg tablet hydrochlorothiazide 12.5 mg tablet 12.5 mg PO DAILY #90 tabs 05/31/24 08/09/24 Rx carvedilol 3.125 mg tablet 3.125 mg PO DAILY #180 tabs 07/27/24 08/09/24 Rx Have you fallen in the past year?: No PFSH Medical History (Updated 08/09/24 @ 11:[address] Marcella Laird MD) Right wrist pain Wears glasses Post-menopausal Arthritis History of Holter monitoring History of echocardiogram History of stress test Cardiology follow-up encounter History of patellar fracture Mastoiditis, chronic Dizziness Acute bronchitis, unspecified URI (upper respiratory infection) HTN (hypertension) Decreased radial pulse 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 Pure hypercholesterolemia Colon cancer Bilateral cataracts Seasonal allergies Personal history of colonic polyps Surgical History History of cardiac catheterization History of coronary artery stent placement History of carpal tunnel release ( 2022) H/O shoulder surgery Presence of stent in coronary artery ( 08/06/22) Presence of coronary angioplasty implant and graft ( 08/06/22) History of bilateral cataract extraction History of bowel resection History of colonoscopy Family History Mother Diabetes Heart disease Father Heart disease Myocardial infarction Sister Diabetes Heart disease Hypertension Sister Heart disease Social History Smoking Status: Never smoker alcohol intake: never substance use type: does not use caffeine: Yes Type: carbonated beverages Number of servings: 2 and tea Number of servings: 2 additional social history: Uses Ibuprofen prn HPI HPI Chief Complaint: thumb pain Details: FAN FERGUSONCHAPISNEHEMIAH, is a 79 F who presents to the office today for 6-month follow-up, ongoing right wrist and right thumb discomfort, some tingling. She had surgery on the left thumb I guess about a year ago after fracture right radius. She still has discomfort. In the past I given her prescription for cream for this, through [facility]. This seems to help quite a bit but she simply wondered if it could still be refilled/renewed. She does have a refill remaining on it. She was using it once a day. She is aware she could use it small amounts (more content not included)... Normal [facility] Colonoscopy Reporton 024 Colonoscopy Report [facility] Medical Records Department [address] [place] [address] Colonoscopy Report MR#: [id number] Acct: [id number] Name: FAN CHEEMA Rep #: [id number] : 1945 79 From: Joleen Mendez MD PCP: Dr. Marcella Laird MD Status:[facility] Patient Name: Fan Cheema Procedure Date: 07/19/2024 7:37 AM Date of : 1945 Age: 79 Procedure: Colonoscopy Indications: High risk colon cancer surveillance: Personal history of colon cancer Providers: Joleen Mendez MD Referring MD: Marcella Laird Medicines: Monitored Anesthesia Care Patient Profile: This is a 79 year old female. Last Colonoscopy: July 2019. Complications: No immediate complications. Procedure: Pre-Anesthesia Assessment: - Prior to the procedure, a History and Physical was performed, and patient medications and allergies were reviewed. The patient's tolerance of previous anesthesia was also reviewed. The risks and benefits of the procedure and the sedation options and risks were discussed with the patient. All questions were answered, and informed consent was obtained. Prior Anticoagulants: The patient has taken no anticoagulant or antiplatelet agents. ASA Grade Assessment: Per anesthesia. After reviewing the risks and benefits, the patient was deemed in satisfactory condition to undergo the procedure. After I obtained informed consent, the scope was passed under direct vision. Throughout the procedure, the patient's blood pressure, pulse, and oxygen saturations were monitored continuously. The Colonoscope was introduced through the anus and advanced to the cecum, identified by appendiceal orifice and ileocecal valve. The colonoscopy was performed without difficulty. The patient tolerated the procedure well. The quality of the bowel preparation was good. Scope In: 7:48:59 AM Scope Withdrawal Time 0 hours 5 minutes 53 seconds Scope Out: 8:00:12 AM Total Procedure Duration Time 0 hours 11 minutes 13 seconds Findings: Hemorrhoids were found on perianal exam. Non-bleeding external and internal hemorrhoids were found. The hemorrhoids were small and Grade I (internal hemorrhoids that do not prolapse). Ileocolonic anastomosis widely patent. The entire examined colon appeared normal. Impression: - Hemorrhoids found on perianal exam. - Non-bleeding external and internal hemorrhoids. - The entire examined colon is normal. - No specimens collected. Recommendation: - Discharge patient to home. - Resume previous diet. - Continue present medications. - Repeat colonoscopy in 5 years for surveillance based on clinical status at that time. - depending on overall health at time of possible repeat Procedure Code(s): --- Professional --- G0105, PT, Colorectal cancer screening; colonoscopy on individual at high risk Diagnosis Code(s): --- Professional --- Z85.038, Personal history of other malignant neoplasm of large intestine K64.0, First degree hemorrhoids CPT copyright 2021 [employer]. All rights reserved. The codes documented in this report are preliminary and upon campus president review may be revised to meet current compliance requirements. MD Joleen Gilmore MD 07/19/2024 8:09:29 AM This report has been signed electronically. Number of Addenda: 0 Note Initiated On: 07/19/2024 7:37 AM 07/19/24 0809 Date Joleen Mendez MD Cosigner Signature: Date (if indicated) CC: Dr. Marcella Laird MD; Dr. Joleen Mendez MD Date Dictated: 09/736 Date Transcribed: Cake Tester: JANIYA Signed [facility] MR/POSTOP.ANEon 07-19-2024 MR/POSTOP.[facility] Medical Records Department [address] [place] [address] Anesthesia Postop Eval I 07/19/24805 MR#: [id number] Acct: [id number] Name: FAN CHEEMA Rep #: [id number] : 1945 79 From: Demar Zamora PCP: Dr. Marcella Laird MD Status:REG SDC Y Race: C Location: [place] [address] Anesthesia: Postop Eval I Current Vital Signs Temperature: 97 F Pulse Rate: 63 Blood Pressure: 111/58 Respiratory Rate: 16 Pulse Ox: 97 Oxygen Delivery Method: Room Air Assessment Airway patent: Yes Spontaneous unlabored respirations: Yes Mental status: Asleep nausea: No Vomiting: No Anesthesia Complication: No Fluid Hydration Crystalloid volume administer (ml): 600 Total IV fluid infused: 600 Progress Note Anesthesia document: Postop Eval 1 completed: Yes 07/19/24807 Date Demar Carlos Signature: Date CC: Signed [facility] MR/[id number] 07-19-2024 MR/POSTOPAN2 [facility] Medical Records Department [address] [place] [address] Anesthesia Postop Eval II 07/19/24 0834 MR#: [id number] Acct: [id number] Name: SHUKRIKATRINNEHEMIAHFANTWYLA SOLANO Rep #: [id number] : 1945 79 From: Larry Rossi MD PCP: Dr. Marcella Laird MD Status:REG SDC Y Race: C Location: [place] [address] Anesthesia Postop Eval I Sum Postop Eval Completion status Anesthesia document: Postop Eval 1 completed: Yes Anesthesia Postop Eval I Summary Anesthesia Postop Eval I Summary: Anesthesia Postop Eval I: Assessment Summary Airway patent Yes 07/19/24 08:08 [email or web address] Spontaneous unlabored Yes 07/19/24 08:08 [email or web address] respirations Mental status Asleep 07/19/24 08:08 [email or web address] nausea No 07/19/24 08:08 [email or web address] Vomiting No 07/19/24 08:08 [email or web address] Anesthesia Postop Eval I: Fluid Summary Crystalloid volume administer 600 07/19/24 08:08 [email or web address] (ml) Colloids volume administered ( ml) Blood Product volume administered (ml) Total IV fluid infused 600 07/19/24 08:08 [email or web address] Anesthesia Postop Eval I: Summary Notes Anesthesia Complication No 07/19/24 08:08 [email or web address] Anesthesia Complication Comment: Post-operative progress note Anesthesia: Postop Eval II Evaluation Mental status: Awake Pain Level: 0 nausea: No Vomiting: No 07/19/2434 Date Larry Harper Signature: Date CC: Signed Normal [facility] Brain without Contraston Brain without Contrast [facility] Imaging Services [address] [place], [place] [address] Brain without Contrast MR#: [id number] Acct: [id number] Name: ANETTEFAN XIOMARA Rep #: [id number] : 1945 F 78 From: Alexander hawkins MD PCP: Dr. Marcella Laird MD Status: REG CLI Study: Brain without Contrast Date of Exam: 06/17/24 Exam# [id number] Ordering Dr: Marcella Laird MD ADDENDUM by Dr. Alexander Graves MD on 06/18/24 at 0909 ==== ADDENDUM ==== [id number] Technique and report modification: No intravenous contrast was administered for this exam. Disregard those statements. Normal unenhanced MRI of the bilateral internal auditory canals (I.A.C''s). Electronically Signed: Alexander Graves MD at 9:09 EDT Reading Location ID and State: [address] [place] [address] , Service support , 06/18/24908 Date cc: Dr. Marcella Laird MD * Signed ADDENDUM by Dr. Alexander Graves MD on 06/18/24 at 0909 MRI/Brain without Contrast IMPRESSION: undefined 06/18/24 0915 Date cc: Dr. Marcella Laird MD * Signed [id number] STUDY: MRI BRAIN WITHOUT CONTRAST (ATTENTION INTERNAL AUDITORY CANALS - I.A.C.''s) REASON FOR EXAM: Female, 78 years old. Imbalance, dizziness -- Attention ICA TECHNIQUE: Standardized multiplanar fat and water weighted pulse sequences were obtained. ml of contrast material was administered intravenously for the contrast portion of the examination. COMPARISON: Head CT dated December 19, 2023 FINDINGS: Internal auditory canal findings: Normal bilateral temporal bones. Normal bilateral internal auditory canals. There is no demonstrated intracanalicular or cisternal vestibular schwannoma (acoustic neuroma). Normal bilateral cochlea, vestibules and semicircular canals. Severe bilateral mucous opacification of the mastoid air cells/mastoiditis is present. No cerebellar pontine angle mass or cyst is seen. There is no demonstrated lesions of the cavernous sinus. No nodularity or abnormal enhancement is seen in the 7th or 8th cranial nerves within IACs. No demonstrated Mondini''s malformation. BRAIN FINDINGS: There is mild cerebral atrophy with widening of the extra-axial spaces and ventricular dilatation. There are multiple white matter hyperintensities, distributed throughout the deep white matter tracts of the cerebral hemispheres, consistent with mild to moderate chronic white matter ischemic changes. There is no evidence for recent intracranial ischemia or other cause of cytotoxic edema on diffusion weighted imaging (DWI). Normal T2* images of the brain without demonstrated susceptibility artifact. There is no demonstrated hemosiderin stain. There are no demyelinating plagues of the supratentorial brain, brainstem or cerebellum. There are no findings suspicious for multiple sclerosis (MS). No hydrocephalus or midline shift is present. There are no visualized ring-enhancing lesions of the brain parenchyma or abnormal thickening or enhancement of the meninges or dura. Normal bilateral basal ganglia. Normal thalami. Normal flow voids within the major intracranial circulation suggesting patency by spin echo criteria. Normal venous enhancement. There is no enhancing intra-axial or extra-axial abnormality. There is no extra-axial fluid accumulation. Normal sella turcica, pituitary gland, infundibular stalk, optic chiasm and hypothalamus. Normal tectal plate and pineal gland. Normal midbrain, abdi and medulla. Normal cerebellum. Normal basal cisterns. No demonstrated orbital abnormality, within the constraints of a routine brain study. Normal visualized paranasal sinuses. Normal calvarium and skull base. Normal visualized soft tissue structures. Normal visualized upper cervical spine. MRI/Brain without Contrast IMPRESSION: 1. Severe bilateral mastoiditis. 2. Normal unenhanced and enhanced MRI of the bilateral internal auditory canals (I.A.C''s). 3. Involutional and chronic ischemic changes of the brain, as described above. Electronically Signed: Alexander Graves MD at 10:00 EDT Reading Location ID and State: [address] [place] [address] , Service support , CC: Dr. Marcella Laird MD Cake Tester: Signed Normal [facility] Surgery Visit Reporton 06-02 Surgery Visit Report [facility] [address] [place] [address] OFFICE VISIT Date of Service: 06/02/24 MR#: [id number] Acct: [id number] Name: FAN CHEEMA Rep #: [id number] : 1945 Provider: Dr. Joleen gunter MD Age/Sex: 78/F Location: [facility] Status: Signed Intake Vital Signs 04/29/24 11:24 05/31/24 09:36 06/02/24 14:32 Height 5 ft 8 in 5 ft 8 in 5 ft 8 in Weight: 191 lb 194 lb BMI 29.0 29.5 BP 134/78 H 150/72 H Blood Pressure Location Lt brachial Rt brachial Position Sitting Sitting Respiration 18 17 Pulse 55 L 100 Pulse Source Monitor Monitor Pulse Oximetry (%) 96 100 Oxygen Delivery Method room air room air Intake Visit Reasons: RECALL COLONOSCOPY, RC PT Chief Complaint: recall colonoscopy Allergies atorvastatin calcium (From Lipitor) Allergy (Verified 06/02/24 14:33) myalgias clarithromycin Allergy (Verified 06/02/24 14:33) Nausea/Vom/Diarrhea desloratadine (From Clarinex) Allergy (Verified 06/02/24 14:33) Unknown guaifenesin (From Entex LA) Allergy (Verified 06/02/24 14:33) Unknown hydrocodone bitartrate (From Vicodin) Allergy (Verified 06/02/24 14:33) Other methylprednisolone Allergy (Verified 06/02/24 14:33) Unknown nystatin Allergy (Verified 06/02/24 14:33) Unknown pentoxifylline Allergy (Verified 06/02/24 14:33) Nausea/Vom/Diarrhea phenylephrine HCl (From Entex LA) Allergy (Verified 06/02/24 14:33) Unknown phenylpropanolamine HCl (From Entex LA) Allergy (Verified 06/02/24 14:33) Unknown sulfamethoxazole (From Bactrim) Allergy (Verified 06/02/24 14:33) Unknown trimethoprim (From Bactrim) Allergy (Verified 06/02/24 14:33) Unknown isosorbide Adverse Reaction (Intermediate, Verified 06/02/24 14:33) Dizziness, weakness pravastatin Adverse Reaction (Verified 06/02/24 14:33) Myalgia Medications ???Medication ???Instructions ???Recorded ???Confirmed ???Type carvedilol 3.125 mg tablet 3.125 mg PO BID #60 tabs 03/13/23 06/02/24 Rx meclizine 25 mg tablet 25 mg PO BID PRN dizziness #30 tabs 04/04/23 06/02/24 Rx aspirin 81 mg chewable tablet 0.5 tab PO .q 3 day 01/19/24 06/02/24 History ondansetron 4 mg disintegrating 4 mg PO Q8H PRN PRN Nausea #10 tabs 01/19/24 06/02/24 Rx tablet ibuprofen 200 mg capsule 200 mg PO Q6H PRN 04/29/24 06/02/24 History cholecalciferol (vitamin D3) 50 50 mcg PO DAILY Vit D #90 tabs 05/31/24 06/02/24 Rx mcg (2,000 unit) tablet cyanocobalamin (vitamin B-12) 1,000 mcg PO DAILY B12 #90 tabs 05/31/24 06/02/24 Rx 1,000 mcg tablet hydrochlorothiazide 12.5 mg tablet 12.5 mg PO DAILY #90 tabs 05/31/24 06/02/24 Rx Have you fallen in the past year?: No PFSH Medical History (Updated 06/02/24 @ 14:31 by Maral Seaman) Dizziness Acute bronchitis, unspecified URI (upper respiratory infection) HTN (hypertension) Decreased radial pulse 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 Pure hypercholesterolemia Colon cancer Bilateral cataracts Seasonal allergies Personal history of colonic polyps Surgical History History of carpal tunnel release H/O knee surgery H/O shoulder surgery Presence of stent in coronary artery ( 08/06/22) Presence of coronary angioplasty implant and graft ( 08/06/22) History of bilateral cataract extraction History of bowel resection History of colonoscopy Family History Mother Diabetes Heart disease Father Heart disease Myocardial infarction Sister Diabetes Heart disease Hypertension Sister Heart disease Social History Smoking Status: Never smoker alcohol intake: never substance use type: does not use caffeine: Yes Type: carbonated beverages Number of servings: 2 and tea Number of servings: 2 additional social history: Uses Ibuprofen prn HPI HPI HPI: 78-year-old female presents for colonoscopy due to history of right hemicolectomy due to a tubular adenoma with high-grade dysplasia [place] [address] Hartley. Patient's last colonoscopy was in 2019 showed functional patent ileocolic anastomosis and no polyps only internal hemorrhoids at that time. Patient states she does have bowel moods about every other day denies any blood. Patient denies any chronic abdominal pain/nausea/vomiting/re flux. ROS General General: Yes fatigue and colon cancer; No weight change, appetite or breast cancer HEENT HEENT: No difficulty swallowing, eye injury, eye surgery, swollen glands or hoarseness Endo Endocrine: No thyroid disease, diabetes mellitus, thyroid cancer, Hair loss, heat intolerance or cold intolerance Skin Skin: No rash or changing moles Musc Musculoskeletal: No back probl (more content not included)... Normal [facility] MR/BMS.Umer 05-31-2024 MR/BMS.[facility] [address] [place] [address] OFFICE VISIT Date of Service: 05/31/24 MR#: [id number] Acct: [id number] Name: FAN CHEEMA XIOMARA Rep #: [id number] : 1945 Provider: Dr. Marcella mcmillan MD Age/Sex: 78/F Location: [facility] Status: Signed Intake Vital Signs 04/29/24 11:24 05/31/24 09:36 Height 5 ft 8 in 5 ft 8 in Weight: 191 lb 191 lb BMI 29.0 29.0 BP 134/78 H 132/68 H Blood Pressure Location Lt brachial Rt brachial Position Sitting Sitting Respiration 18 16 Pulse 55 L 71 Pulse Source Monitor Monitor Temp 97.8 F Pulse Oximetry (%) 96 96 Oxygen Delivery Method room air room air Intake Visit Reasons: Review Results Accompanied by: Is patient in pain?: Yes (right wrist) Pain scale (1-10): 5 Allergies atorvastatin calcium (From Lipitor) Allergy (Verified 05/31/24 09:33) myalgias clarithromycin Allergy (Verified 05/31/24 09:33) Nausea/Vom/Diarrhea desloratadine (From Clarinex) Allergy (Verified 05/31/24 09:33) Unknown guaifenesin (From Entex LA) Allergy (Verified 05/31/24 09:33) Unknown hydrocodone bitartrate (From Vicodin) Allergy (Verified 05/31/24 09:33) Other methylprednisolone Allergy (Verified 05/31/24 09:33) Unknown nystatin Allergy (Verified 05/31/24 09:33) Unknown pentoxifylline Allergy (Verified 05/31/24 09:33) Nausea/Vom/Diarrhea phenylephrine HCl (From Entex LA) Allergy (Verified 05/31/24 09:33) Unknown phenylpropanolamine HCl (From Entex LA) Allergy (Verified 05/31/24 09:33) Unknown sulfamethoxazole (From Bactrim) Allergy (Verified 05/31/24 09:33) Unknown trimethoprim (From Bactrim) Allergy (Verified 05/31/24 09:33) Unknown isosorbide Adverse Reaction (Intermediate, Verified 05/31/24 09:33) Dizziness, weakness pravastatin Adverse Reaction (Verified 05/31/24 09:33) Myalgia Medications ???Medication ???Instructions ???Recorded ???Confirmed ???Type carvedilol 3.125 mg tablet 3.125 mg PO BID #60 tabs 03/13/23 05/31/24 Rx meclizine 25 mg tablet 25 mg PO BID PRN dizziness #30 tabs 04/04/23 05/31/24 Rx aspirin 81 mg chewable tablet 0.5 tab PO .q 3 day 01/19/24 05/31/24 History ondansetron 4 mg disintegrating 4 mg PO Q8H PRN PRN Nausea #10 tabs 01/19/24 05/31/24 Rx tablet ibuprofen 200 mg capsule 200 mg PO Q6H PRN 04/29/24 05/31/24 History cholecalciferol (vitamin D3) 50 50 mcg PO DAILY Vit D #90 tabs 05/31/24 05/31/24 Rx mcg (2,000 unit) tablet cyanocobalamin (vitamin B-12) 1,000 mcg PO DAILY B12 #90 tabs 05/31/24 05/31/24 Rx 1,000 mcg tablet hydrochlorothiazide 12.5 mg tablet 12.5 mg PO DAILY #90 tabs 05/31/24 05/31/24 Rx Have you fallen in the past year?: No PFSH Medical History Acute bronchitis, unspecified URI (upper respiratory infection) HTN (hypertension) Decreased radial pulse 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 Pure hypercholesterolemia Colon cancer Bilateral cataracts Seasonal allergies Personal history of colonic polyps Surgical History History of carpal tunnel release H/O knee surgery H/O shoulder surgery Presence of stent in coronary artery ( 08/06/22) Presence of coronary angioplasty implant and graft ( 08/06/22) History of bilateral cataract extraction History of bowel resection History of colonoscopy Family History Mother Diabetes Heart disease Father Heart disease Myocardial infarction Sister Diabetes Heart disease Hypertension Sister Heart disease Social History Smoking Status: Never smoker alcohol intake: never substance use type: does not use caffeine: Yes Type: carbonated beverages Number of servings: 2 and tea Number of servings: 2 additional social history: Uses Ibuprofen prn HPI HPI Details: FAN CHEEMA, is a 78 F who presents to the office today for 6-month follow-up. 78-year-old female. Overall is doing pretty good. She has not had any significant improvement in her dizzines s. She describes it as an unsteadiness. Back in January I had referred her for vestibular therapy. She had 3 sessions. Did not seem to help a whole lot. She describes it basically as an unsteadiness. She is not having clear vertiginous symptoms at this point. She did have meclizine and ondansetron available for vertigo. She is on HCTZ low-dose, vitamin D, low-dose carvedilol 3.125 mg p.o. twice daily and low-dose aspirin. She can only tolerate low doses of aspirin baby aspirin every 2 to 3 days due to nosebleeds. Those have been stable at that regimen. She did have a stress test at the hospital, stress echo which suggested by EKG and stress echo (more content not included)... Normal [facility] Cardiology Visit Reporton Cardiology Visit Report [facility] [address] [place] [address] OFFICE VISIT Date of Service: 04/29/24 MR#: [id number] Acct: [id number] Name: FAN CHEEMA Rep #: [id number] : 1945 Provider: Dr. Manolo mark MD Age/Sex: 78/F Location: [facility] Status: Signed HPI HPI History of Present Illness Details: This is a 78-year-old white female who presents today for outpatient cardiovascular follow up visit. She was previously evaluated based upon concerns of exertional chest pressure and shortness of breath/dyspnea compatible with an angina pectoris equivalent with an abnormal stress Echo study (02/14/2024) with abnormal ECG component c/w anterior ischemia but no evidence of ischemia on the Echo. The patient had no chest pain on the stress test. She had a cardiac catheterization on 08/06/2022 which demonstrated quile[place] multivessel CAD. She underwent successful JESS to her proximal and mid RCA. Tolerated carpal tunnel surgery on her right hand in the last 2 weeks. The patient was evaluated here December 2023 and at that time he been complaining of some recurrent chest symptoms which she could not remember what they felt like back in 2021. We added Imdur which she did not tolerate due to side effects we then trialed Ranexa which she did not tolerate due to side effects. This was done after she had had the abnormal stress test February 14, 2024. She has declined cardiac catheterization. The patient now reports she is only had 1 episode of mild chest discomfort that lasted a minute or less and resolved spontaneously and occurs without activity. At this point in time she does not wish to proceed with any further evaluation. She denies any signs of symptoms of heart failure. Intake Vital Signs 01/19/24 09:04 03/30/24 11:36 04/29/24 11:24 Height 5 ft 8 in 5 ft 8 in 5 ft 8 in Weight: 191 lb BMI 29.0 BP 134/78 H Blood Pressure Location Lt brachial Position Sitting Respiration 18 Pulse 55 L Pulse Source Monitor Pulse Oximetry (%) 96 Oxygen Delivery Method room air Intake Visit Reasons: 6 M FU Otm Consultant Required: No Accompanied by: Self Is patient in pain?: No Allergies atorvastatin calcium (From Lipitor) Allergy (Verified 04/29/24 11:25) myalgias clarithromycin Allergy (Verified 04/29/24 11:25) Nausea/Vom/Diarrhea desloratadine (From Clarinex) Allergy (Verified 04/29/24 11:25) Unknown guaifenesin (From Entex LA) Allergy (Verified 04/29/24 11:25) Unknown hydrocodone bitartrate (From Vicodin) Allergy (Verified 04/29/24 11:25) Other methylprednisolone Allergy (Verified 04/29/24 11:25) Unknown nystatin Allergy (Verified 04/29/24 11:25) Unknown pentoxifylline Allergy (Verified 04/29/24 11:25) Nausea/Vom/Diarrhea phenylephrine HCl (From Entex LA) Allergy (Verified 04/29/24 11:25) Unknown phenylpropanolamine HCl (From Entex LA) Allergy (Verified 04/29/24 11:25) Unknown sulfamethoxazole (From Bactrim) Allergy (Verified 04/29/24 11:25) Unknown trimethoprim (From Bactrim) Allergy (Verified 04/29/24 11:25) Unknown isosorbide Adverse Reaction (Intermediate, Verified 04/29/24 11:25) Dizziness, weakness pravastatin Adverse Reaction (Verified 04/29/24 11:25) Myalgia Medications ???Medication ???Instructions ???Recorded ???Confirmed ???Type carvedilol 3.125 mg tablet 3.125 mg PO BID #60 tabs 03/13/23 04/29/24 Rx meclizine 25 mg tablet 25 mg PO BID PRN dizziness #30 tabs 04/04/23 03/30/24 Rx cholecalciferol (vitamin D3) 50 50 mcg PO DAILY Vit D #90 tabs 05/07/23 04/29/24 Rx mcg (2,000 unit) tablet cyanocobalamin (vitamin B-12) 1,000 mcg PO DAILY B12 #90 tabs 05/07/23 04/29/24 Rx 1,000 mcg tablet hydrochlorothiazide 12.5 mg tablet 12.5 mg PO DAILY #30 tabs 05/15/23 04/29/24 Rx aspirin 81 mg chewable tablet 0.5 tab PO .q 3 day 01/19/24 04/29/24 History ondansetron 4 mg disintegrating 4 mg PO Q8H PRN PRN Nausea #10 tabs 01/19/24 03/30/24 Rx tablet ibuprofen 200 mg capsule 200 mg PO Q6H PRN 04/29/24 04/29/24 History Ejection fraction %: 65 Have you fallen in the past year?: Yes PFSH Medical History Acute bronchitis, unspecified URI (upper respiratory infection) HTN (hypertension) Decreased radial pulse 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 Normal [facility] Office Visiton 02-19-2024 Follow-up visit [id number] Fan Cheema 1945 F Date Provider Department Center 02/19/2024 [address] [place] None No family history on file Level of Service:86042 MT POSTOP FOLLOW UP VISIT RELATED TO ORIGINAL PX Reason for Visit and Comments: Post-op [483] - Endoscopic RIGHT carpal tunnel release, possible open, Right dorsal radiocarpal wrist injection on 01/02/24 Normal [facility] Progress Noteon 02-19-2024 Progress Note [facility] [address] [place] [address] Dept: [phone] Dept 02/19/2024 Chief Complaint Patient presents with Post-op Endoscopic RIGHT carpal tunnel release, possible open, Right dorsal radiocarpal wrist injection on 01/02/24 SUBJECTIVE Fan is approximately 7 week(s) s/p Endoscopic RIGHT carpal tunnel release, possible open, Right dorsal radiocarpal wrist injection. She is no longer taking anything for pain. She still has minor achy in the palm of the hand. She states she still has 100% relief in the wrist joint, where the injection was. OBJECTIVE Ht 5' 8 (1.727 m) Wt 193 lb (87.5 kg) BMI 29.35 kg/m? Ortho Exam Right wrist incision well-healed. Minor tenderness in mid palm. Stiffness of the wrist per baseline. Mild swelling dorsal radial wrist. NVID with 2.5 mm throughout. IMAGING NONE ASSESSMENT (G56.01) Carpal tunnel syndrome of right wrist (S52.571P) Other closed intra-articular fracture of distal end of right radius with malunion, subsequent encounter (Z98.890) S/P endoscopic carpal tunnel release 1. Carpal tunnel syndrome of right wrist 2. Other closed intra-articular fracture of distal end of right radius with malunion, subsequent encounter 3. S/P endoscopic carpal tunnel release PLAN Fan is doing some pillar pain but I simply reassured her that it can take 4 to 6 months for that to completely resolve. She is comfortable this will follow-up on appearing basis. Immobilization: NO immobilization required at this point - FULL ROM encouraged without resitrictions Weight Bearing: Weight Bearing As Tolerated Rehabilitation: NO formal rehabilitation required at this point. Follow-up: Fan will followup with me on an as needed basis. She knows to call the office with any questions or concerns in the interim. Future Imaging: NONE Martha Reed MD Hand and Upper Extremity Surgery [facility] Department of Orthopaedics and Sports Medicine 02/19/2024 at 9:35 AM (Please note that portions of this note may have been completed with a voice recognition program. Efforts were made to edit the dictations but occasionally words are mis-transcribed.) Normal [facility] Office Visiton 01-12-2024 Follow-up visit [id number] Fan Cheema 1945 F Date Provider Department Center 01/12/2024 [id number]-WCHIATNORMA CLEMENTS TED [facility] OR None No family history on file Level of Service:35032 MT POSTOP FOLLOW UP VISIT RELATED TO ORIGINAL PX Reason for Visit and Comments: Post-op [483] - Endoscopic RIGHT carpal tunnel release, Right Radiocarpal Joint steroid injection on 01/02/24 [facility] PATINSon 01-12-2024 PATINS THERAPY TO MAKE YOUR HANDS LESS TENDER Hand injuries are often very tender during the early healing phase. Often, tenderness in scars gets worse starting one to two weeks after injury or surgery. Unfortunately, this tenderness does not always go away by itself. The nerves in the hand are special and are more sensitive than other parts of the body. After any injury, the skin of the hand must get used to being touched again for the tenderness to go away. If you do not touch the sore areas of your hand, they may remain very sensitive and tender. The techniques of PERCUSSION and FRICTION MASSAGE outlined in this pamphlet will help speed up the process of recovery from tenderness in your hands and fingers. The goal of these exercises is to make your wounds less tender. It is normal for these exercises to be somewhat uncomfortable while doing them or shortly afterwards. If the exercises are too painful, try using less pressure. If that does not work, then give yourself a several hour break and try again. If pain again is a problem, speak with your doctor or your therapist. These exercises will not be recommended until it is safe to do them. PERCUSSION (Tapping): This technique activates the automatic reflex which makes us ignore things which are very repetitive. This reflex will dull the tenderness in areas of your hand that are touched repeatedly. Here is how to do percussion: 1. Tap lightly on the area of your hand which is tender. You can tap on the sensitive area with a finger tip of your other hand or with a light object such as a pencil. 2. Find the spot which is the most tender. 3. Note the time, and begin to tap rapidly (2-3 times a second), lightly and continuously on the most tender area. 4. Keep tapping without a break for three minutes or until you notice the feeling in the area change. The area may start to feel numb or it may simply feel a little bit less tender. 5. Take a minute rest and begin again. You may find that a different area is now the most tender spot. This exercise should be done as many times as possible during the day. It takes many thousands of taps to really change the tenderness in a sore area. The sooner you accumulate that many taps, the sooner your wounds will be more comfortable. FRICTION MASSAGE: The goal of friction massage is to STRETCH the scar tissue beneath the skin. As with percussion, it should be done many times during the day. This exercise not only helps improve tenderness, but helps restore the contour of the skin to a more normal appearance. Here is how to do friction massage: 1. Place a finger tip of your other hand against the central area of the scar. 2. Mentally note four directions that the skin can be pushed sideways: near, far, left and right. 3. With your finger tip pressed firmly against the scar and without sliding, gently but steadily push the skin to one side as if you were trying to slide the skin off of the bone. Hold this position for five seconds. 4. Briefly relax and then repeat this maneuver in one of the other directions. Make sure you attempt to slide the skin in all four directions. 5. If the scar is wider than your finger tip, repeat this stretching exercise on every point of the scar. This exercise is done without any skin lubrication. Remember to do this exercise before applying any antibiotic ointment or moisturizing creams. Carpal Tunnel Syndrome: Exercises Your Care Instructions Here are some examples of typical rehabilitation exercises for your condition. Start each exercise slowly. Ease off the exercise if you start to have pain. Your doctor or your physical or occupational therapist will tell you when you can start these exercises and which ones will work best for you. Warm-up stretches When you no longer have pain or numbness, you can do exercises to help prevent carpal tunnel syndrome from coming back. Do not do any stretch or movement that is uncomfortable or painful. Rotate your wrist up, down, and from side to side. Repeat 4 times. Stretch your fingers far apart. Relax them, and then stretch them again. Repeat 4 times. Stretch your thumb by pulling it back gently, holding it, and then releasing it. Repeat 4 times. How to do the exercises Prayer stretch Start with your palms together in front of your chest just below your chin. Slowly lower your hands toward your waistline, keeping your hands close to your stomach and your palms together until you feel a mild to moderate stretch under your forearms. Hold for at least 15 to 30 seconds. Repeat 2 to 4 times. Wrist flexor stretch Extend your arm in front of you with your palm up. Bend your wrist, pointing your hand toward the floor. With your other hand, gently bend your wrist farther until you feel a mild to moderate stretch in your forearm. Hold for at least 15 to 30 seconds. Repeat 2 to 4 times. Wrist extensor stretch Rep (more content not included)... Normal [facility] Progress Noteon 01-12-2024 Progress Note Subjective: Fan is approximately 10 day(s) s/p Right endoscopic carpal tunnel release and Right Radiocarpal joint steroid injection. Pain is minimal. She is no longer taking anything for pain. She reports resolution in the numbness and tingling postoperatively. She denies drainage from her incision. Her wrist injection gave her 100% relief she states she no longer notices her wrist pain. Patient reports been doing well since her surgery. She reports 100% resolution of her numbness and tingling symptoms postoperatively. She does notice new change in sensation of the radial sensory nerve distribution. She denies this is being in numbness or tingling but more so a dull sensation. She reports intact vision without drainage. She denies fevers or chills. She reports she is unable to tell if the wrist injection has helped yet. Objective: Ht 5' 8 (1.727 m) Wt 193 lb (87.5 kg) BMI 29.35 kg/m? Right Upper Extremity Skin: Incision(s) is healed with intact Prolene suture. No drainage. No erythema. No warmth, no wound separation. Edema: Minimal surrounding edema. Perfusion: Brisk capillary refill to all digits with 2+ radial pulse. Sensation: RIGHT Hand 2-point discrimination (mm) Thumb Index Long Ring Small r u r u r u r u r u 5 5 5 5 5 5 5 5 5 5 Median Ulnar ROM: Wrist: Flexion 35? Extension 40? Supination 75? Pronation Full Fingers flex to palm. Full finger range of motion XRay: None Assessment Diagnosis Plan 1. Carpal tunnel syndrome of right wrist External referral to Occupational Therapy 2. Other closed intra-articular fracture of distal end of right radius with malunion, subsequent encounter 3. S/P endoscopic carpal tunnel release External referral to Occupational Therapy Plan Patient is recovering well from her surgery. She is healing her incision without signs of infection. She is 100% resolution of her numbness and tingling symptoms postoperatively. She has controlled pain. At this time I would like Fan to begin wrist and hand range of motion exercises without limits to include nerve gliding exercises. The patient was advised to advance weightbearing activities using pain as a guide. Sutures were removed today in the office without complication. Signs and symptoms infection discussed with the patient. I discussed with the patient that with dullness in her radial sensory nerve distribution should resolve as this may be due to swelling, bandage, tourniquet, positioning during surgery. She was given a formal prescription for occupational therapy for range of motion. Expected course of recovery for the injection was discussed and she knows that she must wait least 6 weeks to know full efficacy of the injection. Expected postoperative recovery course was discussed with the patient including pillar pain and length of time for maximum improvement and return of full strength. patient was advised The patient was provided with home going exercise instructions. her questions were answered today in the office. I would like the patient to follow up in 6 weeks for repeat evaluation of her range of motion. She is comfortable with the plan. Immobilization: NO immobilization required at this point - FULL ROM encouraged Weight Bearing: Weight bearing as tolerated Rehabilitation: OT/PT Rx given: To follow protocol. Dr. Reed will see Fan back in 6 weeks to see how she is doing. Fan knows to call the office with any questions or concerns in the interim. Future Imaging: None Sutures were removed in office today. No dressing was applied to right wrist. Patient tolerated well with no concerns. Performed by: PEDRO Clements PA-C to Dr. Martha Reed Orthopaedic Surgery Hand and Upper Extremity (Please note that portions of this note may have been completed with a voice recognition program. Efforts were made to edit the dictations but occasionally words are mis-transcribed.) Normal [facility] Nursing Noteon 01-02-2024 Nursing Note Ambulates to restroo m gait is steady with assistance. States ready to go home. Normal [facility] Nursing Note Complains of dizzine ss. Pt is drinking pop and eating crackers. Normal [facility] Nursing Note Pt alert and taking po. Emanuel at bedside. Written discharge instructions reviewed with patient and visitor. Questions answered. Denies pain or nausea. Provided with ice pack and instructed on use. Normal [facility] Nursing Note Received pt from OR to recovery phase 1 due to low heart rate. Arouses to name and follows commands she is able to move fingers and rotate thumb. Belongings brought to bedside. Normal [facility] Op Noteon 01-02-2024 Op Note [facility] MA[facility] OR [address] [address] Dept: [phone] Loc: [phone] Operative Report Patient Name: Fan Cheema Date of : 1945 Date of Surgery: 01/02/24 Preoperative Diagnosis: RIGHT carpal tunnel syndrome, Right Wrist Arthritis Postoperative Diagnosis: Same Procedure: Endoscopic RIGHT carpal tunnel release, Right Radiocarpal Joint steroid injection Surgeon: Martha Reed MD 1st Assist: Rea Palmer MD 2nd Assist: Norma Clements PA-C Implants: None Specimens Removed: None Anesthesia: MAC Local Anesthesia: 1% lidocaine with epinephrine (1:100,000) for a total of 10ml into the subcutaneous tissues of the operative site(s) Tourniquet: Brachium Estimated Blood Loss: <5ml Pre Operative Antibiotics: Yes Indications: Ms. Fan Cheema is a 78 y.o. year-old female with RIGHT carpal tunnel syndrome who failed conservative management and elected to proceed with surgical intervention. I have discussed with her, preoperatively, the complications, limitations, expectations, alternatives, and risks of surgical intervention to include but not be limited to neurovascular injury and incomplete nerve recovery which she has demonstrated understanding. No guarantees were given or implied. After having all of her questions answered to her satisfaction, Ms. Fan Cheema has provided written informed consent to proceed. Please see previous notes for full operative risk discussion. Procedure: Fan Cheema was identified in the preoperative waiting area. Her operative site was initialed and consent was reviewed. Final questions were answered. She was brought to the operating room and placed in the supine position. All bony prominences were well padded. The operative extremity was prepped and draped in the usual sterile fashion. A surgical timeout was then performed with the patient's identification, the procedure to be performed being reviewed, verification that the patient had received preoperative antibiotics if indicated, and verification of the correct surgical site. The patient's ASA was verified by the nurse broadcast operations director and the anesthesia staff. Fire risk was assessed. Local was infiltrated into the soft tissues of the volar forearm and mid palm. An esmarch bandage was used to exsanguinate the limb and the tourniquet was inflated to 250mm Hg. A 1 cm transverse incision was made approximately 1 cm proximal to the distal volar wrist crease and just ulnar to the midline. Sharp dissection was carried down through the skin only and then blunt dissection was carried down to the level of the volar forearm fascia. A transverse incision was made through the fascia to acces the carpal canal. A dilator was placed within the carpal canal extending in line with the hook of the hamate. The camera was then introduced and the distal extent of the transverse carpal ligament was easily identified. The blade was deployed at this location and retracted about 1 cm. The camera was then advanced to ensure that all transverse fibers were adequately decompressed. The same stepwise sequence was performed to release the remaining fibers of the transverse carpal ligament from distal to proximal. At no time during the procedure did I visualize any neurovascular structures or tendons. The blade was retracted to the level of the skin to ensure that the entire transverse ligament as well as the most distal volar forearm fascia had been adequately decompressed. A synovial elevator was used to palpate the the carpal canal to ensure a thorough decompression had been achieved. The dermal layer was closed with a running non absorbable suture followed by steri strips. The remaining local was placed in the subcutaneous tissues of the mid palm for post operative pain control and additional hemostasis. The wound was dressed gauze, cast padding, and a loosely applied SILVIA bandage. The tourniquet was let down and the hand pinked up nicely with a brisk capillary refill in all 5 digits. The RIGHT wrist was identified as the injection site. I discussed the risks/benefits of a corticosteroid injection to include but not be limited to infection, subcutaneous fat atrophy, elevated blood glucose, local redness and pain. After discussion of the risk/benefits the patient elected to proceed. Under sterile conditions, the dorsal radiocarpal joint was injected with a mixture of 1 mL of 1% Lidocaine and 1 mL of Celestone (6mg/mL). A sterile bandage was applied. Fan tolerated the procedure well without complication. I advised Fan of the expected response, possible reactions and the instructions for care of her wrist. Ms. Fan Cheema was awakened from anesthesia having tolerated the procedure without apparent complication and was taken to the recovery room in stable condition. POST OPERATIVE PLAN PWB <5lb (more content not included)... Normal [facility] ECG 12-LEADon 12-27-2023 ECG 12-LEAD IMPRESSION: Sinus rhythm Atrial premature complexes Minimal ST depression, inferior leads No previous ECG available for comparison Electronically Signed On 12-27-2023 07:14:19 EST by Ronald Young Normal [facility] CBC (HEMOGRAM)on 12-26-2023 Erythrocyte distribution width (RBC) [Ratio] 12.7 % Normal 11.5-15.0 [facility] Comment on above: Performed By: #### L [id number] ####Director Ehs: MANDA RAMIREZ ([id number])[facility] ([facility])[address] [place] [address] Hematocrit (Bld) [Volume fraction] 35.6 % Normal 35.0-47.0 [facility] Comment on above: Performed By: #### L [id number] ####Director Ehs: MANDA RAMIREZ ([id number])[facility] [place] [address] Hemoglobin (Bld) [Mass/Vol] 12.0 g/dL Normal 11.7-16.0 [facility] Comment on above: Performed By: #### L [id number] ####Director Ehs: MANDA RAMIREZ ([id number])[facility] [place] [address] MCH (RBC) [Entitic mass] 30.7 pg Normal 26.0-34.0 [facility] Comment on above: Performed By: #### L AB294 ####Director Ehs: MANDA RAMIREZ ([id number])[facility]Y MCNAMARAMANUEL ([facility])[address] MCHC 33.7 % Normal 30.5-36.0 [facility] Comment on above: Performed By: #### L AB294 ####Director Ehs: MANDA RAMIREZ ([id number])[facility] NICK[facility]N ([facility])[address] MCV (RBC) [Entitic vol] 91.0 fL Normal 77.0-99.0 [facility] Comment on above: Performed By: #### L [id number] ####Director Ehs: MANDA RAMIREZ ([id number])[facility] NICKERSONBean ([facility])[address] Platelet mean volume (Bld) [Entitic vol] 11.2 fL Normal 9.0-12.7 [facility] Comment on above: Performed By: #### L AB294 ####Director Ehs: MANDA RAMIREZ ([id number])[facility]NAMARAWINSLOW [facility] ([facility])[address] Platelets (Bld) [#/Vol] 207 10*3/uL Normal 140-440 [facility] Comment on above: Performed By: #### L AB294 ####Director Ehs: MANDA RAMIREZ ([id number])[facility] ([facility])[address] RBC (Bld) [#/Vol] 3.91 10*6/uL Normal 3.80-5.20 [facility] Comment on above: Performed By: #### L AB294 ####Director Ehs: MANDA RAMIREZ ([id number])[facility] ([facility])[address] WBC (Bld) [#/Vol] 9.8 10*3/uL Normal 3.6-10.7 [facility] Comment on above: Performed By: #### L AB294 ####Director Ehs: MANDA RAMIREZ ([id number])[facility]A BARBWINSL[facility] ([facility])[address] COMPREHENSIVE METABOLIC PANE Allen 12-26-2023 Albumin [Mass/Vol] 3.9 g/dL Normal 3.5-5.0 [facility] Comment on above: Performed By: #### L AB17 #### Director Ehs: MANDA RAMIREZ ([id number]) [facility] ([facility]) [address] ALP [Catalytic activity/Vol] 101 U/L Normal 38-126 [facility] Comment on above: Performed By: #### L AB17 #### Director Ehs: MANDA RAMIREZ ([id number]) [facility] ([facility]) [address] ALT [Catalytic activity/Vol] 22 U/L Normal 0-34 [facility] Comment on above: Performed By: #### L AB17 #### Director Ehs: MANDA RAMIREZ ([id number]) [facility] ([facility]) [address] Anion gap [Moles/Vol] 6 mmol/L Normal 3-13 [facility] Comment on above: Performed By: #### L AB17 #### Director Ehs: MANDA RAMIREZ ([id number]) [facility] ([facility]) [address] [place] [address] [place] AST [Catalytic activity/Vol] 35 U/L Normal 15-46 [facility] Comment on above: Performed By: #### L AB17 #### Director Ehs: MANDA RAMIREZ ([id number]) [facility] ([facility]) [address] Bilirubin [Mass/Vol] 0.4 mg/dL Normal 0.2-1.3 [facility] Comment on above: Performed By: #### L AB17 #### Director Ehs: MANDA RAMIREZ ([id number]) [facility] ([facility]) [address] [place] [address] [place] Calcium [Mass/Vol] 9.5 mg/dL Normal 8.4-10.4 [facility] Comment on above: Performed By: #### L AB17 #### Director Ehs: MANDA RAMIREZ ([id number]) [facility] ([facility] [address] [place] [address] [place] Chloride [Moles/Vol] 102 mmol/L Normal 98-107 [facility] Comment on above: Performed By: #### L AB17 #### Director Ehs: MANDA RAMIREZ ([id number]) [facility] ([facility]) [address] CO2 [Moles/Vol] 28 mmol/L Normal 22-30 [facility] Comment on above: Performed By: #### L AB17 #### Director Ehs: MANDA RAMIREZ ([id number]) [facility] ([facility]) [address] Creatinine [Mass/Vol] 1.09 mg/dL High 0.52-1.04 [facility] Comment on above: Performed By: #### L AB17 #### Director Ehs: MANDA RAMIREZ ([id number]) [facility] ([facility]) [address] [place] [address] [place] GLOMERULAR FILTRATION RATE ML/MIN/1.73 SQ M.PREDICTED 52.1 mL/min/1.73m*2 Low >60.0 [facility] Comment on above: Result Comment: Calc ulation based on the Chronic Kidney Disease Epidemiology Collaboration (CKD-EPI) equation refit without adjustment for race Performed By: #### L AB17 #### Director Ehs: MANDA RAMIREZ ([id number]) [facility] ([facility]) [address] [place] [address] [place] Glucose [Mass/Vol] 92 mg/dL Normal 70-100 [facility] Comment on above: Performed By: #### L AB17 #### Director Ehs: MANDA RAMIREZ ([id number]) [facility] MCNAMARACLEARSKY [facility] ([facility]) [address] Potassium [Moles/Vol] 4.0 mmol/L Normal 3.5-5.1 [facility] Comment on above: Performed By: #### L AB17 #### Director Ehs: MANDA RAMIREZ ([id number]) [facility] ([facility]) [address] Protein [Mass/Vol] 7.2 g/dL Normal 6.3-8.2 [facility] Comment on above: Performed By: #### L AB17 #### Director Ehs: MANDA RAMIREZ ([id number]) [facility] [address] Sodium [Moles/Vol] 137 mmol/L Normal 135-145 [facility] Comment on above: Performed By: #### L AB17 #### Director Ehs: MANDA RAMIREZ ([id number]) [facility] [address] Urea nitrogen [Mass/Vol] 21 mg/dL High 7-17 [facility] Comment on above: Performed By: #### L AB17 #### Director Ehs: MANDA RAMIREZ ([id number]) [facility] ([facility]) [address] PREPROCINSon 12-26-2023 PREPROCINS Medication List Accurate as of December 26, 2023 10:22 AM. Always use your most recent med list. aspirin 81 MG EC tablet Medication Adjustments for Surgery: Other (Comment) Notes to patient: continue carvedilol 3.125 MG tablet Commonly known as: Coreg Medication Adjustments for Surgery: Take morning of surgery cholecalciferol 50 MCG (1999 UT) tablet Generic drug: cholecalciferol cyanocobalamin 1000 MCG tablet Commonly known as: Vitamin B-12 hydroCHLOROthiazide 12.5 MG tablet Commonly known as: HYDRODiuril Medication Adjustments for Surgery: Hold morning of surgery meclizine 25 MG tablet Commonly known as: Antivert ondansetron ODT 4 MG disintegrating tablet Commonly known as: Zofran-ODT Additional Instructions: You may take your prescription pain medication. You may take Tylenol for pain. NO Motrin, ibuprofen or Advil for 24 hours prior to surgery or longer if instructed by your surgeon. NO Aleve or Naprosyn for 5 days prior to surgery or longer if instructed by your surgeon. IF YOU TAKE BLOOD THINNERS OR ASPIRIN: Continue aspirin Shower with an antibacterial soap such as Dial or Safeguard or shower kit provided to you before coming to the hospital. No makeup, lotion, powder, deodorant or body spays. No hair products. Remove all jewelry and leave it at home. Wear loose comfortable clothing to go home in. You may brush your teeth morning of surgery. Do not wear contacts day of surgery. No marijuana (THC), smoking or alcohol for 24 hours prior to surgery. Please arrange for a responsible adult to drive you home after your surgery and that there is a responsible adult with you for 24 hours post discharge. If you have specific questions, please call your surgeon. You will receive a call the day before your surgery to verify your arrival time and date. You will be asked to arrive at least two hours prior to your scheduled surgery time. Please bring your [facility] Surgical folder and medication list with you day of surgery. We encourage you to write down any questions you may have for the surgeon, anesthesiologist, or other members of the surgical team and bring it with you the day of surgery. Please bring photo ID and insurance information. [facility] Progress Noteon 12-26-2023 Progress Note [facility] Fan Anette : 1945 Primary Care Physician: Marcella Laird The patient and/or family/surrogate voluntarily agreed to participate in ACP services. Patient?s cognitive capacity: FULL Code Status: [_X] [FULL CODE - Continue all advanced life support: CPR,intubation,invasive procedures] [_] [DNR-CCA - DO NOT do CPR, intubation] [_] [DNR-VACATION PLANNER - Comfort care only] [_] DNR form [was/was not] signed Summary of discussion: The patient HCPOA is the following: NONE. The patient DPOA is the following: NONE. [Condition that instigated the ACP on this DOS, relevant PMH, functional status, goals of care, and whom this was discussed with including names and relationship to the patient, and any relevant advance care documentation discussion] I answered all the patient/family questions that I could within the range and scope of the current medical situation. We discussed the medical conditions, risks, benefits, outcomes, and goals of care at this time for the patient's medical issues at hand in the face of the patient's chronic issues and current presentation. Total time spent: 5 minutes were spent discussing the patient's resuscitation status, advance care planning, and end of life care, with patient and/or family/surrogate. GUSTAVO KATZ PA-C Acute care [facility] 12/26/2023, 11:09 AM [facility] 36on 11-06-2023 36 PAT Orders Signed. Patient is on Aspirin and will need to contact the prescriber for management for the surgery. [facility] 36on 10-30-2023 36 Please enter PAT ord ers [id number] @ 1015 @ [place] Consent-Endoscopic RIGHT carpal tunnel release, possible open, Right dorsal radiocarpal wrist injection-[id number], [id number] [id number] Anesthesia-MAC/Local PAT- 12-26-2023 @ [facility] @ [id number] [id number] [facility] 36 ----- Message from Kit Kennedy ATC sent at 10/30/2023 10:43 AM EST ----- STEFFANIE SURGERY SCHEDULING SLIP Patient: Fan Cheema Date of : 1945 Date of Surgery: Next available Day of Surgery: Friday Hospital: [place] Duration: 30min Type: Outpatient PAT: Yes Med Clearance: No Anesthesia: MAC/Local Block: None Position: Supine Table: Stretcher Arm Board: Roll-up arm table Radiology: None CPT Code: 31230/88888 Consent: Endoscopic RIGHT carpal tunnel release, possible open, Right dorsal radiocarpal wrist injection FollowUp: Rita in 10-14 days XRays: No OT Splint needed at first PO appointment: No Special Requests Arthrex centerline endoscopic carpal tunnel setup [facility] Office Visiton 10-30-2023 Follow-up visit [id number] Fan Cheema 1945 F Date Provider Department Center 10/30/2023 [id number] None No family history on file Level of Service:84840 MT OFFICE/OUTPATIENT NEW LOW MDM 30 MINUTES Reason for Visit and Comments: Fracture [[id number]] - 2nd opinion from [employer] [facility] Right distal radius fracture, DOI 01/12/23 [facility] Progress Noteon 10-30-2023 Progress Note [facility] [address] [place] [address] Dept: [phone] Dept 10/30/2023 Chief Complaint Patient presents with Fracture 2nd opinion from [facility] Right distal radius fracture, DOI 01/12/23 HISTORY Fan Cheema is a 78 y.o. right handed female that presents for evaluation and treatment after sustaining an injury to her RIGHT wrist that occurred 10 months ago. She was treated conservatively at [facility] and is here today for a second opinion. Her main complaint today is right dorsal wrist swelling, right thumb CMC pain, and right hand numbness. Mechanism of injury - Mechanical fall at gas station. Treatment up to this point has consisted of short arm cast for 6 weeks, cock up wrist splint for approximately 6 weeks, Occupational therapy for approximately 8 weeks. She has had a previous carpal tunnel injection which provided little to no relief. No results found for: HGBA1C She was initially treated for a right distal radius conservatively with cast immobilization and progressive therapy. has had persistent pain along the dorsal radial wrist with limited range of motion since her injury. Also has numbness and tingling to the hand radial 3 digits. has had an injection in the dorsum of her wrist which did not improve her symptoms. Also states she had an injection into her carpal tunnel which caused a fire sensation into her thumb index and middle fingers. She states she does not want to consider any additional injections. OBJECTIVE BP 132/68 Ht 5' 8 (1.727 m) Wt 190 lb (86.2 kg) BMI 28.89 kg/m? Ortho Exam Mild soft tissue swelling along the dorsal radial wrist. Nontender palpation throughout. Wrist ROM: Flexion 60? Extension 60? Supination 80? Pronation 80? RIGHT Atrophy THENAR (mild) Tinel's at Wrist negative Carpal Compression POSITIVE Tinel's at Elbow negative Flexion/Compression Elbow negative Ulnar Nerve Subluxation not appreciated APB Strength 5/5 Intrinsic Strength 5/5 IMAGING Plain films were taken today and reviewed by myself in office. 3V WRIST (AP, Oblique, and LAT) show mild distal radius malunion with neutral tilt. Nonunited ulnar styloid. Right Upper extremity EMG/NCT dated 06/04/23 shows: PROCEDURE None ASSESSMENT (S52.571G) Other closed intra-articular fracture of distal end of right radius with malunion, subsequent encounter (G56.01) Carpal tunnel syndrome of right wrist 1. Other closed intra-articular fracture of distal end of right radius with malunion, subsequent encounter 2. Carpal tunnel syndrome of right wrist PLAN I discussed with Fan the natural history, expected outcome, and risks/benefits of both operative and nonoperative management of her particular diagnosis relative to her age, activity level, most recent imaging, and physical exam. Fan has a very slight distal radius malunion but otherwise her x-rays are largely benign. I told her she could consider an injection into her dorsal radial wrist but she declined. I do not have much else to offer her from a surgical standpoint regarding her previous wrist fracture. I explained that I could help her with her numbness and tingling in the radial 3 digits worse at night. For that I recommend either another injection or carpal tunnel decompression. She was adamant she did not want to consider a carpal tunnel injection by myself but would consider carpal tunnel decompression. She be scheduled for endoscopic carpal tunnel decompression in the same setting I plan to inject her right wrist. I had an extensive discussion with Ms. Fan Dinhkatrinnehemiah regarding the natural history, etiology, and terminal carman consequences of her condition. We discussed both operative and non operative treatment options and aFn Cheema elected to proceed with surgical intervention. I have discussed with Ms. Fan Cheema the potential complications, limitations, expectations, alternatives, and risks of the proposed surgical procedure. Risks discussed include but are not limited to the risk of infection, iatrogenic injury to normal neurovascular structures, persistent pain and disability, unsightly scar, stiffness, complex regional pain syndrome, loss of limb, myocardial infarction, deep vein thrombosis, pulmonary embolism and even . We also discussed the potential risk of COVID-19 exposure or infection and how it could alter her post operative recovery course. She has had full opportunity to ask her questions. I have answered them all to her satisfaction. I feel that Ms. Fan Cheema does understand our discussion today and she is comfortable providing informed consent for the procedure. Follow-up: Fan will followup with my physician entry level marketing assistant, Gabi Salinas PA-C post operatively. She knows to call the office with any questions or concerns in the (more content not included)... [facility] 36on 10-01-2023 36 Patient scheduled 10-30-2023 [facility] 36on 09-30-2023 36 Patient daughter wor ks at [facility] in recovery, She is calling Second opinion wrist pain. Patient had a fracture January 2023 that was treated non-op, she is unsure what type of fracture she had. She also had a recent EMG/NCT but is unsure what the results were. Requested she reach out to her provider to get records of fracture and treatment as well as EMG and recent office notes sent to office prior to scheduling. Requested call back with additional questions or concerns. [facility] Absolute lymphocyte countOrd ered By: Marisela Crawford on 07-11-2023 Lymphocytes Auto (Unsp spec) [#/Vol] 1.48 10*3/uL 0.83-4.51 [facility] Basophil percentageOrdered B y: Marisela Crawford on 07-11-2023 Basophils/100 WBC (Bld) 0.8 % 0-1 [facility] Chloride [Moles/Vol] 106 mmol/L 98-107 [place] Eosinophils/100 WBC (Bld) 3.0 % 0-5 [facility] Glucose [Mass/Vol] 98 mg/dL 74-106 [facility] Neutrophils (Bld) [#/Vol] 5.0 10*3/uL 2.0-7.7 [facility] Neutrophils/100 WBC (Bld) 65.5 % 47-70 [facility] Potassium [Moles/Vol] 3.6 mmol/L 3.5-5.1 [facility] Sodium [Moles/Vol] 138 mmol/L 136-145 [facility] WBC (Bld) [#/Vol] 7.6 10*3/uL 4.4-11.0 [facility] Blood erythrocytes count (nu mber/volume)Ordered By: Marisela Crawford on 07-11-2023 RBC (Bld) [#/Vol] 4.33 10*6/uL 4.2-5.4 [facility] Blood hemoglobin measurement (mass/volume)Ordered By: Marisela Crawford on 07-11-2023 Hemoglobin (Bld) [Mass/Vol] 13.3 g/dL 12.0-15.0 [facility] Blood lymphocytes/100 leukoc ytesOrdered By: Marisela Crawford on 07-11-2023 Lymphocytes/100 WBC (Bld) 19.6 % 19-41 [facility] Blood monocytes/100 leukocyt esOrdered By: Marisela Crawford on 07-11-2023 Monocytes/100 WBC (Bld) 10.8 % 0-10 [facility] Blood platelet mean volumeOr dered By: Marisela Crawford on 07-11-2023 Platelet mean volume (Bld) [Entitic vol] 11.3 fL 6.2-12.0 [facility] Determination of erythrocyte mean corpuscular volume (MCV)Ordered By: Marisela Crawford on 07-11-2023 MCV (RBC) [Entitic vol] 93.3 fL 81-99 [facility] Hematocrit Auto (Bld) [Volum e fraction]Ordered By: Marisela Crawford on 07-11-2023 Hematocrit (Bld) [Volume fraction] 40.4 % 37-47 [facility] Laboratory - Chemistry and C hemistry - challengeOrdered By: Marisela Crawford on 07-11-2023 CO2 [Moles/Vol] 28.0 mmol/L 21.0-32.0 [facility] Free T4 [Mass/Vol] 1.12 ng/dL 0.76-1.46 [facility] Urea nitrogen/Creatinine [Mass ratio] 13.6 mg/mg 10-20 [facility] Laboratory - Hematology and Cell countsOrdered By: Marisela Crawford on 07-11-2023 Erythrocyte distribution width (RBC) [Entitic vol] 41.8 fL 35.1-43.9 [facility] Erythrocyte distribution width (RBC) [Ratio] 12.1 % 11.6-14.6 [facility] Immature granulocytes/100 WBC (Bld) 0.300 % 0.0-0.9 [facility] Comment on above: IG% - Immature Granu locytes (promyelocytes, myelocytes and metamyelocytes) > 1% indicates that a LEFT SHIFT is Present. MCH (RBC) [Entitic mass] 30.7 pg 27.0-32.0 [facility] Nucleated RBC/100 WBC (Bld) [Ratio] 0 % 0-5 [facility] MCHC Auto (RBC) [Mass/Vol]Or dered By: Marisela Crawford on 07-11-2023 MCHC (RBC) [Mass/Vol] 32.9 g/dL 32-36 [facility] No Panel InformationOrdered By: Marisela Crawford on 07-11-2023 Estimated GFR (MDRD) Amer 50 mL/min >60 [facility] Comment on above: GFR Calc Estimated GFR (MDRD) Non-Af Amer 41 mL/min >60 [facility] Comment on above: Non- GFR Calc Free Triiodothyronine (T3) pg/dL 2.4 pg/mL 2.18-3.98 [facility] Thyroid Stimulating Hormone (TSH) 2.31 uIU/mL 0.358-3.74 [facility] Vitamin D 25-Hydroxy 51.3 ng/mL [facility] Comment on above: Vitamin D 25(OH) Sta tus Range Deficiency <20 ng/mL (50nmol/L) Insufficiency 20 - 30 ng/mL (50 - 75 nmol/L) Sufficiency 30 - 100 ng/mL (75 - 250 nmol/L) Toxicity >100 ng/mL (>250 nmol/L) Platelets bldOrdered By: Calos Crawford on 07-11-2023 Platelets (Bld) [#/Vol] 210 10*3/uL 150-450 [facility] Serum or plasma calcium samantha urement (mass/volume)Ordered By: Marisela Crawford on 07-11-2023 Calcium [Mass/Vol] 9.5 mg/dL 8.5-10.1 [facility] Serum or plasma creatinine m easurement (mass/volume)Ordered By: Marisela Crawford on 07-11-2023 Creatinine [Mass/Vol] 1.32 mg/dL 0.55-1.02 [facility] Comment on above: The validity of the calculated GFR & GFRAA in patients over 70 years has not been determined. Clinical correlation is essential. Serum or plasma urea nitroge n measurement (mass/volume)Ordered By: Marisela Crawford on 07-11-2023 Urea nitrogen [Mass/Vol] 18 mg/dL 7-18 [facility] Thin prep Papanicolaou smear with manual screeningOrdered By: Marisela Crawford on 07-11-2023 Thin prep Papanicolaou smear with manual screening 4 5-15 [facility] Basophil percentageOrdered B y: Marisela Crawford on 05-26-2023 Bilirubin [Mass/Vol] 0.60 mg/dL 0.20-1.00 [facility] Comment on above: For patients on eltr ombopag therapy, use of Dimension [place] TBIL is not recommended. Chloride [Moles/Vol] 105 mmol/L 98-107 [facility] Cholesterol [Mass/Vol] 239 mg/dL <200 [facility] Comment on above: <200 mg/dL Desirable 200-240 mg/dL Borderline >240 mg/dL High Risk Glucose [Mass/Vol] 99 mg/dL 74-106 [facility] Potassium [Moles/Vol] 4.1 mmol/L 3.5-5.1 [facility] Protein [Mass/Vol] 6.9 g/dL 6.4-8.2 [facility] Sodium [Moles/Vol] 138 mmol/L 136-145 [facility] Triglyceride [Mass/Vol] 110 mg/dL <199 [facility] Comment on above: The drugs N-Acetylcy steine and Metamizole may falsely depress this assay.Serum Triglycerides Reference Interval Normal <150 mg/dL Borderline high 150 - 199 mg/dL High 200 - 499 mg/dL Very High > or = 500 mg/dL Direct bilirubinOrdered By: Marisela Crawford on 05-26-2023 Bilirubin.direct [Mass/Vol] 0.15 mg/dL 0.00-0.30 [facility] Laboratory - Chemistry and C hemistry - challengeOrdered By: Marisela Crawford on 05-26-2023 ALP [Catalytic activity/Vol] 113 U/L 45-117 [facility] ALT [Catalytic activity/Vol] 26 U/L 13-56 [facility] CO2 [Moles/Vol] 27.0 mmol/L 21.0-32.0 [facility] Globulin (S) [Mass/Vol] 3.6 g/dL 2.2-4.2 [facility] Urea nitrogen/Creatinine [Mass ratio] 15.2 mg/mg 10-20 [facility] No Panel InformationOrdered By: Marisela Crawford on 05-26-2023 Estimated GFR (MDRD) Amer 53 mL/min >60 [facility] Comment on above: GFR Calc Estimated GFR (MDRD) Non-Af Amer 44 mL/min >60 [facility] Comment on above: Non- GFR Calc Serum or plasma albumin samantha urement (mass/volume)Ordered By: Marisela Crawford on 05-26-2023 Albumin [Mass/Vol] 3.3 g/dL 3.2-5.0 [facility] Serum or plasma calcium samantha urement (mass/volume)Ordered By: Marisela Crawford on 05-26-2023 Calcium [Mass/Vol] 9.0 mg/dL 8.5-10.1 [facility] Serum or plasma cholesterol in HDL measurement (mass/volume)Ordered By: Marisela Crawford on 05-26-2023 Cholesterol in HDL [Mass/Vol] 74 mg/dL >40 [facility] Comment on above: The drugs N-Acetylcy steine and Metamizole may falsely depress this assay. Reference Range HDL <40 mg/dL Low HDL Cholesterol HDL >or= 60 mg/dL High HDL Cholesterol Serum or plasma cholesterol in VLDL measurement (mass/volume)Ordered By: Marisela Crawford on 05-26-2023 Cholesterol in VLDL [Mass/Vol] 22 mg/dL 5-40 [facility] Serum or plasma creatinine m easurement (mass/volume)Ordered By: Marisela Crawford on 05-26-2023 Creatinine [Mass/Vol] 1.25 mg/dL 0.55-1.02 [facility] Comment on above: The validity of the calculated GFR & GFRAA in patients over 70 years has not been determined. Clinical correlation is essential. Serum or plasma low density lipoprotein (LDL) cholesterol measurement (mass/volume)Ordered By: Marisela Crawford on 05-26-2023 Cholesterol in LDL [Mass/Vol] 143 mg/dL 0-130 [facility] Serum or plasma urea nitroge n measurement (mass/volume)Ordered By: Marisela Crawford on 05-26-2023 Urea nitrogen [Mass/Vol] 19 mg/dL 7-18 [facility] Thin prep Papanicolaou smear with manual screeningOrdered By: Marisela Crawford on 05-26-2023 Thin prep Papanicolaou smear with manual screening 28 U/L 15-37 [facility] Thin prep Papanicolaou smear with manual screening 6 5-15 [facility] Basophil percentageOrdered B y: Marisela Crawford on 11-29-2022 Chloride [Moles/Vol] 108 mmol/L 98-107 [facility] Glucose [Mass/Vol] 121 mg/dL 74-106 [facility] Comment on above: Fasting Glucose resu lt from 100 to 125 mg/dL suggests IMPAIRED HOMEOSTASIS per A.D.A. criteria. Potassium [Moles/Vol] 4.2 mmol/L 3.5-5.1 [facility] Sodium [Moles/Vol] 142 mmol/L 136-145 [facility] Laboratory - Chemistry and C hemistry - challengeOrdered By: Marisela Crawford on 11-29-2022 CO2 [Moles/Vol] 30.0 mmol/L 21.0-32.0 [facility] Natriuretic peptide B (Bld) [Mass/Vol] 67.5 pg/mL 0-100 [facility] Urea nitrogen/Creatinine [Mass ratio] 20.7 mg/mg 10-20 [facility] No Panel InformationOrdered By: Marisela Crawford on 11-29-2022 Estimated GFR (MDRD) Amer 55 mL/min >60 [facility] Comment on above: GFR Calc Estimated GFR (MDRD) Non-Af Amer 46 mL/min >60 [facility] Comment on above: Non- GFR Calc Serum or plasma calcium samantha urement (mass/volume)Ordered By: Marisela Crawford on 11-29-2022 Calcium [Mass/Vol] 9.3 mg/dL 8.5-10.1 [facility] Serum or plasma creatinine m easurement (mass/volume)Ordered By: Marisela Crawford on 11-29-2022 Creatinine [Mass/Vol] 1.21 mg/dL 0.55-1.02 [facility] Comment on above: The validity of the calculated GFR & GFRAA in patients over 70 years has not been determined. Clinical correlation is essential. Serum or plasma urea nitroge n measurement (mass/volume)Ordered By: Marisela Crawford on 11-29-2022 Urea nitrogen [Mass/Vol] 25 mg/dL 7-18 [facility] Thin prep Papanicolaou smear with manual screeningOrdered By: Marisela Crawford on 11-29-2022 Thin prep Papanicolaou smear with manual screening 4 5-15 [facility] Absolute lymphocyte countOrd ered By: Dr. Crabtree on 08-19-2022 Lymphocytes Auto (Unsp spec) [#/Vol] 1.84 10*3/uL 0.83-4.51 [facility] Basophil percentageOrdered B y: Dr. Crabtree on 08-19-2022 Basophils/100 WBC (Bld) 0.8 % 0-1 [facility] Chloride [Moles/Vol] 106 mmol/L 98-107 [facility] Eosinophils/100 WBC (Bld) 1.3 % 0-5 [facility] Glucose [Mass/Vol] 91 mg/dL 74-106 [facility] Neutrophils (Bld) [#/Vol] 4.7 10*3/uL 2.0-7.7 [facility] Neutrophils/100 WBC (Bld) 61.5 % 47-70 [facility] Potassium [Moles/Vol] 4.0 mmol/L 3.5-5.1 [facility] Sodium [Moles/Vol] 140 mmol/L 136-145 [facility] WBC (Bld) [#/Vol] 7.6 10*3/uL 4.4-11.0 [facility] Blood erythrocytes count (nu mber/volume)Ordered By: Dr. Crabtree on 08-19-2022 RBC (Bld) [#/Vol] 4.23 10*6/uL 4.2-5.4 [facility] Blood hemoglobin measurement (mass/volume)Ordered By: Dr. Crabtree on 08-19-2022 Hemoglobin (Bld) [Mass/Vol] 13.3 g/dL 12.0-15.0 [facility] Blood lymphocytes/100 leukoc ytesOrdered By: Dr. Crabtree on 08-19-2022 Lymphocytes/100 WBC (Bld) 24.1 % 19-41 [facility] Blood monocytes/100 leukocyt esOrdered By: Dr. Crabtree on 08-19-2022 Monocytes/100 WBC (Bld) 12.0 % 0-10 [facility] Blood platelet mean volumeOr dered By: Dr. Crabtree on 08-19-2022 Platelet mean volume (Bld) [Entitic vol] 10.6 fL 6.2-12.0 [facility] Determination of erythrocyte mean corpuscular volume (MCV)Ordered By: Dr. Crabtree on 08-19-2022 MCV (RBC) [Entitic vol] 94.1 fL 81-99 [facility] Hematocrit Auto (Bld) [Volum e fraction]Ordered By: Dr. Crabtree on 08-19-2022 Hematocrit (Bld) [Volume fraction] 39.8 % 37-47 [facility] Laboratory - Chemistry and C hemistry - challengeOrdered By: Dr. Crabtree on 08-19-2022 CO2 [Moles/Vol] 27.0 mmol/L 21.0-32.0 [facility] Urea nitrogen/Creatinine [Mass ratio] 14.0 mg/mg 10-20 [facility] Laboratory - Hematology and Cell countsOrdered By: Dr. Crabtree on 08-19-2022 Erythrocyte distribution width (RBC) [Entitic vol] 42.6 fL 35.1-43.9 [facility] Erythrocyte distribution width (RBC) [Ratio] 12.3 % 11.6-14.6 [facility] Immature granulocytes/100 WBC (Bld) 0.300 % 0.0-0.9 [facility] Comment on above: IG% - Immature Granu locytes (promyelocytes, myelocytes and metamyelocytes) > 1% indicates that a LEFT SHIFT is Present. MCH (RBC) [Entitic mass] 31.4 pg 27.0-32.0 [facility] Nucleated RBC/100 WBC (Bld) [Ratio] 0 % 0-5 [facility] MCHC Auto (RBC) [Mass/Vol]Or dered By: Dr. Crabtree on 08-19-2022 MCHC (RBC) [Mass/Vol] 33.4 g/dL 32-36 [facility] No Panel InformationOrdered By: Dr. Crabtree on 08-19-2022 Estimated Creatinine Clearance Calc 42.82 ml/min [facility] Estimated GFR (MDRD) Amer 64 mL/min >60 [facility] Comment on above: GFR Calc Estimated GFR (MDRD) Non-Af Amer 53 mL/min >60 [facility] Comment on above: Non- GFR Calc Troponin I High Sensitivity 22 pg/mL 3.0-54.0 [facility] Comment on above: Please Note: New [place]n t Units and Gender Specific Reference Ranges. For more information see Policy Stat Procedure [place] High Sensitivity Troponin (TNIH) and attachments. Platelets bldOrdered By: Dr. Crabtree on 08-19-2022 Platelets (Bld) [#/Vol] 204 10*3/uL 150-450 [facility] Serum or plasma calcium samantha urement (mass/volume)Ordered By: Dr. Crabtree on 08-19-2022 Calcium [Mass/Vol] 9.6 mg/dL 8.5-10.1 [facility] Serum or plasma creatinine m easurement (mass/volume)Ordered By: Dr. Crabtree on 08-19-2022 Creatinine [Mass/Vol] 1.07 mg/dL 0.55-1.02 [facility] Comment on above: The validity of the calculated GFR & GFRAA in patients over 70 years has not been determined. Clinical correlation is essential. Serum or plasma urea nitroge n measurement (mass/volume)Ordered By: Dr. Crabtree on 08-19-2022 Urea nitrogen [Mass/Vol] 15 mg/dL 7-18 [facility] Thin prep Papanicolaou smear with manual screeningOrdered By: Dr. Crabtree on 08-19-2022 Thin prep Papanicolaou smear with manual screening 7 5-15 [facility] Absolute lymphocyte countOrd ered By: Dr. Sanchez on 08-07-2022 Lymphocytes Auto (Unsp spec) [#/Vol] 1.68 10*3/uL 0.83-4.51 [facility] Basophil percentageOrdered B y: Dr. Sanchez on 08-07-2022 Basophils/100 WBC (Bld) 0.6 % 0-1 [facility] Eosinophils/100 WBC (Bld) 2.9 % 0-5 [facility] Neutrophils (Bld) [#/Vol] 4.0 10*3/uL 2.0-7.7 [facility] Neutrophils/100 WBC (Bld) 59.9 % 47-70 [facility] WBC (Bld) [#/Vol] 6.6 10*3/uL 4.4-11.0 [facility] Basophil percentageOrdered B y: Dr. Meyers on 08-07-2022 Bilirubin [Mass/Vol] 0.60 mg/dL 0.20-1.00 [facility] Comment on above: For patients on eltr ombopag therapy, use of Dimension [place] TBIL is not recommended. Chloride [Moles/Vol] 109 mmol/L 98-107 [facility] Glucose [Mass/Vol] 90 mg/dL 74-106 [facility] Potassium [Moles/Vol] 4.3 mmol/L 3.5-5.1 [facility] Comment on above: Slight Hemolysis, Re sult may be falsely increased. Protein [Mass/Vol] 6.5 g/dL 6.4-8.2 [facility] Sodium [Moles/Vol] 139 mmol/L 136-145 [facility] Blood erythrocytes count (nu mber/volume)Ordered By: Dr. Sanchez on 08-07-2022 RBC (Bld) [#/Vol] 3.86 10*6/uL 4.2-5.4 [facility] Blood hemoglobin measurement (mass/volume)Ordered By: Dr. Sanchez on 08-07-2022 Hemoglobin (Bld) [Mass/Vol] 12.4 g/dL 12.0-15.0 [facility] Blood lymphocytes/100 leukoc ytesOrdered By: Dr. Sanchez on 08-07-2022 Lymphocytes/100 WBC (Bld) 25.3 % 19-41 [facility] Blood monocytes/100 leukocyt esOrdered By: Dr. Sanchez on 08-07-2022 Monocytes/100 WBC (Bld) 11.0 % 0-10 [facility] Blood platelet mean volumeOr dered By: Dr. Sanchez on 08-07-2022 Platelet mean volume (Bld) [Entitic vol] 11.4 fL 6.2-12.0 [facility] Determination of erythrocyte mean corpuscular volume (MCV)Ordered By: Dr. Sanchez on 08-07-2022 MCV (RBC) [Entitic vol] 93.5 fL 81-99 [facility] Hematocrit Auto (Bld) [Volum e fraction]Ordered By: Dr. Sanchez on 08-07-2022 Hematocrit (Bld) [Volume fraction] 36.1 % 37-47 [facility] Laboratory - Chemistry and C hemistry - challengeOrdered By: Dr. Meyers on 08-07-2022 ALP [Catalytic activity/Vol] 105 U/L 45-117 [facility] ALT [Catalytic activity/Vol] 29 U/L 13-56 [facility] CO2 [Moles/Vol] 24.0 mmol/L 21.0-32.0 [facility] Globulin (S) [Mass/Vol] 3.4 g/dL 2.2-4.2 [facility] Urea nitrogen/Creatinine [Mass ratio] 12.7 mg/mg 10-20 [facility] Laboratory - Hematology and Cell countsOrdered By: Dr. Sanchez on 08-07-2022 Erythrocyte distribution width (RBC) [Entitic vol] 42.4 fL 35.1-43.9 [facility] Erythrocyte distribution width (RBC) [Ratio] 12.2 % 11.6-14.6 [facility] Immature granulocytes/100 WBC (Bld) 0.300 % 0.0-0.9 [facility] Comment on above: IG% - Immature Granu locytes (promyelocytes, myelocytes and metamyelocytes) > 1% indicates that a LEFT SHIFT is Present. MCH (RBC) [Entitic mass] 32.1 pg 27.0-32.0 [facility] Nucleated RBC/100 WBC (Bld) [Ratio] 0 % 0-5 [facility] MCHC Auto (RBC) [Mass/Vol]Or dered By: Dr. Sanchez on 08-07-2022 MCHC (RBC) [Mass/Vol] 34.3 g/dL 32-36 [facility] No Panel InformationOrdered By: Dr. Meyers on 08-07-2022 Estimated Creatinine Clearance Calc 41.65 ml/min [facility] Estimated GFR (MDRD) Amer 62 mL/min >60 [facility] Comment on above: GFR Calc Estimated GFR (MDRD) Non-Af Amer 51 mL/min >60 [facility] Comment on above: Non- GFR Calc Platelets bldOrdered By: Dr. Sanchez on 08-07-2022 Platelets (Bld) [#/Vol] 186 10*3/uL 150-450 [facility] Serum or plasma albumin samantha urement (mass/volume)Ordered By: Dr. Meyers on 08-07-2022 Albumin [Mass/Vol] 3.1 g/dL 3.2-5.0 [facility] Serum or plasma albumin/glob ulin mass ratioOrdered By: Dr. Meyers on 08-07-2022 Albumin/Globulin [Mass ratio] 0.9 {ratio} 0.9-2.4 [facility] Serum or plasma calcium samantha urement (mass/volume)Ordered By: Dr. Meyers on 08-07-2022 Calcium [Mass/Vol] 8.6 mg/dL 8.5-10.1 [facility] Serum or plasma creatinine m easurement (mass/volume)Ordered By: Dr. Meyers on 08-07-2022 Creatinine [Mass/Vol] 1.10 mg/dL 0.55-1.02 [facility] Comment on above: The validity of the calculated GFR & GFRAA in patients over 70 years has not been determined. Clinical correlation is essential. Serum or plasma urea nitroge n measurement (mass/volume)Ordered By: Dr. Meyers on 08-07-2022 Urea nitrogen [Mass/Vol] 14 mg/dL -18 [facility] Thin prep Papanicolaou smear with manual screeningOrdered By: Dr. Meyers on 08-07-2022 Thin prep Papanicolaou smear with manual screening 40 U/L 15-37 [facility] Comment on above: Slight Hemolysis, Re sult may be falsely increased. Thin prep Papanicolaou smear with manual screening 6 5-15 [facility] Basophil percentageOrdered B y: Dr. Sanchez on 07-17-2022 Cholesterol [Mass/Vol] 263 mg/dL <200 [facility] Comment on above: <200 mg/dL Desirable 200-240 mg/dL Borderline >240 mg/dL High Risk Triglyceride [Mass/Vol] 105 mg/dL <199 [facility] Comment on above: The drugs N-Acetylcy steine and Metamizole may falsely depress this assay.Serum Triglycerides Reference Interval Normal <150 mg/dL Borderline high 150 - 199 mg/dL High 200 - 499 mg/dL Very High > or = 500 mg/dL Direct bilirubinOrdered By: Dr. Sanchez on 07-17-2022 Bilirubin.direct [Mass/Vol] 0.12 mg/dL 0.00-0.30 [facility] INR in Blood by Coagulation assayOrdered By: Dr. Sanchez on 07-17-2022 INR Coag (Bld) [Relative time] 1.0 {INR} [facility] Laboratory - CoagulationOrde red By: Dr. Sanchez on 07-17-2022 aPTT Coag (Bld) [Time] 28.1 s 24.1-36.2 [facility] PT Coag (PPP) [Time] 12.6 s 11.7-14.9 [facility] Serum or plasma cholesterol in HDL measurement (mass/volume)Ordered By: Dr. Sanchez on 07-17-2022 Cholesterol in HDL [Mass/Vol] 76 mg/dL >40 [facility] Comment on above: The drugs N-Acetylcy steine and Metamizole may falsely depress this assay. Reference Range HDL <40 mg/dL Low HDL Cholesterol HDL >or= 60 mg/dL High HDL Cholesterol Serum or plasma cholesterol in VLDL measurement (mass/volume)Ordered By: Dr. Sanchez on 07-17-2022 Cholesterol in VLDL [Mass/Vol] 21 mg/dL 5-40 [facility] Serum or plasma low density lipoprotein (LDL) cholesterol measurement (mass/volume)Ordered By: Dr. Sanchez on 07-17-2022 Cholesterol in LDL [Mass/Vol] 166 mg/dL 0-130 [facility] Absolute lymphocyte counton 06-10-2022 Lymphocytes Auto (Unsp spec) [#/Vol] 2.03 10*3/uL 0.83-4.51 [facility] Work Phone: Basophil percentageon 2021 Basophils/100 WBC (Bld) 0.8 % 0-1 [facility] Work Phone: Chloride [Moles/Vol] 108 mmol/L 98-107 [facility] Work Phone: Eosinophils/100 WBC (Bld) 1.8 % 0-5 [facility] Work Phone: Glucose [Mass/Vol] 109 mg/dL 74-106 [facility] Work Phone: Comment on above: Fasting Glucose resu lt from 100 to 125 mg/dL suggests IMPAIRED HOMEOSTASIS per A.D.A. criteria. Neutrophils (Bld) [#/Vol] 5.2 10*3/uL 2.0-7.7 [facility] Work Phone: Neutrophils/100 WBC (Bld) 60.9 % 47-70 [facility] Work Phone: [phone] Potassium [Moles/Vol] 4.2 mmol/L 3.5-5.1 [facility] Work Phone: Sodium [Moles/Vol] 140 mmol/L 136-145 [facility] Work Phone: WBC (Bld) [#/Vol] 8.5 10*3/uL 4.4-11.0 [facility] Work Phone: [phone] Blood erythrocytes count (nu mber/volume)on 06-10-2022 RBC (Bld) [#/Vol] 4.20 10*6/uL 4.2-5.4 [facility] Work Phone: Blood hemoglobin measurement (mass/volume)on 06-10-2022 Hemoglobin (Bld) [Mass/Vol] 13.3 g/dL 12.0-15.0 [facility] Work Phone: Blood lymphocytes/100 leukoc yteson 06-10-2022 Lymphocytes/100 WBC (Bld) 24.0 % 19-41 [facility] Work Phone: Blood monocytes/100 leukocyt eson 06-10-2022 Monocytes/100 WBC (Bld) 12.3 % 0-10 [facility] Work Phone: Blood platelet mean volumeon 06-10-2022 Platelet mean volume (Bld) [Entitic vol] 10.8 fL 6.2-12.0 [facility] Work Phone: Determination of erythrocyte mean corpuscular volume (MCV)on 06-10-2022 MCV (RBC) [Entitic vol] 95.2 fL 81-99 [facility] Work Phone: Hematocrit Auto (Bld) [Volum e fraction]on 06-10-2022 Hematocrit (Bld) [Volume fraction] 40.0 % 37-47 [facility] Work Phone: Laboratory - Chemistry and C hemistry - challengeon 06-10-2022 CO2 [Moles/Vol] 27.0 mmol/L 21.0-32.0 [facility] Work Phone: Urea nitrogen/Creatinine [Mass ratio] 17.4 mg/mg 10-20 [facility] Work Phone: Laboratory - Hematology and Cell countson 06-10-2022 Erythrocyte distribution width (RBC) [Entitic vol] 40.2 fL 35.1-43.9 [facility] Work Phone: Erythrocyte distribution width (RBC) [Ratio] 11.7 % 11.6-14.6 [facility] Work Phone: Immature granulocytes/100 WBC (Bld) 0.200 % 0.0-0.9 [facility] Work Phone: Comment on above: IG% - Immature Granu locytes (promyelocytes, myelocytes and metamyelocytes) > 1% indicates that a LEFT SHIFT is Present. MCH (RBC) [Entitic mass] 31.7 pg 27.0-32.0 [facility] Work Phone: Nucleated RBC/100 WBC (Bld) [Ratio] 0 % 0-5 [facility] Work Phone: MCHC Auto (RBC) [Mass/Vol]on 06-10-2022 MCHC (RBC) [Mass/Vol] 33.3 g/dL 32-36 [facility] Work [facility]: No Panel Informationon 06-10 Estimated Creatinine Clearance Calc 40.47 ml/min [facility] Work Phone: Estimated GFR (MDRD) Amer 59 mL/min >60 [facility] Work Phone: Comment on above: GFR Calc Estimated GFR (MDRD) Non-Af Amer 49 mL/min >60 [facility] Work Phone: Comment on above: Non- GFR Calc Troponin I High Sensitivity 5 pg/mL 3.0-54.0 [facility] Work Phone: Comment on above: Please Note: New Katelyn t Units and Gender Specific Reference Ranges. For more information see Policy Stat Procedure [place] High Sensitivity Troponin (TNIH) and attachments. Platelets bldon 06-10-2022 Platelets (Bld) [#/Vol] 209 10*3/uL 150-450 [facility] Work Phone: Serum or plasma calcium samantha urement (mass/volume)on 06-10-2022 Calcium [Mass/Vol] 9.3 mg/dL 8.5-10.1 [facility] Work Phone: Serum or plasma creatinine m easurement (mass/volume)on 06-10-2022 Creatinine [Mass/Vol] 1.15 mg/dL 0.55-1.02 [facility] Work Phone: Comment on above: The validity of the calculated GFR & GFRAA in patients over 70 years has not been determined. Clinical correlation is essential. Serum or plasma urea nitroge n measurement (mass/volume)on 06-10-2022 Urea nitrogen [Mass/Vol] 20 mg/dL 7-18 [facility] Work Phone: Thin prep Papanicolaou smear with manual screeningon 06-10-2022 Thin prep Papanicolaou smear with manual screening 5 5-15 [facility] Work Phone: Absolute lymphocyte counton 04-03-2022 Lymphocytes Auto (Unsp spec) [#/Vol] 1.75 10*3/uL 0.83-4.51 [facility] Work Phone: Basophil percentageon 2021 Basophil percentage 0-5 SEEN /hpf 0-5 [facility] Work Phone: Basophils/100 WBC (Bld) 0.8 % 0-1 [facility] Work Phone: [phone] Bilirubin [Mass/Vol] 0.50 mg/dL 0.20-1.00 [facility] Work Phone: Comment on above: For patients on eltr ombopag therapy, use of Dimension [place] TBIL is not recommended. Chloride [Moles/Vol] 105 mmol/L 98-107 [facility] Work Phone: Eosinophils/100 WBC (Bld) 1.6 % 0-5 [facility] Work Phone: [phone] Glucose [Mass/Vol] 93 mg/dL 74-106 [facility] Work Phone: Neutrophils (Bld) [#/Vol] 4.9 10*3/uL 2.0-7.7 [facility] Work Phone: Neutrophils/100 WBC (Bld) 65.6 % 47-70 [facility] Work Phone: [phone] Potassium [Moles/Vol] 4.4 mmol/L 3.5-5.1 [facility] Work Phone: [phone] Protein [Mass/Vol] 7.8 g/dL 6.4-8.2 [facility] Work Phone: Sodium [Moles/Vol] 139 mmol/L 136-145 [facility] Work Phone: WBC (Bld) [#/Vol] 7.5 10*3/uL 4.4-11.0 [facility] Work Phone: Bilirubin Test strip Ql (U)o n 04-03-2022 Bilirubin Ql (U) Negative Negative [facility] Work Phone: Blood erythrocytes count (nu mber/volume)on 04-03-2022 RBC (Bld) [#/Vol] 4.18 10*6/uL 4.2-5.4 [facility] Work Phone: Blood hemoglobin measurement (mass/volume)on 04-03-2022 Hemoglobin (Bld) [Mass/Vol] 13.8 g/dL 12.0-15.0 [facility] Work Phone: Blood lymphocytes/100 leukoc yteson 04-03-2022 Lymphocytes/100 WBC (Bld) 23.3 % 19-41 [facility] Work Phone: Blood monocytes/100 leukocyt eson 04-03-2022 Monocytes/100 WBC (Bld) 8.3 % 0-10 [facility] Work Phone: Blood platelet mean volumeon 04-03-2022 Platelet mean volume (Bld) [Entitic vol] 10.7 fL 6.2-12.0 [facility] Work Phone: Determination of erythrocyte mean corpuscular volume (MCV)on 04-03-2022 MCV (RBC) [Entitic vol] 98.1 fL 81-99 [facility] Work Phone: Hematocrit Auto (Bld) [Volum e fraction]on 04-03-2022 Hematocrit (Bld) [Volume fraction] 41.0 % 37-47 [facility] Work Phone: Ketones Test strip Ql (U)on 04-03-2022 Ketones Ql (U) Negative Negative [facility] Work Phone: Laboratory - Chemistry and C hemistry - challengeon 04-03-2022 ALP [Catalytic activity/Vol] 116 U/L 45-117 [facility] Work Phone: ALT [Catalytic activity/Vol] 25 U/L 13-56 [facility] Work Phone: CO2 [Moles/Vol] 30.0 mmol/L 21.0-32.0 [facility] Work Phone: Cobalamin (Vitamin B12) [Mass/Vol] 193 pg/mL 211-911 [facility] Work Phone: Globulin (S) [Mass/Vol] 3.8 g/dL 2.2-4.2 [facility] Work Phone: Urea nitrogen/Creatinine [Mass ratio] 15.7 mg/mg 10-20 [facility] Work Phone: Laboratory - Hematology and Cell countson 04-03-2022 Erythrocyte distribution width (RBC) [Entitic vol] 45.3 fL 35.1-43.9 [facility] Work Phone: Erythrocyte distribution width (RBC) [Ratio] 12.6 % 11.6-14.6 [facility] Work Phone: Immature granulocytes/100 WBC (Bld) 0.400 % 0.0-0.9 [facility] Work Phone: Comment on above: IG% - Immature Granu locytes (promyelocytes, myelocytes and metamyelocytes) > 1% indicates that a LEFT SHIFT is Present. MCH (RBC) [Entitic mass] 33.0 pg 27.0-32.0 [facility] Work Phone: Nucleated RBC/100 WBC (Bld) [Ratio] 0 % 0-5 [facility] Work Phone: MCHC Auto (RBC) [Mass/Vol]on 04-03-2022 MCHC (RBC) [Mass/Vol] 33.7 g/dL 32-36 [facility] Work Phone: Mucus LM Ql (Urine sed)on Mucus Ql (Urine sed) 1+ /hpf [facility] Work Phone: Nitrite Test strip Ql (U)on 04-03-2022 Nitrite Ql (U) Negative Negative [facility] Work Phone: No Panel Informationon 04-03 Estimated GFR (MDRD) Amer 56 mL/min >60 [facility] Work Phone: Comment on above: GFR Calc Estimated GFR (MDRD) Non-Af Amer 46 mL/min >60 [facility] Work Phone: Comment on above: Non- GFR Calc Vitamin D 25-Hydroxy 10.0 ng/mL [facility] Work Phone: Comment on above: Vitamin D 25(OH) Sta tus Range Deficiency <20 ng/mL (50nmol/L) Insufficiency 20 - 30 ng/mL (50 - 75 nmol/L) Sufficiency 30 - 100 ng/mL (75 - 250 nmol/L) Toxicity >100 ng/mL (>250 nmol/L) Platelets bldon 04-03-2022 Platelets (Bld) [#/Vol] 218 10*3/uL 150-450 [facility] Work Phone: Protein Test strip Ql (U)on 04-03-2022 Protein Ql (U) Negative Negative [facility] Work Phone: Serum or plasma albumin samantha urement (mass/volume)on 04-03-2022 Albumin [Mass/Vol] 4.0 g/dL 3.2-5.0 [facility] Work Phone: Serum or plasma albumin/glob ulin mass ratioon 04-03-2022 Albumin/Globulin [Mass ratio] 1.1 {ratio} 0.9-2.4 [facility] Work Phone: Serum or plasma calcium samantha urement (mass/volume)on 04-03-2022 Calcium [Mass/Vol] 9.3 mg/dL 8.5-10.1 [facility] Work Phone: Serum or plasma creatinine m easurement (mass/volume)on 04-03-2022 Creatinine [Mass/Vol] 1.21 mg/dL 0.55-1.02 [facility] Work Phone: Comment on above: The validity of the calculated GFR & GFRAA in patients over 70 years has not been determined. Clinical correlation is essential. Serum or plasma urea nitroge n measurement (mass/volume)on 04-03-2022 Urea nitrogen [Mass/Vol] 19 mg/dL 7-18 [facility] Work Phone: Squamous epithelial cells de tection in urine sediment by light microscopyon 04-03-2022 Epithelial cells.squamous LM Ql (Urine sed) 0-5 SEEN /hpf 5-10 [facility] Work Phone: Thin prep Papanicolaou smear with manual screeningon 04-03-2022 Thin prep Papanicolaou smear with manual screening 27 U/L 15-37 [facility] Work Phone: Thin prep Papanicolaou smear with manual screening 4 5-15 [facility] Work Phone: [phone] Urine blood detectionon 03-20 RBC Ql (U) Negative Negative [facility] Work Phone: RBC Ql (U) 0 SEEN /hpf 0-5 [facility] Work Phone: Urine clarityon 04-03-2022 Clarity (U) Clear Clear [facility] Work Phone: Urine color determinationon 04-03-2022 Color (U) Yellow Yellow [facility] Work Phone: Urine glucose detectionon Glucose Ql (U) Normal mg/dl Normal [facility] Work Phone: Urine leukocyte esterase det ection by dipstickon 04-03-2022 Leukocyte esterase Test strip Ql (U) 25 /ul Negative [facility] Work Phone: Urine pHon 04-03-2022 pH (U) 5.0 [pH] 5.0 - 8.0 [facility] Work Phone: Urine sediment bacteria coun t by microscopy (number/high power field)on 04-03-2022 Bacteria LM.HPF (Urine sed) [#/Area] 1 /[HPF] None Seen [facility] Work Phone: Urine specific gravity measu rementon 04-03-2022 Specific gravity (U) [Rel density] 1.020 1.002-1.030 [facility] Work Phone: Urobilinogen Auto test strip Ql (U)on 04-03-2022 Urobilinogen Ql (U) Normal mg/dl Normal [facility] Work Phone: CNOVon 06-10-2021 CNOV Office Visit ([facility] ) FAN CHEEMA ([id number]) 1945 F TXT Date Time Provider Department 06/10/21 8:45 AM NIKKI ARZOLA [facility] During your visit today, we recorded the following information about you: Temperature Pulse Respiration Blood pressure 97.7 degrees 74/minute 16/minute 132/74 Weight 83 kg Nikki Arzola APRN.[employer]USTRIAL SALES MANAGER 06/10/2021 9:11 AM Signed Subjective HPI HPI Fantwyla Cheema is a 75 year old female who presents today for CC of left ear pain, congestion, fever. This started 4 days ago. Has tried otc medication for relief. Symptoms are worsened by nothing. Risk factors currently covid. .Patient presents with: Ear Pain: right and fever x 4 days, + covid PAST MEDICAL HISTORY Diagnosis Date - Back pain, acute - CKD (chronic kidney disease) stage 3, GFR 30-59 ml/min ([facility]) 08/05/2018 - Diverticulosis of colon (without mention of hemorrhage) Diverticulosis - Normal pressure hydrocephalus ([facility]) 09/18/2016 - Other osteoporosis - Personal history of colonic polyps - Pure hypercholesterolemia - Snoring - Unspecified constipation Constipation - Unspecified hemorrhoids without mention of complication Hemorrhoids - Vitamin B12 deficiency 08/03/2010 PAST SURGICAL HISTORY Procedure Laterality Date - APPENDECTOMY - COLONOSCOP W/ OR W/O [facility] SPEC 04-16-05 Colonoscopy-repeat in - COLONOSCOP W/ OR W/O [facility] SPEC 05/04/15 Colonoscopy - COLONOSCOP W/ OR W/O BRS SPEC 08/09/16 Colonoscopy next time mac - EGD W/O OR W/BRUSH/WASH EGD - LAP COLECTMY W/ILEUM/ILEOCOL Right 9-23-15 - LIGATE FALLOPIAN TUBE Tubal ligation - REMOVAL GALLBLADDER Cholecystectomy - REMOVAL OF TONSILS,<12 Y/O Tonsillectomy ALLERGIES Amoxicillin, Bactrim [Sulfamethoxazole-Trime thoprim], Clarinex [Desloratadine], Clarithromycin, Codeine, Entex La [Phenylephrine-Guaifene sin], Erythromycin, Lipitor [Atorvastatin Calcium], Methylprednisol Sod Suc(Bulk), Neomycin, Nystatin, Pentoxifylline, Triaminic Cold/Cough [Chlorpheniramine-Pseud oeph-Dm], and Vicodin [Hydrocodone-Acetaminop hen] -This section reviewed with patient, no changes MEDICATIONS prochlorperazine (COMPAZINE) 5 mg tablet Take 1 tablet by mouth every 6 hours as needed. for vertigo ibuprofen (MOTRIN) 200 mg tablet Take 200 mg by mouth every 6 hours as needed. VITAMIN B COMPLEX ORAL Take 500 mcg by mouth once daily. cefdinir (OMNICEF) 300 mg capsule Take 1 capsule by mouth twice daily for 10 days. fluticasone (FLONASE) 50 mcg/actuation nasal spray Use 2 Sprays in each nostril once daily. Rinse mouth after use. reviewed FAMILY HISTORY Problem Relation Age of Onset - Heart Mother - Diabetes Sister - Genitourinary () Sister RENAL FAILURE - Heart Sister Social History Tobacco Use - Smoking status: Never Smoker - Smokeless tobacco: Never Used Substance Use Topics - Alcohol use: No - Drug use: No Review of Systems Constitutional: Positive for fever. HENT: Positive for congestion and ear pain. Negative for ear discharge, nosebleeds and sore throat. Respiratory: Positive for cough. Negative for shortness of breath and wheezing. Cardiovascular: Negative for chest pain. Musculoskeletal: Negative for neck pain. Skin: Negative for itching and rash. Objective Blood pressure 132/74, pulse 74, temperature 36.5 ?C (97.7 ?F), resp. rate 16, weight 83 kg (183 lb), SpO2 96 %. Physical Exam Constitutional: General: She is not in acute distress. Appearance: She is not toxic-appearing or diaphoretic. HENT: Head: Normocephalic and atraumatic. Right Ear: Hearing, tympanic membrane and external ear normal. Left Ear: Hearing, ear canal and external ear normal. Tympanic membrane is bulging. Tympanic membrane is not erythematous. Cardiovascular: Rate and Rhythm: Normal rate and regular rhythm. Heart sounds: Normal heart sounds, S1 normal and S2 normal. Pulmonary: Effort: Pulmonary effort is normal. Breath sounds: Normal breath sounds. Neurological: Mental Status: She is alert and oriented to person, place, and time. Gait: Gait is intact. ASSESSMENT/PLAN: 1. ETD (Eustachian tube dysfunction), left - ICD9: 381.81, ICD10: H69.82 Hold atb, take if worsening symptoms Fluticasone first. Return for continued/worsening symptoms. - CEFDINIR 300 MG CAPSULE - FLUTICASONE PROPIONATE 50 MCG/ACTUATION NASAL SPRAY,SUSPENSION Agrees to plan Declines avs Nikki Arzola APRN.INDUSTRIAL SALES MANAGER Referring Provider: SELF [[id number] Allergies As of Date: 06/10/2021 Noted Allergy Reaction AMOXICILLIN 11/22/2019 5 - Intolerance Comments: Develops BAINS, occipital neuralgia symptoms within few days of starting antibiotic BACTRIM (SULFAMETHOXAZOLE-TRIME TH*06/29/2005 CLARINEX (DESLORATADINE) 06/29/2005 CLARITHROMYCIN 12/21/2013 8 - GI Upset CODEINE 06/29/2005 ENTEX LA (PHENYLEPHRINE-GUAIFENE S*06/29/2005 ERYTHROMYCIN 08/21 (more content not included)... [facility] LUISA [facility] (UCTR) FAN CHEEMA ([id number]) 1945 F TXT Date Time Provider Department 06/08/21 [facility] During your visit today, we recorded the following information about you: Odette Callejas APRN.INDUSTRIAL SALES MANAGER 06/08/2021 8:20 AM Signed Patient identified by name and date of . I advised patient the COVID-19 test was positive. The CDC recommends that people refrain from work and isolate themselves until the following criteria are met: 1. At least 24 hours have passed since last fever without the use of fever-reducing medications 2. Other symptoms have improved 3. At least 10 days have passed since symptoms first appeared - Follow-up with your PCP in 3-5 days if symptoms have not improved or sooner if symptoms worsen - Discussed red flags and need for immediate medical evaluation if any occur. - Discussed supportive care treatment with fluids, rest and analgesia. - Discussed expected course of illness Odette Callejas APRN.INDUSTRIAL SALES MANAGER Allergies As of Date: 06/08/2021 Noted Allergy Reaction AMOXICILLIN 11/22/2019 5 - Intolerance Comments: Develops BAINS, occipital neuralgia symptoms within few days of starting antibiotic BACTRIM (SULFAMETHOXAZOLE-TRIME TH*06/29/2005 CLARINEX (DESLORATADINE) 06/29/2005 CLARITHROMYCIN 12/21/2013 8 - GI Upset CODEINE 06/29/2005 ENTEX LA (PHENYLEPHRINE-GUAIFENE S*06/29/2005 ERYTHROMYCIN 08/21/2015 6 - Diarrhea Comments: severe diarrhea LIPITOR (ATORVASTATIN CALCIUM) 06/29/2005 METHYLPREDNISOL SOD SUC(BULK) 02/09/2010 8 - GI Upset NEOMYCIN 08/21/2015 6 - Diarrhea Comments: Not sure if this contributed to diarrhea since was on erythromycin too. NYSTATIN 07/24/2010 2 - Rash PENTOXIFYLLINE 12/05/2014 8 - GI Upset Comments: nauseated TRIAMINIC COLD/COUGH (CHLORPHENIR*06/29/2005 VICODIN (HYDROCODONE-ACETAMINOP HE*11/07/2010 8 - GI Upset Comments: Able to tolerate [place] Date Reviewed: 06/07/2021 Reviewed by: Dayana Campuzano LPN - Fully Assessed Reason for Visit: Results [95] Prescriptions as of 06/08/2021 - prochlorperazine (COMPAZINE) 5 mg tablet Take 1 tablet by mouth every 6 hours as needed. for vertigo - ibuprofen (MOTRIN) 200 mg tablet Take 200 mg by mouth every 6 hours as needed. - VITAMIN B COMPLEX ORAL Take 500 mcg by mouth once daily. 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] 08/12/2007 Labyrinthine Vertigo [H81.09] 06/13/2009 Vitamin B12 deficiency [E53.8] 08/03/2010 04/13/2018 Closed fracture of patella [S82.009A] 08/01/2011 09/30/2014 Sprain of lumbosacral (joint) (ligament) [S33.9*03/11/2014 06/25/2018 Erythema nodosum [L52] 09/30/2014 Lipodermatosclerosis [I83.10] 11/04/2014 Encounter for screening for malignant neoplasm *05/04/2015 05/04/2015 Phlebitis and thrombophlebitis of superficial v*06/01/2015 06/25/2018 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] 08/07/2015 Normal pressure hydrocephalus [G91.2] 09/18/2016 Chills (without fever) [R68.83] 09/18/2016 06/25/2018 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 Family history of coronary artery disease [Z82.*05/15/2018 Cervical radiculopathy [M54.12] 05/19/2018 11/16/2018 CKD (chronic kidney disease) stage 3, GFR 30-59*08/05/2018 CKD (chronic kidney disease) Stage 3, GFR 30-59*01/23/2021 Encounter Status:Closed by ODETTE CALLEJAS on 06/08/21 Normal [facility] CNOVon 06-07-2021 CNOV Office Visit (UCWSTR ) FAN CHEEMA ([id number]) 1945 F TXT Date Time Provider Department 06/07/21 1:30 PM ODETTE CALLEJAS UCWSTR During your visit today, we recorded the following information about you: Temperature Pulse Respiration Blood pressure 99.2 degrees 73/minute 18/minute 128/82 Weight 86.9 kg Odette Callejas APRN.INDUSTRIAL SALES MANAGER 06/07/2021 1:13 PM Signed SUBJECTIVE Fan Cheema is a 75 year old female who presents with 2 days of symptoms that are stable. Symptoms include: Fever (?100.4F): No or Chills: Yes Cough: No Shortness of breath: No or Difficulty breathing: No Fatigue: No Muscle aches: No Headache: Yes New loss of smell or taste: No Sore throat: No Nasal congestion: Yes or Rhinorrhea: Yes Nausea: No or Vomiting: No Diarrhea: No High risk category assessment Age > 60 years old Exposures: Sick contacts? Yes Family or close contacts with confirmed/probable COVID-19 in last 14 days? Yes - tested positive yesterday. She reports that she has never smoked. She has never used smokeless tobacco. BP 128/82 Pulse 73 Temp 37.3 ?C (99.2 ?F) (Tympanic) Resp 18 Wt 86.9 kg (191 lb 9.6 oz) SpO2 99% BMI 29.13 kg/m? PAST MEDICAL HISTORY Diagnosis Date - Back pain, acute - CKD (chronic kidney disease) stage 3, GFR 30-59 ml/min ([facility]) 08/05/2018 - Diverticulosis of colon (without mention of hemorrhage) Diverticulosis - Normal pressure hydrocephalus ([facility]) 09/18/2016 - Other osteoporosis - Personal history of colonic polyps - Pure hypercholesterolemia - Snoring - Unspecified constipation Constipation - Unspecified hemorrhoids without mention of complication Hemorrhoids - Vitamin B12 deficiency 08/03/2010 PAST SURGICAL HISTORY Procedure Laterality Date - APPENDECTOMY - COLONOSCOP W/ OR W/O [facility] SPEC 04-16-05 Colonoscopy-repeat in - COLONOSCOP W/ OR W/O [facility] SPEC 05/04/15 Colonoscopy - COLONOSCOP W/ OR W/O [facility] SPEC 08/09/16 Colonoscopy next time mac - EGD W/O OR W/BRUSH/WASH EGD - LAP COLECTMY W/ILEUM/ILEOCOL Right 07-12-15 - LIGATE FALLOPIAN TUBE Tubal ligation - REMOVAL GALLBLADDER Cholecystectomy - REMOVAL OF TONSILS,<12 Y/O Tonsillectomy ALLERGIES Amoxicillin, Bactrim [Sulfamethoxazole-Trime thoprim], Clarinex [Desloratadine], Clarithromycin, Codeine, Entex La [Phenylephrine-Guaifene sin], Erythromycin, Lipitor [Atorvastatin Calcium], Methylprednisol Sod Suc(Bulk), Neomycin, Nystatin, Pentoxifylline, Triaminic Cold/Cough [Chlorpheniramine-Pseud oeph-Dm], and Vicodin [Hydrocodone-Acetaminop hen] MEDICATIONS prochlorperazine (COMPAZINE) 5 mg tablet Take 1 tablet by mouth every 6 hours as needed. for vertigo ibuprofen (MOTRIN) 200 mg tablet Take 200 mg by mouth every 6 hours as needed. VITAMIN B COMPLEX ORAL Take 500 mcg by mouth once daily. FAMILY HISTORY Problem Relation Age of Onset - Heart Mother - Diabetes Sister - Genitourinary () Sister RENAL FAILURE - Heart Sister Social History Tobacco Use - Smoking status: Never Smoker - Smokeless tobacco: Never Used Substance Use Topics - Alcohol use: No - Drug use: No OBJECTIVE Physical Exam Vitals and nursing note reviewed. HENT: Nose: Congestion present. Mouth/Throat: Mouth: Mucous membranes are moist. Pharynx: Oropharynx is clear. Uvula midline. No oropharyngeal exudate or posterior oropharyngeal erythema. Cardiovascular: Rate and Rhythm: Normal rate and regular rhythm. Heart sounds: Normal heart sounds. Pulmonary: Effort: Pulmonary effort is normal. No respiratory distress. Breath sounds: Normal breath sounds. No wheezing or rales. Musculoskeletal: Cervical back: Neck supple. Skin: General: Skin is warm and dry. Findings: No erythema or rash. Neurological: Mental Status: She is alert. ASSESSMENT/PLAN ASSESSMENT/PLAN: 1. Exposure to COVID-19 virus - ICD9: V01.79, ICD10: Z20.822 - 2019 CORONAVIRUS Odette Monroe-CHARMAINE Whitehead.SUSAN - Meets symptom-based criteria for testing and is high risk. - COVID swab collected at time of office visit - Instructed to isolate pending test results - Discussed symptom monitoring and supportive care - Red flag symptoms requiring follow up discussed This patient encounter involved the screening or treatment of novel coronavirus infection (COVID-19). Odette Callejas APRN.CNP 06/07/2021 1:04 PM Addendum ASSESSMENT/PLAN: 1. Exposure to COVID-19 virus - ICD9: V01.79, ICD10: Z20.822 - 2019 CORONAVIRUS Odette Júnior, CUB REPORTER.INDUSTRIAL SALES MANAGER - Meets symptom-based criteria for testing and is high risk. - COVID swab collected at time of office visit - Instructed to isolate pending test results - Discussed symptom monitoring and supportive care - Red flag symptoms requiring follow up discussed This patient encounter involved the screening or treatment of novel coronavirus (more content not included)... Normal [facility] Coronavirus 2019on SARS-CoV-2 (COVID-19) RNA TAYLOR+probe Ql (Unsp spec) UPPER RESPIRATORY TRACT SWAB Normal [facility] Comment on above: Performed By: #### C OVID ####[facility] [id number] [place], [place] [phone] SARS-CoV-2 (COVID-19) RNA TAYLOR+probe Ql (Unsp spec) Positive for COVID19 (SARS CoV2) by RT-PCR or equivalent method. Critically abnormal Negative for COVID19 (SARS CoV2) by RT-PCR or equivalent method. [facility] Comment on above: Result Comment: This test was developed and its performance characteristics determined by [facility] [place]. This test has been authorized by FDA under an Emergency Use Authorization (EUA). This test has been validated in accordance with the FDA's Guidance Document Policy for Diagnostics Testing in Laboratories Certified to Perform High Complexity Testing under CLIA prior to Emergency use Authorization for Coronavirus Disease 2019 during the Public Health Emergency issued on December 18, 2019. Test performed by [facility], [facility] [place], [address], [place] [address]. Performed By: #### C OVID ####[facility] [id number] [place], [place] [phone] CNOVon 01-23-2021 CNOV Office Visit (FAMPWS ) ANETTEFAN Rock ([id number]) 1945 F TXT Date Time Provider Department 01/23/21 2:40 PM MIKE HARTLEY III During your visit today, we recorded the following information about you: Pulse Respiration Blood pressure Weight 65/minute 16/minute 136/66 85.7 kg Mike Hartley III MD 01/23/2021 6:09 PM Signed SUBJECTIVE: This is a 75 year old female that is here today for follow up 1. still has some vertigo and nausea. Yesterday she had difficulty walking across the room. Poor sleep with fatigue. No tinnitus or decreased hearing. Meclizine helps. 2. CKD III--GFR 52 3. hx of normal pressure hydrocephalus--asymptom atic Current Outpatient Medications on File Prior to Visit Medication Sig - meloxicam (MOBIC) 7.5 mg tablet Take 1-2 tablets by mouth once daily. Take with food. (Patient not taking: Reported on 01/18/2021 ) - prochlorperazine (COMPAZINE) 5 mg tablet Take 1 tablet by mouth every 6 hours as needed. for vertigo - ibuprofen (MOTRIN) 200 mg tablet Take 200 mg by mouth every 6 hours as needed. - cetirizine (ZYRTEC) 10 mg tablet Take 10 mg by mouth once daily. (Patient not taking: Reported on 01/18/2021 ) - VITAMIN B COMPLEX ORAL Take 500 mcg by mouth once daily. Current Facility-Administered Medications on File Prior to Visit Medication - cyanocobalamin 1,000 mcg injection PAST MEDICAL HISTORY Diagnosis Date - Back pain, acute - CKD (chronic kidney disease) stage 3, GFR 30-59 ml/min ([facility]) 08/05/2018 - Diverticulosis of colon (without mention of hemorrhage) Diverticulosis - Normal pressure hydrocephalus ([facility]) 09/18/2016 - Other osteoporosis - Personal history of colonic polyps - Pure hypercholesterolemia - Snoring - Unspecified constipation Constipation - Unspecified hemorrhoids without mention of complication Hemorrhoids - Vitamin B12 deficiency 08/03/2010 FAMILY HISTORY Problem Relation Age of Onset - Heart Mother - Diabetes Sister - Genitourinary () Sister RENAL FAILURE - Heart Sister BP 136/66 Pulse 65 Resp 16 Wt 85.7 kg (189 lb) BMI 28.74 kg/m? OBJECTIVE: APPEARANCE Well appearing, alert, in no acute distress, well-hydrated, well nourished. NECK Supple, no adenopathy; thyroid symmetric, normal size, no bruits HEART RRR with normal S1 and S2, no murmurs, no gallops, no JVD appreciated LUNG clear to auscultation ABDOMEN , soft, non-tender, non-distended, without organomegaly or palpable masses, no tenderness to palpation EXTREMITIES Extremities normal, No deformities, No skin discoloration and No edema NEURO Awake, alert and oriented x 3, Normal gait and No involuntary motions. lab Results for FAN CHEEMA ( ) as of 01/23/2021 15:15 Ref. Range 01/18/2021 14:09 Sodium Latest Ref Range: 136 - 144 mmol/L 140 Potassium Latest Ref Range: 3.7 - 5.1 mmol/L 4.0 Chloride Latest Ref Range: 97 - 105 mmol/L 105 CO2 Latest Ref Range: 22 - 30 mmol/L 26 BUN Latest Ref Range: 7 - 21 mg/dL 18 Creatinine Latest Ref Range: 0.58 - 0.96 mg/dL 1.04 (H) Glucose Latest Ref Range: 74 - 99 mg/dL 117 (H) Protein, Total Latest Ref Range: 6.3 - 8.0 g/dL 7.1 Calcium Latest Ref Range: 8.5 - 10.2 mg/dL 9.3 Albumin Latest Ref Range: 3.9 - 4.9 g/dL 4.3 Bilirubin, Total Latest Ref Range: 0.2 - 1.3 mg/dL 0.4 Alkaline Phosphatase Latest Ref Range: 34 - 123 U/L 122 ALT Latest Ref Range: 7 - 38 U/L 16 AST Latest Ref Range: 13 - 35 U/L 23 Anion Gap Latest Ref Range: 9 - 18 mmol/L 9 eGFR- Unknown >60 eGFR-All Other Races Latest Units: . 52 Hematocrit Latest Ref Range: 36.0 - 46.0 % 42.4 Free T4 Latest Ref Range: 0.9 - 1.7 ng/dL Test sent to [facility]. TSH Latest Ref Range: 0.270 - 4.200 uU/mL Test sent to [facility]. WBC Latest Ref Range: 3.70 - 11.00 k/uL 6.36 RBC Latest Ref Range: 3.90 - 5.20 m/uL 4.54 Hemoglobin Latest Ref Range: 11.5 - 15.5 g/dL 14.1 Platelet Count Latest Ref Range: 150 - 400 k/uL 217 MCV Latest Ref Range: 80.0 - 100.0 fL 93.4 MCH Latest Ref Range: 26.0 - 34.0 pG 31.1 MCHC Latest Ref Range: 30.5 - 36.0 g/dL 33.3 MPV Latest Ref Range: 9.0 - 12.7 fL 10.9 RDW-CV Latest Ref Range: 11.5 - 15.0 % 12.4 Neut% Latest Units: % 59.6 Abs Neut (ANC) Latest Ref Range: 1.45 - 7.50 k/uL 3.77 Lymph% Latest Units: % 29.1 Abs Lymph Latest Ref Range: 1.00 - 4.00 k/uL 1.85 Barron% Latest Units: % 9.1 Abs Barron Latest Ref Range: <0.87 k/uL 0.58 Eosin% Latest Units: % 1.1 Abs Eosin Latest Ref Range: <0.46 k/uL 0.07 Baso% Latest Units: % 1.1 Abs Baso Latest Ref Range: <0.11 k/uL 0.07 Nucleated Reds Latest Ref Range: 0 /100 WBC 0.0 Absolute nRBC Latest Ref Range: <0.01 k/uL <0.01 Diff Type Unknown Auto Diff ASSESSMENT: CKD III-improved BPPV-recurrent PLAN: healthy diet and regular exercise same medications meclizine as needed for vertigo We (more content not included)... Normal [facility] Kevin 01-19-2021 SUSANN Telephone (UCWSTR) ANETTEFAN ([id number]) 1945 F TXT Date Time Provider Department 01/19/21 CHRISTAL THORNTONWSTR During your visit today, we recorded the following information about you: Christal Thornton APRN.SUSAN 01/19/2021 1:35 PM Signed Please notify of negative covid test. Keep follow up with Dr. Hartley. Any worsening symptoms follow up with PCP or ER. MAXWELL Joe Ma 01/19/2021 2:19 PM Signed Patient given results and verbalized understanding of instructions given. Obdulia Casanova Ma Allergies As of Date: 01/19/2021 Noted Allergy Reaction AMOXICILLIN 11/22/2019 5 - Intolerance Comments: Develops BAINS, occipital neuralgia symptoms within few days of starting antibiotic BACTRIM (SULFAMETHOXAZOLE-TRIME TH*06/29/2005 CLARINEX (DESLORATADINE) 06/29/2005 CLARITHROMYCIN 12/21/2013 8 - GI Upset CODEINE 06/29/2005 ENTEX LA (PHENYLEPHRINE-GUAIFENE S*06/29/2005 ERYTHROMYCIN 08/21/2015 6 - Diarrhea Comments: severe diarrhea LIPITOR (ATORVASTATIN CALCIUM) 06/29/2005 METHYLPREDNISOL SOD SUC(BULK) 02/09/2010 8 - GI Upset NEOMYCIN 08/21/2015 6 - Diarrhea Comments: Not sure if this contributed to diarrhea since was on erythromycin too. NYSTATIN 07/24/2010 2 - Rash PENTOXIFYLLINE 12/05/2014 8 - GI Upset Comments: nauseated TRIAMINIC COLD/COUGH (CHLORPHENIR*06/29/2005 VICODIN (HYDROCODONE-ACETAMINOP HE*11/07/2010 8 - GI Upset Comments: Able to tolerate [place] Date Reviewed: 01/18/2021 Reviewed by: Gwen Peña LPN - Fully Assessed Reason for Visit: Results [95] Cmt: covid Prescriptions as of 01/19/2021 Sig: MELOXICAM 7.5 MG TABLET Take 1-2 tablets by mouth onc* Patient not taking: Reported on 01/18/2021 PROCHLORPERAZINE MALEATE 5 MG* Take 1 tablet by mouth every * IBUPROFEN 200 MG TABLET Take 200 mg by mouth every 6 * CETIRIZINE 10 MG TABLET Take 10 mg by mouth once bakari* Patient not taking: Reported on 01/18/2021 VITAMIN B COMPLEX ORAL Take 500 mcg by mouth once da* Problem List As Of Date 01/19/2021 Noted Resolved Other seborrheic keratosis [L82.1] 11/11/2006 09/30/2014 Benign neoplasm of skin of trunk, except scrotu*11/11/2006 09/30/2014 Other chronic dermatitis due to solar radiation*11/11/2006 09/30/2014 SOLAR LENGINES////DYSCHROMIA OTHER [L81.9] 11/11/2006 09/30/2014 ELIZABETH ANGIOMA///NEVUS, NON-NEOPLASTIC [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.1] 11/11/2006 09/30/2014 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] 08/12/2007 Labyrinthine Vertigo [H81.09] 06/13/2009 Vitamin B12 deficiency [E53.8] 08/03/2010 04/13/2018 Closed fracture of patella [S82.009A] 08/01/2011 09/30/2014 Sprain of lumbosacral (joint) (ligament) [S33.9*03/11/2014 06/25/2018 Erythema nodosum [L52] 09/30/2014 Lipodermatosclerosis [I83.10] 11/04/2014 Encounter for screening for malignant neoplasm *05/04/2015 05/04/2015 Phlebitis and thrombophlebitis of superficial v*06/01/2015 06/25/2018 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] 08/07/2015 Normal pressure hydrocephalus [G91.2] 09/18/2016 Chills (without fever) [R68.83] 09/18/2016 06/25/2018 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 Family history of coronary artery disease [Z82.*05/15/2018 Cervical radiculopathy [M54.12] 05/19/2018 11/16/2018 CKD (chronic kidney disease) stage 3, GFR 30-59*08/05/2018 Encounter Status:Closed by OBDULIA CASANOVA MA on 01/19/21 Normal [facility] CNPN Telephone (UCWSTR) ANETTEFAN Rock ([id number]) 1945 F TXT Date Time Provider Department 01/19/21 KATLYN MALDONADO) UCWSTR During your visit today, we recorded the following information about you: Katlyn Maldonado PA-C 01/19/2021 6:52 AM Signed Let patient know their covid19 test was negative. Obdulia Casanova Ma 01/19/2021 8:37 AM Signed Patient given results and verbalized understanding of instructions given. Obdulia Casanova Ma Allergies As of Date: 01/19/2021 Noted Allergy Reaction AMOXICILLIN 11/22/2019 5 - Intolerance Comments: Develops BAINS, occipital neuralgia symptoms within few days of starting antibiotic BACTRIM (SULFAMETHOXAZOLE-TRIME TH*06/29/2005 CLARINEX (DESLORATADINE) 06/29/2005 CLARITHROMYCIN 12/21/2013 8 - GI Upset CODEINE 06/29/2005 ENTEX LA (PHENYLEPHRINE-GUAIFENE S*06/29/2005 ERYTHROMYCIN 08/21/2015 6 - Diarrhea Comments: severe diarrhea LIPITOR (ATORVASTATIN CALCIUM) 06/29/2005 METHYLPREDNISOL SOD SUC(BULK) 02/09/2010 8 - GI Upset NEOMYCIN 08/21/2015 6 - Diarrhea Comments: Not sure if this contributed to diarrhea since was on erythromycin too. NYSTATIN 07/24/2010 2 - Rash PENTOXIFYLLINE 12/05/2014 8 - GI Upset Comments: nauseated TRIAMINIC COLD/COUGH (CHLORPHENIR*06/29/2005 VICODIN (HYDROCODONE-ACETAMINOP HE*11/07/2010 8 - GI Upset Comments: Able to tolerate [place] Date Reviewed: 01/18/2021 Reviewed by: Gwen Peña LPN - Fully Assessed Reason for Visit: Results [95] Prescriptions as of 01/19/2021 Sig: MELOXICAM 7.5 MG TABLET Take 1-2 tablets by mouth onc* Patient not taking: Reported on 01/18/2021 PROCHLORPERAZINE MALEATE 5 MG* Take 1 tablet by mouth every * IBUPROFEN 200 MG TABLET Take 200 mg by mouth every 6 * CETIRIZINE 10 MG TABLET Take 10 mg by mouth once bakari* Patient not taking: Reported on 01/18/2021 VITAMIN B COMPLEX ORAL Take 500 mcg by mouth once da* Problem List As Of Date 01/19/2021 Noted Resolved Other seborrheic keratosis [L82.1] 11/11/2006 09/30/2014 Benign neoplasm of skin of trunk, except scrotu*11/11/2006 09/30/2014 Other chronic dermatitis due to solar radiation*11/11/2006 09/30/2014 SOLAR LENGINES////DYSCHROMIA OTHER [L81.9] 11/11/2006 09/30/2014 ELIZABETH ANGIOMA///NEVUS, NON-NEOPLASTIC [I78.1] 11/11/2006 09/30/2014 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] 08/12/2007 Labyrinthine Vertigo [H81.09] 06/13/2009 Vitamin B12 deficiency [E53.8] 08/03/2010 04/13/2018 Closed fracture of patella [S82.009A] 08/01/2011 09/30/2014 Sprain of lumbosacral (joint) (ligament) [S33.9*03/11/2014 06/25/2018 Erythema nodosum [L52] 09/30/2014 Lipodermatosclerosis [I83.10] 11/04/2014 Encounter for screening for malignant neoplasm *05/04/2015 05/04/2015 Phlebitis and thrombophlebitis of superficial v*06/01/2015 06/25/2018 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] 08/07/2015 Normal pressure hydrocephalus [G91.2] 09/18/2016 Chills (without fever) [R68.83] 09/18/2016 06/25/2018 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 Family history of coronary artery disease [Z82.*05/15/2018 Cervical radiculopathy [M54.12] 05/19/2018 11/16/2018 CKD (chronic kidney disease) stage 3, GFR 30-59*08/05/2018 Encounter Status:Closed by OBDULIA CASANOVA MA on 01/19/21 Normal [facility] CBC and Differentialon 01-18 Abs Baso 0.07 k/uL Normal <0.11 [facility] Abs Barron 0.58 k/uL Normal <0.87 [facility] Abs Neut 3.77 k/uL Normal 1.45-7.50 [facility] Absolute nRBC <0.01 Normal <0.01 [facility] Basophils/100 WBC (Bld) 1.1 % Normal [facility] DTYPE Auto Diff Normal [facility] Eosinophils (Bld) [#/Vol] 0.07 10*3/uL Normal <0.46 [facility] Eosinophils/100 WBC (Bld) 1.1 % Normal [facility] Erythrocyte distribution width (RBC) [Ratio] 12.4 % Normal 11.5-15.0 [facility] Hematocrit (Bld) [Volume fraction] 42.4 % Normal 36.0-46.0 [facility] Hemoglobin (Bld) [Mass/Vol] 14.1 g/dL Normal 11.5-15.5 [facility] Lymphocytes (Bld) [#/Vol] 1.85 10*3/uL Normal 1.00-4.00 [facility] Lymphocytes/100 WBC (Bld) 29.1 % Normal [facility] MCH 31.1 pG Normal 26.0-34.0 [facility] MCHC (RBC) [Mass/Vol] 33.3 g/dL Normal 30.5-36.0 [facility] MCV (RBC) [Entitic vol] 93.4 fL Normal 80.0-100.0 [facility] Monocytes/100 WBC (Bld) 9.1 % Normal [facility] Neutrophils/100 WBC (Bld) 59.6 % Normal [facility] NRBCs 0.0 /100 WBC Normal 0 [facility] Platelet mean volume (Bld) [Entitic vol] 10.9 fL Normal 9.0-12.7 [facility] Platelets (Bld) [#/Vol] 217 10*3/uL Normal 150-400 [facility] RBC (Bld) [#/Vol] 4.54 10*6/uL Normal 3.90-5.20 [facility] WBC (Bld) [#/Vol] 6.36 10*3/uL Normal 3.70-11.00 [facility] CNOVon 01-18-2021 CNOV Office Visit (FAMPWS ) FAN CHEEMA ([id number]) 1945 F TXT Date Time Provider Department 01/18/21 1:00 PM [facility] During your visit today, we recorded the following information about you: Temperature Pulse Respiration Blood pressure 97.8 degrees 90/minute 18/minute 146/88 Weight 84.5 kg Christal Thornton APRN.CNP 01/18/2021 1:46 PM Signed Subjective HPI HPI Fan Cheema is a 75 year old female who presents today for CC of nausea and fatigue and diarrhea in the past 24 hours. She also had an episode of diarrhea about a week ago. She denies any fever chills, body aches, congestions, loss of smell or taste, cough, SOB, TEE, chest pain, no loc, syncopal events. She denies any muscle weakness, facial drooping, assymetry, or slurred speech. She is having continued issues with dizzines which she has had over the past year, states not as bad as in the past, being addressed by Dr. Hartley. See PMH below. Patient is a long standing patient of Dr. Hartley, first visit with me today. There were no vitals taken for this visit. Social History Tobacco Use - Smoking status: Never Smoker - Smokeless tobacco: Never Used Substance Use Topics - Alcohol use: No - Drug use: No PAST MEDICAL HISTORY Diagnosis Date - Back pain, acute - CKD (chronic kidney disease) stage 3, GFR 30-59 ml/min 08/05/2018 - Diverticulosis of colon (without mention of hemorrhage) Diverticulosis - Normal pressure hydrocephalus (HCC) 09/18/2016 - Other osteoporosis - Personal history of colonic polyps - Pure hypercholesterolemia - Snoring - Unspecified constipation Constipation - Unspecified hemorrhoids without mention of complication Hemorrhoids - Vitamin B12 deficiency 08/03/2010 I have confirmed and edited as necessary, the [facility] Review of Systems Constitutional: Positive for malaise/fatigue. Negative for chills and fever. Gastrointestinal: Positive for abdominal pain (mild cramping), diarrhea and nausea. Negative for vomiting. Genitourinary: Negative for dysuria, flank pain, frequency, hematuria and urgency. Objective Physical Exam Vitals and nursing note reviewed. Constitutional: Appearance: Normal appearance. Cardiovascular: Rate and Rhythm: Normal rate and regular rhythm. Heart sounds: Normal heart sounds. No murmur heard. Abdominal: General: Bowel sounds are normal. There is no distension or abdominal bruit. Palpations: Abdomen is not rigid. There is no mass or pulsatile mass. Tenderness: There is no abdominal tenderness. There is no guarding or rebound. Negative signs include Ortiz's sign and McBurney's sign. Neurological: General: No focal deficit present. Mental Status: She is alert and oriented to person, place, and time. Cranial Nerves: Cranial nerves are intact. No facial asymmetry. Sensory: Sensation is intact. Motor: Motor function is intact. Coordination: Coordination is intact. Romberg sign negative. Deep Tendon Reflexes: Reflexes are normal and symmetric. Psychiatric: Mood and Affect: Affect normal. ASSESSMENT/PLAN: 1. Diarrhea, unspecified type - ICD9: 787.91, ICD10: R19.7 (primary diagnosis) Encourage fluids Monitor urine output Will check labs and call patient Home isolation When to seek higher level of care Notified in 24-48 hours with covid results, available on [employer] - CBC + DIFF - COMP METABOLIC PANEL - 2019 CORONAVIRUS 2. Fatigue, unspecified type - ICD9: 780.79, ICD10: R53.83 Check labs Rest hydrate Any worsening symptoms to ED for evaluation Recheck one week with Dr. Hartley - 2019 CORONAVIRUS - FREE T4 + TSH Diagnosis and treatment plan were discussed and questions were answered to the patient's satisfaction. Pt acknowledged understanding of concepts and follow up plan. Specific signs and symptoms that would indicate the need for higher level of care were discussed in detail warranting prompt ER evaluation. MAXWELL Joe APRN.CNP 01/18/2021 1:37 PM Signed Check labs today, will call with results Check covid test today, will call with results tomorrow, or available on my chart Increase water intake, powerade or gatorade zero Continue allergy medications Meclazine as needed Any worsening symptoms or abnormal labs go to ED Follow up in one week with Dr. Eddie Thornton APRN.CNP 01/18/2021 2:13 PM Signed Addended by: CHRISTAL THORNTON CNP on: 01/18/2021 02:13 PM Modules accepted: Orders Referring Provider: SELF [[id number]] Allergies As of Date: 01/18/2021 Noted Allergy Reaction AMOXICILLIN 11/22/2019 5 - Intolerance Comments: Develops BAINS, occipital neuralgia symptoms within few days of starting antibiotic BACTRIM (SULFAMETHOXAZOLE-TRIME TH*06/29/2005 CLARINEX (DESLORATADINE) 06/29/2005 CLARITHROMYCIN 12/21/2013 8 - GI Upset CODEINE 06/29/2005 ENTEX LA (PHENYLEPHRINE-GUAIFENE S*06/29/2005 ERYTHROM (more content not included)... Normal [facility] CNPNon 01-18-2021 LUISA Telephone (UCWSTR) FAN CHEEMA ([id number]) 1945 F TXT Date Time Provider Department 01/18/21 CHRISTAL THORNTON During your visit today, we recorded the following information about you: Christal Thornton APRN.CNP 01/18/2021 3:48 PM Signed This [employer] called patient at [phone] and identified with name and . Advise that blood work was normal, possible a little dry, recommend to increase fluids. Covid pending. Keep follow up next week All questions answered. Christal Thornton CNP Allergies As of Date: 01/18/2021 Noted Allergy Reaction AMOXICILLIN 11/22/2019 5 - Intolerance Comments: Develops BAINS, occipital neuralgia symptoms within few days of starting antibiotic BACTRIM (SULFAMETHOXAZOLE-TRIME TH*06/29/2005 CLARINEX (DESLORATADINE) 06/29/2005 CLARITHROMYCIN 12/21/2013 8 - GI Upset CODEINE 06/29/2005 ENTEX LA (PHENYLEPHRINE-GUAIFENE S*06/29/2005 ERYTHROMYCIN 08/21/2015 6 - Diarrhea Comments: severe diarrhea LIPITOR (ATORVASTATIN CALCIUM) 06/29/2005 METHYLPREDNISOL SOD SUC(BULK) 02/09/2010 8 - GI Upset NEOMYCIN 08/21/2015 6 - Diarrhea Comments: Not sure if this contributed to diarrhea since was on erythromycin too. NYSTATIN 07/24/2010 2 - Rash PENTOXIFYLLINE 12/05/2014 8 - GI Upset Comments: nauseated TRIAMINIC COLD/COUGH (CHLORPHENIR*06/29/2005 VICODIN (HYDROCODONE-ACETAMINOP HE*11/07/2010 8 - GI Upset Comments: Able to tolerate [place] Date Reviewed: 01/18/2021 Reviewed by: Gwen Peña LPN - Fully Assessed Reason for Visit: Results [95] Prescriptions as of 01/18/2021 Sig: MELOXICAM 7.5 MG TABLET Take 1-2 tablets by mouth onc* Patient not taking: Reported on 01/18/2021 PROCHLORPERAZINE MALEATE 5 MG* Take 1 tablet by mouth every * IBUPROFEN 200 MG TABLET Take 200 mg by mouth every 6 * CETIRIZINE 10 MG TABLET Take 10 mg by mouth once bakari* Patient not taking: Reported on 01/18/2021 VITAMIN B COMPLEX ORAL Take 500 mcg by mouth once da* Problem List As Of Date 01/18/2021 Noted Resolved Other seborrheic keratosis [L82.1] 11/11/2006 09/30/2014 Benign neoplasm of skin of trunk, except scrotu*11/11/2006 09/30/2014 Other chronic dermatitis due to solar radiation*11/11/2006 09/30/2014 SOLAR LENGINES////DYSCHROMIA OTHER [L81.9] 11/11/2006 09/30/2014 ELIZABETH ANGIOMA///NEVUS, NON-NEOPLASTIC [I78.1] 11/11/2006 09/30/2014 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] 08/12/2007 Labyrinthine Vertigo [H81.09] 06/13/2009 Vitamin B12 deficiency [E53.8] 08/03/2010 04/13/2018 Closed fracture of patella [S82.009A] 08/01/2011 09/30/2014 Sprain of lumbosacral (joint) (ligament) [S33.9*03/11/2014 06/25/2018 Erythema nodosum [L52] 09/30/2014 Lipodermatosclerosis [I83.10] 11/04/2014 Encounter for screening for malignant neoplasm *05/04/2015 05/04/2015 Phlebitis and thrombophlebitis of superficial v*06/01/2015 06/25/2018 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] 08/07/2015 Normal pressure hydrocephalus [G91.2] 09/18/2016 Chills (without fever) [R68.83] 09/18/2016 06/25/2018 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 Family history of coronary artery disease [Z82.*05/15/2018 Cervical radiculopathy [M54.12] 05/19/2018 11/16/2018 CKD (chronic kidney disease) stage 3, GFR 30-59*08/05/2018 Encounter Status:Closed by CHRISTAL THORNTON CNP on 01/18/21 Normal [facility] Comp Metabolic Panelon 01-18 Albumin [Mass/Vol] 4.3 g/dL Normal 3.9-4.9 [facility] ALP [Catalytic activity/Vol] 122 U/L Normal 34-123 [facility] ALT [Catalytic activity/Vol] 16 U/L Normal 7-38 [facility] Anion gap [Moles/Vol] 9 mmol/L Normal 9-18 [facility] AST [Catalytic activity/Vol] 23 U/L Normal 13-35 [facility] Bilirubin [Mass/Vol] 0.4 mg/dL Normal 0.2-1.3 [facility] Calcium [Mass/Vol] 9.3 mg/dL Normal 8.5-10.2 [facility] Chloride [Moles/Vol] 105 mmol/L Normal 97-105 [facility] CO2 [Moles/Vol] 26 mmol/L Normal 22-30 [facility] Creatinine [Mass/Vol] 1.04 mg/dL High 0.58-0.96 [facility] eGFR- Amer. >60 Normal [facility] eGFR-All Other Races 52 . Normal [facility] Comment on above: Result Comment: eGFR (Estimated GFR) Units of measure: mL/min/1.73 meters squared eGFR is derived from the reexpressed MDRD Study equation using the following parameters: serum creatinine, age, gender and race. The creatinine assay has been calibrated to be traceable to IDMS. An eGFR <60 mL/min/1.73m2 for >3 months is consistent with chronic kidney disease. Refer to KDOQI guidelines for clinical interpretation. In patients with unstable renal function, e.g. those with acute kidney injury, the eGFR may not accurately reflect actual GFR. Glucose [Mass/Vol] 117 mg/dL High 74-99 [facility] Comment on above: Result Comment: The [place] Diabetes [employer] (ADA) provides guidance for cutoff values for fasting glucose and random glucose. The ADA defines fasting as no caloric intake for at least 8 hours. Fasting plasma glucose results between 100 to 125 mg/dL indicate increased risk for diabetes (prediabetes). Fasting plasma glucose results greater than or equal to 126 mg/dL meet the criteria for diagnosis of diabetes. In the absence of unequivocal hyperglycemia, results should be confirmed by repeat testing. In a patient with classic symptoms of hyperglycemia or hyperglycemic crisis, random plasma glucose results greater than or equal to 200 mg/dL meet the criteria for diagnosis of diabetes. Reference: Standards of Medical Care in Diabetes 2016, [place] [employer]. Diabetes Care. 2016.39(Suppl 1). Potassium [Moles/Vol] 4.0 mmol/L Normal 3.7-5.1 [facility] Protein [Mass/Vol] 7.1 g/dL Normal 6.3-8.0 [facility] Sodium [Moles/Vol] 140 mmol/L Normal 136-144 [facility] Urea nitrogen [Mass/Vol] 18 mg/dL Normal 7-21 [facility] Coronavirus 2019on 1 SARS-CoV-2 (COVID-19) RNA TAYLOR+probe Ql (Unsp spec) UPPER RESPIRATORY TRACT SWAB Normal [facility] Comment on above: Performed By: #### C OVID ####[facility] [place], [place] [id number] SARS-CoV-2 (COVID-19) RNA TAYLOR+probe Ql (Unsp spec) Negative Normal Negative for COVID19 (SARS CoV2) by PCR. [facility] Comment on above: Result Comment: This test was developed and its performance characteristics determined by [facility] [place]. This test has been authorized by FDA under an Emergency Use Authorization (EUA). This test has been validated in accordance with the FDA's Guidance Document Policy for Diagnostics Testing in Laboratories Certified to Perform High Complexity Testing under CLIA prior to Emergency use Authorization for Coronavirus Disease 2019 during the Public Health Emergency issued on December 18, 2019. Test performed by [facility], [facility] [place], [address] [place], [place] [address]. Performed By: #### C OVID ####[facility] [place], [place] [phone] Free T4on 01-18-2021 Free T4 Test sent to [facility]. Normal 0.9-1.7 [facility] Comment on above: Result Comment: Acco unt Credited HIDE TSHon 01-18-2021 TSH Test sent to [facility]. Normal 0.270-4.200 [facility] Comment on above: Result Comment: Acco unt Credited HIDE Culture, urine Bacteria identified Cx Nom (U) Positive [facility] Work Phone: Vital Signs Date Time Vital Sign Value Performing Clinician Faci lity 12-29-2024 08:35-0400 Body height 172.[address] Marcella Laird MD Work Phone: [facility] 12-29-2024 08:35-0400 Body mass index (BMI) [Ratio] 28.1 kg/m2 Dr. Marcella Laird MD Work Phone: [facility] 12-29-2024 08:35-0400 Body temperature 98.2 [degF] Dr. Marcella Laird MD Work Phone: [facility] 12-29-2024 08:35-0400 Body weight 84.[address] Marcella Laird MD Work Phone: [facility] 12-29-2024 08:35-0400 Diastolic blood pressure 72 mm[Hg] Dr. Marcella Laird MD Work Phone: [facility] 12-29-2024 08:35-0400 Heart rate 63 /min Dr. Marcella Laird MD Work Phone: [facility] 12-29-2024 08:35-0400 Respiratory rate 16 /min Dr. Marcella Laird MD Work Phone: [facility] 12-29-2024 08:35-0400 SaO2% (BldA) [Mass fraction] 95 % Dr. Marcella Laird MD Work Phone: [facility] 12-29-2024 08:35-0400 Systolic blood pressure 115 mm[Hg] Dr. Marcella Laird MD Work Phone: [facility] 12-13-2024 11:31-0500 Body mass index (BMI) [Ratio] 28.4 kg/m2 Dr. Marcella Laird MD Work Phone: [facility] 12-13-2024 11:31-0500 Body temperature 98.2 [degF] Dr. Marcella Laird MD Work Phone: [facility] 12-13-2024 11:31-0500 Body weight 84.[address] Marcella Laird MD Work Phone: [facility] 12-13-2024 11:31-0500 Diastolic blood pressure 75 mm[Hg] Dr. Marcella Laird MD Work Phone: [facility] 12-13-2024 11:31-0500 Heart rate 55 /min Dr. Marcella Laird MD Work Phone: [facility] 12-13-2024 11:31-0500 Respiratory rate 16 /min Dr. Marcella Laird MD Work Phone: [facility] 12-13-2024 11:31-0500 SaO2% (BldA) [Mass fraction] 96 % Dr. Marcella Laird MD Work Phone: [facility] 12-13-2024 11:31-0500 Systolic blood pressure 130 mm[Hg] Dr. Marcella Laird MD Work Phone: [facility] 11-29-2024 09:07-0500 Body mass index (BMI) [Ratio] 28.9 kg/m2 Dr. Marcella Laird MD Work Phone: [facility] 11-29-2024 09:07-0500 Body temperature 98.7 [degF] Dr. Marcella Laird MD Work Phone: [facility] 11-29-2024 09:07-0500 Body weight 86.[address] Marcella Laird MD Work Phone: [facility] 11-29-2024 09:07-0500 Diastolic blood pressure 77 mm[Hg] Dr. Marcella Laird MD Work Phone: [facility] 11-29-2024 09:07-0500 Heart rate 61 /min Dr. Marcella Laird MD Work Phone: [facility] 11-29-2024 09:07-0500 Respiratory rate 16 /min Dr. Marcella Laird MD Work Phone: [facility] 11-29-2024 09:07-0500 SaO2% (BldA) [Mass fraction] 93 % Dr. Marcella Laird MD Work Phone: [facility] 11-29-2024 09:07-0500 Systolic blood pressure 137 mm[Hg] Dr. Marcella Laird MD Work Phone: [facility] 11-26-2024 08:58-0500 Body temperature 98.4 [degF] Dr. Marcella Laird MD Work Phone: [facility] 11-26-2024 08:58-0500 Diastolic blood pressure 62 mm[Hg] Dr. Marcella Laird MD Work Phone: [facility] 11-26-2024 08:58-0500 Heart rate 84 /min Dr. Marcella Laird MD Work Phone: [facility] 11-26-2024 08:58-0500 Respiratory rate 15 /min Dr. Marcella Laird MD Work Phone: [facility] 11-26-2024 08:58-0500 SaO2% (BldA) [Mass fraction] 99 % Dr. Marcella Laird MD Work Phone: [facility] 11-26-2024 08:58-0500 Systolic blood pressure 134 mm[Hg] Dr. Marcella Laird MD Work Phone: [facility] 10-26-2024 09:00-0500 Body mass index (BMI) [Ratio] 28.7 kg/m2 Dr. Marcella Laird MD Work Phone: [facility] 10-26-2024 09:00-0500 Body weight 85.[address] Marcella Laird MD Work Phone: [facility] 10-26-2024 09:00-0500 Diastolic blood pressure 66 mm[Hg] Dr. Marcella Laird MD Work Phone: [facility] 10-26-2024 09:00-0500 Heart rate 59 /min Dr. Marcella Laird MD Work Phone: [facility] 10-26-2024 09:00-0500 Respiratory rate 16 /min Dr. Marcella Laird MD Work Phone: [facility] 10-26-2024 09:00-0500 SaO2% (BldA) [Mass fraction] 95 % Dr. Marcella Laird MD Work Phone: [facility] 10-26-2024 09:00-0500 Systolic blood pressure 136 mm[Hg] Dr. Marcella Laird MD Work Phone: [facility] 02-19-2024 09:32-0400 Body height 172.7 cm Martha Reed MD Work Phone: [facility] 02-19-2024 09:32-0400 Body mass index (BMI) [Ratio] 29.35 kg/m2 Martha Reed MD Work Phone: [facility] 02-19-2024 09:32-0400 Body weight 87.54 kg Martha Reed MD Work Phone: [facility] 01-19-2024 09:04-0400 Body height 172.[address] Marcella Laird Work Phone: [facility] 01-19-2024 09:04-0400 Body mass index (BMI) [Ratio] 28.8 kg/m2 Dr. Marcella Laird Work Phone: [facility] 01-19-2024 09:04-0400 Body temperature 98.2 [degF] Dr. Marcella Laird Work Phone: [facility] 01-19-2024 09:04-0400 Body weight 86.[address] Marcella Laird Work Phone: [facility] 01-19-2024 09:04-0400 Diastolic blood pressure 78 mm[Hg] Dr. Marcella Laird Work Phone: [facility] 01-19-2024 09:04-0400 Heart rate 62 /min Dr. Marcella Laird Work Phone: [facility] 01-19-2024 09:04-0400 Respiratory rate 12 /min Dr. Marcella Laird Work Phone: [facility] 01-19-2024 09:04-0400 SaO2% (BldA) [Mass fraction] 92 % Dr. Marcella Laird Work Phone: [facility] 01-19-2024 09:04-0400 Systolic blood pressure 144 mm[Hg] Dr. Marcella Laird Work Phone: [facility] 01-12-2024 09:29-0400 Body height 172.7 cm Tenriism Backer PA-C Work Phone: [facility] 01-12-2024 09:29-0400 Body mass index (BMI) [Ratio] 29.35 kg/m2 Tenriism Backer PA-C Work Phone: [facility] 01-12-2024 09:29-0400 Body weight 87.54 kg Tenriism Backer PA-C Work Phone: [facility] 01-08-2024 10:23-0400 Body mass index (BMI) [Ratio] 28.4 kg/m2 Dr. Marcella Laird Work Phone: [facility] 01-08-2024 10:23-0400 Body weight 84.[address] Marcella Laird Work Phone: [facility] 01-08-2024 10:23-0400 Diastolic blood pressure 83 mm[Hg] Dr. Marcella Laird Work Phone: [facility] 01-08-2024 10:23-0400 Heart rate 60 /min Dr. Marcella Laird Work Phone: [facility] 01-08-2024 10:23-0400 Respiratory rate 18 /min Dr. Marcella Laird Work Phone: [facility] 01-08-2024 10:23-0400 Systolic blood pressure 148 mm[Hg] Dr. Marcella Laird Work Phone: [facility] 01-02-2024 10:40-0400 Diastolic blood pressure 62 mm[Hg] Martha Reed MD Work Phone: [facility] 01-02-2024 10:40-0400 Heart rate 54 /min Martha Reed MD Work Phone: [facility] 01-02-2024 10:40-0400 Respiratory rate 18 /min Martha Reed MD Work Phone: [facility] 01-02-2024 10:40-0400 SaO2% (BldA) [Mass fraction] 97 % Martha Reed MD Work Phone: [facility] 01-02-2024 10:40-0400 Systolic blood pressure 125 mm[Hg] Martha Reed MD Work Phone: [facility] 01-02-2024 10:04-0400 Body temperature 97.9 [degF] Martha Reed MD Work Phone: [facility] 01-02-2024 08:31-0400 Body height 172.7 cm Martha Reed MD Work Phone: [facility] 01-02-2024 08:31-0400 Body mass index (BMI) [Ratio] 29.35 kg/m2 Martha Reed MD Work Phone: [facility] 01-02-2024 08:31-0400 Body weight 87.54 kg Martha Reed MD Work Phone: [facility] 12-19-2023 13:18-0500 Body temperature 96 [degF] Dr. Marcella Laird Work Phone: [facility] 12-19-2023 13:18-0500 Diastolic blood pressure 79 mm[Hg] Dr. Marcella Laird Work Phone: [facility] 12-19-2023 13:18-0500 Heart rate 63 /min Dr. Marcella Laird Work Phone: [facility] 12-19-2023 13:18-0500 Respiratory rate 14 /min Dr. Marcella Laird Work Phone: [facility] 12-19-2023 13:18-0500 SaO2% (BldA) [Mass fraction] 99 % Dr. Marcella Laird Work Phone: [facility] 12-19-2023 13:18-0500 Systolic blood pressure 147 mm[Hg] Dr. Marcella Laird Work Phone: [facility] 12-19-2023 11:32-0500 Body height 172.[address] Marcella Laird Work Phone: [facility] 12-19-2023 11:32-0500 Body mass index (BMI) [Ratio] 29.6 kg/m2 Dr. Marcella Laird Work Phone: [facility] 12-19-2023 11:32-0500 Body weight 88.[address] Marcella Laird Work Phone: [facility] 10-30-2023 10:13-0500 Body height 172.7 cm Martha Reed MD Work Phone: [facility] 10-30-2023 10:13-0500 Body mass index (BMI) [Ratio] 28.89 kg/m2 Martha Reed MD Work Phone: [facility] 10-30-2023 10:13-0500 Body weight 86.18 kg Martha Reed MD Work Phone: [facility] 10-30-2023 10:13-0500 Diastolic blood pressure 68 mm[Hg] Martha Reed MD Work Phone: [facility] 10-30-2023 10:13-0500 Systolic blood pressure 132 mm[Hg] Martha Reed MD Work Phone: [facility] 08-25-2023 13:05-0500 Body height 172.[address] Marcella Laird Work Phone: [facility] 08-25-2023 13:05-0500 Body mass index (BMI) [Ratio] 29.6 kg/m2 Dr. Marcella Laird Work Phone: [facility] 08-25-2023 13:05-0500 Body temperature 97.8 [degF] Dr. Marcella Laird Work Phone: [facility] 08-25-2023 13:05-0500 Body weight 88.[address] Marcella Laird Work Phone: [facility] 08-25-2023 13:05-0500 Diastolic blood pressure 90 mm[Hg] Dr. Marcella Laird Work Phone: [facility] 08-25-2023 13:05-0500 Heart rate 63 /min Dr. Marcella Laird Work Phone: [facility] 08-25-2023 13:05-0500 Respiratory rate 16 /min Dr. Marcella Laird Work Phone: [facility] 08-25-2023 13:05-0500 SaO2% (BldA) [Mass fraction] 96 % Dr. Marcella Laird Work Phone: [facility] 08-25-2023 13:05-0500 Systolic blood pressure 146 mm[Hg] Dr. Marcella Laird Work Phone: [facility] 07-31-2023 11:19-0400 Body height 172.[address] Marcella Laird Work Phone: [facility] 07-31-2023 11:19-0400 Body mass index (BMI) [Ratio] 29.6 kg/m2 Dr. Marcella Laird Work Phone: [facility] 07-31-2023 11:19-0400 Body temperature 97.8 [degF] Dr. Marcella Laird Work Phone: [facility] 07-31-2023 11:19-0400 Body weight 88.[address] Marcella Laird Work Phone: [facility] 07-31-2023 11:19-0400 Diastolic blood pressure 58 mm[Hg] Dr. Marcella Laird Work Phone: [facility] 07-31-2023 11:19-0400 Heart rate 63 /min Dr. Marcella Laird Work Phone: [facility] 07-31-2023 11:19-0400 Respiratory rate 18 /min Dr. Marcella Laird Work Phone: [facility] 07-31-2023 11:19-0400 SaO2% (BldA) [Mass fraction] 100 % Dr. Marcella Laird Work Phone: [facility] 07-31-2023 11:19-0400 Systolic blood pressure 182 mm[Hg] Dr. Marcella Laird Work Phone: [facility] 07-11-2023 09:05-0400 Body mass index (BMI) [Ratio] 29.6 kg/m2 Dr. Marcella Laird Work Phone: [facility] 07-11-2023 09:05-0400 Body weight 88.[address] Marcella Laird Work Phone: [facility] 07-11-2023 09:05-0400 Diastolic blood pressure 70 mm[Hg] Dr. Marcella Laird Work Phone: [facility] 07-11-2023 09:05-0400 Heart rate 51 /min Dr. Marcella Laird Work Phone: [facility] 07-11-2023 09:05-0400 Respiratory rate 18 /min Dr. Marcella Laird Work Phone: [facility] 07-11-2023 09:05-0400 SaO2% (BldA) [Mass fraction] 98 % Dr. Marcella Laird Work Phone: [facility] 07-11-2023 09:05-0400 Systolic blood pressure 141 mm[Hg] Dr. Marcella Laird Work Phone: [facility] [facility] 03-13-2023 11:39-0400 Body temperature 98 [degF] Dr. Marcella Laird Work Phone: [facility] 03-13-2023 11:39-0400 Diastolic blood pressure 64 mm[Hg] Dr. Marcella Laird Work Phone: [facility] 03-13-2023 11:39-0400 Heart rate 62 /min Dr. Marcella Laird Work Phone: [facility] 03-13-2023 11:39-0400 Respiratory rate 16 /min Dr. Marcella Laird Work Phone: [facility] 03-13-2023 11:39-0400 SaO2% (BldA) [Mass fraction] 97 % Dr. Marcella Laird Work Phone: [facility] 03-13-2023 11:39-0400 Systolic blood pressure 124 mm[Hg] Dr. Marcella Laird Work Phone: [facility] 03-07-2023 09:08-0400 Body height 172.[address] Marcella Laird Work Phone: [facility] 03-07-2023 09:08-0400 Body mass index (BMI) [Ratio] 29.7 kg/m2 Dr. Marcella Laird Work Phone: [facility] 03-07-2023 09:08-0400 Body weight 88.[address] Marcella Laird Work Phone: [facility] 03-07-2023 09:08-0400 Diastolic blood pressure 74 mm[Hg] Dr. Marcella Laird Work Phone: [facility] 03-07-2023 09:08-0400 Heart rate 58 /min Dr. Marcella Laird Work Phone: [facility] 03-07-2023 09:08-0400 Respiratory rate 18 /min Dr. Marcella Laird Work Phone: [facility] 03-07-2023 09:08-0400 SaO2% (BldA) [Mass fraction] 97 % Dr. Marcella Laird Work Phone: [facility] 03-07-2023 09:08-0400 Systolic blood pressure 132 mm[Hg] Dr. Marcella Laird Work Phone: [facility] 02-03-2023 12:40-0400 Body temperature 97.5 [degF] Dr. Marcella Laird Work Phone: [facility] 02-03-2023 12:40-0400 Diastolic blood pressure 84 mm[Hg] Dr. Marcella Laird Work Phone: [facility] 02-03-2023 12:40-0400 Heart rate 62 /min Dr. Marcella Laird Work Phone: [facility] 02-03-2023 12:40-0400 Respiratory rate 17 /min Dr. Marcella Laird Work Phone: [facility] 02-03-2023 12:40-0400 SaO2% (BldA) [Mass fraction] 98 % Dr. Marcella Laird Work Phone: [facility] 02-03-2023 12:40-0400 Systolic blood pressure 120 mm[Hg] Dr. Marcella Laird Work Phone: [facility] 01-27-2023 08:56-0400 Body temperature 97.7 [degF] Dr. Marcella Laird Work Phone: [facility] 01-27-2023 08:56-0400 Body weight 87.[address] Marcella Laird Work Phone: [facility] 01-27-2023 08:56-0400 Diastolic blood pressure 72 mm[Hg] Dr. Marcella Laird Work Phone: [facility] 01-27-2023 08:56-0400 Heart rate 53 /min Dr. Marcella Laird Work Phone: [facility] 01-27-2023 08:56-0400 Respiratory rate 16 /min Dr. Marcella Laird Work Phone: [facility] 01-27-2023 08:56-0400 SaO2% (BldA) [Mass fraction] 98 % Dr. Marcella Laird Work Phone: [facility] 01-27-2023 08:56-0400 Systolic blood pressure 138 mm[Hg] Dr. Marcella Laird Work Phone: [facility] 01-13-2023 11:34-0400 Body height 172.[address] Marcella Laird Work Phone: [facility] 01-13-2023 11:34-0400 Body weight 88.[address] Marcella Laird Work Phone: [facility] 01-12-2023 09:13-0400 Body height 172.[address] Marcella Laird Work Phone: [facility] 01-12-2023 09:13-0400 Body mass index (BMI) [Ratio] 30 kg/m2 Dr. Marcella Laird Work Phone: [facility] 01-12-2023 09:13-0400 Body temperature 98 [degF] Dr. Marcella Laird Work Phone: [facility] 01-12-2023 09:13-0400 Body weight 89.[address] Marcella Laird Work Phone: [facility] 01-12-2023 09:13-0400 Diastolic blood pressure 102 mm[Hg] Dr. Marcella Laird Work Phone: [facility] 01-12-2023 09:13-0400 Heart rate 124 /min Dr. Marcella Laird Work Phone: [facility] 01-12-2023 09:13-0400 Respiratory rate 14 /min Dr. Marcella Laird Work Phone: [facility] 01-12-2023 09:13-0400 SaO2% (BldA) [Mass fraction] 98 % Dr. Marcella Laird Work Phone: [facility] 01-12-2023 09:13-0400 Systolic blood pressure 171 mm[Hg] Dr. Marcelal Laird Work Phone: [facility] 12-18-2022 00:24-0500 Body weight 89.[address] Marcella Laird Work Phone: [facility] 12-04-2022 15:56-0500 Body height 172.[address] Marcella Laird Work Phone: [facility] 12-04-2022 15:56-0500 Body mass index (BMI) [Ratio] 29.7 kg/m2 Dr. Marcella Laird Work Phone: [facility] 12-04-2022 15:56-0500 Body temperature 97.3 [degF] Dr. Marcella Laird Work Phone: [facility] 12-04-2022 15:56-0500 Body weight 88.[address] Marcella Laird Work Phone: [facility] 12-04-2022 15:56-0500 Diastolic blood pressure 85 mm[Hg] Dr. Marcella Laird Work Phone: [facility] 12-04-2022 15:56-0500 Heart rate 67 /min Dr. Marcella Laird Work Phone: [facility] 12-04-2022 15:56-0500 Respiratory rate 18 /min Dr. Marcella Laird Work Phone: [facility] 12-04-2022 15:56-0500 SaO2% (BldA) [Mass fraction] 96 % Dr. Marcella Laird Work Phone: [facility] 12-04-2022 15:56-0500 Systolic blood pressure 135 mm[Hg] Dr. Marcella Laird Work Phone: [facility] 12-02-2022 16:21-0500 Diastolic blood pressure 72 mm[Hg] Dr. Marcella Laird Work Phone: [facility] 12-02-2022 16:21-0500 Heart rate 75 /min Dr. Marcella Laird Work Phone: [facility] 12-02-2022 16:21-0500 Respiratory rate 16 /min Dr. Marcella Laird Work Phone: [facility] 12-02-2022 16:21-0500 SaO2% (BldA) [Mass fraction] 97 % Dr. Marcella Laird Work Phone: [facility] 12-02-2022 16:21-0500 Systolic blood pressure 143 mm[Hg] Dr. Marcella Laird Work Phone: [facility] 12-02-2022 14:42-0500 Body mass index (BMI) [Ratio] 28.1 kg/m2 Dr. Macrella Laird Work Phone: [facility] 12-02-2022 14:42-0500 Body temperature 98 [degF] Dr. Marcella Laird Work Phone: [facility] 12-02-2022 14:42-0500 Body weight 83.[address] Marcella Laird Work Phone: [facility] 11-29-2022 10:37-0500 Body mass index (BMI) [Ratio] 29.8 kg/m2 Dr. Marcella Laird Work Phone: [facility] 11-29-2022 10:37-0500 Body weight 89.[address] Marcella Laird Work Phone: [facility] 11-29-2022 10:37-0500 Diastolic blood pressure 70 mm[Hg] Dr. Marcella Laird Work Phone: [facility] 11-29-2022 10:37-0500 Heart rate 62 /min Dr. Marcella Laird Work Phone: [facility] 11-29-2022 10:37-0500 Respiratory rate 18 /min Dr. Marcella Laird Work Phone: [facility] 11-29-2022 10:37-0500 SaO2% (BldA) [Mass fraction] 96 % Dr. Marcella Laird Work Phone: [facility] 11-29-2022 10:37-0500 Systolic blood pressure 128 mm[Hg] Dr. Marcella Laird Work Phone: [facility] 11-20-2022 00:35-0500 Body weight 89.[address] Marcella Laird Work Phone: [facility] 10-31-2022 14:33-0500 Body temperature 97.2 [degF] Dr. Marcella Laird Work Phone: [facility] 10-31-2022 14:33-0500 Body weight 90.[address] Marcella Laird Work Phone: [facility] 10-31-2022 14:33-0500 Diastolic blood pressure 74 mm[Hg] Dr. Marcella Laird Work Phone: [facility] 10-31-2022 14:33-0500 Heart rate 79 /min Dr. Marcella Laird Work Phone: [facility] 10-31-2022 14:33-0500 Respiratory rate 16 /min Dr. Marcella Laird Work Phone: [facility] 10-31-2022 14:33-0500 SaO2% (BldA) [Mass fraction] 94 % Dr. Marcella Laird Work Phone: [facility] 10-31-2022 14:33-0500 Systolic blood pressure 138 mm[Hg] Dr. Marcella Laird Work Phone: [facility] 10-20-2022 00:35-0500 Body height 172.[address] Marcella Laird Work Phone: [facility] 10-20-2022 00:35-0500 Body weight 89.[address] Marcella Laird Work Phone: [facility] 10-18-2022 10:49-0500 Body weight 89.[address] Marcella Laird Work Phone: [facility] 10-14-2022 09:59-0500 Body mass index (BMI) [Ratio] 30.1 kg/m2 Dr. Marcella Laird Work Phone: [facility] 10-14-2022 09:59-0500 Body temperature 97.8 [degF] Dr. Marcella Laird Work Phone: [facility] 10-14-2022 09:59-0500 Body weight 89.[address] Marcella Laird Work Phone: [facility] 10-14-2022 09:59-0500 Diastolic blood pressure 74 mm[Hg] Dr. Marcella Laird Work Phone: [facility] 10-14-2022 09:59-0500 Heart rate 64 /min Dr. Marcella Laird Work Phone: [facility] 10-14-2022 09:59-0500 Respiratory rate 14 /min Dr. Marcella Laird Work Phone: [facility] 10-14-2022 09:59-0500 SaO2% (BldA) [Mass fraction] 99 % Dr. Marcella Laird Work Phone: [facility] 10-14-2022 09:59-0500 Systolic blood pressure 134 mm[Hg] Dr. Marcella Laird Work Phone: [facility] 09-11-2022 09:21-0500 Body height 170.[address] Marcella Laird Work Phone: [facility] Work Phone: 09-11-2022 09:21-0500 Body weight 90.[address] Marcella Laird Work Phone: [facility] 09-11-2022 09:21-0500 Diastolic blood pressure 80 mm[Hg] Dr. Marcella Laird Work Phone: [facility] 09-11-2022 09:21-0500 Systolic blood pressure 158 mm[Hg] Dr. Marcella Laird Work Phone: [facility] 09-11-2022 08:45-0500 Body mass index (BMI) [Ratio] 31.1 kg/m2 Dr. Marcella Laird Work Phone: [facility] 09-11-2022 08:45-0500 Body temperature 97.7 [degF] Dr. Marcella Laird Work Phone: [facility] 09-11-2022 08:45-0500 Heart rate 66 /min Dr. Marcella Laird Work Phone: [facility] 09-11-2022 08:45-0500 Respiratory rate 14 /min Dr. Marcella Laird Work Phone: [facility] 09-11-2022 08:45-0500 SaO2% (BldA) [Mass fraction] 95 % Dr. Marcella Laird Work Phone: [facility] 08-21-2022 08:47-0400 Body mass index (BMI) [Ratio] 30.7 kg/m2 Dr. Marcella Laird Work Phone: [facility] 08-21-2022 08:47-0400 Body temperature 95.4 [degF] Dr. Marcella Laird Work Phone: [facility] 08-21-2022 08:47-0400 Body weight 88.[address] Marcella Laird Work Phone: [facility] 08-21-2022 08:47-0400 Diastolic blood pressure 73 mm[Hg] Dr. Marcella Laird Work Phone: [facility] 08-21-2022 08:47-0400 Heart rate 58 /min Dr. Marcella Laird Work Phone: [facility] 08-21-2022 08:47-0400 Respiratory rate 18 /min Dr. Marcella Laird Work Phone: [facility] 08-21-2022 08:47-0400 Systolic blood pressure 156 mm[Hg] Dr. Marcella Laird Work Phone: [facility] 08-19-2022 19:58-0400 Body temperature 98.4 [degF] Dr. Marcella Laird Work Phone: [facility] 08-19-2022 19:58-0400 Diastolic blood pressure 57 mm[Hg] Dr. Marcella Laird Work Phone: [facility] 08-19-2022 19:58-0400 Heart rate 62 /min Dr. Marcella Laird Work Phone: [facility] 08-19-2022 19:58-0400 Respiratory rate 16 /min Dr. Marcella Laird Work Phone: [facility] 08-19-2022 19:58-0400 SaO2% (BldA) [Mass fraction] 100 % Dr. Marcella Laird Work Phone: [facility] 08-19-2022 19:58-0400 Systolic blood pressure 134 mm[Hg] Dr. Marcella Laird Work Phone: [facility] 08-19-2022 17:02-0400 Body height 170.[address] Marcella Laird Work Phone: [facility] Work Phone: 08-19-2022 17:02-0400 Body mass index (BMI) [Ratio] 29.2 kg/m2 Dr. Marcella Laird Work Phone: [facility] 08-19-2022 17:02-0400 Body weight 84.[address] Marcella Laird Work Phone: [facility] 08-12-2022 08:27-0400 Body temperature 97.7 [degF] Dr. Marcella Laird Work Phone: [facility] 08-12-2022 08:27-0400 Body weight 90.[address] Marcella Laird Work Phone: [facility] 08-12-2022 08:27-0400 Diastolic blood pressure 82 mm[Hg] Dr. Marcella Laird Work Phone: [facility] 08-12-2022 08:27-0400 Heart rate 66 /min Dr. Marcella Laird Work Phone: [facility] 08-12-2022 08:27-0400 Respiratory rate 16 /min Dr. Marcella Laird Work Phone: [facility] 08-12-2022 08:27-0400 SaO2% (BldA) [Mass fraction] 95 % Dr. Marcella Laird Work Phone: [facility] 08-12-2022 08:27-0400 Systolic blood pressure 137 mm[Hg] Dr. Marcella Laird Work Phone: [facility] 08-09-2022 10:35-0400 Body height 170.[address] Marcella Laird Work Phone: [facility] Work Phone: 08-07-2022 09:15-0400 Body temperature 97.6 [degF] Dr. Marcella Laird Work Phone: [facility] 08-07-2022 09:15-0400 Diastolic blood pressure 73 mm[Hg] Dr. Marcella Laird Work Phone: [facility] 08-07-2022 09:15-0400 Heart rate 55 /min Dr. Marcella Laird Work Phone: [facility] 08-07-2022 09:15-0400 Respiratory rate 18 /min Dr. Marcella Laird Work Phone: [facility] 08-07-2022 09:15-0400 SaO2% (BldA) [Mass fraction] 97 % Dr. Marcella Laird Work Phone: [facility] 08-07-2022 09:15-0400 Systolic blood pressure 132 mm[Hg] Dr. Marcella Laird Work Phone: [facility] 08-06-2022 07:40-0400 Body weight 89.[address] Marcella Laird Work Phone: [facility] 08-05-2022 06:57-0400 Body mass index (BMI) [Ratio] 31 kg/m2 Dr. Marcella Laird Work Phone: [facility] 07-16-2022 15:05-0400 Body mass index (BMI) [Ratio] 31 kg/m2 Dr. Marcella Laird Work Phone: [facility] 07-16-2022 15:05-0400 Body weight 89.[address] Marcella Laird Work Phone: [facility] 07-16-2022 15:05-0400 Diastolic blood pressure 64 mm[Hg] Dr. Marcella Laird Work Phone: [facility] 07-16-2022 15:05-0400 Heart rate 60 /min Dr. Marcella Laird Work Phone: [facility] 07-16-2022 15:05-0400 Respiratory rate 16 /min Dr. Marcella Laird Work Phone: [facility] 07-16-2022 15:05-0400 Systolic blood pressure 156 mm[Hg] Dr. Marcella Laird Work Phone: [facility] 06-19-2022 14:04-0400 Body temperature 97.7 [degF] Dr. Marcella Laird Work Phone: [facility] Work Phone: 06-19-2022 14:04-0400 Body weight 89.[address] Marcella Laird Work Phone: [facility] Work Phone: 06-19-2022 14:04-0400 Diastolic blood pressure 74 mm[Hg] Dr. Marcella Laird Work Phone: [facility] Work Phone: 06-19-2022 14:04-0400 Heart rate 58 /min Dr. Marcella Laird Work Phone: [facility] Work Phone: 06-19-2022 14:04-0400 Respiratory rate 16 /min Dr. Marcella Laird Work Phone: [facility] Work Phone: 06-19-2022 14:04-0400 SaO2% (BldA) [Mass fraction] 97 % Dr. Marcella Laird Work Phone: [facility] Work Phone: 06-19-2022 14:04-0400 Systolic blood pressure 128 mm[Hg] Dr. Marcella Laird Work Phone: [facility] Work Phone: 06-10-2022 18:55-0400 Diastolic blood pressure 64 mm[Hg] Dr. Marcella Laird Work Phone: [facility] Work Phone: 06-10-2022 18:55-0400 Heart rate 56 /min Dr. Marcella Laird Work Phone: [facility] Work Phone: 06-10-2022 18:55-0400 Respiratory rate 14 /min Dr. Marcella Laird Work Phone: [facility] Work Phone: 06-10-2022 18:55-0400 Systolic blood pressure 155 mm[Hg] Dr. Marcella Laird Work Phone: [facility] Work Phone: 06-10-2022 18:14-0400 SaO2% (BldA) [Mass fraction] 98 % Dr. Marcella Laird Work Phone: [facility] Work Phone: 06-10-2022 15:58-0400 Body height 170.[address] Marcella Laird Work Phone: [facility] Work Phone: 06-10-2022 15:58-0400 Body mass index (BMI) [Ratio] 26.6 kg/m2 Dr. Marcella Laird Work Phone: [facility] Work Phone: 06-10-2022 15:58-0400 Body temperature 97.8 [degF] Dr. Marcella Laird Work Phone: [facility] Work Phone: 06-10-2022 15:58-0400 Body weight 77.[address] Marcella Laird Work Phone: [facility] Work Phone: 04-03-2022 14:01-0400 Body height 172.[address] Marcella Laird Work Phone: [facility] Work Phone: 04-03-2022 14:01-0400 Body mass index (BMI) [Ratio] 28.6 kg/m2 Dr. Marcella Laird Work Phone: [facility] Work Phone: 04-03-2022 14:01-0400 Body temperature 97 [degF] Dr. Marcella Laird Work Phone: [facility] Work Phone: 04-03-2022 14:01-0400 Body weight 85.[address] Marcella Laird Work Phone: [facility] Work Phone: 04-03-2022 14:01-0400 Diastolic blood pressure 64 mm[Hg] Dr. Marcella Laird Work Phone: [facility] Work Phone: 04-03-2022 14:01-0400 Heart rate 65 /min Dr. Marcella Laird Work Phone: [facility] Work Phone: 04-03-2022 14:01-0400 Respiratory rate 16 /min Dr. Marcella Laird Work Phone: [facility] Work Phone: 04-03-2022 14:01-0400 SaO2% (BldA) [Mass fraction] 98 % Dr. Marcella Laird Work Phone: [facility] Work Phone: 04-03-2022 14:01-0400 Systolic blood pressure 126 mm[Hg] Dr. Marcella Laird Work Phone: [facility] Work Phone: 01-22-2022 16:02-0400 Body mass index (BMI) [Ratio] 29.5 kg/m2 Dr. Marcella Laird Work Phone: [facility] Work Phone: 01-22-2022 16:02-0400 Body temperature 96.7 [degF] Dr. Marcella Laird Work Phone: [facility] Work Phone: 01-22-2022 16:02-0400 Body weight 87.[address] Marcella Laird Work Phone: [facility] Work Phone: 01-22-2022 16:02-0400 Diastolic blood pressure 74 mm[Hg] Dr. Marcella Laird Work Phone: [facility] Work Phone: 01-22-2022 16:02-0400 Heart rate 68 /min Dr. Marcella Laird Work Phone: [facility] Work Phone: 01-22-2022 16:02-0400 Respiratory rate 14 /min Dr. Marcella Laird Work Phone: [facility] Work Phone: 01-22-2022 16:02-0400 SaO2% (BldA) [Mass fraction] 98 % Dr. Marcella Laird Work Phone: [facility] Work Phone: 01-22-2022 16:02-0400 Systolic blood pressure 132 mm[Hg] Dr. Marcella Laird Work Phone: [facility] Work Phone: 01-22-2022 16:02-0400 Body height 172.[address] Marcella Laird Work Phone: [facility] Work Phone: 01-22-2022 16:02-0400 Body mass index (BMI) [Ratio] 29.5 kg/m2 Dr. Marcella Laird Work Phone: [facility] Work Phone: 01-22-2022 16:02-0400 Body temperature 96.7 [degF] Dr. Marcella Laird Work Phone: [facility] Work Phone: 01-22-2022 16:02-0400 Body weight 87.[address] Marcella Laird Work Phone: [facility] Work Phone: 01-22-2022 16:02-0400 Diastolic blood pressure 74 mm[Hg] Dr. Marcella Laird Work Phone: [facility] Work Phone: 01-22-2022 16:02-0400 Heart rate 68 /min Dr. Marcella Laird Work Phone: [facility] Work Phone: 01-22-2022 16:02-0400 Respiratory rate 14 /min Dr. Marcella Laird Work Phone: [facility] Work Phone: 01-22-2022 16:02-0400 SaO2% (BldA) [Mass fraction] 98 % Dr. Marcella Laird Work Phone: [facility] Work Phone: 01-22-2022 16:02-0400 Systolic blood pressure 132 mm[Hg] Dr. Marcella Laird Work Phone: [facility] Work Phone: Encounters Encounter Date Encounter Type Care Provider Facility Start: 04-18-2025 ambulatory [facility] Facility :[facility] Start: 04-06-2025 [facility] Start: 12-30-2024 End: 12-30-[address] Marcella Laird MD Work Phone: [facility] Work Phone: Start: 12-30-2024 End: 12-30-[address] Marcella Laird MD -Ultrasound, [facility] Work Phone: Start: 12-29-2024 End: 12-30-[address] Marcella Laird MD Work Phone: [facility] Work Phone: Start: 12-29-2024 End: 12-29-[address] Marcella Laird MD -Radiology, [facility] Work Phone: Start: 12-29-2024 End: 12-29-[address] Marcella Laird MD -[facility] Work Phone: Start: 12-29-2024 End: 12-29-2024 ambulatory Marcella Laird Facility:[facility] Start: 12-29-2024 End: 12-29-2024 ambulatory Marcella Laird Facility:[facility] Start: 12-13-2024 End: 12-13-[address] Marcella Laird MD -Laboratory, [place] Start: 12-13-2024 End: 12-13-[address] Marcella Laird MD -[facility] Work Phone: Start: 12-13-2024 End: 12-13-2024 ambulatory Marcella Laird Facility:[facility] Start: 12-13-2024 End: 12-13-2024 ambulatory Marcella Laird Facility:[facility] Start: 12-11-2024 ambulatory Marcella Laird Facility :[facility] Start: 11-29-2024 End: 11-29-[address] Marcella Laird MD -[facility] Work Phone: Start: 11-29-2024 End: 11-29-2024 ambulatory Marcella Laird Facility:[facility] Start: 11-27-2024 ambulatory Marcella Laird Facility :[facility] Start: 11-26-2024 End: 11-26-2024 Patient encounter procedure Otto SHARMA -[facility] Work Phone: Start: 11-26-2024 End: 11-26-2024 ambulatory Otto SHARMA Facility:[facility] Start: 10-27-2024 End: 10-27-2024 Patient encounter procedure Genoveva SHARMA -Laboratory Work Phone: Start: 10-26-2024 End: 10-26-2024 Patient encounter procedure Genoveva SHARMA -[facility] Work Phone: Start: 10-26-2024 End: 10-27-2024 ambulatory Marcella Laird Facility:[facility] Start: 10-21-2024 End: 10-21-2024 Patient encounter procedure Otto SHARMA -[facility] Work Phone: Start: 10-21-2024 End: 10-21-2024 ambulatory Otto SHARMA Facility:[facility] Start: 09-06-2024 End: 09-06-2024 ambulatory Marcella Laird Facility:[facility] Start: 08-27-2024 End: 08-27-2024 ambulatory Marcella Laird Facility:[facility] Start: 08-27-2024 End: 08-27-2024 ambulatory Marcella Laird Facility:[facility] Start: 08-09-2024 End: 08-09-2024 ambulatory Marcella Laird Facility:[facility] Start: 07-19-2024 End: 07-19-2024 [facility] Start: 06-17-2024 End: 06-17-2024 ambulatory Marcella Laird Facility:[facility] Start: 06-02-2024 End: 06-02-2024 ambulatory Marcella Laird Facility:[facility] Start: 05-31-2024 End: 05-31-2024 ambulatory Marcella Laird Facility:[facility] Start: 04-29-2024 End: 04-29-2024 ambulatory Marcella Laird Facility:[facility] Start: 02-19-2024 End: 02-19-2024 ambulatory MARCELLA LAIRD [facility] Start: 02-19-2024 End: 02-19-2024 Postop follow up visit related to original px Martha Reed MD Work Phone: [facility] Comment on above: 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 Marcella Laird Work Phone: [facility] Work Phone: Start: 02-11-2024 Non-patient / Non-visit Dr. Juhi Laird Work Phone: [facility] Start: 02-11-2024 End: 02-11-[address] Marcella Laird Work Phone: [facility] Work Phone: Start: 02-11-2024 End: 02-11-[address] Marcella Laird Work [facility]: [facility] [facility] Work Phone: Start: 01-19-2024 End: 01-19-[address] Marcella Laird Work Phone: [facility] Work Phone: Start: 01-12-2024 End: 01-12-2024 ambulatory MARCELLA [facility] Start: 01-12-2024 End: 01-12-2024 Postop follow up visit related to original px Tenriism Tyree [facility] Work Phone: [facility] Comment on above: Carpal tunnel syndro me of right wrist (Primary Dx); Other closed intra-articular fracture of distal end of right radius with malunion, subsequent encounter; S/P endoscopic carpal tunnel release Start: 01-08-2024 End: 01-08-[address] Marcella Laird Work Phone: [facility] Work Phone: Start: 01-02-2024 End: 01-02-2024 ambulatory MARCELLA [facility] Start: 01-02-2024 End: 01-02-2024 Subsequent hospital visit by physician Martha Reed MD Work Phone: [facility] MA[facility] Comment on above: S/P carpal tunnel re lease (Primary Dx) Start: 12-26-2023 End: 12-26-2023 ambulatory [facility] Start: 12-26-2023 End: 12-26-2023 Encounter for other preprocedural examination MARTHA REED [facility] Start: 12-19-2023 End: 12-19-2023 Emergency department patient visit Dr. Marcella Laird Work Phone: [facility]Emergency Department Work Phone: Start: 11-06-2023 ambulatory Tenriism Back er PA-C Work Phone: [facility] Start: 10-30-2023 End: 10-31-2023 ambulatory MARTHA REED [facility] Start: 10-30-2023 End: 10-30-2023 Office outpatient new 30 minutes Martha Reed MD Work Phone: [facility] Comment on above: Other closed intra-a rticular fracture of distal end of right radius with malunion, subsequent encounter; Carpal tunnel syndrome of right wrist Start: 10-30-2023 End: 10-30-2023 Subsequent hospital visit by physician Martha Reed MD Work Phone: [facility] Comment on above: Pain in wrist, unspe cified laterality Start: 10-21-2023 Orders Only Tenriism Back er PA-C Work Phone: [facility] Comment on above: Pain in wrist, unspe cified laterality (Primary Dx) Start: 08-25-2023 End: 08-25-[address] Marcella Laird Work Phone: [facility] Work Phone: Start: 08-14-2023 End: 08-14-[address] Marcella Laird Work Phone: [facility] Work Phone: Start: 08-14-2023 End: 08-14-[address] Marcella Laird Work Phone: [facility]Occ[facility]ational [facility] Work Phone: Start: 07-31-2023 End: 07-31-2023 Emergency department patient visit Dr. Marcella Laird Work Phone: [facility] Work Phone: Start: 07-28-[address] Marcella Laird Work Phone: [facility] Work Phone: Start: 07-11-2023 End: 07-11-[address] Mareclla Laird Work Phone: [facility] Work Phone: Start: 06-04-2023 Non-patient / Non-visit Dr. Juhi Laird Work Phone: [facility] Start: 06-04-2023 End: 06-04-[address] Marcella Laird Work Phone: [facility] Work Phone: Start: 06-04-2023 End: 06-04-[address] Marcella Laird Work Phone: [facility]-Pulmonary Services/Neurology Work Phone: Start: 05-26-2023 End: 05-26-[address] Marcella Laird Work Phone: [facility] Work Phone: Start: 05-26-2023 End: 05-26-[address] Marcella Laird Work Phone: [facility]-Laboratory Work Phone: Start: 03-24-2023 End: 03-24-[address] Marcella Laird Work Phone: [facility] Work Phone: Start: 03-24-2023 End: 03-24-[address] Marcella Laird Work Phone: [facility] Start: 03-13-2023 End: 03-13-[address] Marcella Laird Work Phone: [facility] Start: 03-07-2023 End: 03-07-[address] Marcella Laird Work Phone: [facility] Start: 02-03-2023 End: 02-03-[address] Marcella Laird Work Phone: [facility] Start: 01-27-2023 End: 01-27-[address] Marcella Laird Work Phone: [facility] Start: 01-12-2023 End: 01-12-2023 Emergency department patient visit Dr. Marcella Laird Work Phone: [facility] Start: 01-09-2023 End: 01-09-[address] Marcella Laird Work Phone: [facility] Work Phone: Start: 01-09-2023 End: 01-09-[address] Marcella Laird Work Phone: [facility]Physical Therapy Work Phone: Start: 01-09-[address] Marcella Laird Work Phone: [facility] Therapy Start: 12-25-2022 End: 01-17-[address] Marcella Laird Work Phone: [facility] Work Phone: Start: 12-25-2022 End: 01-17-[address] Marcella Laird Work Phone: [facility]Cardiac Re[facility] Start: 12-25-[address] Marcella Laird Work Phone: [facility] Start: 12-16-2022 End: 12-17-[address] Marcella Laird Work Phone: [facility] Start: 12-09-[address] Marcella Laird Work Phone: [facility] Start: 12-06-2022 End: 12-06-[address] Marcella Laird Work Phone: [facility]Pulmonary Services/Neurology Start: 12-04-2022 End: 12-04-[address] Marcella Laird Work Phone: [facility] Start: 12-02-2022 End: 12-02-2022 Emergency department patient visit Dr. Marcella Laird Work Phone: [facility] Start: 11-29-2022 Non-patient / Non-visit Dr. Juhi Laird Work Phone: [facility] Start: 11-29-2022 End: 11-29-[address] Marcella Laird Work Phone: [facility] Work Phone: Start: 11-29-2022 End: 11-29-[address] Marcella Laird Work Phone: [facility] Start: 11-29-2022 End: 11-29-[address] Marcella Laird Work Phone: [facility] Start: 11-26-[address] Marcella Laird Work Phone: [facility]Physical Therapy Start: 11-19-[address] Marcella Laird Work Phone: [facility] Start: 11-15-2022 End: 11-19-[address] Marcella Laird Work Phone: [facility] Work Phone: Start: 11-15-2022 End: 11-19-[address] Marcella Laird Work Phone: [facility] Start: 11-11-[address] Marcella Laird Work Phone: [facility] Start: 11-07-2022 Non-patient / Non-visit Dr. Juhi Laird Work Phone: [facility] Start: 11-07-2022 End: 11-07-[address] Marcella Laird Work Phone: [facility] Start: 10-31-2022 End: 10-31-[address] Marcella Laird Work Phone: [facility] Work Phone: Start: 10-31-2022 End: 10-31-[address] Marcella Laird Work Phone: [facility] Start: 10-31-2022 End: 10-31-[address] Marcella Laird Work Phone: [facility] Start: 10-14-2022 End: 10-14-[address] Marcella Laird Work Phone: [facility] Start: 10-09-2022 End: 10-19-[address] Marcella Laird Work Phone: [facility] Work Phone: Start: 10-09-2022 End: 10-19-[address] Marcella Laird Work Phone: [facility] Start: 09-26-2022 Non-patient / Non-visit Dr. Juhi Laird Work Phone: [facility] Start: 09-26-[address] [facility]aird [facility] Start: 09-18-2022 End: 09-18-[address] Marcella Laird Work Phone: [facility] Work Phone: Start: 09-18-2022 End: 09-18-[address] Marcella Laird Work Phone: [facility] Start: 09-16-[address] Marcella Laird Work Phone: [facility] Start: 09-11-2022 End: 09-11-[address] Marcella Laird Work Phone: [facility] Work Phone: Start: 09-11-2022 End: 09-11-[address] Marcella Laird Work Phone: [facility] Start: 09-09-2022 Non-patient / Non-visit Dr. Juhi Laird Work Phone: [facility] Start: 09-09-2022 End: 09-09-[address] Marcella Laird Work Phone: [facility] Work Phone: Start: 09-09-2022 End: 09-09-[address] Marcella Laird Work Phone: [facility] Start: 08-22-2022 End: 08-22-[address] Marcella Laird Work Phone: [facility] Start: 08-19-2022 End: 08-19-2022 Emergency department patient visit Dr. Marcella Laird Work Phone: [facility]Emergency Department Start: 08-13-2022 Non-patient / Non-visit Dr. Juhi Laird Work Phone: [facility] Start: 08-13-2022 End: 08-13-[address] Marcella Laird Work Phone: [facility] Work Phone: Start: 08-13-2022 End: 08-13-[address] Marcella Laird Work Phone: [facility] Start: 08-13-2022 End: 08-13-[address] Marcella Laird Work Phone: [facility] Start: 08-12-2022 End: 08-12-[address] Marcella Laird Work Phone: [facility] Start: 08-07-2022 Non-patient / Non-visit Dr. Juhi Laird Work Phone: [facility] Start: 08-06-2022 End: 08-07-2022 Evaluation and management of inpatient Dr. Marcella Laird Work Phone: [facility]-Progressive Care Unit Start: 08-02-2022 Non-patient / Non-visit Dr. Juhi Laird Work Phone: [facility] Start: 07-25-2022 Non-patient / Non-visit Dr. Juhi Laird Work Phone: [facility] Start: 07-25-2022 End: 07-25-[address] Marcella Laird Work Phone: [facility] Start: 07-16-2022 End: 07-16-[address] Marcella Laird Work Phone: [facility] Start: 07-05-2022 Non-patient / Non-visit Dr. Juhi Laird Work Phone: [facility] Start: 07-05-2022 End: 07-05-[address] Marcella Laird Work Phone: [facility] Work Phone: Start: 07-05-2022 End: 07-05-[address] Marcella Laird Work Phone: [facility] Start: 06-19-2022 End: 06-19-[address] Marcella Laird Work Phone: [facility] [place] Start: 06-10-2022 End: 06-10-2022 Emergency department patient visit Dr. Marcella Laird Work Phone: [facility]Emergency Department Start: 04-03-2022 End: 04-03-[address] Marcella Laird Work Phone: [facility] Internal Medicine Start: 01-22-2022 End: 01-22-[address] Marcella Laird Work Phone: [facility] Internal Medicine Procedures Date Procedure Procedure Detail Performing Clinician Start: 12-30-2024 Complete ultrasound of kidneys and bladder Dr. Marcella Laird MD Work Phone: Start: 12-29-2024 Plain x-ray of wrist Dr. Marcella Laird MD Work Phone: Start: 10-26-2024 Evaluation of diagnostic study results Dr. Marcella Laird MD Work Phone: Start: 01-12-2024 History of decompression of median nerve S/P endoscopic carpal tunnel release Norma Clements PA-C Work Phone: Start: 12-19-2023 CT of head without contrast Dr. Marcella Laird Work Phone: Start: 12-19-2023 Radiologic examination of knee Dr. Marcella Laird Work Phone: Start: 03-13-2023 X-ray of both feet Dr. Marcella Laird Work Phone: Start: 01-12-2023 Plain x-ray of humerus Dr. Marcella hawkins Work Phone: Start: 01-12-2023 Plain x-ray of wrist Dr. Marcella Laird Work Phone: Start: 10-31-2022 Plain X-ray of shoulder Dr. Marcella mcmillan Work Phone: Start: 08-19-2022 Plain chest X-ray Dr. Marcella Laird Work Phone: Start: 07-05-2022 Radionuclide imaging of perfusion of myocardium under exercise stress Dr. Marcella Laird Work Phone: Start: 06-10-2022 Plain chest X-ray Dr. Marcella Laird Work Phone: Start: 06-10-2022 CT of head without contrast Dr. Marcella Laird Work Phone: History of decompres amira of median nerve S/P carpal tunnel release Martha Reed MD Work Phone: History of decompres amira of median nerve S/P endoscopic carpal tunnel release Martha Reed MD Work Phone: Urine culture Dr. Marcella Lizama hner Work Phone: Plan of Treatment Date Care Activity Detail Author Start: 06-20-2024 Influenza vaccination Influenz a Vaccine (Season Ended) [facility] Start: 04-20-2024 DTaP/Tdap/Td Vaccine s (2 - Td or Tdap) DTaP/Tdap/Td Vaccines (2 - Td or Tdap) [facility] Start: 04-20-2024 DTaP/Tdap/Td Vaccine s (3 - Td or Tdap) DTaP/Tdap/Td Vaccines (3 - Td or Tdap) [facility] Start: 02-26-2024 End: 02-26-2024 Patient encounter procedure 02/26/2024 8:30 AM EDT Office Visit [facility] [address] [place] [phone] Martha Reed MD [address] [facility] [address] [place], [place] [id number] [facility] Start: 01-19-2024 Patient referral [facility] Work Phone: Start: 01-12-2024 End: 01-12-2024 Patient encounter procedure 01/12/2024 9:30 AM EDT Office Visit [facility] [address] [facility] [address] [place] [address] Norma Clements PA-C [address] [facility] [address] [place], [place] [id number] [facility] Start: 01-02-2024 End: 01-02-2024 Admission to same day surgery center 01/02/2024 10:15 AM EDT - 01/02/2024 10:45 AM EDT Surgery [facility] MA[facility] OR [address] [place] [address] Martha Reed MD [address] [facility] [address] [place], [place] [id number] ENDOSCOPIC RIGHT CARPAL TUNNEL RELEASE, POSSIBLE OPEN, RIGHT DORSAL RADIOCARPAL WRIST INJECTION [87015 (CPT )] [facility] OR Comment on above: ENDOSCOPIC RIGHT CAR PAL TUNNEL RELEASE, POSSIBLE OPEN, RIGHT DORSAL RADIOCARPAL WRIST INJECTION [45435 (CPT )] Start: 01-02-2024 End: 01-02-2024 Arthrocentesis aspir&/inj interm jt/burs w/o us [facility] Operating Room Start: 01-02-2024 End: 01-02-2024 Ndsc wrst surg w/rls transvrs carpl ligm [facility] Operating Room Start: 01-02-2024 Subsequent hospital visit by physician 01/02/2024 8:15 AM EDT Hospital Encounter [facility] [place] [place] [phone] Martha Reed MD [address] [facility] [address] [place] [address] [facility] Start: 12-26-2023 End: 12-26-2023 Admission to establishment 12/26/2023 10:30 AM EST Pre-Admission Testing [facility] Pre-Admit Testing [address] [place] [phone] [facility] Pre-Admit Testing Start: 12-19-2023 [facility] Start: 10-30-2023 End: 10-30-2023 Patient encounter procedure 10/30/2023 10:00 AM EST Office Visit [facility] [address] [place] [address] [place] [phone] Martha Reed MD [address] [facility] [address] [place] [address] [facility] Start: 10-21-2023 End: 10-21-2024 XR Wrist - right 3 Views XR wrist 3+ views right Imaging Routine Pain in wrist, unspecified laterality Expected: 10/21/2023, Expires: 10/21/2024 [facility] Work Phone: Comment on above: Expected: 10/21/2023 , Expires: 10/21/2024 Start: 10-20-2023 Medicare Advantage A nnual Wellness Visit Medicare Advantage Annual Wellness Visit [facility] Start: 07-31-2023 [facility] Start: 06-20-2023 COVID-19 Vaccine ( season) COVID-19 Vaccine ( season) [facility] Start: 06-20-2023 Influenza vaccination Influenza Vacc ine (#1) [facility] Start: 01-12-2023 Application short ar m splint forearm-hand static APPLY FOREARM SPLINT [facility] Start: 12-04-2022 Patient referral [facility] Work Phone: Start: 12-02-2022 Control nasal hemorr ann marie anterior simple CONTROL OF NOSEBLEED [facility] Start: 09-11-2022 [facility] Start: 09-11-2022 Patient referral to dietitian [facility] Start: 08-19-2022 Troponin I measurement [facility] Work Phone: Start: 08-19-2022 [facility] Start: 08-07-2022 Patient referral [facility] Work Phone: Start: 08-07-2022 Patient discharge [facility] Start: 08-06-2022 Admission procedure [facility] Start: 08-06-2022 Assessment of risk o f venous thromboembolism [facility] Start: 08-06-2022 Insertion of cathete r into peripheral vein [facility] Start: 08-06-2022 Measuring intake and output [facility] Start: 08-06-2022 Providing care accor ding to standard [facility] Start: 08-06-2022 End: 08-06-2022 [facility] Start: 08-06-2022 Ambulation without limitation [facility] Start: 08-06-2022 Cardiac monitoring [facility] Start: 08-06-2022 Cardiac rehabilitati on - phase 1 [facility] Start: 08-06-2022 Cardiac rehabilitati on - phase 2 [facility] Start: 08-06-2022 Notification of physician [facility] Start: 08-06-2022 Oxygen therapy [facility] Start: 08-06-2022 Patient discharge [facility] Start: 08-06-2022 Provision of activit y privileges [facility] Start: 08-06-2022 Systemic arterial pressure monitoring [facility] Start: 08-06-2022 Taking patient vital signs [facility] Start: 08-06-2022 Vascular disease ris k assessment [facility] Start: 08-06-2022 Vital signs measurements [facility] Start: 08-06-2022 End: 08-06-2022 [facility] Start: 2010 Pneumococcal Vaccine : 65+ Years (1 of 1 - PCV) Pneumococcal Vaccine: 65+ Years (1 of 1 - PCV) [facility] Start: 2005 RSV Immunization age d 60 or older (1 - 1-dose 60+ series) RSV Immunization aged 60 or older (1 - 1-dose 60+ series) [facility] Start: 1995 Zoster Vaccines (1 of 2) Zoste r Vaccines (1 of 2) [facility] Start: 1963 Hepatitis C screening Hepatitis C Sc reening [facility] Start: 1957 Depression Screening Depression Scre ening [facility] Start: 1951 Pneumococcal Vaccine : 65+ Years (1 of 2 - PCV) Pneumococcal Vaccine: 65+ Years (1 of 2 - PCV) [facility] Start: 1945 Lipid panel Lipid Panel [facility] Start: 1945 Medicare Advantage A nnual Wellness Visit (AWV) Medicare Advantage Annual Wellness Visit (AWV) [facility] Start: 1945 Screening for osteoporosis Bone Density Scan [facility] Work Phone: [facility] Lipid 1996 panel - S bonny or Plasma [facility] Patient Education [facility] Work Phone: Patient referral [facility] Work Phone: Troponin I measurement [facility] Work Phone: End: 10-30-2023 XR Wrist - right 3 Views [facility] Sy stem Work Phone: Comment on above: Once for 1 Occurrenc es starting 10/30/2023 until 10/30/2023 [facility] Immunizations Immunization Date Immunization Notes Care Provider Fa cility 04-20-2014 tetanus toxoid, redu brent diphtheria toxoid, and acellular pertussis vaccine, adsorbed Martha Reed MD Work Phone: [facility] 03-25-1983 diphtheria and tetan us toxoids, adsorbed for pediatric use Martha Reed MD Work Phone: [facility] Payers Date Payer Category Payer Self-pay [id number] 2023 Medicare [id number] 2023 Medicare [employer] [id number] 2023-Present [address] [place] [address] Medicare HMO [id number] 2010 Medicare [id number] Medicare MEDICARE PART A B [id number] Unknown [id number] Unknown [id number] [id number]2 Unknown [id number] 2.16.840.1.494771.3.579.2.462 Unknown [id number] 2.16.840.1.614508.3.579.2.462 Unknown [id number] 2.16.840.1.384491.3.579.2.462 Unknown [id number] 2.16.840.1.834993.3.579.2.462 Unknown [id number] 2.16.840.1.681473.3.579.2.462 Unknown [id number] 2.16.840.1.616209.3.579.2.462 Unknown [id number] 2.16.840.1.221029.3.579.2.462 Unknown [id number] 2.16.840.1.887716.3.579.2.462 Unknown [id number] 2.16.840.1.940573.3.579.2.462 Unknown [id number] 2.16.840.1.033408.3.579.2.462 Unknown [id number] 2.16.840.1.870833.3.579.2.462 Unknown [id number] 2.16.840.1.671145.3.579.2.462 Unknown [id number] 2.16.840.1.548359.3.579.2.462 Unknown [id number] 2.16.840.1.141978.3.579.2.462 Unknown [id number] 2.16.840.1.238821.3.579.2.462 Unknown [id number] 2.16.840.1.525664.3.579.2.462 Unknown [id number] 2.16.840.1.215668.3.579.2.462 Unknown [id number] 2.16.840.1.341172.3.579.2.462 Unknown [id number] 2.16.840.1.022514.3.579.2.462 Unknown [id number] 2.16.840.1.350328.3.579.2.462 Unknown [id number] 2.16.840.1.089149.3.579.2.462 Unknown [id number] 2.16.840.1.843103.3.579.2.462 Unknown [id number] 2.16840.1.813178.3.579.2.462 Unknown [id number] 2.16840.1.177178.3.579.2.462 Social History Date Type Detail Facility Start: 01-22-2022 End: 01-19-2024 Tobacco smoking status NYIS Unknown if ever smoked [facility] Start: 06-04-2021 None [facility] Start: 1945 Sex Assigned At Female W [facility] Start: 1945 Sex Assigned At Not on file [facility] Start: 10-30-2023 End: 02-19-2024 Gender identity Not on file [facility] Start: 10-30-2023 End: 12-13-2024 Tobacco smoking status NHIS Never smoked tobacco [facility] Start: 10-30-2023 Tobacco use and exposure Smokeless tobacco non-user [facility] Start: 10-30-2023 End: 02-19-2024 History of Social function [facility] Start: 01-02-2024 End: 02-19-2024 Alcohol intake Lifetime non-drinker (finding) [facility] Start: 01-07-2025 End: 01-11-2025 Sex Female (finding) [facility] Medical Equipment Procedure Code Equipment Code Equipment Origin al Text Equipment Identifier Dates ([id number]) Drug-eluting coronary artery stent, bioabsorbable-polyme r-coated ()[id number] FDA Start: 08-06-2022 Goals Date Patient Goal Desired Activity /State Functional Status Date Assessment Result Facility 08-07-2022 Functional status Activity Ability Indepe ndent [facility] Work Phone: Mental Status Date Assessment Result Facility 08-19-2022 Cognitive function Level Of Cons ciousness Awake;Alert;Appropriate;Follow s Commands [facility] Work Phone: 08-07-2022 Cognitive function Voice/Name [facility] Work Phone: 06-10-2022 Cognitive function Level Of Cons ciousness Awake;Alert;Appropriate;Follow s Commands [facility] Work Phone: Clinical Notes 01-18-2021 to 12-31-2024 Note Date & Type Note Facility 12-31-2024 Radiology Diagnostic study note [facility] Imaging Services [address] [place] [address] Kidney and Bladder MR#: [id number] Acct: [id number] Name: FAN CHEEMA Rep #: [id number] : 1945 F 79 From: Stefano Duggan MD PCP: Dr. Marcella Laird MD Status: REG CLI Study:Kidney and Bladder Date of Exam: 0 12/30/24 Exam# [id number] Ordering Dr: Marcella Laird MD ADDENDUM by Dr. River Duggan MD on 12/31/24 at 1339 This is an addendum report. The bladder is unremarkable. [facility]24 1340 Date cc: Dr. Marcella Laird MD ~* Signed PROCEDURE: KIDNEY AND BLADDER REASON FOR EXAM: HEMATURIA TECHNIQUE: Bilateral renal ultrasound. COMPARISON: None. FINDINGS: Normal renal sizes, parenchymal thicknesses, and echotextures. No hydronephrosis. No cysts or large solid renal masses. RIGHT Kidney Size: 9.1 cm x 5.3 cm x 3.8 cm Volume: 96.4 mL Cortical Thickness (if discernible): 1 cm (>6mm is normal) LEFT Kidney Size: 10.4 cm x 4.3 cm x 4.1 cm Volume: 96.6 mL Cortical Thickness (if discernible): 1.4 cm (>6mm is normal) US/Kidney and Bladder IMPRESSION: NORMAL RENAL ULTRASOUND Reading Location: [facility] CC: Dr. Marcella Laird MD ~ Cake Tester: Signed [facility] 12-29-2024 Radiology Diagnostic study note [facility] Imaging Services [address] [place] [address] [id number] Wrist min 3 Views MR#: [id number] Acct: [id number] Name: FAN CHEEMA Rep #: [id number] : 1945 F 79 From: Shavon Galicia MD PCP: Dr. Marcella Laird MD Status: REG CLI Study:Wrist min 3 Views Date of Exam: Exam# [id number] Ordering Dr: Marcella Laird MD EXAM: XR Left Wrist Complete, 3 or More Views CLINICAL INDICATION: LEFT WRIST PAIN, S/P FALL TECHNIQUE: Frontal, lateral and oblique views of the left wrist. COMPARISON: No relevant prior studies available. FINDINGS: BONES/JOINTS: See below. SOFT TISSUES: Soft tissue swelling without acute fracture. No radiopaque foreign body. RAD/Wrist min 3 Views IMPRESSION: 1. Soft tissue swelling without acute fracture. 2. If symptoms persist, further evaluation with CT is recommended. Reading Location: [facility] CC: Dr. Marcella Laird MD ~ Cake Tester: Signed [facility] 10-21-2024 Evaluation note Diagnosis Onset Date Resolution URI (upper respiratory infection) acute October 21, 2024 2:59pm Presence of stent in coronary artery July, acute October 26, 2024 8:57am Pure hypercholesterolemia acute October 26, 2024 8:57am HTN (hypertension) chronic 2024 8:57am Acute sinusitis acute November 26, 2024 8:50am Acute sinusitis acute November 29, 2024 8:59am Left ear pain acute November 292024 8:59am CAD (coronary artery disease) acute December 29, 2024 8:25am Dizziness acute December 29, 2024 8:25am Fall acute December 29, 2024 8:25am Hematuria acute December 29, 2024 8:25am Left wrist pain acute December 8:25am [facility] Work Phone: [phone]) 201-181709-30-2024 [facility] Medical Records Department [address] [place] [id number] History Physical Exam 07/19/24 0714 MR#: [id number] Acct: [id number] Name: FAN CHEEMA Rep #: [id number] : 1945 79 From: Joleen Mendez MD PCP: Dr. Marcella Laird MD Status:[facility] Location: [place] [address] HPI - General General Date of Service: 07/19/24 HPI Narrative FAN CHEEMA, is a 79 F who presents for colonoscopy due to hx of colon cancer. Pt denies any changes since last office visit. 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 Hartley. Patient's last colonoscopy was in 2019 showed functional patent ileocolic anastomosis and no polyps only internal hemorrhoids at that time. Patient states she does have bowel movements about every other day denies any blood. Patient denies any chronic abdominal pain/nausea/vomiting/reflux. [facility] Medical History (Updated 07/15/24 @ 16:28 by Jaimee Garza) Wears glasses Post-menopausal Arthritis History of Holter monitoring History of echocardiogram History of stress test Cardiology follow-up encounter History of patellar fracture Mastoiditis, chronic Dizziness Acute bronchitis, unspecified URI (upper respiratory infection) HTN (hypertension) Decreased radial pulse 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 Pure hypercholesterolemia Colon cancer Bilateral cataracts Seasonal allergies Personal history of colonic polyps Home Medications ???Medication ???Instructions ???Recorded ???Last Taken ???Type aspirin 81 mg chewable tablet 0.5 tab PO Q3D 01/19/24 Unknown History ondansetron 4 mg disintegrating 4 mg PO Q8H PRN PRN Nausea #10 tabs 01/19/24 Unknown Rx tablet cholecalciferol (vitamin D3) 50 50 mcg PO DAILY Vit D #90 tabs 05/31/24 Unknown Rx mcg (2,000 unit) tablet cyanocobalamin (vitamin B-12) 1,000 mcg PO DAILY B12 #90 tabs 05/31/24 Unknown Rx 1,000 mcg tablet hydrochlorothiazide 12.5 mg tablet 12.5 mg PO DAILY #90 tabs 05/31/24 Unknown Rx carvedilol 3.125 mg tablet 3.125 mg PO DAILY 07/15/24 Unknown History Allergy/AdvReac Type Severity Reaction Status Date / Time atorvastatin calcium (From Allergy myalgias Verified 07/15/24 16:16 Lipitor) clarithromycin Allergy Nausea/Vom/ Verified 07/15/24 16:16 Diarrhea desloratadine (From Clarinex) Allergy Unknown Verified 07/15/24 16:16 guaifenesin (From Entex [place]) Allergy Unknown Verified 07/15/24 16:16 hydrocodone bitartrate (From Allergy Other Verified 07/15/24 16:16 Vicodin) methylprednisolone Allergy Unknown Verified 07/15/24 16:16 nystatin Allergy Unknown Verified 07/15/24 16:16 pentoxifylline Allergy Nausea/Vom/ Verified 07/15/24 16:16 Diarrhea phenylephrine HCl (From Allergy Unknown Verified 07/15/24 16:16 Entex LA) phenylpropanolamine HCl Allergy Unknown Verified 07/15/24 16:16 (From Entex LA) sulfamethoxazole (From Allergy Unknown Verified 07/15/24 16:16 Bactrim) trimethoprim (From Bactrim) Allergy Unknown Verified 07/15/24 16:16 ibuprofen AdvReac Intermediate Bleeding Verified 07/15/24 16:17 isosorbide AdvReac Intermediate Dizziness, Verified 07/15/24 16:16 weakness pravastatin AdvReac Myalgia Verified 07/15/24 16:16 Family History Mother Diabetes Heart disease Father Heart disease Myocardial infarction Sister Diabetes Heart disease Hypertension Sister Heart disease Surgical History (Updated 07/15/24 @ 16:28 by Jaimee Garza) History of cardiac catheterization History of coronary artery stent placement History of carpal tunnel release ( 2022) H/O shoulder surgery Presence of stent in coronary artery ( 08/06/22) Presence of coronary angioplasty implant and graft ( 08/06/22) History of bilateral cataract extraction History of bowel resection History of colonoscopy Social History Smoking Status: Never smoker alcohol intake: never substance use type: does not use caffeine: Yes Type: carbonated beverages Number of servings: 2 and tea Number of servings: 2 additional social history: Uses Ibuprofen prn Past Medical/Surgical History Planned Operation Planned Operative Procedure(s): CSCOPE S.O.S: No Previous Hospitalizations/Surgeries HX Hospitalizations: No HX of Surgeries: TONSILLECTOMY - [facility] 1965 ? [facility] 1979 ? [facility] TUBAL LIGATION 1969 ? [facility] laparoscopy right colectomy 2014/[facility] Any Problems With Anesthesia: Yes (TAKES A LITTLE LONGER TO WAKE UP, PONV) You/Your Family Experience Fever (Hyperthermia) With Anes: No Cholinesterase deficiency: No Cardiovascular Hx Ches (more content not included)...[facility]05-02-2024 History of Present illness Narrative* Martha Reed MD - 02/19/2024 9:30 AM EDT Images from the original note were not included. [facility] [address] [place] [address] Dept: [phone] Dept 02/19/2024 Chief Complaint Patient presents with Post-op Endoscopic RIGHT carpal tunnel release, possible open, Right dorsal radiocarpal wrist injection on 01/02/24 SUBJECTIVE Fan is approximately 7 week(s) s/p Endoscopic RIGHT carpal tunnel release, possible open, Right dorsal radiocarpal wrist injection. She is no longer taking anything for pain. She still has minor achy in the palm of the hand. She states she still has 100% relief in the wrist joint, where the injection was. OBJECTIVE Ht 5' 8 (1.727 m) Wt 193 lb (87.5 kg) BMI 29.35 kg/m Ortho Exam Right wrist incision well-healed. Minor tenderness in mid palm. Stiffness of the wrist per baseline. Mild swelling dorsal radial wrist. NVID with 2.5 mm throughout. IMAGING NONE ASSESSMENT (G56.01) Carpal tunnel syndrome of right wrist (S52.571P) Other closed intra-articular fracture of distal end of right radius with malunion, subsequent encounter (Z98.890) S/P endoscopic carpal tunnel release 1. Carpal tunnel syndrome of right wrist 2. Other closed intra-articular fracture of distal end of right radius with malunion, subsequent encounter 3. S/P endoscopic carpal tunnel release PLAN Fan is doing some pillar pain but I simply reassured her that it can take 4 to 6 months for that to completely resolve. She is comfortable this will follow-up on appearing basis. Immobilization: NO immobilization required at this point - FULL ROM encouraged without resitrictions Weight Bearing: Weight Bearing As Tolerated Rehabilitation: NO formal rehabilitation required at this point. Follow-up: Fan will followup with me on an as needed basis. She knows to call the office with anyquestions or concerns in the interim. Future Imaging: NONE Martha Reed MD Hand and Upper Extremity Surgery [facility] Department of Orthopaedics and Sports Medicine 02/19/2024 at 9:35 AM (Please note that portions of this note may have been completed with a voice recognition program. Efforts were made to edit the dictations but occasionally words are mis-transcribed.) documented in this [facility]03-25-2024 History of Present illness Narrative* Norma Clements PA-C - 01/12/2024 9:30 AM EDT Subjective: Fan is approximately 10 day(s) s/p Right endoscopic carpal tunnel release and Right Radiocarpal joint steroid injection. Pain is minimal. She is no longer taking anything for pain. She reports resolution in the numbness and tingling postoperatively. She denies drainage from her incision. Her wrist injection gave her 100% relief she states she no longer notices her wrist pain. Patient reports been doing well since her surgery. She reports 100% resolution of her numbness and tingling symptoms postoperatively. She does notice new change in sensation of the radial sensory nerve distribution. She denies this is being in numbness or tingling but more so a dull sensation. She reports intact vision without drainage. She denies fevers or chills. She reports she is unable to tell if the wrist injection has helped yet. Objective: Ht 5' 8 (1.727 m) Wt 193 lb (87.5 kg) BMI 29.35 kg/m Right Upper Extremity Skin: Incision(s) is healed with intact Prolene suture. No drainage. No erythema. No warmth, no wound separation. Edema: Minimal surrounding edema. Perfusion: Brisk capillary refill to all digits with 2+ radial pulse. Sensation: RIGHT Hand 2-point discrimination (mm) Thumb Index Long Ring Small r u r u r u r u r u 5 5 5 5 5 5 5 5 5 5 Median Ulnar ROM: Wrist: Flexion 35 Extension 40 Supination 75 Pronation Full Fingers flex to palm. Full finger range of motion XRay: None Assessment Diagnosis Plan 1. Carpal tunnel syndrome of right wrist External referral to Occupational Therapy 2. Other closed intra-articular fracture of distal end of right radius with malunion, subsequent encounter 3. S/P endoscopic carpal tunnel release External referral to Occupational Therapy Plan Patient is recovering well from her surgery. She is healing her incision without signs of infection. She is 100% resolution of her numbness and tingling symptoms postoperatively. She has controlled pain. At this time I would like Fan to begin wrist and hand range of motion exercises without limits to include nerve gliding exercises. The patient was advised to advance weightbearing activities using pain as a guide. Sutures were removed today in the office without complication. Signs and symptoms infection discussed with the patient. I discussed with the patient that with dullness in her radial sensory nerve distribution should resolve as this may be due to swelling, bandage, tourniquet, positioning during surgery. She was given a formal prescription for occupational therapy for range of motion. Expected course of recovery for the injection was discussed and she knows that she must waitleast 6 weeks to know full efficacy of the injection. Expected postoperative recovery course was discussed with the patient including pillar pain and length of time for maximum improvement and returnof full strength. patient was advised The patient was provided with home going exercise instructions. her questions were answered today in the office. I would like the patient to follow up in 6 weeksfor repeat evaluation of her range of motion. She is comfortable with the plan. Immobilization: NO immobilization required at this point - FULL ROM encouraged Weight Bearing: Weight bearing as tolerated Rehabilitation: OT/PT Rx given: To follow protocol. Dr. Reed will see Fan back in 6 weeks to see how she is doing. Fan knows to call the office with any questions or concerns in the interim. Future Imaging: None Sutures were removed in office today. No dressing was applied to right wrist. Patient tolerated well with no concerns. Performed by: PEDRO Clements PA-C to Dr. Martha Reed Orthopaedic Surgery Hand and Upper Extremity (Please note that portions of this note may have been completed with a voice recognition program. Efforts were made to edit the dictations but occasionally words are mis-transcribed.) documented in this [facility]03-25-2024 Instructions* Patient Instructions* Clarita Redman [facility] - 01/12/2024 9:30 AM EDT Images from the original note were not included. THERAPY TO MAKE YOUR HANDS LESS TENDER Hand injuries are often very tender during the early healing phase. Often, tenderness in scars getsworse starting one to two weeks after injury or surgery. Unfortunately, this tenderness does not always go away by itself. The nerves in the hand are special and are more sensitive than other parts of the body. After any injury, the skin of the hand must get used to being touched again for the tenderness to go away. If you do not touch the sore areas of your hand, they may remain very sensitive and tender. The techniques of PERCUSSION and FRICTION MASSAGE outlined in this pamphlet will help speed up the process of recovery from tenderness in your hands and fingers. The goal of these exercises is to make your wounds less tender. It is normal for these exercises mahesh somewhat uncomfortable while doing them or shortly afterwards. If the exercises are too painful,try using less pressure. If that does not work, then give yourself a several hour break and try again. If pain again is a problem, speak with your doctor or your therapist. These exercises will not be recommended until it is safe to do them. PERCUSSION (Tapping): This technique activates the automatic reflex which makes us ignore things which are very repetitive. This reflex will dull the tenderness in areas of your hand that are touched repeatedly. Here is how to do percussion: 1. Tap lightly on the area of your hand which is tender. You can tap on the sensitive area with a finger tip of your other hand or with a light object such as a pencil. 2. Find the spot which is the most tender. 3. Note the time, and begin to tap rapidly (2-3 times a second), lightly and continuously on the most tender area. 4. Keep tapping without a break for three minutes or until you notice the feeling in the area change. The area may start to feel numb or it may simply feel a little bit less tender. 5. Take a minute rest and begin again. You may find that a different area is now the most tender spot. This exercise should be done as many times as possible during the day. It takes many thousands of taps to really change the tenderness in a sore area. The sooner you accumulate that many taps, the sooner your wounds will be more comfortable. FRICTION MASSAGE: The goal of friction massage is to STRETCH the scar tissue beneath the skin. As with percussion, itshould be done many times during the day. This exercise not only helps improve tenderness, but helps restore the contour of the skin to a more normal appearance. Here is how to do friction massage: 1. Place a finger tip of your other hand against the central area of the scar. 2. Mentally note four directions that the skin can be pushed sideways: near, far, left and right. 3. With your finger tip pressed firmly against the scar and without sliding, gently but steadily push the skin to one side as if you were trying to slide the skin off of the bone. Hold this position for five seconds. 4. Briefly relax and then repeat this maneuver in one of the other directions. Make sure you attempt to slide the skin in all four directions. 5. If the scar is wider than your finger tip, repeat this stretching exercise on every point of thescar. This exercise is done without any skin lubrication. Remember to do this exercise before applying any antibiotic ointment or moisturizing creams. Carpal Tunnel Syndrome: Exercises Your Care Instructions Here are some examples of typical rehabilitation exercises for your condition. Start each exercise slowly. Ease off the exercise if you start to have pain. Your doctor or your physical or occupational therapist will tell you when you can start these exercises and which ones will work best for you. Warm-up stretches When you no longer have pain or numbness, you can do exercises to help prevent carpal tunnel syndrome from coming back. Do not do any stretch or movement that is uncomfortable or painful. Rotate your wrist up, down, and from side to side. Repeat 4 times. Stretch your fingers far apart. Relax them, and then stretch them again. Repeat 4 times. Stretch your thumb by pulling it back gently, holding it, and then releasing it. Repeat 4 times. How to do the exercises Prayer stretch Start with your palms together in front of your chest just below your chin. Slowly lower your hands toward your waistline, keeping your hands close to your stomach and your palms together until you feel a mild to moderate stretch under your forearms. Hold for at least 15 to 30 seconds. Repeat 2 to 4 times. Wrist flexor stretch Extend your arm in front of you with your palm up. Bend your wrist, pointing your hand toward the floor. With your other hand, gently bend your wrist farther until you feel a mild to moderate stretch in your forearm. Hold for at least 15 to 30 seconds. Repeat 2 to 4 times. Wrist extensor stretch Repeat steps 1 through 4 of the stretch above, but begin with your extended hand palm down. Follow-up care is a zelaya part of your treatment and safety. Be sure to make and go to all appointments, and call your doctor if you are having problems. It's also a good idea to know your test resultsand keep a list of the medicines you take. documented in this [facility]03-15-2024 NotePatient: Fan Anette Procedure Summary Date: 01/02/24 Room / Location: [address] Operating Room Anesthesia Start: 938 Anesthesia Stop: 100 Procedures: ENDOSCOPIC RIGHT CARPAL TUNNEL RELEASE, POSSIBLE OPEN, RIGHT DORSAL RADIOCARPAL WRIST INJECTION (Right: Wrist) ARTHROCENTESIS ASPIRATION AND/OR INJECTION INTERMEDIATE JOINT OR BURSA (Right: Wrist) Diagnosis: Carpal tunnel syndrome, right upper limb (Carpal tunnel syndrome, right upper limb [G56.01]) Surgeons: Martha Reed MD Responsible Provider: CHARMAINE Orozco CRNA Anesthesia Type: TIVA ASA Status: 3 Anesthesia Type: TIVA Vitals Value Taken Time BP 98/60 01/02/24 1004 Temp 36.6 ?C (97.9 ?F) 01/02/24 1004 Pulse 58 01/02/24 1004 Resp 16 01/02/24 1004 SpO2 97 % 01/02/24 1004 Anesthesia Post Evaluation Patient location during evaluation: PACU Patient participation: complete - patient participated Level of consciousness: awake and alert Pain management: satisfactory to patient Airway patency: patent Dental Injury: no Cardiovascular status: acceptable, blood pressure returned to baseline and hemodynamically stable Respiratory status: acceptable and spontaneous ventilation Hydration status: euvolemic Nausea/Vomiting: controlled No notable events documented. Patient can be discharged once all PACU criteria has been met.[facility] NotePatient: Fantwyla Cheema Procedure Summary Date: 01/02/24 Room / Location: [address] Operating Room Anesthesia Start: 938 Anesthesia Stop: 1004 Procedures: ENDOSCOPIC RIGHT CARPAL TUNNEL RELEASE, POSSIBLE OPEN, RIGHT DORSAL RADIOCARPAL WRIST INJECTION (Right: Wrist) ARTHROCENTESIS ASPIRATION AND/OR INJECTION INTERMEDIATE JOINT OR BURSA (Right: Wrist) Diagnosis: Carpal tunnel syndrome, right upper limb (Carpal tunnel syndrome, right upper limb [G56.01]) Surgeons: Martha Reed MD Responsible Provider: CHARMAINE Orozco CRNA Anesthesia Type: TIVA ASA Status: 3 Anesthesia Type: TIVA Vitals Value Taken Time BP 98/60 01/02/24 1004 Temp 36.6 ?C (97.9 ?F) 01/02/24 1004 Pulse 58 01/02/24 1004 Resp 16 01/02/24 1004 SpO2 97 % 01/02/24 1004 Anesthesia Post Evaluation Patient location during evaluation: PACU Patient participation: complete - patient participated Level of consciousness: awake and alert Pain management: satisfactory to patient Multimodal analgesia pain management approach Airway patency: patent Two or more strategies used to mitigate risk of obstructive sleep apnea Cardiovascular status: acceptable and hemodynamically stable Respiratory status: acceptable Hydration status: acceptable No notable events documented. MIPS #430 PONV Patient did not receive an inhalational anesthetic ([id number]) MIPS # 424 Perioperative Temperature Management Anesthesia time was less than 60 minutes (4256F) MIPS #477 Multimodal Pain Management Not emergent case Patient was not administered multimodal pain management (G2149) Patient reports no pain in PACU (G2149) MIPS #404 Anesthesiology Smoking Abstinence The patient is not a current smoker (e.g. cigarette, cigar, pipe, e-cigarette/vaping/marijuana) If no stop here (XX404) I completed my handoff to the receiving clinician during which we: 1. Identified the patient 2. Identified the responsible provider 3. Reviewed the pertinent medical history 4. Discussed the surgical course 5. Reviewed intra-op anesthesia management and issues during anesthesia 6. Set expectations for post-procedure period 7. Allowed opportunity for questions and acknowledgement of understanding.[facility]03-15-2024 NoteAirway Date/Time: 01/02/2024 9:43 AM Urgency: scheduled Airway not difficult General Information and Staff Patient location during procedure: Procedural Anesthesiologist: Alina Anesthesiologist - Paige/MD Quentin Resident/INSURANCE CLAIMS SUPERVISOR: CHARMAINE Orozco CRNA Performed: INSURANCE CLAIMS SUPERVISOR Indications and Patient Condition Indications for airway management: anesthesia Final Airway Details Final airway type: [facility]03-15-2024 Note* Perioperative Nursing Note - Zakia Trotter RN - 01/02/2024 11:29 AM EDT Ambulates to restroom gait is steady with assistance. States ready to go home. [id number] Note* Perioperative Nursing Note - Zakia Trotter RN - 01/02/2024 11:29 AM EDT Ambulates to restroom gait is steady with assistance. States ready to go home. [id number] Miscellaneous Notes* Perioperative Nursing Note - Zakia Trotter RN - 01/02/2024 11:29 AM EDT Ambulates to restroom gait is steady with assistance. States ready to go home. * Perioperative Nursing Note - Zakia Trotter RN - 01/02/2024 11:10 AM EDT Complains of dizziness. Pt is drinking pop and eating crackers. * Perioperative Nursing Note - Zakia Trotter RN - 01/02/2024 10:47 AM EDT Pt alert and taking po. Emanuel at bedside. Written discharge instructions reviewed with patient and visitor. Questions answered. Denies pain or nausea. Provided with ice pack and instructed on use. * Perioperative Nursing Note - Zakia Trotter RN - 01/02/2024 9:59 AM EDT Received pt from OR to recovery phase 1 due to low heart rate. Arouses to name and follows commandsshe is able to move fingers and rotate thumb. Belongings brought to bedside. * Op Note - Martha Reed MD - 01/02/2024 9:39 AM EDT [facility] [place] [address] Dept: [phone] Loc: [phone] Operative Report Patient Name: Fan Cheema Date of : 1945 Date of Surgery: 01/02/24 Preoperative Diagnosis: RIGHT carpal tunnel syndrome, Right Wrist Arthritis Postoperative Diagnosis: Same Procedure: Endoscopic RIGHT carpal tunnel release, Right Radiocarpal Joint steroid injection Surgeon: Martha Reed MD 1st Assist: Rea Palmer MD 2nd Assist: Norma Clements PA-C Implants: None Specimens Removed: None Anesthesia: MAC Local Anesthesia: 1% lidocaine with epinephrine (1:100,000) for a total of 10ml into the subcutaneous tissues of the operative site(s) Tourniquet: Brachium Estimated Blood Loss: <5ml Pre Operative Antibiotics: Yes Indications: Ms. Fan Cheema is a 78 y.o. year-old female with RIGHT carpal tunnel syndrome who failed conservative management and elected to proceed with surgical intervention. I have discussed with her, preoperatively, the complications, limitations, expectations, alternatives, and risks ofsurgical intervention to include but not be limited to neurovascular injury and incomplete nerve recovery which she has demonstrated understanding. No guarantees were given or implied. After having all of her questions answered to her satisfaction, Ms. Fan Cheema has provided written informed consent to proceed. Please see previous notes for full operative risk discussion. Procedure: Fan Cheema was identified in the preoperative waiting area. Her operative site was initialed and consent was reviewed. Final questions were answered. She was brought to the operating room and placed in the supine position. All bony prominences were well padded. The operative extremity was prepped and draped in the usual sterile fashion. A surgical timeout was then performed withthe patient's identification, the procedure to be performed being reviewed, verification that the patient had received preoperative antibiotics if indicated, and verification of the correct surgical site. The patient's ASA was verified by the nurse broadcast operations director and the anesthesia staff. Fire risk was assessed. Local was infiltrated into the soft tissues of the volar forearm and mid palm. An esmarchbandage was used to exsanguinate the limb and the tourniquet was inflated to 250mm Hg. A 1 cm transverse incision was made approximately 1 cm proximal to the distal volar wrist crease and just ulnar to the midline. Sharp dissection was carried down through the skin only and then blunt dissection was carried down to the level of the volar forearm fascia. A transverse incision was madethrough the fascia to acces the carpal canal. A dilator was placed within the carpal canal extending in line with the hook of the hamate. The camera was then introduced and the distal extent of the transverse carpal ligament was easily identified. The blade was deployed at this location and retracted about 1 cm. The camera was then advanced to ensure that all transverse fibers were adequately deco mpressed. The same stepwise sequence was performed to release the remaining fibers of the transverse carpal ligament from distal to proximal. At no time during the procedure did I visualize any neurovascular structures or tendons. The blade was retracted to the level of the skin to ensure that the entire transverse ligament as well as the most distal volar forearm fascia had been adequately decompressed. A synovial elevator was used to palpate the the carpal canal to ensure a thorough decompression had been achieved. The dermal layer was closed with a running non absorbable suture followed bysteri strips. The remaining local was placed in the subcutaneous tissues of the mid palm for post operative pain control and additional hemostasis. The wound was dressed gauze, cast padding, and a loosely applied SILVIA bandage. The tourniquet was let down and the hand pinked up nicely with a brisk capillary refill in all 5 digits. The RIGHT wrist was identified as the injection site. I discussed the risks/benefits of a corticosteroid injection to include but not be limited to infection, subcutaneous fat atrophy, elevated bloodglucose, local redness and pain. After discussion of the risk/benefits the patient elected to proceed. Under sterile conditions, the dorsal radiocarpal joint was injected with a mixture of 1 mL of 1%Lidocaine and 1 mL of Celestone (6mg/mL). A sterile bandage was applied. Fan tolerated the procedure well without complication. I advised Fan of the expected response, possible reactions and the instructions for care of her wrist. Ms. Fan Cheema was awakened from anesthesia having tolerated the procedure without apparent complication and was taken to the recovery room in stable condition. POST OPERATIVE PLAN PWB <5lbs until suture removal Nerve gliding, soft tissue massage, gradual strengthening at 2 wks Outpatient Follow-up XRays: No Martha Rede MD 01/02/2024 , 1:13 PM documented in this [facility]03-15-2024 Note* Perioperative Nursing Note - Zakia Trotter RN - 01/02/2024 11:10 AM EDT Complains of dizziness. Pt is drinking pop and eating crackers. [id number] Note* Perioperative Nursing Note - Zakia Trotter RN - 01/02/2024 11:10 AM EDT Complains of dizziness. Pt is drinking pop and eating crackers. [place] [id number] NoteUpdated History & Physical The patient's History and Physical of December 26, 2023 was reviewed with the patient and I examined the patient. There was no change. The surgical site was confirmed by the patient and me. Plan: The risks, benefits, expected outcome, and alternative to the recommended procedure have been discussed with the patient. Patient understands and wants to proceed with the procedure. The patient was consented for ENDOSCOPIC RIGHT CARPAL TUNNEL RELEASE, POSSIBLE OPEN, RIGHT DORSAL RADIOCARPAL WRIST INJECTION . I had an extensive discussion with Ms. Fan Cheema regarding the natural history, etiology, and terminal carman consequences of her condition. We discussed both operative and non operative treatment options and Fan Cheema elected to proceed with surgical intervention. I have discussed with Ms. Fan Cheema the potential complications, limitations, expectations, alternatives, and risks of the proposed surgical procedure. Risks discussed include but are not limited to the risk of infection, iatrogenic injury to normal neurovascular structures, persistent pain and disability, unsightly scar, stiffness, complex regional pain syndrome, malunion, non union, hardware failure, need for hardware removal, loss of limb, myocardial infarction, deep vein thrombosis, pulmonary embolism and even . We also discussed the potential risk of COVID-19 exposure or infection and how it could alter her post operative recovery course. She has had full opportunity to ask her questions. I have answered them all to her satisfaction. I feel that Ms. Fan Cheema does understand our discussion today and she is comfortable providing informed consent for the procedure. [facility]03-15-2024 Note* Perioperative Nursing Note - Zakia Trotter RN - 01/02/2024 10:47 AM EDT Pt alert and taking po. Emanuel at bedside. Written discharge instructions reviewed with patient and visitor. Questions answered. Denies pain or nausea. Provided with ice pack and instructed on use. [id number] Note* Perioperative Nursing Note - Zakia Trotter RN - 01/02/2024 10:47 AM EDT Pt alert and taking po. Emanuel at bedside. Written discharge instructions reviewed with patient and visitor. Questions answered. Denies pain or nausea. Provided with ice pack and instructed on use. [id number] Note* Perioperative Nursing Note - Zakia Trotter RN - 01/02/2024 9:59 AM EDT Received pt from OR to recovery phase 1 due to low heart rate. Arouses to name and follows commandsshe is able to move fingers and rotate thumb. Belongings brought to bedside. [place] [id number] Note* Perioperative Nursing Note - Zakia Trotetr RN - 01/02/2024 9:59 AM EDT Received pt from OR to recovery phase 1 due to low heart rate. Arouses to name and follows commandsshe is able to move fingers and rotate thumb. Belongings brought to bedside. [facility] [id number] Note* Op Note - Martha Reed MD - 01/02/2024 9:39 AM EDT [facility] MA[facility] OR [address] [place] [id number] Dept: [phone] Loc: [phone] Operative Report Patient Name: Fan Cheema Date of : 1945 Date of Surgery: 01/02/24 Preoperative Diagnosis: RIGHT carpal tunnel syndrome, Right Wrist Arthritis Postoperative Diagnosis: Same Procedure: Endoscopic RIGHT carpal tunnel release, Right Radiocarpal Joint steroid injection Surgeon: Martha Reed MD 1st Assist: Rea Palmer MD 2nd Assist: Norma Clements PA-C Implants: None Specimens Removed: None Anesthesia: MAC Local Anesthesia: 1% lidocaine with epinephrine (1:100,000) for a total of 10ml into the subcutaneous tissues of the operative site(s) Tourniquet: Brachium Estimated Blood Loss: <5ml Pre Operative Antibiotics: Yes Indications: Ms. Fan Cheema is a 78 y.o. year-old female with RIGHT carpal tunnel syndrome who failed conservative management and elected to proceed with surgical intervention. I have discussed with her, preoperatively, the complications, limitations, expectations, alternatives, and risks ofsurgical intervention to include but not be limited to neurovascular injury and incomplete nerve recovery which she has demonstrated understanding. No guarantees were given or implied. After having all of her questions answered to her satisfaction, Ms. Fan Cheema has provided written informed consent to proceed. Please see previous notes for full operative risk discussion. Procedure: Fan Cheema was identified in the preoperative waiting area. Her operative site was initialed and consent was reviewed. Final questions were answered. She was brought to the operating room and placed in the supine position. All bony prominences were well padded. The operative extremity was prepped and draped in the usual sterile fashion. A surgical timeout was then performed withthe patient's identification, the procedure to be performed being reviewed, verification that the patient had received preoperative antibiotics if indicated, and verification of the correct surgical site. The patient's ASA was verified by the nurse broadcast operations director and the anesthesia staff. Fire risk was assessed. Local was infiltrated into the soft tissues of the volar forearm and mid palm. An esmarchbandage was used to exsanguinate the limb and the tourniquet was inflated to 250mm Hg. A 1 cm transverse incision was made approximately 1 cm proximal to the distal volar wrist crease and just ulnar to the midline. Sharp dissection was carried down through the skin only and then blunt dissection was carried down to the level of the volar forearm fascia. A transverse incision was madethrough the fascia to acces the carpal canal. A dilator was placed within the carpal canal extending in line with the hook of the hamate. The camera was then introduced and the distal extent of the transverse carpal ligament was easily identified. The blade was deployed at this location and retracted about 1 cm. The camera was then advanced to ensure that all transverse fibers were adequately deco mpressed. The same stepwise sequence was performed to release the remaining fibers of the transverse carpal ligament from distal to proximal. At no time during the procedure did I visualize any neurovascular structures or tendons. The blade was retracted to the level of the skin to ensure that the entire transverse ligament as well as the most distal volar forearm fascia had been adequately decompressed. A synovial elevator was used to palpate the the carpal canal to ensure a thorough decompression had been achieved. The dermal layer was closed with a running non absorbable suture followed bysteri strips. The remaining local was placed in the subcutaneous tissues of the mid palm for post operative pain control and additional hemostasis. The wound was dressed gauze, cast padding, and a loosely applied SILVIA bandage. The tourniquet was let down and the hand pinked up nicely with a brisk capillary refill in all 5 digits. The RIGHT wrist was identified as the injection site. I discussed the risks/benefits of a corticosteroid injection to include but not be limited to infection, subcutaneous fat atrophy, elevated bloodglucose, local redness and pain. After discussion of the risk/benefits the patient elected to proceed. Under sterile conditions, the dorsal radiocarpal joint was injected with a mixture of 1 mL of 1%Lidocaine and 1 mL of Celestone (6mg/mL). A sterile bandage was applied. Fan tolerated the procedure well without complication. I advised Fan of the expected response, possible reactions and the instructions for care of her wrist. Ms. Fan Cheema was awakened from anesthesia having tolerated the procedure without apparent complication and was taken to the recovery room in stable condition. POST OPERATIVE PLAN PWB <5lbs until suture removal Nerve gliding, soft tissue massage, gradual strengthening at 2 wks Outpatient Follow-up XRays: No Martha Reed MD 01/02/2024 , 1:13 PM [facility] [employer] Phone: 1(251) 370-388403-15-2024 Note* Op Note - Martha Reed MD - 01/02/2024 9:39 AM EDT [facility] OR [address] [facility] [address] Dept: [phone] Loc: [phone] Operative Report Patient Name: Fan Cheema Date of : 1945 Date of Surgery: 01/02/24 Preoperative Diagnosis: RIGHT carpal tunnel syndrome, Right Wrist Arthritis Postoperative Diagnosis: Same Procedure: Endoscopic RIGHT carpal tunnel release, Right Radiocarpal Joint steroid injection Surgeon: Martha Reed MD 1st Assist: Rea Palmer MD 2nd Assist: Norma Clements PA-C Implants: None Specimens Removed: None Anesthesia: MAC Local Anesthesia: 1% lidocaine with epinephrine (1:100,000) for a total of 10ml into the subcutaneous tissues of the operative site(s) Tourniquet: Brachium Estimated Blood Loss: <5ml Pre Operative Antibiotics: Yes Indications: Ms. Fan Cheema is a 78 y.o. year-old female with RIGHT carpal tunnel syndrome who failed conservative management and elected to proceed with surgical intervention. I have discussed with her, preoperatively, the complications, limitations, expectations, alternatives, and risks ofsurgical intervention to include but not be limited to neurovascular injury and incomplete nerve recovery which she has demonstrated understanding. No guarantees were given or implied. After having all of her questions answered to her satisfaction, Ms. Fan Cheema has provided written informed consent to proceed. Please see previous notes for full operative risk discussion. Procedure: Fan Cheema was identified in the preoperative waiting area. Her operative site was initialed and consent was reviewed. Final questions were answered. She was brought to the operating room and placed in the supine position. All bony prominences were well padded. The operative extremity was prepped and draped in the usual sterile fashion. A surgical timeout was then performed withthe patient's identification, the procedure to be performed being reviewed, verification that the patient had received preoperative antibiotics if indicated, and verification of the correct surgical site. The patient's ASA was verified by the nurse broadcast operations director and the anesthesia staff. Fire risk was assessed. Local was infiltrated into the soft tissues of the volar forearm and mid palm. An esmarchbandage was used to exsanguinate the limb and the tourniquet was inflated to 250mm Hg. A 1 cm transverse incision was made approximately 1 cm proximal to the distal volar wrist crease and just ulnar to the midline. Sharp dissection was carried down through the skin only and then blunt dissection was carried down to the level of the volar forearm fascia. A transverse incision was madethrough the fascia to acces the carpal canal. A dilator was placed within the carpal canal extending in line with the hook of the hamate. The camera was then introduced and the distal extent of the transverse carpal ligament was easily identified. The blade was deployed at this location and retracted about 1 cm. The camera was then advanced to ensure that all transverse fibers were adequately deco mpressed. The same stepwise sequence was performed to release the remaining fibers of the transverse carpal ligament from distal to proximal. At no time during the procedure did I visualize any neurovascular structures or tendons. The blade was retracted to the level of the skin to ensure that the entire transverse ligament as well as the most distal volar forearm fascia had been adequately decompressed. A synovial elevator was used to palpate the the carpal canal to ensure a thorough decompression had been achieved. The dermal layer was closed with a running non absorbable suture followed bysteri strips. The remaining local was placed in the subcutaneous tissues of the mid palm for post operative pain control and additional hemostasis. The wound was dressed gauze, cast padding, and a loosely applied SILVIA bandage. The tourniquet was let down and the hand pinked up nicely with a brisk capillary refill in all 5 digits. The RIGHT wrist was identified as the injection site. I discussed the risks/benefits of a corticosteroid injection to include but not be limited to infection, subcutaneous fat atrophy, elevated bloodglucose, local redness and pain. After discussion of the risk/benefits the patient elected to proceed. Under sterile conditions, the dorsal radiocarpal joint was injected with a mixture of 1 mL of 1%Lidocaine and 1 mL of Celestone (6mg/mL). A sterile bandage was applied. Fan tolerated the procedure well without complication. I advised Fan of the expected response, possible reactions and the instructions for care of her wrist. Ms. Fan Cheema was awakened from anesthesia having tolerated the procedure without apparent complication and was taken to the recovery room in stable condition. POST OPERATIVE PLAN PWB <5lbs until suture removal Nerve gliding, soft tissue massage, gradual strengthening at 2 wks Outpatient Follow-up XRays: No Martha Reed MD 01/02/2024 , 1:13 PM [employer] Phone: 1(540) 292-712503-15-2024 History and physical note* Norma Clements PA-C - 01/02/2024 8:55 AM EDT Updated History & Physical The patient's History and Physical of December 26, 2023 was reviewed with the patient and I examined the patient. There was no change. The surgical site was confirmed by the patient and me. Plan: The risks, benefits, expected outcome, and alternative to the recommended procedure have beendiscussed with the patient. Patient understands and wants to proceed with the procedure. The patient was consented for ENDOSCOPIC RIGHT CARPAL TUNNEL RELEASE, POSSIBLE OPEN, RIGHT DORSAL RADIOCARPAL WRIST INJECTION . I had an extensive discussion with Ms. Fan Cheema regarding the natural history, etiology, and nursing home consequences of her condition. We discussed both operative and non operative treatment options and Fan Cheema elected to proceed with surgical intervention. I have discussed with Ms. Fan Cheema the potential complications, limitations, expectations, alternatives, and risksof the proposed surgical procedure. Risks discussed include but are not limited to the risk of infection, iatrogenic injury to normal neurovascular structures, persistent pain and disability, unsightly scar, stiffness, complex regional pain syndrome, malunion, non union, hardware failure, need for hardware removal, loss of limb, myocardial infarction, deep vein thrombosis, pulmonary embolism and even . We also discussed the potential risk of COVID-19 exposure or infection and how it could alter her post operative recovery course. She has had full opportunity to ask her questions. I have answered them all to her satisfaction. I feel that Ms. Fan Cheema does understand our discussion today and she is comfortable providing informed consent for the procedure. [facility]03-15-2024 History and physical note* Norma Clements PA-C - 01/02/2024 8:55 AM EDT Updated History & Physical The patient's History and Physical of December 26, 2023 was reviewed with the patient and I examined the patient. There was no change. The surgical site was confirmed by the patient and me. Plan: The risks, benefits, expected outcome, and alternative to the recommended procedure have beendiscussed with the patient. Patient understands and wants to proceed with the procedure. The patient was consented for ENDOSCOPIC RIGHT CARPAL TUNNEL RELEASE, POSSIBLE OPEN, RIGHT DORSAL RADIOCARPAL WRIST INJECTION . I had an extensive discussion with Ms. Fan Cheema regarding the natural history, etiology, and nursing home consequences of her condition. We discussed both operative and non operative treatment options and Fan Cheema elected to proceed with surgical intervention. I have discussed with Ms. Fan Cheema the potential complications, limitations, expectations, alternatives, and risksof the proposed surgical procedure. Risks discussed include but are not limited to the risk of infection, iatrogenic injury to normal neurovascular structures, persistent pain and disability, unsightly scar, stiffness, complex regional pain syndrome, malunion, non union, hardware failure, need for hardware removal, loss of limb, myocardial infarction, deep vein thrombosis, pulmonary embolism and even . We also discussed the potential risk of COVID-19 exposure or infection and how it could alter her post operative recovery course. She has had full opportunity to ask her questions. I have answered them all to her satisfaction. I feel that Ms. Fan Cheema does understand our discussion today and she is comfortable providing informed consent for the procedure. documented in this [facility]03-13-2024 Hospital Discharge instructions* Discharge Instructions* EDITH Cruz - 12/31/2023 3:27 PM EDT Images from the original note were not included. Endoscopic Carpal Tunnel Release: What to Expect at Home Your Recovery Your hand will hurt and may feel weak with varying numbness. This usually goes away in a few days, but it may take several months. You received a local injection in your operative hand with lidocaine and epinephrine today. It is normal for your finger tip(s) to look pale or white for up to 10 hours after surgery but if this persists past the 10 hours please call the office immediately at [phone]. Your stitches will be removed in 1 to 2 weeks. Your hand and wrist may feel worse than they had felt. But the pain should begin to go away. It usually takes 3 to 4 months to recover and up to 1 year before hand strength returns completely. The timing of your return to work depends whether the surgery was on your dominant hand (the hand you use most) and your work activities. If you had surgery on your dominant hand and you do repeated actions at work, you may be able to return to work in 4 to 6 weeks. Repeated motions include typing or assembly-line work. If the surgery was on the other hand and you do not do repeated actions at work, you may be able to return to work in 7 to 14 days. Please discuss this at your initial post operative appointment. This care sheet gives you a general idea of how long it will take for you to recover. But each person recovers at a different pace. Follow the steps below to get better as quickly as possible. How can you care for yourself at home? Activity Rest when you feel tired. Getting enough sleep will help you recover. Try to walk each day. Start by walking a little more than you did the day before. Bit by bit, increase the amount you walk. Until your stitches are removed, you are to remain non-weightbearing in the operative extremity. For up to 2 weeks after surgery, avoid lifting things heavier than 1 to 2 pounds and using your hand. This includes doing repeated arm or hand movements, such as typing or using a computer mouse, washing windows, vacuuming, or chopping food. Do not use power tools, and avoid activities that cause vibration. You may begin heavier tasks about 4 weeks after surgery. These include vacuuming, mowing the lawn, and gardening. You may shower, but do not get your hand wet. Keep the bandage dry by covering it with plastic. Do not take a bath, swim, use a hot tub, or soak your hand until the incision is healed and cleared by the surgeon's office. You may drive when you are fully able to use your hand. Diet You can eat your normal diet. If your stomach is upset, try bland, low-fat foods like plain rice, broiled chicken, toast, and yogurt. Medicines Your can restart your normal medicines immediately after surgery. Instructions will be provided if you are to be taking any new medicines. Take pain medicines exactly as directed. If you are not taking a prescription pain medicine, take an npxz-hws-ptojbcl medicine such as acetaminophen (Tylenol), ibuprofen (Advil, Motrin), or naproxen (Aleve). Read and follow all instructionson the label. Do not take two or more pain medicines at the same time unless told to do so. Many pain medicines have acetaminophen, which is Tylenol. Too much acetaminophen (Tylenol) can be harmful. If you think your pain medicine is making you sick to your stomach: Take your medicine after meals. Ask for a different pain medicine. If your doctor prescribed antibiotics, take them as directed. Do not stop taking them just because you feel better. You need to take the full course of antibiotics. Incision care Keep your operative bandage on, clean, and dry for one week. After one week from the date of surgery, you can remove only the SILVIA wrap, rolled dressing, and guaze. Please leave the Steri-Strips/whitetape intact at the wrist until your follow-up appointment. The tapes are present along the edges ofthe wrist incision holding the blue suture in place. Please place a large Band- aid or soft guaze dressing over the incision to keep the area clean and dry. This is to be changed daily. It is okay to shower and get the incision wet after removing the dressing at one week from surgery but do not soak. Pat dry thoroughly before applying new bandage. Exercise Perform range of motion exercises of index finger, long finger, ring finger, little finger, thumb, and wrist in dressing with goal of touching fingertips to palm by initial post op appointment. Please see instructions below. You may need wrist and hand rehabilitation. This is a series of exercises you do after your surgery. This helps you get back your wrist's and hand's range of motion, strength, and branch sales manager. To get the best results, you need to do the exercises correctly and as often as possible. Ice and elevation Put ice or a cold pack on your wrist for 10 to 20 minutes at a time. Try to do this every 1 to 2 hours for the next 3 days (when you are awake) or until the swelling goes down. Put a thin cloth between the ice and your skin. Prop up the sore wrist on a pillow when you ice it or anytime you sit or lie down during the next 3days. Try to keep it above the level of your heart. This will help reduce swelling. Other instructions Avoid letting your hand hang down. This can cause swelling. Follow-up care is a zelaya part of your treatment and safety. Be sure to make and go to all appointments, and call your doctor if you are having problems. It's also a good idea to know your test resultsand keep a list of the medicines you take. When should you call for help? Call 911 anytime you think you may need emergency care. For example, call if: You passed out (lost consciousness). You have chest pain, are short of breath, or cough up blood. Call your doctor now or seek immediate medical care if: You have pain that does not get better after you take pain medicine. Your hand is cool or pale or changes color. Your cast or splint feels too tight. You have worsening tingling, weakness, or numbness in your hand or fingers. You are sick to your stomach or cannot drink fluids. You have loose stitches, or your incision comes open. You have signs of a blood clot in your leg (called a deep vein thrombosis), such as: Pain in your calf, back of the knee, thigh, or groin. Redness or swelling in your leg. You have signs of infection, such as: Increased pain, swelling, warmth, or redness. Red streaks leading from the incision. Pus draining from the incision. A fever. Bright red blood has soaked through the bandage over your incision. Watch closely for any changes in your health, and be sure to contact your doctor if: You have a problem with your bandage. You do not get better as expected. Carpal Tunnel Syndrome: Exercises Your Care Instructions Here are some examples of typical rehabilitation exercises for your condition. Start each exercise slowly. Ease off the exercise if you start to have pain. Your doctor or your physical or occupational therapist will tell you when you can start these exercises and which ones will work best for you. Warm-up stretches When you no longer have pain or numbness, you can do exercises to help prevent carpal tunnel syndrome from coming back. Do not do any stretch or movement that is uncomfortable or painful. Rotate your wrist up, down, and from side to side. Repeat 4 times. Stretch your fingers far apart. Relax them, and then stretch them again. Repeat 4 times. Stretch your thumb by pulling it back gently, holding it, and then releasing it. Repeat 4 times. How to do the exercises Prayer stretch Start with your palms together in front of your chest just below your chin. Slowly lower your hands toward your waistline, keeping your hands close to your stomach and your palms together until you feel a mild to moderate stretch under your forearms. Hold for at least 15 to 30 seconds. Repeat 2 to 4 times. Wrist flexor stretch Extend your arm in front of you with your palm up. Bend your wrist, pointing your hand toward the floor. With your other hand, gently bend your wrist farther until you feel a mild to moderate stretch in your forearm. Hold for at least 15 to 30 seconds. Repeat 2 to 4 times. Wrist extensor stretch Repeat steps 1 through 4 of the stretch above, but begin with your extended hand palm down. documented in this [facility]03-08-2024 NotePatient: Fan Cheema Procedure Information Date/Time: 01/02/24 1015 Procedures: ENDOSCOPIC RIGHT CARPAL TUNNEL RELEASE, POSSIBLE OPEN, RIGHT DORSAL RADIOCARPAL WRIST INJECTION (Right: Wrist) - 30 ARTHROCENTESIS ASPIRATION AND/OR INJECTION INTERMEDIATE JOINT OR BURSA (Right: Wrist) Location: [place] [id number] / [facility] Operating Room Surgeons: Martha Reed MD Relevant Problems No relevant active problems Past Medical History: Past Medical History: No date: Carpal tunnel syndrome on right Comment: SCHEDULED FOR THE SURGERY ON 01/02/24 AT [facility] No date: Coronary artery disease No date: Delayed emergence from general anesthesia No date: Hyperlipidemia No date: Hypertension No date: PONV (postoperative nausea and vomiting) No date: Vertigo Past Surgical History: Past Surgical History: No date: APPENDECTOMY No date: CATARACT EXTRACTION; Bilateral No date: CHOLECYSTECTOMY No date: COLON SURGERY Comment: removed part of colon No date: STENT INSERTION (HISTORICAL) No date: TONSILLECTOMY Social History: TOBACCO: reports that she has never smoked. She has never used smokeless tobacco. ETOH: reports no history of alcohol use. Social History Substance and Sexual Activity Drug Use Never Family History: No family history on file. Screening: unknown Clinical information reviewed: Tobacco Allergies Meds Med Hx Surg Hx Fam Hx Soc Hx Physical Exam Airway Mallampati: II TM distance: >3 FB Neck ROM: full Mouth Open: normal Cardiovascular Dental Comments: intact dentition normal Pulmonary Abdominal Anesthesia Plan patient is NPO appropriate Any family history or previous problems with anesthesia no ASA 3 TIVA Any family history or previous problems with anesthesia no The patient is not a current smoker. Anesthetic plan and risks discussed with patient. Use of blood products discussed with who consented to blood products. DELMY Screening STOP-Bang Total Score: 3 Labs: Lab Results Component Value Date WBC 9.8 12/26/2023 HGB 12.0 12/26/2023 HCT 35.6 12/26/2023 MCV 91.0 12/26/2023 PLT 207 12/26/2023 No results found for: NA, K, CL, CO2, BUN, CREATININE, GLUCOSE, CALCIUM, PROT, BILIRUBINFL, ALKPHOS, AST, ALT, EGFR, GLOB No echocardiogram results found for the past 14 days 12/26/23 ECG 12-LEAD (Preliminary) This result has not been signed. Information might be incomplete. Impression Sinus rhythm Atrial premature complexes Minimal ST depression, inferior [facility] Note Comprehensive PreSurgical History and Physical ? Name: Fan Cheema : 1945 (Age-78 y.o.) Date of Service: Pt seen/examined on 12/26/2023 Procedure Information Date/Time: 01/02/24 1015 Procedures: ENDOSCOPIC RIGHT CARPAL TUNNEL RELEASE, POSSIBLE OPEN, RIGHT DORSAL RADIOCARPAL WRIST INJECTION (Right: Wrist) - 30 ARTHROCENTESIS ASPIRATION AND/OR INJECTION INTERMEDIATE JOINT OR BURSA (Right: Wrist) Location: [address] Operating Room Surgeons: Martha Reed MD Chief Complaint: RIGHT WRIST PAIN DUE TO FRACTURE ; H/O FALL ON 01/12/23 ASSESSMENT/PLAN: Patient is considered intermediate risk for this low risk procedure/surgery noted above with no reducible risk factors. Based on the above evaluation, the benefits of the planned procedure likely exceed the risks. The patient is medically optimized to proceed with the planned procedure without any further cardiopulmonary testing. 1) RIGHT CARPAL SYNDROME ; Managed per surgery 2) CAD ;S/P ONE CARDIAC STENT IN 2022 ;F/U DEBRANDER AT [facility] ; NEXT APPOINTMENT WITH [facility] IN JANUARY 3) H/O DELAYED EMERGENCE FROM [place] 4) PONV 5) HTN ; ON COREG AND HCTZ 6) SNORE Visit Type: Pre-Admission Testing Visit Labs Ordered: YES - PER PAT PROTOCOL Sleep Referral Ordered: NO - NEGATIVE SCREEN PER SLEEP REFERRAL PROTOCOL Total time spent (which include face to face and non face to face encounters) : 45 minutes Toxic drug monitoring/narrow therapeutic index drug monitoring : # Drug name : COREG AND HCTZ # Route administered : PO # Method of monitoring : LAB AND EKG PAT Protocol referenced includes: 1. Anesthesia Lab Protocol Orders 2. Perioperative Cardiovascular Risk Assessment 3. Anesthesia Assessment 4. Pain Assessment and Acute Pain Service Consult (if appropriate) 5. Medical Clearance/Consult from Internal Medicine ([facility]) 6. Shower/Wash Order (for designated surgeries) 7. DELMY Screen and Sleep Clinic Referral (if appropriate) History Of Present Illness: 78 y.o. female who presents with chief complaint mentioned above. Per surgeon's note dated 10/30/2023 2nd opinion from [facility] Right distal radius fracture, DOI 01/12/23 Fan Cheema is a 78 y.o. right handed female that presents for evaluation and treatment after sustaining an injury to her RIGHT wrist that occurred 10 months ago. She was treated conservatively at [facility] and is here today for a second opinion. Her main complaint today is right dorsal wrist swelling, right thumb CMC pain, and right hand numbness. Mechanism of injury - Mechanical fall at gas station. Treatment up to this point has consisted of short arm cast for 6 weeks, cock up wrist splint for approximately 6 weeks, Occupational therapy for approximately 8 weeks. She has had a previous carpal tunnel injection which provided little to no relief. No results found for: HGBA1C She was initially treated for a right distal radius conservatively with cast immobilization and progressive therapy. has had persistent pain along the dorsal radial wrist with limited range of motion since her injury. Also has numbness and tingling to the hand radial 3 digits. has had an injection in the dorsum of her wrist which did not improve her symptoms. Also states she had an injection into her carpal tunnel which caused a fire sensation into her thumb index and middle fingers. She states she does not want to consider any additional injections. Pt has seen the surgeon and [id number], Asthma/COPD, DELMY, CAD, CHF, a fib, AL, TIA/CVA, DVT/PE Hx problems with anesthesia? - DELAYED EMERGENCE FROM [place] and SOMETIMES PONV Dental? -No missing teeth nothing loose or broken no partials or dentures crowns Snore at night? - Yes Past Medical History: Past Medical History: No date: Carpal tunnel syndrome on right Comment: SCHEDULED FOR THE SURGERY ON 01/02/24 AT [facility] No date: Coronary artery disease No date: Delayed emergence from general anesthesia No date: Hyperlipidemia No date: Hypertension No date: PONV (postoperative nausea and vomiting) No date: Vertigo Past Surgical History: Past Surgical History: No date: APPENDECTOMY No date: CATARACT EXTRACTION; Bilateral No date: CHOLECYSTECTOMY No date: COLON SURGERY Comment: removed part of colon No date: STENT INSERTION (HISTORICAL) No date: TONSILLECTOMY Medications Prior to Admission: Current Outpatient Medications: aspirin 81 MG EC tablet, Take 81 mg by mouth daily. 1/2 tablet every 3 days, Disp: , Rfl: carvedilol (Coreg) 3.125 MG tablet, , Disp: , Rfl: cholecalciferol (Vitamin D-3) 50 MCG (2000 UT) tablet, Take 50 mcg by mouth daily., Disp: , Rfl: cyanocobalamin (Vitamin B-12) 1000 MCG tablet, Take 1,000 mcg by mouth daily (more content not included)...[facility]03-08[facility] Note Comprehensive PreSurgical History and Physical ? Name: Fan Cheema : 1945 (Age-78 y.o.) Date of Service: Pt seen/examined on 12/26/2023 Procedure Information Date/Time: 01/02/24 1015 Procedures: ENDOSCOPIC RIGHT CARPAL TUNNEL RELEASE, POSSIBLE OPEN, RIGHT DORSAL RADIOCARPAL WRIST INJECTION (Right: Wrist) - 30 ARTHROCENTESIS ASPIRATION AND/OR INJECTION INTERMEDIATE JOINT OR BURSA (Right: Wrist) Location: [place] [address] / [facility] Operating Room Surgeons: Martha Reed MD Chief Complaint: RIGHT WRIST PAIN DUE TO FRACTURE ; H/O FALL ON 01/12/23 ASSESSMENT/PLAN: Patient is considered intermediate risk for this low risk procedure/surgery noted above with no reducible risk factors. Based on the above evaluation, the benefits of the planned procedure likely exceed the risks. The patient is medically optimized to proceed with the planned procedure without any further cardiopulmonary testing. 1) RIGHT CARPAL SYNDROME ; Managed per surgery 2) CAD ;S/P ONE CARDIAC STENT IN 2022 ;F/U DEBRANDER AT [facility] ; NEXT APPOINTMENT WITH [facility] IN JANUARY 3) H/O DELAYED EMERGENCE FROM [place] 4) PONV 5) HTN ; ON COREG AND HCTZ 6) SNORE Visit Type: Pre-Admission Testing Visit Labs Ordered: YES - PER PAT PROTOCOL Sleep Referral Ordered: NO - NEGATIVE SCREEN PER SLEEP REFERRAL PROTOCOL Total time spent (which include face to face and non face to face encounters) : 45 minutes Toxic drug monitoring/narrow therapeutic index drug monitoring : # Drug name : COREG AND HCTZ # Route administered : PO # Method of monitoring : LAB AND EKG PAT Protocol referenced includes: 1. Anesthesia Lab Protocol Orders 2. Perioperative Cardiovascular Risk Assessment 3. Anesthesia Assessment 4. Pain Assessment and Acute Pain Service Consult (if appropriate) 5. Medical Clearance/Consult from Internal Medicine (IMS) 6. Shower/Wash Order (for designated surgeries) 7. DELMY Screen and Sleep Clinic Referral (if appropriate) History Of Present Illness: 78 y.o. female who presents with chief complaint mentioned above. Per surgeon's note dated 10/30/2023 2nd opinion from [facility] Right distal radius fracture, DOI 01/12/23 Fan Cheema is a 78 y.o. right handed female that presents for evaluation and treatment after sustaining an injury to her RIGHT wrist that occurred 10 months ago. She was treated conservatively at [facility] and is here today for a second opinion. Her main complaint today is right dorsal wrist swelling, right thumb CMC pain, and right hand numbness. Mechanism of injury - Mechanical fall at gas station. Treatment up to this point has consisted of short arm cast for 6 weeks, cock up wrist splint for approximately 6 weeks, Occupational therapy for approximately 8 weeks. She has had a previous carpal tunnel injection which provided little to no relief. No results found for: HGBA1C She was initially treated for a right distal radius conservatively with cast immobilization and progressive therapy. has had persistent pain along the dorsal radial wrist with limited range of motion since her injury. Also has numbness and tingling to the hand radial 3 digits. has had an injection in the dorsum of her wrist which did not improve her symptoms. Also states she had an injection into her carpal tunnel which caused a fire sensation into her thumb index and middle fingers. She states she does not want to consider any additional injections. Pt has seen the surgeon and elected for [id number] opinion from [facility] of DM, Asthma/COPD, DELMY, CAD, CHF, a fib, AL, TIA/CVA, DVT/PE Hx problems with anesthesia? - DELAYED EMERGENCE FROM [place] and SOMETIMES PONV Dental? -No missing teeth nothing loose or broken no partials or dentures crowns Snore at night? - Yes Past Medical History: Past Medical History: No date: Carpal tunnel syndrome on right Comment: SCHEDULED FOR THE SURGERY ON 01/02/24 AT [facility] No date: Coronary artery disease No date: Delayed emergence from general anesthesia No date: Hyperlipidemia No date: Hypertension No date: PONV (postoperative nausea and vomiting) No date: Vertigo Past Surgical History: Past Surgical History: No date: APPENDECTOMY No date: CATARACT EXTRACTION; Bilateral No date: CHOLECYSTECTOMY No date: COLON SURGERY Comment: removed part of colon No date: STENT INSERTION (HISTORICAL) No date: TONSILLECTOMY Medications Prior to Admission: Current Outpatient Medications: aspirin 81 MG EC tablet, Take 81 mg by mouth daily. 1/2 tablet every 3 days, Disp: , Rfl: carvedilol (Coreg) 3.125 MG tablet, , Disp: , Rfl: cholecalciferol (Vitamin D-3) 50 MCG (1999) tablet, Take 50 mcg by mouth daily., Disp: , Rfl: cyanocobalamin (Vitamin B-12) 1000 MCG tablet, Take 1,000 mcg by mouth daily (more content not included)...[facility] [id number] History of Present illness Narrative* Martha Reed MD - 10/30/2023 10:00 AM EST Images from the original note were not included. [facility] [address] [place] [address] Dept: [phone] Dept 10/30/2023 Chief Complaint Patient presents with Fracture 2nd opinion from [facility] Right distal radius fracture, DOI 01/12/23 HISTORY Fan Cheema is a 78 y.o. right handed female that presents for evaluation and treatment aftersustaining an injury to her RIGHT wrist that occurred 10 months ago. She was treated [facility] and is here today for a second opinion. Her main complaint today is right dorsal wrist swelling, right thumb CMC pain, and right hand numbness. Mechanism of injury - Mechanical fall at gas station. Treatment up to this point has consisted of short arm cast for 6 weeks, cock up wrist splint for approximately 6 weeks, Occupational therapy for approximately 8 weeks. She has had a previous carpal tunnel injection which provided little to no relief. No results found for: HGBA1C She was initially treated for a right distal radius conservatively with cast immobilization and progressive therapy. has had persistent pain along the dorsal radial wrist with limited range ofmotion since her injury. Also has numbness and tingling to the hand radial 3 digits. has hadan injection in the dorsum of her wrist which did not improve her symptoms. Also states she had an injection into her carpal tunnel which caused a fire sensation into her thumb index and middle fingers. She states she does not want to consider any additional injections. OBJECTIVE BP 132/68 Ht 5' 8 (1.727 m) Wt 190 lb (86.2 kg) BMI 28.89 kg/m Ortho Exam Mild soft tissue swelling along the dorsal radial wrist. Nontender palpation throughout. Wrist ROM: Flexion 60 Extension 60 Supination 80 Pronation 80 RIGHT Atrophy THENAR (mild) Tinel's at Wrist negative Carpal Compression POSITIVE Tinel's at Elbow negative Flexion/Compression Elbow negative Ulnar Nerve Subluxation not appreciated APB Strength 5/5 Intrinsic Strength 5/5 IMAGING Plain films were taken today and reviewed by myself in office. 3V WRIST (AP, Oblique, and LAT) show mild distal radius malunion with neutral tilt. Nonunited ulnarstyloid. Right Upper extremity EMG/NCT dated 06/04/23 shows: PROCEDURE None ASSESSMENT (S5.865R) Other closed intra-articular fracture of distal end of right radius with malunion, subsequent encounter (G56.01) Carpal tunnel syndrome of right wrist 1. Other closed intra-articular fracture of distal end of right radius with malunion, subsequent encounter 2. Carpal tunnel syndrome of right wrist PLAN I discussed with Fan the natural history, expected outcome, and risks/benefits of both operative and nonoperative management of her particular diagnosis relative to her age, activity level, most recent imaging, and physical exam. Fan has a very slight distal radius malunion but otherwise her x-rays are largely benign. I told her she could consider an injection into her dorsal radial wrist but she declined. I do not have much else to offer her from a surgical standpoint regarding her previous wrist fracture. I explained that I could help her with her numbness and tingling in the radial 3 digits worse at night. For that Irecommend either another injection or carpal tunnel decompression. She was adamant she did not wantto consider a carpal tunnel injection by myself but would consider carpal tunnel decompression. Shebe scheduled for endoscopic carpal tunnel decompression in the same setting I plan to inject her right wrist. I had an extensive discussion with Ms. Fan Cheema regarding the natural history, etiology, and nursing home consequences of her condition. We discussed both operative and non operative treatment options and Fan Cheema elected to proceed with surgical intervention. I have discussed with Ms. Fan Cheema the potential complications, limitations, expectations, alternatives, and risksof the proposed surgical procedure. Risks discussed include but are not limited to the risk of infection, iatrogenic injury to normal neurovascular structures, persistent pain and disability, unsightly scar, stiffness, complex regional pain syndrome, loss of limb, myocardial infarction, deep vein thrombosis, pulmonary embolism and even . We also discussed the potential risk of COVID-19 exposure or infection and how it could alter her post operative recovery course. She has had full opportunity to ask her questions. I have answered them all to her satisfaction. I feel that Ms. Fan Cheema does understand our discussion today and she is comfortable providing informed consent for the procedure. Follow-up: Fan will followup with my physician entry level marketing assistant, JESSICA Tavera post operatively.She knows to call the office with any questions or concerns in the interim. Future Imaging: NONE Martha Reed MD Hand and Upper Extremity Surgery [facility] Department of Orthopaedics and Sports Medicine 10/30/2023 at 10:37 AM (Please note that portions of this note may have been completed with a voice recognition program. Efforts were made to edit the dictations but occasionally words are mis-transcribed.) documented in this [facility]08-16-2023 Procedure [facility]07-05-2023 Discharge summary Author Maggie Jesus [facility] April 23, 2023 3:28pm Note Date/Time April 23, 2023 3:28p m [facility] Physical Therapy [facility] [address] [place] [address] / REHABILITATION SERVICES DISCHARGE SUMMARY MR#: [id number] Acct: [id number] Name: FAN CHEEMA Rep #: [id number] : 1945 77 From: Maggie Schuster Referring Dr.: Dr. Marcella Laird MD Status: REG RCR Insurance: [employer] SELF PAY INSURANCE Patient Information Patient Information: FAN CHEEMA was seen in my office for initial evaluation on 11/14/22. The following Plan of Care was established for this patient: POC Established Initial Frequency: 2x /Week Initial Duration: 4 Weeks Anticipated Interventions Patient/Client Instruction: Educate patient on: Condition and Plan of Care For the Purpose of:: To decrease pain, To increase ROM, To improve nutrient delivery to tissue, To improve muscle performance and motor function, To improveability to perform ADL's, To increase tolerance to activity/condition/position, To improve performance and independence with ADL's, To improve ability of physical actions for home/community/work/leisure, To improve health of tissue, Todecrease soft tissue restriction and To increase flexibility/ROM Therapeutic Exercise to Include: Strength training, Body mechanics, Postural training, Flexibilty training, Passive ROM, Active ROM and Scapular Strength/Stabilization For the Purpose of:: To decrease pain, To increase ROM, To improve nutrient delivery to tissue, To improve muscle performance and motor function, To improveability to perform ADL's, To increase tolerance to activity/condition/position, To improve performance and independence with ADL's, To improve ability of physical actions for home/community/work/leisure, To improve gait and locomotor functions, To improve health of tissue, To decrease soft tissue restriction and To increase flexibility/ROM Manual Therapy Techniques to Include: Mobilization and Passive ROM For the Purpose of:: To decrease pain, To increase ROM, To improve nutrient delivery to tissue, To improve muscle performance and motor function, To improveability to perform ADL's, To increase tolerance to activity/condition/position, To improve performance and independence with ADL's, To decrease level of supervision to perform tasks, To improve ability of physical actions for home/community/work/leisure, To improve health of tissue, To decrease soft tissue restriction and To increase flexibility/ROM Cryotherapy (ice pack, ice massage): Yes Thermo therapy (hot pack): Yes For the Purpose of:: To decrease pain, To increase ROM and To improve nutrient delivery to tissue Last Seen Last Seen: This patient was last seen in our office 01/09/23. Pertinent comments regardingtheir Physical therapy will appear below: Pt No showed for her last appt and will be discharged at this time. At this point I will be discontinuing this patient from physical therapy. I would be happy to see this patient again in the future if found appropriate by the physician. Thank you! NATALIYA Tompkins Balance/Gait/Functional tests Balance/Special Test Scores Quick DASH Score: 6.8175 <Electronically signed by Maggie Jesus MPT> 04/23/23 1528 CC: Dr. Marcella Laird MD ~ Signed [facility] Work Phone: 1(391) 451-222806-05-2023 Discharge summary Author Genoveva Alcantar [facility] April 03, 2023 10:54am Note Date/Time March 24, 2023 10:54 am [facility] Occupational Therapy [facility] [address] [place] [address] [address] [place] [address] / REHABILITATION SERVICES DISCHARGE SUMMARY MR#: [id number] Acct: [id number] Name: FAN CHEEMA Rep #: [id number] : 1945 77 From: Genoveva BINGHAM/RONI Wilkerson Referring Dr.: EDITH Antonio Status: REG RCR Eval Date: Discharge Date: It has been my pleasure to treat FAN CHEEMA under orders from EDITH Neil, for the diagnosis of right distal radius fx, ulnar styloid fx for a total of 9 visit(s). Please see the following information for a summary of their discharge status. % Improvement: 90 Objective/Function: right wrist ROM 60/40 increase from 25/20. right branch sales manager strength: 30#. right lateral pinch 8#. right tripod pinch 8#. pt demo full composite fist initial pt was 2 away. pt has met OT goals. pt will at times have tingling and this varies between radial nerve and median nerve may benefit from nerve conduction in future. Patient Goals: Regain Mobility, Decrease Pain, Decrease Swelling/Stiffness, Improve Fine Motor Skills, Use Hand/Wrist/Arm Normally Again, Be More Independent in ADLS Goal:ROM equal to unaffected hand: Yes Goal:Pediatric Neuropsychologist/Pinch strength at least 75% of unaffected hand: Yes Goal:No pain with affected hand use: Yes Goal:PIP Circumferences equal to unaffected hand: Yes Goal:Full use of affected hand in daily activities including: Yes Plan: D/C Discharge Comments: pt was seen for 9 OT session following her right wrist fx. pts therapy worked on increasing ROM, strength and returning pt to performing her ADLs and IADLs at [facility]. Today pt reports she is doing all ADLS IND. and someassist with bottle tops (as she had trouble with this before). Therapist ed. ptto continue with her HEP of AROM, PROM and PRE. Pt has handout and demo understanding of HEP. Pt agrees with D/C. If there are questions or concerns regarding this patient's occupational therapy, please fell free to call me at [phone]. Thank you for the referral of this patient. Sincerely, Genoveva Alcantar OTR/Rock, CHELSEAT <Electronically signed by Genoveva BINGHAM/CHELSEA WilkersonT> 04/03/23 9909 CC: EDITH Antonio; Dr. Marcella Laird MD ~ MK Signed [facility] Work Phone: 1(374) 897-716210-01-2022 Evaluation note* Diagnosis Onset Date Resolution Status CAD (coronary artery disease) acute Presence of stent in coronary artery July, acute Pure hypercholesterolemia ac [place] CAD (coronary artery disease) acute Presence of stent in coronary artery July, acute Pure hypercholesterolemia ac [place] Vertigo acute Benign positional vertigo ac [place] Calf pain acute Calf swelling acute Acute left otitis media acut e Left shoulder pain acute [facility] Work Phone: 1(146) 869-814610-01-2022 Evaluation note* Diagnosis Onset Date Resolution Status CAD (coronary artery disease) acute Presence of stent in coronary artery July, acute Pure hypercholesterolemia ac [place] Vertigo acute Benign positional vertigo ac [place] Calf pain acute Calf swelling acute Acute left otitis media acut e Left shoulder pain acute Cardiac murmur acute Edema of right lower extremity acute Palpitations acute Presence of stent in coronary artery July, acute Pure hypercholesterolemia ac [place] Acute anterior epistaxis acu te Hx of coronary artery disease acute Rash and nonspecific skin eruption acute [facility] Work Phone: [phone] 402-372510-01-2022 Evaluation note* Diagnosis Onset Date Resolution Status Rash and nonspecific skin eruption acute CAD (coronary artery disease) acute Calf swelling acute Presence of stent in coronary artery July, acute Pure hypercholesterolemia ac [place] Rash and nonspecific skin eruption acute Familial combined hyperlipidemia chronic Acute bronchitis, unspecified acute URI (upper respiratory infection) acute Cardiac murmur acute Palpitations acute Presence of stent in coronary artery July, acute Pure hypercholesterolemia ac [place] Arthritis of left foot acute Strain of left foot acute [facility] Work Phone: 1(480) 765-716910-01-2022 Evaluation note* Diagnosis Onset Date Resolution Status CAD (coronary artery disease) acute Calf swelling acute Presence of stent in coronary artery July, acute Pure hypercholesterolemia ac [place] Rash and nonspecific skin eruption acute Familial combined hyperlipidemia chronic Acute bronchitis, unspecified acute URI (upper respiratory infection) acute Cardiac murmur acute Palpitations acute Presence of stent in coronary artery July, acute Pure hypercholesterolemia ac [place] Arthritis of left foot acute Strain of left foot acute [facility] Work Phone: 1([phone]) 757-877310-01-2022 Evaluation note* Diagnosis Onset Date Resolution Status Acute bronchitis, unspecified acute URI (upper respiratory infection) acute Cardiac murmur acute Palpitations acute Presence of stent in coronary artery July, acute Pure hypercholesterolemia ac [place] Arthritis of left foot acute Strain of left foot acute [facility] Work Phone: 1([phone]) 811-579910-01-2022 Evaluation note* Diagnosis Onset Date Resolution Status Cardiac murmur acute Palpitations acute Presence of stent in coronary artery July, acute Pure hypercholesterolemia ac [place] Arthritis of left foot acute Strain of left foot acute [facility] Work Phone: [phone]) 112-849910-01-2022 Evaluation note* Diagnosis Onset Date Resolution Status Cardiac murmur acute Fatigue acute Palpitations acute Presence of stent in coronary artery July, acute Pure hypercholesterolemia ac [place] [facility] Work Phone: 1(724) 234-912012-16-2021 NotePatient Outreach (NETNAV) FAN CHEEMA ([id number]) 1945 F TXT Date Time Provider Department 10/04/21 PAULA HUNT During your visit today, we recorded the following information about you: Paula Hunt Population Health Navigator 10/04/2021 11:36 AM Signed POPULATION HEALTH NAVIGATION OUTREACH Action/ I left a voice message and a my chart message re: pcp No care everywhere Contact made with patient or family member? NO Pt identified by name and : NO Outreach Outcome/Action Unable to reach patient: Left message [facility] Reason for Outreach Attribution: Provider Off-boarding Payer: Payor: [employer]VANTAGE / Plan: [place] / Product Type: HMO / Care Gap Reviewed:: Reminder: Reminder note to check Health Maintenance for items below Health Maintenance items due: INFLUENZA(1) due on 06/20/2021 COVID-19 VACCINE(3 - Booster for Pfizer series) due on 06/29/2021 Advanced Directives Completed: Have you ever planned for future healthcare decisions with a power of family law attorney, living will, or advance directives? No. Please bring a copy to your next appointment or email to [email or web address] Referrals: N/A Message Sent to Practice: NO Navigation Signature: Paula Hunt Population Health Navigator October 04, 2021 11:35 AM Allergies As of Date: 10/04/2021 Noted Allergy Reaction AMOXICILLIN 11/22/2019 5 - Intolerance Comments: Develops BAINS, occipital neuralgia symptoms within few days of starting antibiotic BACTRIM (SULFAMETHOXAZOLE-TRIMETH*06/29/2005 CLARINEX (DESLORATADINE) 06/29/2005 CLARITHROMYCIN 12/21/2013 8 - GI Upset CODEINE 06/29/2005 ENTEX LA (PHENYLEPHRINE-GUAIFENES*06/29/2005 ERYTHROMYCIN 08/21/2015 6 - Diarrhea Comments: severe diarrhea LIPITOR (ATORVASTATIN CALCIUM) 06/29/2005 METHYLPREDNISOL SOD SUC(BULK) 02/09/2010 8 - GI Upset NEOMYCIN 08/21/2015 6 - Diarrhea Comments: Not sure if this contributed to diarrhea since was on erythromycin too. NYSTATIN 07/24/2010 2 - Rash PENTOXIFYLLINE 12/05/2014 8 - GI Upset Comments: nauseated TRIAMINIC COLD/COUGH (CHLORPHENIR*06/29/2005 VICODIN (HYDROCODONE-ACETAMINOPHE*11/07/2010 8 - GI Upset Comments: Able to tolerate [place] Date Reviewed: 06/10/2021 Reviewed by: Obdulia Casanova - Fully Assessed Reason for Visit: Population Health Navigation Outreach [3910] Cmt: Offboarding Prescriptions as of 10/04/2021 - fluticasone (FLONASE) 50 mcg/actuation nasal spray Use 2 Sprays in each nostril once daily. Rinse mouth after use. - prochlorperazine (COMPAZINE) 5 mg tablet Take 1 tablet by mouth every 6 hours as needed. for vertigo - ibuprofen (MOTRIN) 200 mg tablet Take 200 mg by mouth every 6 hours as needed. - VITAMIN B COMPLEX ORAL Take 500 mcg by mouth once daily. 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] 08/12/2007 Labyrinthine Vertigo [H81.09] 06/13/2009 Vitamin B12 deficiency [E53.8] 08/03/2010 04/13/2018 Closed fracture of patella [S82.009A] 08/01/2011 09/30/2014 Sprain of lumbosacral (joint) (ligament) [S33.9*03/11/2014 06/25/2018 Erythema nodosum [L52] 09/30/2014 Lipodermatosclerosis [I83.10] 11/04/2014 Encounter for screening for malignant neoplasm *05/04/2015 05/04/2015 Phlebitis and thrombophlebitis of superficial v*06/01/2015 06/25/2018 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 Author Type: ? Type: Progress Notes Filed: 10/04/2021 11:36 AM Note Text: POPULATION HEALTH NAVIGATION OUTREACH Action/FYI I left a voice message and a my chart message re: pcp No care everywhere Contact made with patient or family member? NO Pt identified by name and : NO Outreach Outcome/Action Unable to reach patient: Left message [facility] message sent Reason for Outreach Attribution: Provider Off-boarding Payer: Payor: [employer] ADVANTAGE / [place] / Product Type: HMO / Care Gap Reviewed:: Reminder: Reminder note to check Health Maintenance for items below Health Maintenance items due: INFLUENZA(1) due on 06/20/2021 COVID-19 VACCINE(3 - Booster for Pfizer series) due on 06/29/2021 Advanced Directives Completed: Have you ever planned for future healthcare decisions with a power of family law attorney, living will, or advance directives? No. Please bring a copy to your next appointment or email to [email or web address] Referrals: N/A Message Sent to Practice: NO Navigation Signature: Paula Hunt Population Health Navigator October 04, 2021 11:35 [facility]08-22-2021 NoteHNO ID: [id number] Author: Nikki Arzola APRN.INDUSTRIAL SALES MANAGER Service: ? Author Type: Nurse Practitioner Type: Progress Notes Filed: 06/10/2021 9:11 AM Note Text: Subjective HPI HPI Fan Cheema is a 75 year old female who presents today for CC of left ear pain, congestion, fever. This started 4 days ago. Has tried otc medication for relief. Symptoms are worsened by nothing. Risk factors currently covid. .Patient presents with: Ear Pain: right and fever x 4 days, + covid PAST MEDICAL HISTORY Diagnosis Date - Back pain, acute - CKD (chronic kidney disease) stage 3, GFR 30-59 ml/min ([facility]) 08/05/2018 - Diverticulosis of colon (without mention of hemorrhage) Diverticulosis - Normal pressure hydrocephalus (HCC) 09/18/2016 - Other osteoporosis - Personal history of colonic polyps - Pure hypercholesterolemia - Snoring - Unspecified constipation Constipation - Unspecified hemorrhoids without mention of complication Hemorrhoids - Vitamin B12 deficiency 08/03/2010 PAST SURGICAL HISTORY Procedure Laterality Date - APPENDECTOMY - COLONOSCOP W/ OR W/O [facility] SPEC 6-28-05 Colonoscopy-repeat in - COLONOSCOP W/ OR W/O [facility] SPEC 05/04/15 Colonoscopy - COLONOSCOP W/ OR W/O [facility] SPEC 08/09/16 Colonoscopy next time mac - EGD W/O OR W/BRUSH/WASH EGD - LAP COLECTMY W/ILEUM/ILEOCOL Right 07-12-15 - LIGATE FALLOPIAN TUBE Tubal ligation - REMOVAL GALLBLADDER Cholecystectomy - REMOVAL OF TONSILS,<12 Y/O Tonsillectomy ALLERGIES Amoxicillin, Bactrim [Sulfamethoxazole-Trimethoprim], Clarinex [Desloratadine], Clarithromycin, Codeine, Entex La [Phenylephrine-Guaifenesin], Erythromycin, Lipitor [Atorvastatin Calcium], Methylprednisol Sod Suc(Bulk), Neomycin, Nystatin, Pentoxifylline, Triaminic Cold/Cough [Xozbwshehugoxmxk-Uukxcaviv-Vv], and Vicodin [Hydrocodone-Acetaminophen] -This section reviewed with patient, no changes MEDICATIONS prochlorperazine (COMPAZINE) 5 mg tablet Take 1 tablet by mouth every 6 hours as needed. for vertigo ibuprofen (MOTRIN) 200 mg tablet Take 200 mg by mouth every 6 hours as needed. VITAMIN B COMPLEX ORAL Take 500 mcg by mouth once daily. cefdinir (OMNICEF) 300 mg capsule Take 1 capsule by mouth twice daily for 10 days. fluticasone (FLONASE) 50 mcg/actuation nasal spray Use 2 Sprays in each nostril once daily. Rinse mouth after use. reviewed FAMILY HISTORY Problem Relation Age of Onset - Heart Mother - Diabetes Sister - Genitourinary () Sister RENAL FAILURE - Heart Sister Social History Tobacco Use - Smoking status: Never Smoker - Smokeless tobacco: Never Used Substance Use Topics - Alcohol use: No - Drug use: No Review of Systems Constitutional: Positive for fever. HENT: Positive for congestion and ear pain. Negative for ear discharge, nosebleeds and sore throat. Respiratory: Positive for cough. Negative for shortness of breath and wheezing. Cardiovascular: Negative for chest pain. Musculoskeletal: Negative for neck pain. Skin: Negative for itching and rash. Objective Blood pressure 132/74, pulse 74, temperature 36.5 ?C (97.7 ?F), resp. rate 16, weight 83 kg (183 lb), SpO2 96 %. Physical Exam Constitutional: General: She is not in acute distress. Appearance: She is not toxic-appearing or diaphoretic. HENT: Head: Normocephalic and atraumatic. Right Ear: Hearing, tympanic membrane and external ear normal. Left Ear: Hearing, ear canal and external ear normal. Tympanic membrane is bulging. Tympanic membrane is not erythematous. Cardiovascular: Rate and Rhythm: Normal rate and regular rhythm. Heart sounds: Normal heart sounds, S1 normal and S2 normal. Pulmonary: Effort: Pulmonary effort is normal. Breath sounds: Normal breath sounds. Neurological: Mental Status: She is alert and oriented to person, place, and time. Gait: Gait is intact. ASSESSMENT/PLAN: 1. ETD (Eustachian tube dysfunction), left - ICD9: 381.81, ICD10: H69.82 Hold atb, take if worsening symptoms Fluticasone first. Return for continued/worsening symptoms. - CEFDINIR 300 MG CAPSULE - FLUTICASONE PROPIONATE 50 MCG/ACTUATION NASAL SPRAY,SUSPENSION Agrees to plan Declines avs Nikki Arzola APRN.[facility]08-19-2021 NoteHNO ID: [id number] Author: Odette Callejas APRN.INDUSTRIAL SALES MANAGER Service: ? Author Type: Nurse Practitioner Type: Progress Notes Filed: 06/07/2021 1:13 PM Note Text: SUBJECTIVE Fan Cheema is a 75 year old female who presents with 2 days of symptoms that are stable. Symptoms include: Fever (?100.4F): No or Chills: Yes Cough: No Shortness of breath: No or Difficulty breathing: No Fatigue: No Muscle aches: No Headache: Yes New loss of smell or taste: No Sore throat: No Nasal congestion: Yes or Rhinorrhea: Yes Nausea: No or Vomiting: No Diarrhea: No High risk category assessment Age > 60 years old Exposures: Sick contacts? Yes Family or close contacts with confirmed/probable COVID-19 in last 14 days? Yes - tested positive yesterday. She reports that she has never smoked. She has never used smokeless tobacco. BP 128/82 Pulse 73 Temp 37.3 ?C (99.2 ?F) (Tympanic) Resp 18 Wt 86.9 kg (191 lb 9.6 oz) SpO2 99% BMI 29.13 kg/m? PAST MEDICAL HISTORY Diagnosis Date - Back pain, acute - CKD (chronic kidney disease) stage 3, GFR 30-59 ml/min ([facility]) 08/05/2018 - Diverticulosis of colon (without mention of hemorrhage) Diverticulosis - Normal pressure hydrocephalus ([facility]) 09/18/2016 - Other osteoporosis - Personal history of colonic polyps - Pure hypercholesterolemia - Snoring - Unspecified constipation Constipation - Unspecified hemorrhoids without mention of complication Hemorrhoids - Vitamin B12 deficiency 08/03/2010 PAST SURGICAL HISTORY Procedure Laterality Date - APPENDECTOMY - COLONOSCOP W/ OR W/O [facility] SPEC 04-16-05 Colonoscopy-repeat in - COLONOSCOP W/ OR W/O [facility] SPEC 05/04/15 Colonoscopy - COLONOSCOP W/ OR W/O [facility] SPEC 08/09/16 Colonoscopy next time mac - EGD W/O OR W/BRUSH/WASH EGD - LAP COLECTMY W/ILEUM/ILEOCOL Right 07-12-15 - LIGATE FALLOPIAN TUBE Tubal ligation - REMOVAL GALLBLADDER Cholecystectomy - REMOVAL OF TONSILS,<12 Y/O Tonsillectomy ALLERGIES Amoxicillin, Bactrim [Sulfamethoxazole-Trimethoprim], Clarinex [Desloratadine], Clarithromycin, Codeine, Entex La [Phenylephrine-Guaifenesin], Erythromycin, Lipitor [Atorvastatin Calcium], Methylprednisol Sod Suc(Bulk), Neomycin, Nystatin, Pentoxifylline, Triaminic Cold/Cough [Emjymmpnwtdscrkm-Thglnbymy-Dy], and Vicodin [Hydrocodone-Acetaminophen] MEDICATIONS prochlorperazine (COMPAZINE) 5 mg tablet Take 1 tablet by mouth every 6 hours as needed. for vertigo ibuprofen (MOTRIN) 200 mg tablet Take 200 mg by mouth every 6 hours as needed. VITAMIN B COMPLEX ORAL Take 500 mcg by mouth once daily. FAMILY HISTORY Problem Relation Age of Onset - Heart Mother - Diabetes Sister - Genitourinary () Sister RENAL FAILURE - Heart Sister Social History Tobacco Use - Smoking status: Never Smoker - Smokeless tobacco: Never Used Substance Use Topics - Alcohol use: No - Drug use: No OBJECTIVE Physical Exam Vitals and nursing note reviewed. HENT: Nose: Congestion present. Mouth/Throat: Mouth: Mucous membranes are moist. Pharynx: Oropharynx is clear. Uvula midline. No oropharyngeal exudate or posterior oropharyngeal erythema. Cardiovascular: Rate and Rhythm: Normal rate and regular rhythm. Heart sounds: Normal heart sounds. Pulmonary: Effort: Pulmonary effort is normal. No respiratory distress. Breath sounds: Normal breath sounds. No wheezing or rales. Musculoskeletal: Cervical back: Neck supple. Skin: General: Skin is warm and dry. Findings: No erythema or rash. Neurological: Mental Status: She is alert. ASSESSMENT/PLAN ASSESSMENT/PLAN: 1. Exposure to COVID-19 virus - ICD9: V01.79, ICD10: Z20.822 - 2019 CORONAVIRUS Odette CHARMAINE Callejas.SUSAN - Meets symptom-based criteria for testing and is high risk. - COVID swab collected at time of office visit - Instructed to isolate pending test results - Discussed symptom monitoring and supportive care - Red flag symptoms requiring follow up discussed This patient encounter involved the screening or treatment of novel coronavirus infection (COVID-19).[facility]04-06-2021 NoteHNO ID: [id number] Author: Mike Hartley III Service: ? Author Type: Physician Type: Progress Notes Filed: 01/23/2021 6:09 PM Note Text: SUBJECTIVE: This is a 75 year old female that is here today for follow up 1. still has some vertigo and nausea. Yesterday she had difficulty walking across the room. Poor sleep with fatigue. No tinnitus or decreased hearing. Meclizine helps. 2. CKD III--GFR 52 3. hx of normal pressure hydrocephalus--asymptomatic Current Outpatient Medications on File Prior to Visit Medication Sig - meloxicam (MOBIC) 7.5 mg tablet Take 1-2 tablets by mouth once daily. Take with food. (Patient not taking: Reported on 01/18/2021 ) - prochlorperazine (COMPAZINE) 5 mg tablet Take 1 tablet by mouth every 6 hours as needed. for vertigo - ibuprofen (MOTRIN) 200 mg tablet Take 200 mg by mouth every 6 hours as needed. - cetirizine (ZYRTEC) 10 mg tablet Take 10 mg by mouth once daily. (Patient not taking: Reported on 01/18/2021 ) - VITAMIN B COMPLEX ORAL Take 500 mcg by mouth once daily. Current Facility-Administered Medications on File Prior to Visit Medication - cyanocobalamin 1,000 mcg injection PAST MEDICAL HISTORY Diagnosis Date - Back pain, acute - CKD (chronic kidney disease) stage 3, GFR 30-59 ml/min ([facility]) 08/05/2018 - Diverticulosis of colon (without mention of hemorrhage) Diverticulosis - Normal pressure hydrocephalus ([facility]) 09/18/2016 - Other osteoporosis - Personal history of colonic polyps - Pure hypercholesterolemia - Snoring - Unspecified constipation Constipation - Unspecified hemorrhoids without mention of complication Hemorrhoids - Vitamin B12 deficiency 08/03/2010 FAMILY HISTORY Problem Relation Age of Onset - Heart Mother - Diabetes Sister - Genitourinary () Sister RENAL FAILURE - Heart Sister BP 136/66 Pulse 65 Resp 16 Wt 85.7 kg (189 lb) BMI 28.74 kg/m? OBJECTIVE: APPEARANCE Well appearing, alert, in no acute distress, well-hydrated, well nourished. NECK Supple, no adenopathy; thyroid symmetric, normal size, no bruits HEART RRR with normal S1 and S2, no murmurs, no gallops, no JVD appreciated LUNG clear to auscultation ABDOMEN , soft, non-tender, non-distended, without organomegaly or palpable masses, no tenderness to palpation EXTREMITIES Extremities normal, No deformities, No skin discoloration and No edema NEURO Awake, alert and oriented x 3, Normal gait and No involuntary motions. lab Results for FAN CHEEMA ( ) as of 01/23/2021 15:15 Ref. Range 01/18/2021 14:09 Sodium Latest Ref Range: 136 - 144 mmol/L 140 Potassium Latest Ref Range: 3.7 - 5.1 mmol/L 4.0 Chloride Latest Ref Range: 97 - 105 mmol/L 105 CO2 Latest Ref Range: 22 - 30 mmol/L 26 BUN Latest Ref Range: 7 - 21 mg/dL 18 Creatinine Latest Ref Range: 0.58 - 0.96 mg/dL 1.04 (H) Glucose Latest Ref Range: 74 - 99 mg/dL 117 (H) Protein, Total Latest Ref Range: 6.3 - 8.0 g/dL 7.1 Calcium Latest Ref Range: 8.5 - 10.2 mg/dL 9.3 Albumin Latest Ref Range: 3.9 - 4.9 g/dL 4.3 Bilirubin, Total Latest Ref Range: 0.2 - 1.3 mg/dL 0.4 Alkaline Phosphatase Latest Ref Range: 34 - 123 U/L 122 ALT Latest Ref Range: 7 - 38 U/L 16 AST Latest Ref Range: 13 - 35 U/L 23 Anion Gap Latest Ref Range: 9 - 18 mmol/L 9 eGFR- Unknown >60 eGFR-All Other Races Latest Units: . 52 Hematocrit Latest Ref Range: 36.0 - 46.0 % 42.4 Free T4 Latest Ref Range: 0.9 - 1.7 ng/dL Test sent to [facility]. TSH Latest Ref Range: 0.270 - 4.200 uU/mL Test sent to [facility]. WBC Latest Ref Range: 3.70 - 11.00 k/uL 6.36 RBC Latest Ref Range: 3.90 - 5.20 m/uL 4.54 Hemoglobin Latest Ref Range: 11.5 - 15.5 g/dL 14.1 Platelet Count Latest Ref Range: 150 - 400 k/uL 217 MCV Latest Ref Range: 80.0 - 100.0 fL 93.4 MCH Latest Ref Range: 26.0 - 34.0 pG 31.1 MCHC Latest Ref Range: 30.5 - 36.0 g/dL 33.3 MPV Latest Ref Range: 9.0 - 12.7 fL 10.9 RDW-CV Latest Ref Range: 11.5 - 15.0 % 12.4 Neut% Latest Units: % 59.6 Abs Neut (ANC) Latest Ref Range: 1.45 - 7.50 k/uL 3.77 Lymph% Latest Units: % 29.1 Abs Lymph Latest Ref Range: 1.00 - 4.00 k/uL 1.85 Barron% Latest Units: % 9.1 Abs Barron Latest Ref Range: <0.87 k/uL 0.58 Eosin% Latest Units: % 1.1 Abs Eosin Latest Ref Range: <0.46 k/uL 0.07 Baso% Latest Units: % 1.1 Abs Baso Latest Ref Range: <0.11 k/uL 0.07 Nucleated Reds Latest Ref Range: 0 /100 WBC 0.0 Absolute nRBC Latest Ref Range: <0.01 k/uL <0.01 Diff Type Unknown Auto Diff ASSESSMENT: CKD III-improved BPPV-recurrent PLAN: healthy diet and regular exercise same medications meclizine as needed for vertigo We discussed the definition of chronic kidney disease stage III with reassurance Mike Hartley III MD Medical Decision Making: Problems: Moderate: 2+ stable chronic illnesses Data: Unique test result(s) reviewed: 3+ Risk: Moderate: Drug management Medical Decision (more content not included)...[facility] 01-18-2021 NoteHNO ID: [id number] Author: Christal Thornton Service: ? Author Type: Nurse Practitioner Type: Progress Notes Filed: 01/18/2021 1:46 PM Note Text: Subjective HPI HPI Fan Cheema is a 75 year old female who presents today for CC of nausea and fatigue and diarrhea in the past 24 hours. She also had an episode of diarrhea about a week ago. She denies any fever chills, body aches, congestions, loss of smell or taste, cough, SOB, TEE, chest pain, no loc, syncopal events. She denies any muscle weakness, facial drooping, assymetry, or slurred speech. She is having continued issues with dizzines which she has had over the past year, states not as bad as in the past, being addressed by Dr. Hartley. See PMH below. Patient is a long standing patient of Dr. Hartley, first visit with me today. There were no vitals taken for this visit. Social History Tobacco Use - Smoking status: Never Smoker - Smokeless tobacco: Never Used Substance Use Topics - Alcohol use: No - Drug use: No PAST MEDICAL HISTORY Diagnosis Date - Back pain, acute - CKD (chronic kidney disease) stage 3, GFR 30-59 ml/min 08/05/2018 - Diverticulosis of colon (without mention of hemorrhage) Diverticulosis - Normal pressure hydrocephalus ([facility]) 09/18/2016 - Other osteoporosis - Personal history of colonic polyps - Pure hypercholesterolemia - Snoring - Unspecified constipation Constipation - Unspecified hemorrhoids without mention of complication Hemorrhoids - Vitamin B12 deficiency 08/03/2010 I have confirmed and edited as necessary, the [facility] Review of Systems Constitutional: Positive for malaise/fatigue. Negative for chills and fever. Gastrointestinal: Positive for abdominal pain (mild cramping), diarrhea and nausea. Negative for vomiting. Genitourinary: Negative for dysuria, flank pain, frequency, hematuria and urgency. Objective Physical Exam Vitals and nursing note reviewed. Constitutional: Appearance: Normal appearance. Cardiovascular: Rate and Rhythm: Normal rate and regular rhythm. Heart sounds: Normal heart sounds. No murmur heard. Abdominal: General: Bowel sounds are normal. There is no distension or abdominal bruit. Palpations: Abdomen is not rigid. There is no mass or pulsatile mass. Tenderness: There is no abdominal tenderness. There is no guarding or rebound. Negative signs include Ortiz's sign and McBurney's sign. Neurological: General: No focal deficit present. Mental Status: She is alert and oriented to person, place, and time. Cranial Nerves: Cranial nerves are intact. No facial asymmetry. Sensory: Sensation is intact. Motor: Motor function is intact. Coordination: Coordination is intact. Romberg sign negative. Deep Tendon Reflexes: Reflexes are normal and symmetric. Psychiatric: Mood and Affect: Affect normal. ASSESSMENT/PLAN: 1. Diarrhea, unspecified type - ICD9: 787.91, ICD10: R19.7 (primary diagnosis) Encourage fluids Monitor urine output Will check labs and call patient Home isolation When to seek higher level of care Notified in 24-48 hours with covid results, available on [employer] [facility]It - CBC + DIFF - COMP METABOLIC PANEL - 2019 CORONAVIRUS 2. Fatigue, unspecified type - ICD9: 780.79, ICD10: R53.83 Check labs Rest hydrate Any worsening symptoms to ED for evaluation Recheck one week with Dr. Hartley - 2019 CORONAVIRUS - FREE T4 + TSH Diagnosis and treatment plan were discussed and questions were answered to the patient's satisfaction. Pt acknowledged understanding of concepts and follow up plan. Specific signs and symptoms that would indicate the need for higher level of care were discussed in detail warranting prompt ER evaluation. Christal Thornton APRN.[facility] summary Author Hero Crabtree [facility] July 31, 2023 12:20pm Note Date/Time July 31, 2023 1 2:20pm [facility] Medical Records Department [address] [place] [address] Emergency Department Summary 07/31/23 MR#: [id number] Acct: [id number] Name: FAN CHEEMA XIOMARA Rep #:[id number] : 1945 78 From: Hero Crabtree DO PCP: Dr. Marcella Laird MD Status:PRE ER Location: ED HPI History of Present Illness Chief Complaint: Nosebleed Narrative Narrative: 78-year-old female presenting with epistaxis from the right nare. Denies trauma. Patient on aspirin and Plavix. History of nosebleed. She states last time they tried to cauterize it nothing would work. She is up having a packing. She followed up with Dr. Campbell who took the packing out. She states that he was post to set up with ENT but this never occurred. She did not get a referral from the ER. [facility] Medical History Acute bronchitis, unspecified 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 Bilateral cataracts Colon cancer Decreased radial pulse HTN (hypertension) Personal history of colonic polyps Pure hypercholesterolemia Seasonal allergies URI (upper respiratory infection) Home Medications ibuprofen 200 mg tablet 200 mg PO PRN PRN Headache 07/19/19 [History Last Taken Unknown] clopidogrel 75 mg tablet 75 mg PO DAILY #90 tabs 08/07/22 [Rx Last Taken Unknown] carvedilol 3.125 mg tablet 3.125 mg PO BID #60 tabs 03/13/23 [Rx Last Taken Unknown] meclizine 25 mg tablet 25 mg PO BID PRN dizziness #30 tabs 04/04/23 [Rx Last Taken Unknown] ondansetron 4 mg disintegrating tablet 4 mg PO Q8H PRN PRN Nausea #10 tabs 04/04/23 [Rx Last Taken Unknown] cholecalciferol (vitamin D3) 50 mcg (2,000 unit) tablet 50 mcg PO DAILY Vit D #90 tabs 05/07/23 [Rx Last Taken Unknown] cyanocobalamin (vitamin B-12) 1,000 mcg tablet 1,000 mcg PO DAILY B12 #90 tabs 05/07/23 [Rx Last Taken Unknown] hydrochlorothiazide 12.5 mg tablet 12.5 mg PO DAILY #30 tabs 05/15/23 [Rx Last Taken Unknown] Allergy/AdvReac Type Severity Reaction Status Date / Time atorvastatin calcium Allergy myalgias Verified 07/31/23 11:22 [From Lipitor] clarithromycin Allergy Nausea/Vom/ Verified 07/31/23 11:22 Diarrhea desloratadine [From Clarinex] Allergy Unknown Verified 07/31/23 11:22 guaifenesin [From Entex LA] Allergy Unknown Verified 07/31/23 11:22 hydrocodone bitartrate Allergy Other Verified 07/31/23 11:22 [From Vicodin] methylprednisolone Allergy Unknown Verified 07/31/23 11:22 nystatin Allergy Unknown Verified 07/31/23 11:22 pentoxifylline Allergy Nausea/Vom/ Verified 07/31/23 11:22 Diarrhea phenylephrine HCl Allergy Unknown Verified 07/31/23 11:22 [From Entex LA] phenylpropanolamine HCl Allergy Unknown Verified 07/31/23 11:22 [From Entex LA] sulfamethoxazole Allergy Unknown Verified 07/31/23 11:22 [From Bactrim] trimethoprim [From Bactrim] Allergy Unknown Verified 07/31/23 11:22 pravastatin AdvReac Myalgia Verified 07/31/23 11:22 Family History Mother Diabetes Heart disease Father Heart disease Myocardial infarction Sister Diabetes Heart disease Hypertension Sister Heart disease Surgical History H/O knee surgery H/O shoulder surgery History of bilateral cataract extraction History of bowel resection History of colonoscopy Presence of coronary angioplasty implant and graft (~08/06/22) Presence of stent in coronary artery (~08/06/22) Social History Smoking Status: Never smoker alcohol intake: never substance use type: does not use caffeine: Yes Type: carbonated beverages Number of servings: 2 and tea Number of servings: 2 additional social history: Uses Ibuprofen prn ROS ROS ED Constitutional Constitutional ED: Denies chills, fever(s) or sweats Eyes Eyes: Denies blurry vision or change in vision ENT ENT ED: Reports other Details: Epistaxis right nare ; Denies ear pain or sore throat Cardiovascular Cardiovascular: Denies chest pain, palpitations or racing heartbeat Respiratory/Chest Respiratory/Chest: Denies cough, dyspnea or sputum Gastrointestinal Gastrointestinal: Denies abdominal pain, constipation, diarrhea, nausea or vomiting Genitourinary Genitourinary ED: Denies dysuria, hematuria or urinary frequency Musculoskeletal Musculoskeletal: Denies arthralgias, myalgias or neck pain Integumentary Denies abscess, Abrasions or rash Neurologic Neurologic: Denies headache(s), paresthesias or weakness Psychiatric Psychiatric: Denies anxiety, depression, suicidal ideation or suicidal thoughts Endocrine Endocrinology: Denies polydipsia or polyuria EXAM Physical Exam Const Vital Signs: 07/31/23 11:19 Temperature 97.8 F Temperature Source Temporal Pulse Rate 63 Respiratory Rate 18 Blood Pressure 182/58 H Blood Pressure Mean 99 Pulse Ox 100 Oxygen Delivery Method Room Air Positive well nourished General Appearance ED: NAD HEENT Reports moist mucous membranes HEENT Narrative: Scant bleeding coming from the right nare it appears to be anterior. Eyes PERRL Resp normal respiratory effort and clear to auscultation bilaterally Cardio regular rate and regular rhythm Neuro oriented x3 and CN's II-XII intact bilaterally Psych mental status grossly normal Skin no rashes or lesions noted and no wounds MDM MDM MDM Narrative Medical decision making narrative: Patient presented with epistaxis. The bleeding has slowed down and there is just slight bleeding in the anterior plexus. She has had this previously tried to cauterize and it did not help. We discussed leaving it since it is very minor versus packing it to control the bleeding and ultimately determined we would pack this and she will follow-up with ENT. Return precautions were discussed. Impression: 1. epistaxis Discharge Plan Triage Chief Complaint: Nosebleed ED Provider: Hero Crabtree Dx/Rx/DC Orders Instructions: Nosebleed Prescriptions: No Action ibuprofen 200 MG tablet 200 mg PO PRN PRN (Reason: Headache) clopidogrel 75 mg Tablet 75 mg PO DAILY Qty: 90 3RF carvedilol 3.125 mg tablet 3.125 mg PO BID Qty: 60 6RF meclizine 25 mg tablet 25 mg PO BID PRN (Reason: dizziness) Qty: 30 1RF ondansetron 4 mg tablet,disintegrating 4 mg PO Q8H PRN PRN (Reason: Nausea) Qty: 10 1RF cholecalciferol (vitamin D3) 50 mcg (2,000 unit) tablet 50 mcg PO DAILY Qty: 90 3RF cyanocobalamin (vitamin B-12) 1,000 mcg tablet 1,000 mcg PO DAILY Qty: 90 3RF hydrochlorothiazide 12.5 mg tablet 12.5 mg PO DAILY Qty: 30 11RF Primary Care Provider: Marcella Laird Referrals: Ronald Harris MD [Med Staff - Active Staff] - 3-5 Days Marcella Laird MD [Primary Care Provider] - Disposition Disposition: Home, Self Care What to do if you have Problems For any increased pain, shortness of breath, bleeding, nausea or vomiting, chestpain, or any unexpected problems, contact your Primary Care Provider. Call [facility] ([phone]) or report to the closest Emergency Room. Call 911 if necessary. 07/31/23 1220 <Electronically signed by Hero Crabtree DO> Cosigner Signature (if applicable): CC: Dr. Marcella Laird MD ~ Signed [facility] Work Phone: Evaluation note* Diagnosis Onset Date Resolution Status Injury of left thumbnail acu te Nausea acute Seasonal allergies acute [facility] Work Phone: Evaluation note* Diagnosis Onset Date Resolution Status Injury of left thumbnail acu te Nausea acute Seasonal allergies acute Nausea acute Seasonal allergies acute Fatigue noneactive Dizziness noneactive [facility] Work Phone: Evaluation note* Diagnosis Onset Date Resolution Status Nausea acute Seasonal allergies acute Fatigue noneactive Dizziness noneactive Familial combined hyperlipidemia chronic Family history of coronary artery disease chronic [facility] Work Phone: Evaluation note* Diagnosis Onset Date Resolution Status Familial combined hyperlipidemia chronic Family history of coronary artery disease chronic Cardiac murmur acute Abnormal stress test resolve d Chest pain in adult resolved Dyspnea on exertion resolved CAD (coronary artery disease) acute Presence of stent in coronary artery July, acute Pure hypercholesterolemia ac [place] CAD (coronary artery disease) acute Presence of stent in coronary artery July, acute Pure hypercholesterolemia ac [place] Vertigo acute [facility] Work Phone: Evaluation note* Diagnosis Onset Date Resolution Status Familial combined hyperlipidemia chronic Family history of coronary artery disease chronic Cardiac murmur acute Abnormal stress test resolve d Chest pain in adult resolved Dyspnea on exertion resolved CAD (coronary artery disease) acute Presence of stent in coronary artery July, acute Pure hypercholesterolemia ac [place] CAD (coronary artery disease) acute Presence of stent in coronary artery July, acute Pure hypercholesterolemia ac [place] Vertigo acute Benign positional vertigo ac [place] Calf pain acute Calf swelling acute [facility] Work Phone: Evaluation note* Diagnosis Onset Date Resolution Status Cardiac murmur acute Abnormal stress test resolve d Chest pain in adult resolved Dyspnea on exertion resolved CAD (coronary artery disease) acute Presence of stent in coronary artery July, acute Pure hypercholesterolemia ac [place] CAD (coronary artery disease) acute Presence of stent in coronary artery July, acute Pure hypercholesterolemia ac [place] Vertigo acute Benign positional vertigo ac [place] Calf pain acute Calf swelling acute Acute left otitis media acut e [facility] Work Phone: Evaluation note* Diagnosis Onset Date Resolution Status Cardiac murmur acute Abnormal stress test resolve d Chest pain in adult resolved Dyspnea on exertion resolved CAD (coronary artery disease) acute Presence of stent in coronary artery July, acute Pure hypercholesterolemia ac [place] CAD (coronary artery disease) acute Presence of stent in coronary artery July, acute Pure hypercholesterolemia ac [place] Vertigo acute Benign positional vertigo ac [place] Calf pain acute Calf swelling acute Acute left otitis media acut e Left shoulder pain acute [facility] Work Phone: evaluation note* Diagnosis Onset Date Resolution Status Acute left otitis media acut e Left shoulder pain acute Cardiac murmur acute Edema of right lower extremity acute Palpitations acute Presence of stent in coronary artery July, acute Pure hypercholesterolemia ac [place] Rash and nonspecific skin eruption acute [facility] Work Phone: evaluation note* Diagnosis Pain in wrist, unspecified laterality- Primary documented in this encounter [facility]* Diagnosis Other closed intra-articular fracture of distal end of right radius with malunion, subsequent encounter Carpal tunnel syndrome of right wrist documented in this encounter [facility] note* Diagnosis Pain in wrist, unspecified laterality documented in this encounter [facility] note* Diagnosis Onset Date Resolution Status Atherosclerotic heart diseas e of [place] coronary artery without angina pectoris acute Benign positional vertigo ac [place] CAD (coronary artery disease) acute HTN (hypertension) chronic [facility] Work Phone: evaluation note* Diagnosis S/P carpal tunnel release- Primary Other postprocedural status documented in this encounter [facility] note* Diagnosis Carpal tunnel syndrome of right wrist- Primary Other closed intra-articular fracture of distal end of right radius with malunion, subsequent encounter S/P endoscopic carpal tunnel release Other postprocedural status [facility]* Diagnosis Onset Date Resolution Status CAD (coronary artery disease) acute Chest pain acute CAD (coronary artery disease) acute Seasonal allergies acute Vertigo acute HTN (hypertension) chronic [facility] Work Phone: Evaluation note* Diagnosis Carpal tunnel syndrome of right wrist Other closed intra-articular fracture of distal end of right radius with malunion, subsequent encounter S/P endoscopic carpal tunnel release Other postprocedural status documented in this encounter [facility] Discharge instructions Additional Instructions Left knee x-ray negative. CT brain negative for any bleeds or fractures. Reported slightly dilated ventricles questioning possible normal pressure hydrocephalus however you have no clinical symptoms with this. Follow-up with neurology outpatient evaluation and monitoring.[facility] Work Phone: Reason for referral (narrative)No reason for referral information availableWKettering [facility] Work Phone: Summary Purpose Family History No Family History Records Found Relationship Condition Age at Onset Recorded Date/T remy mother Diabetes mellitus Unknown Cardiac disease Unknown father Cardiac disease Unknown Myocardial infarction Unknown sister Diabetes mellitus Unknown Hypertension Unknown Relationship Condition Age at Onset Recorded Date/T remy mother Diabetes mellitus Unknown Cardiac disease Unknown father Cardiac disease Unknown Myocardial infarction Unknown sister Diabetes mellitus Unknown Hypertension Unknown sister Cardiac disease Unknown Advance Directives No Advanced Directives Records Found Advance Directive Response Recorded Date/ Time Advance Directives No June 04, 2021 2:48pm Living Will No June 04 2:48pm Power of Resistor Winder Yes June 04 021 2:48pm Advance Directive Response Recorded Date/ Time Name of Medical Power of Resistor Winder jessica cevallos tt June 10, 2022 4:22pm Advance Directives No June 04, 2021 2:48pm Living Will No June 10 4:22pm Power of Resistor Winder Yes June 10 022 4:22pm Advance Directive Response Recorded Date/ Time Advance Directives No August 09, 2022 10:35am Living Will No August 09 10:35am Power of Resistor Winder No August 09, 2022 10:35am Name of Medical Power of Resistor Winder jessica cevallos tt June 10, 2022 4:22pm Advance Directive Response Recorded Date/ Time Name of Medical Power of Resistor Winder jessica cevallos tt June 10, 2022 4:22pm Advance Directives No August 09, 2022 10:35am Living Will No August 19 5:52pm Power of Resistor Winder No August 19, 2022 5:52pm Advance Directive Response Recorded Date/ Time Name of Medical Power of Resistor Winder jessica cevallos tt June 10, 2022 3:22pm Advance Directives on File No 2021 8:45am Advance Directives No August 21, 2022 7:47am Living Will Yes September 11 8:45am Power of Resistor Winder Yes September 11, 2022 8:45am Advance Directive Response Recorded Date/ Time Advance Directives on File No 2021 8:45am Advance Directives No August 21, 2022 7:47am Living Will Yes September 11 8:45am Power of Resistor Winder Yes September 11, 2022 8:45am Advance Directive Response Recorded Date/ Time Advance Directives No November 10:50am Living Will No December 03 10:50am Power of Resistor Winder No December 03, 2022 10:50am Advance Directives on File No 2021 8:45am Advance Directive Response Recorded Date/ Time Advance Directives No November 11:50am Living Will No January 12, 2023 9:27am Power of Resistor Winder No January 12 9:27am Advance Directive Response Recorded Date/ Time Advance Directives No November 11:50am Living Will No July 31 11:48am Power of Resistor Winder No July 31, 2023 11:48am Advance Directive Response Recorded Date/ Time Advance Directives No August 25, 2023 8:28am Living Will No August 25 8:28am Power of Resistor Winder No August 25, 2023 8:28am Advance Directive Response Recorded Date/ Time Advance Directives No August 25, 2023 8:28am Living Will No December 19, 2023 12:01pm Power of Resistor Winder No December 18 12:01pm Latest Code Status on File Code Status Date Activated Date Inactivated Comments Full Code 01/02/2024 8:08 AM 01/02/2024 1:35 PM Advance Directive Response Recorded Date/ Time Advance Directives No August 25, 2023 9:28am Living Will No December 19, 2023 1:01pm Power of Resistor Winder No December 18 1:01pm Latest Code Status on File Code Status Date Activated Date Inactivated Comments Full Code 01/02/2024 8:08 AM 01/02/2024 1:35 PM Advance Directive Response Recorded Date/ Time Living Will No December 19, 2023 1:01pm Do you have a Healthcare Power of Resistor Winder? No December 19, 2023 1:01pm Advance Directives No November 9:56am Chief Complaint and Reason for Visit Chief Complaint DIZZY, INJURED FINGE R Reason for Visit Injury of left thumb nail Nausea Seasonal allergies Chief Complaint DIZZY, INJURED FINGE R Nausea, Tiredness Reason for Visit Injury of left thumb nail Nausea Seasonal allergies Nausea Seasonal allergies Fatigue Dizziness Chief Complaint Nausea, Tiredness headache/jaw pain/left arm pain WC ER FU CHEST TIGHTNESS CHEST TIGHTNESS Reason for Visit Nausea Seasonal allergies Fatigue Dizziness Familial combined hyperlipidemia Family history of coronary artery disease Chief Complaint headache/jaw pain/le ft arm pain WC ER FU CHEST TIGHTNESS CHEST TIGHTNESS ABN STRESS (EITAN) CP chest pain abn stress chest pain abn stress [facility] ER FU cath site check per Genoveva Barton Other specified symptoms and signs involving the c Reason for Visit Familial combined hy perlipidemia Family history of coronary artery disease Cardiac murmur Abnormal stress test Chest pain in adult Dyspnea on exertion CAD (coronary artery disease) Presence of stent in coronary artery Pure hypercholesterolemia CAD (coronary artery disease) Presence of stent in coronary artery Pure hypercholesterolemia Vertigo Chief Complaint headache/jaw pain/le ft arm pain WC ER FU CHEST TIGHTNESS CHEST TIGHTNESS ABN STRESS (EITAN) CP chest pain abn stress chest pain abn stress WC ER FU cath site check per Gen[place]va [place]. Other specified symptoms and signs involving the c DIZZINESS Reason for Visit Familial combined hy perlipidemia Family history of coronary artery disease Cardiac murmur Abnormal stress test Chest pain in adult Dyspnea on exertion CAD (coronary artery disease) Presence of stent in coronary artery Pure hypercholesterolemia CAD (coronary artery disease) Presence of stent in coronary artery Pure hypercholesterolemia Vertigo Chief Complaint headache/jaw pain/le ft arm pain WC ER FU CHEST TIGHTNESS CHEST TIGHTNESS ABN STRESS (EITAN) CP chest pain abn stress chest pain abn stress [facility] ER FU cath site check per Genoveva S. Other specified symptoms and signs involving the c DIZZINESS [facility] ER FU PAIN IN RIGHT LOWER LEG PCI w/stenting Reason for Visit Familial combined hy perlipidemia Family history of coronary artery disease Cardiac murmur Abnormal stress test Chest pain in adult Dyspnea on exertion CAD (coronary artery disease) Presence of stent in coronary artery Pure hypercholesterolemia CAD (coronary artery disease) Presence of stent in coronary artery Pure hypercholesterolemia Vertigo Benign positional vertigo Calf pain Calf swelling Chief Complaint headache/jaw pain/le ft arm pain WC ER FU CHEST TIGHTNESS CHEST TIGHTNESS ABN STRESS (EITAN) CP chest pain abn stress chest pain abn stress [facility] ER FU cath site check per Genoveva S. Other specified symptoms and signs involving the c DIZZINESS [facility] ER FU PAIN IN RIGHT LOWER LEG PCI w/stenting PCI w/coronary stenting, abnormal Imaging Stress Reason for Visit Familial combined hy perlipidemia Family history of coronary artery disease Cardiac murmur Abnormal stress test Chest pain in adult Dyspnea on exertion CAD (coronary artery disease) Presence of stent in coronary artery Pure hypercholesterolemia CAD (coronary artery disease) Presence of stent in coronary artery Pure hypercholesterolemia Vertigo Benign positional vertigo Calf pain Calf swelling Chief Complaint CHEST TIGHTNESS CHEST TIGHTNESS ABN STRESS (EITAN) CP chest pain abn stress chest pain abn stress [facility] ER FU cath site check per Genoveva S. Other specified symptoms and signs involving the c DIZZINESS [facility] ER FU PAIN IN RIGHT LOWER LEG PCI w/stenting PCI w/coronary stenting, abnormal Imaging Stress SCREENING - [place] PCI w/coronary stenting, abnormal Imaging Stress FEVER/SORE THROAT/LEFT EAR PAIN Reason for Visit Cardiac murmur Abnormal stress test Chest pain in adult Dyspnea on exertion CAD (coronary artery disease) Presence of stent in coronary artery Pure hypercholesterolemia CAD (coronary artery disease) Presence of stent in coronary artery Pure hypercholesterolemia Vertigo Benign positional vertigo Calf pain Calf swelling Acute left otitis media Chief Complaint ABN STRESS (EITAN ) CP chest pain abn stress chest pain abn stress [facility] ER FU cath site check per Genoveva S. Other specified symptoms and signs involving the c DIZZINESS [facility] ER FU PAIN IN RIGHT LOWER LEG PCI w/stenting PCI w/coronary stenting, abnormal Imaging Stress SCREENING - [place] PCI w/coronary stenting, abnormal Imaging Stress FEVER/SORE THROAT/LEFT EAR PAIN Pain in LT Arm EORDERS CAROTID STENOSIS PCI w/coronary stenting, abnormal Imaging Stress Reason for Visit Cardiac murmur Abnormal stress test Chest pain in adult Dyspnea on exertion CAD (coronary artery disease) Presence of stent in coronary artery Pure hypercholesterolemia CAD (coronary artery disease) Presence of stent in coronary artery Pure hypercholesterolemia Vertigo Benign positional vertigo Calf pain Calf swelling Acute left otitis media Left shoulder pain Chief Complaint CP chest pain abn stress chest pain abn stress [facility] ER FU cath site check per Genoveva S. Other specified symptoms and signs involving the c DIZZINESS [facility] ER FU PAIN IN RIGHT LOWER LEG PCI w/stenting PCI w/coronary stenting, abnormal Imaging Stress SCREENING - [place] PCI w/coronary stenting, abnormal Imaging Stress FEVER/SORE THROAT/LEFT EAR PAIN Pain in LT Arm EORDERS CAROTID STENOSIS PCI w/coronary stenting, abnormal Imaging Stress PAIN IN L SHOULDER. RX HERE Reason for Visit CAD (coronary artery disease) Presence of stent in coronary artery Pure hypercholesterolemia CAD (coronary artery disease) Presence of stent in coronary artery Pure hypercholesterolemia Vertigo Benign positional vertigo Calf pain Calf swelling Acute left otitis media Left shoulder pain Chief Complaint [facility] ER FU cath site check per Genoveva S. Other specified symptoms and signs involving the c DIZZINESS [facility] ER FU PAIN IN RIGHT LOWER LEG PCI w/stenting PCI w/coronary stenting, abnormal Imaging Stress SCREENING - [place] PCI w/coronary stenting, abnormal Imaging Stress FEVER/SORE THROAT/LEFT EAR PAIN Pain in LT Arm EORDERS CAROTID STENOSIS PCI w/coronary stenting, abnormal Imaging Stress PAIN IN L SHOULDER. RX HERE s/p PCI [facility] EDEMA nosebleed [facility] ER FU PALPS PCI w/coronary stenting, abnormal Imaging Stress Reason for Visit CAD (coronary artery disease) Presence of stent in coronary artery Pure hypercholesterolemia Vertigo Benign positional vertigo Calf pain Calf swelling Acute left otitis media Left shoulder pain Cardiac murmur Edema of right lower extremity Palpitations Presence of stent in coronary artery Pure hypercholesterolemia Acute anterior epistaxis Hx of coronary artery disease Rash and nonspecific skin eruption Chief Complaint PCI w/coronary stent ing, abnormal Imaging Stress SCREENING - [place] PCI w/coronary stenting, abnormal Imaging Stress FEVER/SORE THROAT/LEFT EAR PAIN Pain in LT Arm EORDERS CAROTID STENOSIS PCI w/coronary stenting, abnormal Imaging Stress s/p PCI [facility] EDEMA nosebleed [facility] ER FU PALPS PCI w/coronary stenting, abnormal Imaging Stress PCI w/coronary stenting, abnormal Imaging Stress PAIN IN L SHOULDER. RX HERE WRIST Reason for Visit Acute left otitis me mikala Left shoulder pain Cardiac murmur Edema of right lower extremity Palpitations Presence of stent in coronary artery Pure hypercholesterolemia Rash and nonspecific skin eruption Chief Complaint SCREENING - [place] PCI w/coronary stenting, abnormal Imaging Stress FEVER/SORE THROAT/LEFT EAR PAIN Pain in LT Arm EORDERS CAROTID STENOSIS PCI w/coronary stenting, abnormal Imaging Stress s/p PCI [facility] EDEMA nosebleed [facility] ER FU PALPS PCI w/coronary stenting, abnormal Imaging Stress PCI w/coronary stenting, abnormal Imaging Stress PAIN IN L SHOULDER. RX HERE WRIST Reason for Visit Acute left otitis me mikala Left shoulder pain Cardiac murmur Edema of right lower extremity Palpitations Presence of stent in coronary artery Pure hypercholesterolemia Rash and nonspecific skin eruption Chief Complaint [facility] ER FU PALPS PCI w/coronary stenting, abnormal Imaging Stress PCI w/coronary stenting, abnormal Imaging Stress PAIN IN L SHOULDER. RX HERE WRIST 6 M FU COUGH/CONGESTION/HEAD CONGESTION 3 M FU LEFT FOOT IRRITATION XRAY FX OF ULNA RX HERE Reason for Visit Rash and nonspecific skin eruption CAD (coronary artery disease) Calf swelling Presence of stent in coronary artery Pure hypercholesterolemia Rash and nonspecific skin eruption Familial combined hyperlipidemia Acute bronchitis, unspecified URI (upper respiratory infection) Cardiac murmur Palpitations Presence of stent in coronary artery Pure hypercholesterolemia Arthritis of left foot Strain of left foot Chief Complaint PAIN IN L SHOULDER. RX HERE WRIST 6 M FU COUGH/CONGESTION/HEAD CONGESTION 3 M FU LEFT FOOT IRRITATION XRAY FX OF ULNA RX HERE Reason for Visit CAD (coronary artery disease) Calf swelling Presence of stent in coronary artery Pure hypercholesterolemia Rash and nonspecific skin eruption Familial combined hyperlipidemia Acute bronchitis, unspecified URI (upper respiratory infection) Cardiac murmur Palpitations Presence of stent in coronary artery Pure hypercholesterolemia Arthritis of left foot Strain of left foot Chief Complaint COUGH/CONGESTION/HEA D CONGESTION 3 M FU LEFT FOOT IRRITATION XRAY FX OF ULNA RX HERE E ORDERS Reason for Visit Acute bronchitis, un specified URI (upper respiratory infection) Cardiac murmur Palpitations Presence of stent in coronary artery Pure hypercholesterolemia Arthritis of left foot Strain of left foot Chief Complaint 3 M FU LEFT FOOT IRRITATION XRAY FX OF ULNA RX HERE E ORDERS PARESTHESIA OF SKIN RIGHT SIDE PARESTHESIA OF SKIN RIGHT SIDE Reason for Visit Cardiac murmur Palpitations Presence of stent in coronary artery Pure hypercholesterolemia Arthritis of left foot Strain of left foot Chief Complaint E ORDERS PARESTHESIA OF SKIN RIGHT SIDE PARESTHESIA OF SKIN RIGHT SIDE 4 M FU E-ORDER FX OF R RADIUS RX HERE NOSEBLEED Reason for Visit Cardiac murmur Fatigue Palpitations Presence of stent in coronary artery Pure hypercholesterolemia Chief Complaint FX OF R RADIUS RX HE RE Congestion, Dizzy Reason for Visit Atherosclerotic hear t disease of [place] coronary artery without angina pectoris Benign positional vertigo CAD (coronary artery disease) HTN (hypertension) Chief Complaint Congestion, Dizzy FALL Reason for Visit Atherosclerotic hear t disease of [place] coronary artery without angina pectoris Benign positional vertigo CAD (coronary artery disease) HTN (hypertension) Chief Complaint FALL 6 M FU Dizzy, Nausea CAD / ASHD CTS R WRIST/RX HERE/ VERTIGO Reason for Visit CAD (coronary artery disease) Chest pain CAD (coronary artery disease) Seasonal allergies Vertigo HTN (hypertension) Chief Complaint Admit Date Cough October 21, 2024 2: 59pm 6 M FU October 26, 2024 8: 57am COUGH, EAR PAIN November 26, 2024 8 :50am Earache, Cough November 29, 2024 8:59am Cough, fatigue December 13, 2024 11:20am Sores in Mouth/Blood in Urine December 8:25am INT RAD December 29, 2024 9:3 2am HEMATURIA December 30, 2024 12: 18pm Reason for Visit Admit Date URI (upper respiratory infection) Octuar y 2024 2:59pm Presence of stent in coronary artery Ja 2024 8:57am Pure hypercholesterolemia October 26 8:57am HTN (hypertension) October 26, 2024 8: 57am Acute sinusitis November 26, 2024 8 :50am Acute sinusitis November 29, 2024 8:59am Left ear pain November 29, 2024 8:59am CAD (coronary artery disease) December 8:25am Dizziness December 29, 2024 8:2 5am Fall December 29, 2024 8:2 5am Hematuria December 29, 2024 8:2 5am Left wrist pain December 29, 2024 8:2 5am Reason for Referral Specialty Diagnoses / Procedures Referred By Harsha schuster Referred To Contact Occupational Therapy Diagnoses Carpal tunnel syndrome of right wrist S/P endoscopic carpal tunnel release Procedures MT OFFICE/OUTPATIENT NEW HIGH MDM 60 MINUTES Norma Clements PA-C [address] [facility] [address] [place] [address] Referral ID Status Reason Start Date Expiration Date Visits Requested Visits Authorized [id number] Pending Review Eval and Treat 01/12/2024 01/11/2025 99 99 Additional Source Comments INFORMATION SOURCE (unrecogn ized section and content) DATE CREATED AUTHOR 12/14/2021 [facility] DATE CREATED AUTHOR AUTHOR'S ORGANIZ ATION 02/20/2024 [facility] DATE CREATED AUTHOR AUTHOR'S ORGANIZ ATION 04/02/2025 [facility] Goals (unrecognized section and content) Goals may be documented in a n alternate sectionGoals may be documented in an alternate sectionGoals may be documented in an alternate sectionGoals may be documented in an alternate sectionGoals may be documented in an alternate sectionGoals may be documented in an alternate sectionGoals may be documented in an alternate sectionGoals may be documented in an alternate sectionGoals may be documented in an alternate sectionGoals may be documented in an alternate sectionGoals may be documented in an alternate sectionGoals may be documented in an alternate sectionGoals may be documented in an alternate sectionGoals may be documented in an alternate sectionGoals may be documented in an alternate sectionGoals may be documented in an alternate section Care Teams (unrecognized sec tion and content) Team Status: Active Member Role Status Dates Dr. Mike Hartley III, MD Family Provider Active Dr. Marcella Laird MD Primary Care Provider Active Team Status: Inactive Member Role Status Dates Dr. Marcella Laird MD Primary Care Provider, Referri ng Provider Active Dr. Raphael Sanchez MD Attending Provider Active Team Status: Active Member Role Status Dates Dr. Marcella Laird MD Primary Care Provider Active Dr. Raphael Sanchez MD Attending Provider Active Team Status: Active Member Role Status Dates Dr. Marcella Laird MD Primary Care Provider Active Dr. Raphael Sanchez MD Attending Provid er, Referring Provider, Other Provider Active Team Status: Inactive Member Role Status Dates Dr. Marcella Laird MD Primary Care Provider, Attendi ng Provider Active Team Status: Active Member Role Status Dates Dr. Marcella Laird MD Primary Care Provider Active Dr. Don Elliott MD Attending Provider Active Team Status: Active Member Role Status Dates Dr. Marcella Laird MD Primary Care Provider, Referri ng Provider Active Dr. Stepan Hartley MD Attending Provider Active Team Status: Inactive Member Role Status Dates Dr. Marcella Laird MD Primary Care Provider, Referri ng Provider Active Otto SHARMA, PA Attending Provider Active Team Status: Active Member Role Status Dates Dr. Marcella Laird MD Primary Care Provider Active Dr. Stepan Hartley MD Attending Provider Active Team Status: Inactive Member Role Status Dates Dr. Marcella Laird MD Primary Care Provider Active Dr. Raphael Sanchez MD Attending Provider, Referring Provider Active Team Status: Inactive Member Role Status Dates Dr. Marcella Laird MD Primary Care Provider Active Dr. Raphael Sanchez MD Admit Provider, Attending Provider, Referring Provider Active Team Status: Inactive Member Role Status Dates Dr. Marcella Laird MD Primary Care Provider Active Dr. Hero Crabtree DO Attending Provider, Emergency Provider Active Team Status: Active Member Role Status Dates Dr. Marcella Laird MD Primary Care Provider Active Self Referred Attending Provider Active Team Status: Active Member Role Status Dates Dr. Marcella Laird MD Primary Care Provider Active Dr. Raphael Sanchez MD Attending Provider, Referring Provider Active Team Status: Inactive Member Role Status Dates Dr. Marcella Laird MD Primary Care Provider, Attendi ng Provider Active Marcella Laird MD Referring Provider Active Team Status: Active Member Role Status Dates Dr. Marcella Laird MD Primary Care Pro vider, Attending Provider, Referring Provider Active Team Status: Inactive Member Role Status Dates Dr. Marcella Laird MD Primary Care Pro vider, Attending Provider, Referring Provider Active Team Status: Inactive Member Role Status Dates Dr. Marcella Laird MD Primary Care Provider, Referri ng Provider Active Marisela Crawford RESTAURANT AND BAR MANAGER, RESTAURANT AND BAR MANAGER-C Attending Provider Active Team Status: Inactive Member Role Status Dates Dr. Marcella Laird MD Primary Care Provider Active Marisela Crawford RESTAURANT AND BAR MANAGER, RESTAURANT AND BAR MANAGER-C Attending Provider, Referring P rovider Active Team Status: Active Member Role Status Dates Dr. Marcella Laird MD Primary Care Provider Active Marisela Crawford RESTAURANT AND BAR MANAGER, RESTAURANT AND BAR MANAGER-C Attending Provider, Referring P rovider Active Team Status: Inactive Member Role Status Dates Dr. Marcella Laird MD Primary Care Provider Active Dr. Raphael Alejandre MD Emergency Provider Active Team Status: Active Member Role Status Dates Dr. Marcella Laird MD Primary Care Provider Active Dr. Stepan Hartley MD Attending Provider Active Marisela Crawford RESTAURANT AND BAR MANAGER, RESTAURANT AND BAR MANAGER-C Referring Provider Active Team Status: Inactive Member Role Status Dates Dr. Marcella Laird MD Primary Care Provider, Attendi ng Provider Active Marcella GARCIA MD Referring Provider Active Team Status: Inactive Member Role Status Dates Dr. Marcella Laird MD Primary Care Provider Active Dr. Raphael Alejandre MD Attending Provider, Emergency Pr ovider Active Team Status: Inactive Member Role Status Dates Dr. Marcella Laird MD Primary Care Provider Active Dr. Lucy Thomas MD Emergency Provider Active Team Status: Inactive Member Role Status Dates Dr. Marcella Laird MD Primary Care Provider Active Dr. Lucy Thomas MD Attending Provider, Emergency Provider Active Team Status: Inactive Member Role Status Dates Dr. Marcella Laird MD Primary Care Provider, Referri ng Provider Active Ashwin SHARMA PA Attending Provider Active Team Status: Inactive Member Role Status Dates Dr. Marcella Laird MD Primary Care Provider Active Dr. Jose Sharma MD Attending Provider Active Team Status: Inactive Member Role Status Dates Dr. Marcella Laird MD Primary Care Provider Active EDITH Neil Attending Provider, Referring Provide r Active Team Status: Active Member Role Status Dates Dr. Marcella Laird MD Primary Care Provider Active Dr. Brendan Barraza DO Referring Provider, Other Pr ovider Active Dr. Alexis Vargas MD Attending Provider Active Team Status: Inactive Member Role Status Dates Dr. Marcella Laird MD Primary Care Provider Active Dr. Brendan Barraza DO Attending Provider, Referrin g Provider Active Team Status: Active Member Role Status Dates Dr. Marcella Laird MD Primary Care Provider Active Dr. Brendan Barraza DO Attending Provider, Referrin g Provider Active Team Status: Inactive Member Role Status Dates Dr. Marcella Laird MD Primary Care Provider Active Dr. 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 Marcella Laird MD Primary Care Provider Active Dr. 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 Marcella Laird MD Primary Care Provider, Referri ng Provider Active Dr. Manolo Tai MD Attending Provider Active Team Status: Active Member Role Status Dates Dr. Marcella Laird MD Primary Care Provider Active Dr. Briana Shrestha MD Attending Provider Activ e Team Status: Inactive Member Role Status Dates Dr. Marcella Laird MD Primary Care Provider Active Dr. Piyush Galicia DO Attending Provider, Emergency Provide r Active Team Status: Inactive Member Role Status Dates Dr. Marcella Laird MD Primary Care Provider Active Dr. Manolo Tai MD Attending Provider, Referring Provider Active Team Status: Active Member Role Status Dates Dr. Marcella Laird MD Primary Care Provider Active TYREE GREEN Attending Provider, Referring Provid er Active [employer] Still Runner Compounder Relationship Specialty Start Date End Date Marcella Laird [address] [place] [phone] PCP - General Internal Medicine 10/30/23 Team Status: Active Member Role Status Dates Dr. Marcella Laird MD Primary Care Provider Active Team Status: Inactive Member Role Status Dates Dr. Marcella Laird MD Primary Care Provider Active Start: October 21, 2024 End: October 21, 2024 Dr. Marcella Laird MD Referring Provider Active Start: October 21, 2024 End: October 21, 2024 Otto SHARMA PA Attending Provider Active Sta rt: October 21, 2024 End: October 21, 2024 Team Status: Inactive Member Role Status Dates Dr. Marcella Laird MD Primary Care Provider Active Start: October 26, 2024 End: October 26, 2024 Dr. Marcella Laird MD Referring Provider Active Start: October 26, 2024 End: October 26, 2024 Genoveva SHARMA PA Attending Provider Active Start: October 26, 2024 End: October 26, 2024 Team Status: Inactive Member Role Status Dates Dr. Marcella Laird MD Primary Care Provider Active Start: October 27, 2024 End: October 27, 2024 Genoveva Petit PA, PA Attending Provider Active Start: October 27, 2024 End: October 27, 2024 Genoveva Petit PA, PA Referring Provider Active Start: October 27, 2024 End: October 27, 2024 Team Status: Inactive Member Role Status Dates Dr. Marcella Laird MD Primary Care Provider Active Start: November 26, 2024 End: November 26, 2024 Dr. Marcella Laird MD Referring Provider Active Start: November 26, 2024 End: November 26, 2024 Otto SHARMA PA Attending Provider Active Sta rt: November 26, 2024 End: November 26, 2024 Team Status: Inactive Member Role Status Dates Dr. Marcella Laird MD Primary Care Provider Active Start: November 29, 2024 End: November 29, 2024 Dr. Marcella Laird MD Attending Provider Active Start: November 29, 2024 End: November 29, 2024 Team Status: Inactive Member Role Status Dates Dr. Marcella Laird MD Primary Care Provider Active Start: December 13, 2024 End: December 13, 2024 Dr. Marcella Laird MD Attending Provider Active Start: December 13, 2024 End: December 13, 2024 Team Status: Inactive Member Role Status Dates Dr. Marcella Laird MD Primary Care Provider Active Start: December 13, 2024 End: December 13, 2024 Dr. Marcella Laird MD Attending Provider Active Start: December 13, 2024 End: December 13, 2024 Dr. Marcella Laird MD Referring Provider Active Start: December 13, 2024 End: December 13, 2024 Team Status: Inactive Member Role Status Dates Dr. Marcella Laird MD Primary Care Provider Active Start: December 29, 2024 End: December 29, 2024 Dr. Marcella Laird MD Attending Provider Active Start: December 29, 2024 End: December 29, 2024 Team Status: Inactive Member Role Status Dates Dr. Marcella Laird MD Primary Care Provider Active Start: December 29, 2024 End: December 29, 2024 Dr. Marcella Laird MD Attending Provider Active Start: December 29, 2024 End: December 29, 2024 Dr. Marcella Laird MD Referring Provider Active Start: December 29, 2024 End: December 29, 2024 Team Status: Active Member Role Status Dates Dr. Marcella Laird MD Primary Care Provider Active Start: December 30, 2024 Dr. Marcella Laird MD Attending Provider Active Start: December 30, 2024 Dr. Marcella Laird MD Referring Provider Active Start: December 30, 2024 Team Status: Inactive Member Role Status Dates Dr. Marcella Laird MD Primary Care Provider Active Start: December 30, 2024 End: December 30, 2024 Dr. Marcella Laird MD Attending Provider Active Start: December 30, 2024 End: December 30, 2024 Dr. Marcella Laird MD Referring Provider Active Start: December 30, 2024 End: December 30, 2024 Reason for Visit (unrecogniz ed section and content) Reason Comments Fracture 2nd opinion from [facility] Right distal radius fracture, DOI 01/12/23 Specialty Diagnoses / Procedures Referred By Contac t Referred To Contact Diagnoses Carpal tunnel syndrome, right upper limb Carpal tunnel syndrome, right upper limb [G56.01] Procedures MT NDSC WRST SURG W/RLS TRANSVRS CARPL LIGM MT ARTHROCENTESIS ASPIR&/INJ INTERM JT/BURS W/O US ENDOSCOPIC RIGHT CARPAL TUNNEL RELEASE, POSSIBLE OPEN, RIGHT DORSAL RADIOCARPAL WRIST INJECTION ARTHROCENTESIS ASPIRATION AND/OR INJECTION INTERMEDIATE JOINT OR BURSA Martha Reed MD [address] [facility] [address] [place] [address] [facility] Main Or [address] [place] [address] Referral ID Status Reason Start Date Expiration Date Visits Re quested Visits Authorized [id number] 1 1 Reason Comments Post-op Endoscopic RIGHT car pal tunnel release, Right Radiocarpal Joint steroid injection on 01/02/24 Reason Comments Post-op Endoscopic RIGHT car pal tunnel release, possible open, Right dorsal radiocarpal wrist injection on 01/02/24 Scheduled Active and Recently Administ ered Medications (unrecognized section and content) Medication Order 12/31/2023 01/01/2024 01/02/2024 acetaminophen (Tylenol) tablet 1,000 mg (COMPLETED) 1,000 mg, Oral, Once, On Fri01/02/24 at 0815, For 1 dose, Preprocedure, Administer 60 minutes prior to surgery. 0844 (Given - Provid er: Becki Garcia RN) clindamycin in D5W (Cleocin) IVPB 600 mg (COMPLETED) 600 mg, IntraVENous, at 100 mL/hr, Administer over 30 Minutes, Once, On Fri01/02/24 at 0815, For 1 dose, Preprocedure, Administer 30 Minutes prior to surgery in the pre-operative area. premix bag, Suspected Indication (Select all that apply): Surgical Prophylaxis 0941 (Given - Provid er: Ashwin Hilliard APRN - ITZEL) famotidine (Pepcid) tablet 20 mg (COMPLETED)(Linked Group 1) 20 mg, Oral, Once, On Fri01/02/24 at 0815, For 1 dose, Preprocedure, IV or Oral - Use PO option as first line. If unable to tolerate PO, then okay to use IV. 0844 (Given - Provid er: Becki Garcia RN) sodium chloride 0.9% (NS) flush 10 mL 10 mL, IntraVENous, Every 12 hours scheduled (2 times per day), First dose on Fri01/02/24 at 0900, Preprocedure 0900 (Canceled Entry - Provider: Automatic Discharge Provider - Comment: Automatically canceled at discontinue of medication order) sodium chloride 0.9% (NS) flush 5-40 mL 5-40 mL, IntraVENous, Every 12 hours, First dose on Fri01/02/24 at 0815, Preprocedure, For Line Patency: Peripheral IV = 5 mL; Midline or Central Line = 10 mL/lumen. If following IV push medication, administer flush at same rate as the IV push. Flush volume is determined by type of infusion therapy being given. For non-viscous solutions use: Peripheral IV = 5 mL Midline or Central Line = 10 mL/lumen For viscous solutions (i.e. blood components, parenteral nutrition, contrast media, or after obtaining blood sample) use: Peripheral IV = 10 mL Midline or Central Line = 20 mL/lumen 0815 (Canceled Entry - Provider: Automatic Discharge Provider - Comment: Automatically canceled at discontinue of medication order) Continuous Medication Order 12/31/2023 01/01/2024 01/02/2024 lactated Ringer's (LR) infusion 50 mL/hr, IntraVENous, Continuous, Starting on Fri01/02/24 at 0815, Preprocedure, Upon admission to sameday - please start iv if patient does not have iv access. Use 500ml NS for patients on dialysis. 0815 (New Bag - Prov ider: Becki Garcia RN)0939 (Continued by Anesthesia - Provider: Ashwin Hilliard APRN - INSURANCE CLAIMS SUPERVISOR) PRN Medication Order 12/31/2023 01/01/2024 01/02/2024 betamethasone acetate-betamethasone sodium phosphate (Celestone) injection (CANCELED) As needed, Starting on Fri01/02/24 at 0958, Intraprocedure 0958 (Given - Provid er: Martha Reed MD - Comment: mixed 50/50 with 1% Lidocaine) diphenhydrAMINE (BENADryl) injection 12.5 mg 12.5 mg, IntraVENous, Once PRN, itching, Starting on Fri01/02/24 at 1015, For 1 dose, Recovery (only) hydrALAZINE (Apresoline) injection 5 mg(Linked Group 2) 5 mg, IntraVENous, Every 15 min PRN, high blood pressure, for SBP greater than 160 mmHg for 2 consecutive measurements taken from different sites, Starting on Fri01/02/24 at 1015, For 2 doses, Recovery (only), PRN for SBP > 160 for 2 consecutive measurements, and if one of the following conditions is met: 1) If IV labetolol is ineffective. 2) If HR is under 60. 3) If patient has heart block, COPD or asthma. If both labetalol and hydralazine ineffective, notify anesthesia provider. HYDROmorphone (Dilaudid) injection 0.25 mg 0.25 mg, IntraVENous, Every 5 min PRN, moderate pain (4-6), Starting on Fri01/02/24 at 1005, For 4 doses, Recovery (only), For Phase I. If Phase II oral narcotics have been administered in the last 60 minutes, do not administer IV narcotics unless specifically approved by provider. HYDROmorphone (Dilaudid) injection 0.5 mg 0.5 mg, IntraVENous, Every 5 min PRN, severe pain (7-10), Starting on Fri01/02/24 at 1005, For 4 doses, Recovery (only), For Phase I. If Phase II oral narcotics have been administered in the last 60 minutes, do not administer IV narcotics unless specifically approved by provider. labetalol (Normodyne,Trandate) injection 5 mg(Linked Group 2) 5 mg, IntraVENous, Every 10 min PRN, high blood pressure, for SBP greater than 160 mmHg for 2 consecutive measurements taken from different sites., Starting on Fri01/02/24 at 1015, For 2 doses, Recovery (only), PRN for SBP >160 for 2 consecutive measurements, if HR is 60 or greater. If beta chidi is contraindicated (HR less than 60, heart block, COPD or asthma) use hydralazine IV order. lidocaine (Xylocaine) 1 % injection (CANCELED) As needed, Starting on Fri01/02/24 at 0959, Intraprocedure 0959 (Given - Provid er: Martha Reed MD - Comment: mixed 50/50 with celestone 1ml) lidocaine-EPINEPHrine (Xylocaine W/EPI) 1 %-[id number] injection (CANCELED) As needed, Starting on Fri01/02/24 at 0958, Intraprocedure 0958 (Given - Provid er: Martha Reed MD) LORazepam (Ativan) injection 0.5 mg 0.5 mg, IntraVENous, Once PRN, for anxiety or muscle spasm., Starting on Fri01/02/24 at 1015, For 1 dose, Recovery (only), For IV doses dilute dose with 1ml NS. ondansetron (Zofran) injection 4 mg 4 mg, IntraVENous, Once PRN, nausea, Starting on Fri01/02/24 at 1015, For 1 dose, Recovery (only), Initial antiemetic therapy. oxyCODONE (Roxicodone) immediate release tablet 10 mg(Linked Group 3) 10 mg, Oral, PRN, severe pain (7-10), Starting on Fri01/02/24 at 1005, For 1 dose, Recovery (only), PHASE II oxyCODONE (Roxicodone) immediate release tablet 5 mg(Linked Group 3) 5 mg, Oral, PRN, moderate pain (4-6), Starting on Fri01/02/24 at 1005, For 1 dose, Recovery (only), PHASE II sodium chloride 0.9 % bolus 500 mL 500 mL, IntraVENous, at 1,000 mL/hr, Administer over 0.5 Hours, PRN, Anti-nausea, Starting on Fri01/02/24 at 1005, Recovery (only), Indications: Anti-nausea sodium chloride 0.9 % infusion 5-250 mL/hr, IntraVENous, PRN, if patient receiving piggyback infusions and maintenance fluids are not ordered OR KVO fluids to protect IV site / prevent frequent line interruptions / long duration, Starting on Fri01/02/24 at 0808, Preprocedure, For piggyback infusion, administer at same rate as piggyback for a total of 25 mL. Enter 25 mL into dose field and piggyback rate into rate field of order. If piggyback is infusing at a rate less than 100 mL/hr, enter 25 mL into dose field and 100 mL/hr into rate field of order. For KVO fluids, enter rate of 20 mL/hr or less into rate field of order. sodium chloride 0.9 % infusion 5-250 mL/hr, IntraVENous, PRN, if patient receiving piggyback infusions and maintenance fluids are not ordered OR KVO fluids to protect IV site / prevent frequent line interruptions/ long duration, Starting on Fri01/02/24 at 0808, Preprocedure, For piggyback infusion, administer at same rate as piggyback for a total of 25 mL. Enter 25 mL into dose field and piggyback rate into rate field of order. If piggyback is infusing at a rate less than 100 mL/hr, enter 25 mL into dose field and 100 mL/hr into rate field of order. For KVO fluids, enter rate of 20 mL/hr or less into rate field of order. sodium chloride 0.9 % irrigation solution (CANCELED) As needed, Starting on Fri01/02/24 at 0957, Intraprocedure 0957 (Given - Provid er: Martha Reed MD) sodium chloride 0.9% (NS) flush 10 mL 10 mL, IntraVENous, PRN, line care, Starting on Fri01/02/24 at 0808, Preprocedure, After every IV line use sodium chloride 0.9% (NS) flush 5-40 mL 5-40 mL, IntraVENous, PRN, line care, After every IV line use, Starting on Fri01/02/24 at 0808, Preprocedure, For Line Patency: Peripheral IV = 5 mL; Midline or Central Line = 10 mL/lumen. If following IV push medication, administer flush at same rate as the IV push. Flush volume is determined by type of infusion therapy being given. For non-viscous solutions use: Peripheral IV = 5 mL Midline or Central Line = 10 mL/lumen For viscous solutions (i.e. blood components, parenteral nutrition, contrast media, or after obtaining blood sample) use: Peripheral IV = 10 mL Midline or Central Line = 20 mL/lumen Linked Groups Order Group 1: famotidine (Pepcid) tablet 20 mg (COMPLETED)Jump to med 20 mg, Oral, Once, On Fri01/02/24 at 0815, For 1 dose, Preprocedure, IV or Oral - Use PO option as first line. If unable to tolerate PO, then okay to use IV. Or famotidine (Pepcid) 20 mg in sodium chloride (PF) 0.9 % 10 mL injection (COMPLETED) 20 mg, IntraVENous, Administer over 2 Minutes, Once, On Fri01/02/24 at 0815, For 1 dose, Preprocedure, IV or Oral Group 2: labetalol (Normodyne,Trandate) injection 5 mgJump to med 5 mg, IntraVENous, Every 10 min PRN, high blood pressure, for SBP greater than 160 mmHg for 2 consecutive measurements taken from different sites., Starting on Fri01/02/24 at 1015, For 2 doses, Recovery (only), PRN for SBP >160 for 2 consecutive measurements, if HR is 60 or greater. If beta chidi is contraindicated (HR less than 60, heart block, COPD or asthma) use hydralazine IV order. Or hydrALAZINE (Apresoline) injection 5 mgJump to med 5 mg, IntraVENous, Every 15 min PRN, high blood pressure, for SBP greater than 160 mmHg for 2 consecutive measurements taken from different sites, Starting on Fri01/02/24 at 1015, For 2 doses, Recovery (only), PRN for SBP > 160 for 2 consecutive measurements, and if one of the following conditions is met: 1) If IV labetolol is ineffective. 2) If HR is under 60. 3) If patient has heart block, COPD or asthma. If both labetalol and hydralazine ineffective, notify anesthesia provider. Group 3: oxyCODONE (Roxicodone) immediate release tablet 5 mgJump to med 5 mg, Oral, PRN, moderate pain (4-6), Starting on Fri01/02/24 at 1005, For 1 dose, Recovery (only), PHASE II Or oxyCODONE (Roxicodone) immediate release tablet 10 mgJump to med 10 mg, Oral, PRN, severe pain (7-10), Starting on Fri01/02/24 at 1005, For 1 dose, Recovery (only), PHASE II FOR RECORDS PERTAINING TO PATIENTS WHO ARE OR HAVE BEEN ENROLLED IN A CHEMICAL DEPENDENCY/SUBSTANCEABUSE PROGRAM, SOME INFORMATION MAY BE OMITTED. This clinical summary was aggregated from multiple sources. Caution should be exercised in using it in the provision of clinical care. This summary normalizes information from multiple sources, and as a consequence, information in this document may materially change the coding, format and clinical context of patient data. In addition, data may be omitted in some cases. CLINICAL DECISIONS SHOULD BE BASED ON THE PRIMARY CLINICAL RECORDS. [facility], [facility]. provides no warranty or guarantee of the accuracy or completeness of information in this document.
== END | disposition home or self-care (01) ==
LOC: PSN 06:51
PROVIDERS: PCP Internal Medicine; Referring Provider Internal Medicine; Visit Provider Internal Medicine
DX: R06.00 Dyspnea, unspecified (principal); R05.9 Cough, unspecified
CPT/HCPCS: 94060; 94726; 94729

== ENCOUNTER → 2025-04-18 | Outpatient (CLI) | payer MEDICARE, SELFPAY ==
[2024-12-13 08:56] VITALS: BMI 29.7
--- NOTE | 2025-04-18 18:47 | CT_ITS ---
PROCEDURE: CHEST WITHOUT CONTRAST 04/18/2025 REASON FOR EXAM: ABNORMAL DIFFUSION PFT, COUGH/FATIGUE TECHNIQUE: Chest CT without contrast. Coronal and Sagittal reconstruction series were provided. One or more dose reduction techniques were used (e.g., Automated exposure control, adjustment of the mA and/or kV according to patient size, use of iterative reconstruction technique RADIATION DOSE SUMMARY: CTDlvol: 10.33 mGy DLP: 369.20 mGycm COMPARISON: Previous plain films FINDINGS: Lung windows show the lungs to be normally expanded. There is no organized infiltrate, effusion or suspicious noncalcified mass or nodule. There is evidence of chronic bronchitis and some fibrotic scarring in the lower lung baldwin. Soft tissue windows show a normal-appearing thyroid gland. No suspicious adenopathy. Peripheral calcifications noted in the thoracic aorta without aneurysm. There are calcified coronary vessels. Limited cuts through the upper abdomen show thickening of the distal esophagus suggesting reflux esophagitis. No suspicious solid organ abnormality. There has been a previous cholecystectomy. Bony structures show degenerative change CT/Chest without Contrast IMPRESSION: Coronary artery calcification (CAC) is is present No acute pulmonary process, no suspicious noncalcified mass or nodule. There i s evidence of chronic bronchitis No suspicious adenopathy Reading Location: [id number]
== END | disposition home or self-care (01) ==
PROVIDERS: PCP Internal Medicine; Referring Provider Internal Medicine; Visit Provider Internal Medicine
DX: R94.2 Abnormal results of pulmonary function studies (principal); R06.00 Dyspnea, unspecified; R05.9 Cough, unspecified; R53.83 Other fatigue
CPT/HCPCS: 71250

== ENCOUNTER 2025-07-26 11:42 | Emergency (ER) | payer MEDICARE, SELFPAY ==
[2024-12-13 08:56] VITALS: BMI 29.7
[2025-07-26 11:43] VITALS: BP 107/93; PULSE 56; RESP 16; TEMP 36.6; O2SAT 100; BMI 29.5
--- NOTE | 2025-07-26 11:58 | CT_ITS ---
PROCEDURE: CHEST WITHOUT CONTRAST 07/26/2025 REASON FOR EXAM: TRAUMA TECHNIQUE: Chest CT without contrast. Coronal and Sagittal reconstruction series were provided. One or more dose reduction techniques were used (e.g., Automated exposure control, adjustment of the mA and/or kV according to patient size, use of iterative reconstruction technique RADIATION DOSE SUMMARY: CTDlvol: 11 mGy DLP: 426 mGycm COMPARISON: April 18, 2025 FINDINGS: Hardware: None Lymph nodes: None appear enlarged. Heart and Vasculature: Normal-size. No pericardial effusion. Aortic atherosclerosis. Aortic valve calcification. Coronary Artery Calcifications: Present Lungs and Airways: Linear scarring of the lung bases. No consolidation, mass or worrisome nodule. Pleura: No pleural effusion or pneumothorax. Upper Abdomen: Cholecystectomy Bones: Degenerative changes upper thoracic spine. Features of AVN involving the left humeral head in addition to secondary osteoarthritic change.. CT/Chest without Contrast IMPRESSION: 1. No acute abnormality. 2. Aortic atherosclerosis. Aortic valve calcification. Coronary artery disea se. 3. Cholecystectomy. Degenerative changes thoracic spine. 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 Reading Location: [id number]
--- NOTE | 2025-07-26 11:59 | ED.VIS.FALL ---
HPI HPI - Fall History of Present Illness Chief Complaint: Fall Narrative Narrative: 80-year-old female presents status post fall, mechanical, just prior to arrival. She states she was walking in her house, wearing shoes, and she tripped over a box. She fell on the carpet. While she may have lightly hit her face, she denies any neck pain or loss of consciousness. She is complaining mainly of right sided chest pain/anterior chest wall pain worse with movement and breathing. She also has right wrist pain as she fell forward onto her right wrist. She does have a history of carpal tunnel in that wrist as well however. She states that her right second toe is also painful. She denies other injuries. She does not take any blood thinners. [facility] Medical History Sleeping difficulty Nasal congestion Abnormal diffusion capacity determined by pulmonary function test Dyspnea Cough Left wrist pain Fall Hematuria Left ear pain Right wrist pain Wears glasses Post-menopausal Arthritis History of Holter monitoring History of echocardiogram History of stress test Cardiology follow-up encounter History of patellar fracture Mastoiditis, chronic Dizziness Acute bronchitis, unspecified URI (upper respiratory infection) HTN (hypertension) Decreased radial pulse Atherosclerotic heart disease of [place] coronary artery without angina pectoris Pure hypercholesterolemia Colon cancer Bilateral cataracts Seasonal allergies Personal history of colonic polyps Home Medications ?Medication ?Instructions ?Recorded ?Last Taken ?Type carvedilol 3.125 mg tablet 3.125 mg PO DAILY #180 tabs 07/27/24 Unknown Rx acetaminophen 650 mg 650 mg PO QHS PRN pain 08/27/24 Unknown History tablet,extended release (Tylenol Arthritis Pain) cyanocobalamin (vitamin B-12) 500 500 mcg PO DAILY B12 #90 tabs 12/29/24 Unknown Rx mcg tablet hydrochlorothiazide 12.5 mg tablet 12.5 mg PO DAILY #90 tabs 12/29/24 Unknown Rx cholecalciferol (vitamin D3) 50 50 mcg PO DAILY Vit D #90 tabs 07/11/25 Unknown Rx mcg (2,000 unit) tablet Allergy/AdvReac Type Severity Reaction Status Date / Time atorvastatin calcium (From Allergy myalgias Verified 07/26/25 11:46 Lipitor) clarithromycin Allergy Nausea/Vom/ Verified 07/26/25 11:46 Diarrhea desloratadine (From Clarinex) Allergy Unknown Verified 07/26/25 11:46 guaifenesin (From Entex [place]) Allergy Unknown Verified 07/26/25 11:46 hydrocodone bitartrate (From Allergy Other Verified 07/26/25 11:46 Vicodin) methylprednisolone Allergy Unknown Verified 07/26/25 11:46 nystatin Allergy Unknown Verified 07/26/25 11:46 pentoxifylline Allergy Nausea/Vom/ Verified 07/26/25 11:46 Diarrhea phenylephrine HCl (From Allergy Unknown Verified 07/26/25 11:46 Entex LA) phenylpropanolamine HCl Allergy Unknown Verified 07/26/25 11:46 (From Entex [place]) sulfamethoxazole (From Allergy Unknown Verified 07/26/25 11:46 Bactrim) trimethoprim (From Bactrim) Allergy Unknown Verified 07/26/25 11:46 ibuprofen AdvReac Intermediate Bleeding Verified 07/26/25 11:46 isosorbide AdvReac Intermediate Dizziness, Verified 07/26/25 11:46 weakness amlodipine AdvReac Other Verified 07/26/25 11:46 pravastatin AdvReac Myalgia Verified 07/26/25 11:46 Family History Mother Diabetes Heart disease Father Heart disease Myocardial infarction Sister Diabetes Heart disease Hypertension Sister Heart disease Surgical History History of cardiac catheterization History of coronary artery stent placement History of carpal tunnel release (~2022) H/O shoulder surgery Presence of stent in coronary artery (~08/06/22) Presence of coronary angioplasty implant and graft (~08/06/22) History of bilateral cataract extraction History of bowel resection History of colonoscopy Social History Smoking Status: Never smoker alcohol intake: never substance use type: does not use caffeine: Yes Type: carbonated beverages Number of servings: 2 and tea Number of servings: 2 additional social history: Uses Ibuprofen prn ROS ROS ED ROS Narrative Review of systems positive for right-sided chest pain, right wrist pain, and right second toe pain. While she struck her face/nose on the carpet, she denies loss of consciousness, no neck pain. No epistaxis. No headache. Right sided chest pain worse with movement as well as deep breathing. EXAM Physical Exam Narrative Exam Narrative: GCS 15. ABCs intact. HEENT examination shows no outward signs of trauma, no epistaxis, no nasal ecchymosis. Neck soft and supple without meningismus. Cardiovascular examination reveals mild bradycardia. Lungs clear to auscultation bilaterally. Abdomen soft and nontender. Bowel tenderness palpation right chest wall anteriorly, mild tenderness parasternal as well. No crepitance. Neurological examination nonfocal, nonlateralizing. Mild tenderness to palpation of right second digit, no crepitance, palpable dorsalis pedis pulse, right. Const Vital Signs: 07/26/25 11:43 07/26/25 11:53 Temperature 97.9 F Temperature Source Oral Pulse Rate 56 L Respiratory Rate 16 Respiratory Effort Normal Non-Labored Respiratory Depth Normal Respiratory Pattern Normal Blood Pressure 107/93 H Blood Pressure Mean 97 Pulse Ox 100 Oxygen Delivery Method Room Air Room Air MDM MDM MDM Narrative Medical decision making narrative: Differential diagnosis includes but not limited to right rib fractures versus rib contusions/chest wall contusion versus right wrist fracture versus sprain versus toe sprain versus foot fracture. Patient declines any oral analgesics currently. On my independent interpretation of the x-ray of the right wrist, there is no evidence of an acute fracture. I reviewed the radiology report which confirms my independent interpretation. On my independent interpretation of the x-ray of the right foot, there is no evidence of fracture. I reviewed the radiology report which also confirms my independent interpretation. Regarding her second toe I offered to anne tape it, but she declined. Regarding her wrist, I offered a Velcro splint but she states she has 1 from when she had carpal tunnel surgery and declined. She is more accepting of Tylenol here as she states she does not do well with other analgesics. I reviewed the radiology report of the CT of the chest and there is no acute abnormality, no rib fracture or pneumothorax. She declined ice pack here as well. At this point in time, I feel she can be discharged to follow-up with her primary care provider. She will take [id number] medications like Tylenol. Return instructions to the emergency department were reviewed. Disposition is discharged home in stable condition. History & Record Review Discussion w/independent historian: Patient Radiography Diagnostic Testing: Clinical Impression(s) from Imaging Studies Chest CT 07/26/25 11:58 IMPRESSION: 1. No acute abnormality. 2. Aortic atherosclerosis. Aortic valve calcification. Coronary artery disease. 3. Cholecystectomy. Degenerative changes thoracic spine. 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 Reading Location: [id number] Foot X-Ray 07/26/25 12:15 IMPRESSION: No evidence of fracture. Mild plantar calcaneal spurring. Degenerative change in the distal head of the 5th metacarpal. Reading [facility] Wrist [facility]-Ray 07/26/25 12:15 IMPRESSION: Arthrosis as described, similar to previous. Mild osteopenia. Reading [facility] Discharge Plan Triage Chief Complaint: Fall ED Provider: Eran Harrison Dx/Rx/DC Orders Clinical Impression: Fall, Right wrist sprain, Sprain of toe, second, right, Chest wall contusion Instructions: ED Chest Wall Contusion, ED Toe Sprain, ED Wrist Sprain, ED Fall Prevention Prescriptions: No Action acetaminophen [Tylenol Arthritis Pain] 650 mg tablet extended release 650 mg PO QHS PRN (Reason: pain) cyanocobalamin (vitamin B-12) 500 mcg tablet 500 mcg PO DAILY Qty: 90 3RF hydrochlorothiazide 12.5 mg tablet 12.5 mg PO DAILY Qty: 90 3RF carvedilol 3.125 mg tablet 3.125 mg PO DAILY Qty: 180 3RF cholecalciferol (vitamin D3) 50 mcg (2,000 unit) tablet 50 mcg PO DAILY Qty: 90 3RF Primary Care Provider: Danna Laird Referrals: Danna Laird MD [Primary Care Provider, Internal Medicine - [facility]] - 1 Week if not improving Activity Restrictions/Additional Instructions: Tylenol as directed for pain. Return with increased difficulty breathing, new or worsening symptoms. Wear your wrist brace as needed for the next week. Print Language: Swazi Disposition Disposition: Home, Self Care
--- NOTE | 2025-07-26 12:15 | RAD_ITS ---
PROCEDURE: FOOT MIN 3 VIEWS 07/26/2025 REASON FOR EXAM: TRAUMA TECHNIQUE: Procedure Code: RADFO Modality: DX Procedure: FOOT MIN 3 VIEWS Laterality: FINDINGS: Mild plantar calcaneal spurring. No posterior calcaneal spurring. No definite ankle effusion. No significant talonavicular joint arthrosis. No widening of the 1st proximal metatarsal interspace. No evidence of fracture, erosive or destructive process. Degenerative change in the distal head of the 5th metacarpal. RAD/Foot min 3 Views IMPRESSION: No evidence of fracture. Mild plantar calcaneal spurring. Degenerative change in the distal head of the 5th metacarpal. Reading Location: [facility]
--- NOTE | 2025-07-26 12:15 | RAD_ITS ---
PROCEDURE: WRIST MIN 3 VIEWS 07/26/2025 REASON FOR EXAM: TRAUMA TECHNIQUE: Procedure Code: RADWR Modality: DX Procedure: WRIST MIN 3 VIEWS Laterality: COMPARISON: Right wrist radiographs 03/30/2024. FINDINGS: Arthrosis of the 1st carpometacarpal joint and the triscaphe joint, similar to previous. Arthrosis of the 1st metacarpophalangeal joint, with ulnar subluxation of the proximal phalanx in relation to the 1st metacarpal head, similar to previous. Normal scapholunate interval. No evidence of fracture. Alignment appears near anatomic on the lateral view. Mild osteopenia. RAD/Wrist min 3 Views IMPRESSION: Arthrosis as described, similar to previous. Mild osteopenia. Reading Location: [facility]
[2025-07-26 13:38] VITALS: BP 156/60; PULSE 97; RESP 16; TEMP 36.6; O2SAT 99
== END 2025-07-26 13:39 | disposition home or self-care (01) ==
PROVIDERS: Emergency Provider Emergency Medicine; PCP Internal Medicine; Visit Provider Emergency Medicine
DX: S63.91XA Sprain of unspecified part of right wrist and hand, initial encounter (principal); S20.219A Contusion of unspecified front wall of thorax, initial encounter; E78.00 Pure hypercholesterolemia, unspecified; M25.531 Pain in right wrist; I10 Essential (primary) hypertension; I25.10 Atherosclerotic heart disease of native coronary artery without angina pectoris; S93.504A Unspecified sprain of right lesser toe(s), initial encounter; W01.0XXA Fall on same level from slipping, tripping and stumbling without subsequent striking against object, initial encounter
CPT/HCPCS: 71250; 73110; 73630; 99282

== ENCOUNTER → 2025-08-11 | Outpatient (CLI) | payer MEDICARE, SELFPAY ==
[2024-12-13 08:56] VITALS: BMI 29.7
--- NOTE | 2025-08-11 12:56 | RAD_ITS ---
PROCEDURE: WRIST MIN 3 VIEWS 08/11/2025 REASON FOR EXAM: RIGHT WRIST PAIN. ATTN: SCAPHOID TECHNIQUE: Procedure Code: RADWR Modality: DX Procedure: WRIST MIN 3 VIEWS Laterality: Right COMPARISON: None. FINDINGS: Bones: No acute bony abnormalities. Joints: Radiocarpal and 1st metacarpal joint space narrowing with sclerosis. Soft tissues: No soft tissue abnormalities. Other: RAD/Wrist min 3 Views IMPRESSION: No acute osseous abnormalities. Reading Location: [id number]
== END | disposition home or self-care (01) ==
LOC: MTRAD 12:56
PROVIDERS: PCP Internal Medicine; Referring Provider Internal Medicine; Visit Provider Internal Medicine
DX: M25.531 Pain in right wrist (principal); W19.XXXA Unspecified fall, initial encounter
CPT/HCPCS: 73110

== ENCOUNTER → 2025-10-10 | Outpatient (CLI) | payer MEDICARE, SELFPAY ==
[2024-12-13 08:56] VITALS: BMI 29.7
--- NOTE | 2025-10-10 08:50 | CDU_ITS ---
Reason For Study Reason For Study: Lightheadedness Rt. Velocities/BP Lt. Velocities/BP Prox CCA 106/11 cm/sec. Prox CCA 132/13 cm/sec. Mid CCA 132/23 cm/sec. Mid CCA 95/13 cm/sec. Dist CCA 75/19 cm/sec. Dist CCA 85/21 cm/sec. Prox ICA 97/16 cm/sec. Prox ICA 101/30 cm/sec. Mid ICA 121/20 cm/sec. Mid ICA 119/21 cm/sec. Dist ICA 122/23 cm/sec. Dist ICA 117/35 cm/sec. Rt. ICA/CCA = 0.92. Lt. ICA/CCA = 1.3. Prox ECA 154/19 cm/sec. Prox ECA 122/18 cm/sec. Rt. Vert. 69/11 cm/sec. Lt. Vert. 96/29 cm/sec. Right Extracranial There is heterogeneous, irregular atherosclerotic plaque noted in the right common carotid artery. There is heterogeneous, irregular atherosclerotic plaque noted in the right internal carotid artery. There is heterogeneous, irregular atherosclerotic plaque noted in the right external carotid artery. Antegrade flow is noted in the right vertebral artery. Left Extracranial There is heterogeneous, irregular atherosclerotic plaque noted in the left common carotid artery. There is heterogeneous, irregular atherosclerotic plaque noted in the left internal carotid artery. There is heterogeneous, irregular atherosclerotic plaque noted in the left external carotid artery. Antegrade flow is noted in the left vertebral artery. Procedure Carotid Duplex 20087. This is a Carotid Duplex examination using B-mode, color flow and specral Doppler. Exam performed in department. VL/Carotid Duplex Ultrasound Interpretation Summary Mild (<50%) stenosis right extracranial internal carotid. Mild (<50%) stenosis left extracranial internal carotid. Patent and antegrade vertebrals bilaterally. Ordering Physician: Marisela Crawford Referring Physician: Danna Laird Performed By: Lisa Doherty, DORETHA, RVT
== END | disposition home or self-care (01) ==
LOC: CVS 08:49
PROVIDERS: PCP Internal Medicine; Referring Provider Nurse Practitioner Gerontology; Visit Provider Nurse Practitioner Gerontology
DX: R42 Dizziness and giddiness (principal)
CPT/HCPCS: 93880